=== PATIENT | male | born 1960 | race Caucasian/White ===

== ENCOUNTER → 2020-07-07 08:04 | Outpatient (CLI) | payer BC, MEDICARE, SELFPAY ==
[2020-07-07 12:12] LABS: Coronavirus 19 IgG Antibody Negative (Negative); Coronavirus 19 IgM Antibody Negative (Negative)
== END ==
PROVIDERS: Visit Provider Internal Medicine Gastroenterology
DX: Z01.818 Encounter for other preprocedural examination (principal); Z12.11 Encounter for screening for malignant neoplasm of colon
CPT/HCPCS: 36415; 86328

== ENCOUNTER 2020-07-08 11:06 | Day surgery (SDC) | payer BC, MEDICARE, SELFPAY ==
[2020-07-01 09:09] VITALS: BMI 25.8
[2020-07-08] VITALS (7 sets, daily range): BP systolic 96–155; BP diastolic 61–81; PULSE 57–74; RESP 18; TEMP 35.8–36.7; O2SAT 93–99
--- NOTE | 2020-07-08 12:41 | P.PN_ITS ---
[facility] Anesthesia Checklist - Patient Identification Patient Identification: Arm Band - Structural Data Admitted From: Home Planned Operative Procedure/s: colonoscopy Consent for Planned Operative Procedure(s) Verified: Yes Verified Documents: Surgical Consent, History and Physical - NPO Status Verified Time NPO: 00:00 - Additional verifications Anesthesia Reactions: No - Airway Assessment C-Spine Mobility Assessed: Yes (mp2) TMJ Mobility Assessed: Yes Dentition: Good Dentition - Neurological Assessment Level of Consciousness: Awake, Alert - Anesthesia Plan Anesthesia Risk discussed: Yes Anesthesia Plan: Verified ASA Class: II Anesthesia Type: MAC [facility] History I have reviewed the patient's past medical history: Yes Medical History: Reports:: Hiatal Hernia, Hyperlipidemia, Hypertension Denies:: Cancer, Diabetes Mellitus Type 1, Internal Pacemaker, MRSA, Seizures *Have you ever received a pneumonia vaccine?: No *Have you received a flu vaccine this season?: No Anesthesia experience/problems:: nac Laterality Cases: Right: Arthroscopy Shoulder Other Surgeries: Yes: Colonoscopy. No: Pacemaker Amputation: No Fractures: No - *Social History Last grade of school completed: High school graduate Smoking Status: Former smoker Alcohol Intake: never Substance Use Type: denies use *Occupational Status:: disabled *Travel in the last 8 weeks: None Family Hx:: No significant family history
--- NOTE | 2020-07-08 12:45 | P.PCN_ITS ---
[facility] Procedure Note Procedure Note:: Colonoscopy Procedure Report: Colonoscopy with cold snare polypectomy Endoscopist: Jayme Lawrence II, MD Referring physician: Martin Rendon MD Date of Procedure: July 08, 2020 Equipment: Olympus 180 variable stiffness pediatric colonoscope Sedation: MAC sedation Indication: Mr. Ham is a 60-year-old gentleman who is here for follow-up screening/surveillance colonoscopy. His last colonoscopy 9 or 10 years ago was normal. He reports no abdominal pain, weight loss, change in his bowel habits or rectal bleeding. He reports no family history of colon cancer. Procedure: Prior to the procedure, a history and physical exam was performed, and patient's medications and allergies were reviewed. The risks, benefits and alternatives of the sedation and procedure were discussed with the patient. All questions were answered and informed consent was obtained. The patient was brought to the procedure room. Patient identification and proposed procedure were verified by the physician and the nurse. The patient was placed in a left lateral decubitus position and the scope was passed under direct vision. Throughout the procedure, the patient's blood pressure, pulse, and oxygen saturations were monitored continuously. The colonoscopy was accomplished without difficulty. The patient tolerated the procedure well. Findings: On digital rectal examination there was normal rectal tone. There were no external hemorrhoids. Smooth, soft, mildly asymmetric without nodules. The colonoscope was introduced through the anal canal to the rectum and advanced to the cecum. The ileocecal valve and appendiceal orifice were identified. The scope was advanced a short distance into the ileum which appeared grossly normal. The scope was then withdrawn into the colon. The cecum was normal. There were 3 colon polyps (ascending x1 (10 mm), descending x1 (7 mm) and sigmoid x1 (5 mm)) which were all removed via cold snare polypectomy. There were scattered diverticuli throughout the colon but more predominantly in the descending and sigmoid colon (LEFT colon). The rectum itself was normal. Upon retroflexion within the rectum there were grade 1-2 internal hemorrhoids. The preparation was good throughout with [place] Preparation Score of 8 out of 9. The cecal time was 12 minutes. Impression: 1. Colonic polyps x3 2. Pandiverticulosis 3. Grade 1-2 internal hemorrhoids Plan: I will follow up the polyp pathology and recommend repeat colonoscopy again in 3-5 years based upon the polyp histology. I would encourage fiber supplementation on a long-term daily maintenance basis.
== END 2020-07-08 13:50 | disposition home or self-care (01) ==
LOC: OUTP 11:11
PROVIDERS: PCP Family Medicine; Visit Provider Internal Medicine Gastroenterology
PROC: 0DJD8ZZ Inspection of Lower Intestinal Tract, Via Natural or Artificial Opening Endoscopic (ICD-10-PCS; CPT 45378; principal; 2020-07-08 12:30)
DX: Z12.11 Encounter for screening for malignant neoplasm of colon (principal); K63.5 Polyp of colon; K57.30 Diverticulosis of large intestine without perforation or abscess without bleeding; K64.0 First degree hemorrhoids; I10 Essential (primary) hypertension; Z87.39 Personal history of other diseases of the musculoskeletal system and connective tissue; E78.5 Hyperlipidemia, unspecified
CPT/HCPCS: 45385

== ENCOUNTER → 2020-07-12 08:29 | Outpatient (CLI) | payer BC, MEDICARE, SELFPAY ==
[2020-07-12 09:02] LABS: Basophils % 0.5 % (0.1-2.0); Eosinophils # 0.2 K/mm3 (0.0-0.4); Eosinophils % 2.2 % (0.1-12.0); Hematocrit 45.7 % (42.0-52.0); Hemoglobin 15.5 g/dL (14.1-18.0); Lymphocytes # 2.3 K/mm3 (0.7-4.5); Lymphocytes % 33.6 % (10-50); Mean Corpuscular HGB Conc 33.9 g/dL (31.8-35.4); Mean Corpuscular Hemoglobin 31.7 pg (27.0-31.2); Mean Corpuscular Volume 93.4 fl (80-94); Mean Platelet Volume 8.5 fl (7.4-10.4); Monocytes # 0.4 K/mm3 (0.1-1.0); Monocytes % 5.5 % (1.7-9.3); Neutrophils % 58.2 % (37.0-80.0); Platelet Count 229 K/mm3 (142-424); Red Cell Distribution Width 13.3 % (11.5-17.5); White Blood Count 6.8 K/mm3 (4.8-10.8)
[2020-07-12 11:34] LABS: Anion Gap 12.4 mEq/L (5-15); Blood Urea Nitrogen 14 mg/dl (9-20); Calcium 9.7 mg/dl (8.4-10.2); Carbon Dioxide 27 mmol/L (22.0-30.0); Chloride 105 mmol/L (98-107); Estimated Glomerular Filt Rate 99 ml/min (>60); GFR (African American) 119 ML/MIN (>60); Glucose 97 mg/dl (74-100); Potassium 4.4 mmoL/L (3.5-5.1); Sodium 140 mmol/L (136-145)
[2020-07-12 13:02] LABS: Coronavirus 19 IgG Antibody Negative (Negative); Coronavirus 19 IgM Antibody Negative (Negative)
== END ==
PROVIDERS: Visit Provider Surgery
DX: Z01.818 Encounter for other preprocedural examination (principal); K40.20 Bilateral inguinal hernia, without obstruction or gangrene, not specified as recurrent
CPT/HCPCS: 36415; 80048; 85025; 86328

== ENCOUNTER 2020-07-13 07:59 | Day surgery (SDC) | payer BC, MEDICARE, SELFPAY ==
[2020-07-11 12:35] VITALS: BMI 25.8
[2020-07-13] VITALS (16 sets, daily range): BP systolic 118–163; BP diastolic 53–78; PULSE 56–101; RESP 14–26; TEMP 36.2–43; O2SAT 92–100
--- NOTE | 2020-07-13 08:37 | HMH.ANESCL ---
[facility] Anesthesia Checklist - Patient Identification Patient Identification: Arm Band, Verbal (Name & ) - Structural Data Admitted From: Home Planned Operative Procedure/s: ing. hernia Consent for Planned Operative Procedure(s) Verified: Yes Verified Documents: History and Physical - NPO Status Verified Time NPO: 00:00 - Chart Verification Results Verified: CBC, BMP - Additional verifications Patient : No Anesthesia Reactions: No Hx Blood Transfusions: No Blood Transfusion Reaction: No Cephalosporin Allergy: No Previous Colonoscopy: Yes - Cardiovascular Assessment Heart Sounds: S1 & S2 Pulse Strength: Baseline Pulse Rhythm: Regular Peripheral Edema: No - Airway Assessment C-Spine Mobility Assessed: Yes TMJ Mobility Assessed: Yes Dentition: Good Dentition - Neurological Assessment Level of Consciousness: Awake, Alert, Appropriate Hx Seizures: No Numbness or tingling in extremities: No - Anesthesia Plan Anesthesia Risk discussed: Yes Anesthesia Plan: Verified ASA Class: II Anesthesia Type: General [facility] History I have reviewed the patient's past medical history: Yes Medical History: Reports:: Hiatal Hernia, Hyperlipidemia, Hypertension Denies:: Cancer, Diabetes Mellitus Type 1, Diabetes Mellitus Type 2, Internal Pacemaker, MRSA, Seizures *Have you ever received a pneumonia vaccine?: Yes *Have you received a flu vaccine this season?: Yes Other Medical History: Denies: Blood Transfusion Reaction Anesthesia experience/problems:: none Laterality Cases: Right: Arthroscopy Shoulder Other Surgeries: Yes: Colonoscopy. No: Pacemaker Amputation: No Fractures: No - *Social History Last grade of school completed: High school graduate Smoking Status: Former smoker Alcohol Intake: never Substance Use Type: denies use *Occupational Status:: disabled *Travel in the last 8 weeks: None Family Hx:: No significant family history
--- NOTE | 2020-07-13 10:59 | HMH.OPNOTE ---
Date of procedure: 07/13/20 Pre-op Diagnosis:: Bilateral inguinal hernias Post-op Diagnosis:: Same Procedure performed:: Bilateral laparoscopic inguinal hernia repair (TEPP) with placement of Bard 3 DMax mesh bilaterally large sized Surgeon:: Angelo Moyer MD FUNDS DEVELOPMENT DIRECTOR:: Martin Cristina Anesthesia: GETObey Estimated blood loss (mL): 25 Clinical Note:: Patient is a very pleasant 60-year-old male referred by Dr. Rendon for left inguinal hernia. Patient states that he has had occasional bulge in the left groin area for about 1 year. However, it is become more severe and symptomatic with increasing size and increasing discomfort. He states that when he is lifting or coughing his symptoms are worse. He has not had any symptomatic issues on the right side. Of note, the patient is on Flomax. He has had some change in bowel habits with constipation. He underwent colonoscopy with Dr. Lawrence on July 08 and had a couple of polyps. Operative findings:: He had a moderately large direct and moderate indirect hernia on the left. There is a small to moderate indirect hernia on the right without any definite evidence of direct hernia on the right although the inguinal floor was rather attenuated and weakened. Operative note:: Patient was taken to the operating room. He was positioned in a supine position. General anesthesia was induced. Pool catheter was placed. Abdomen and perineal area were prepped and draped in the standard surgical fashion. Subumbilical skin incision was made. Dissection was carried down to the fascia which was rather deep. Anterior rectus fascia was incised to the left of the linea alba. Rectus muscles were retracted laterally. Preperitoneal space was entered. Dissecting balloon trocar was inserted and the preperitoneal space was dissected out. Dissecting balloon trocar was replaced with the structural balloon trocar. CO2 pneumo preperitoneum was achieved. A couple 5 mm trochars were inserted in the midline. Attention was first turned to dissection of the left side. There was immediately noted an obvious direct hernia defect. Amish's ligament was identified. Cord structures and iliac vessels and inferior epigastric vessels were identified. Dissection was carried out dissecting free the remainder of the contents from the direct hernia. Cord structures were dissected free from surrounding tissues. There was some herniated preperitoneal fat along the cord as an indirect hernia and there was a moderate size defect at the internal ring. Dissection was carried out laterally in the preperitoneal space for mesh placement. Next attention was turned to dissection on the right. A similar fashion Amish ligament was identified as were all previously noted landmarks. The cord structures were dissected free from surrounding tissues. There appeared to be some attenuation of the integrity of the floor of the inguinal canal but no definite defect noted. There was evidence of indirect hernia and there was a hernia sac which was dissected free from the proximal cord. Dissection was carried out laterally to allow for mesh placement. A large sized Bard 3D max mesh dedicated for the right side was inserted into the preperitoneal space. Is oriented intracorporeally to cover the iliopectineal orifice in its entirety. Next a large sized Bard 3D max mesh dedicated for the left side was inserted into the preperitoneal space. It was oriented intracorporeally to cover the iliopectineal orifice in its entirety. Repair appeared adequate bilaterally. There was good hemostasis. Trochars were then removed as CO2 pneumoperitoneum was evacuated. The posterior fascia at the umbilicus was opened to evacuate any intra-abdominal gas. Anterior fascia at the umbilical incision was closed with a couple of interrupted 0 Vicryl suture. Local anesthetic was infiltrated into all trocar sites as well as for bilateral inguinal nerve blocks. Skin incisions cl
--- NOTE | 2020-07-13 11:05 | P.PN_ITS ---
[facility] Anesthesia Record Part I Intake, IV Amount: 900 Estimated blood loss (mL): 5 Urine output (mL): 250 Blood Products used (#): none Blood Pressure: 129/62 SaO2: 93 Pulse Rate: 79 Respiratory Rate: 18 Temperature: 97.7 F Patient is:: Drowsy, Stable Stable to PACU at:: 11:03
--- NOTE | 2020-07-13 12:10 | HMH.ANESII ---
[facility] Anesthesia Record Part II Discharge Time: 11:33 Destination: Surgical Day Care (OP Surgery) PACU nurse assessment reviewed?: Yes Patient Condition:: Good Anesthesia Complications:: None Swallowing reflex intact?: Yes Cyanosis?: No Blood Pressure: 128/53 Pulse Rate: 75 Temperature: 97.2 F Mental Status: Alert & Oriented Pain level:: 3 Nausea and/or vomitting:: None Intake, IV Amount: 50
== END 2020-07-13 12:45 | disposition home or self-care (01) ==
LOC: OR 08:02
PROVIDERS: PCP Family Medicine; Visit Provider Surgery
PROC: (CPT 49650; principal; 2020-07-13 09:45)
DX: K40.20 Bilateral inguinal hernia, without obstruction or gangrene, not specified as recurrent (principal); I10 Essential (primary) hypertension; E78.5 Hyperlipidemia, unspecified; Z79.899 Other long term (current) drug therapy; Z87.39 Personal history of other diseases of the musculoskeletal system and connective tissue; Z87.891 Personal history of nicotine dependence
CPT/HCPCS: 49650; 96374; J2405; J2710

== ENCOUNTER 2020-07-13 20:07 | Emergency (ER) | payer BC, MEDICARE, SELFPAY ==
[2020-07-13 20:08] VITALS: BP 134/74; PULSE 81; RESP 16; TEMP 36.8; O2SAT 98; BMI 25.8
[2020-07-13 20:54] VITALS: BP 129/74; PULSE 81; RESP 16; TEMP 36.8; O2SAT 98
== END 2020-07-13 20:54 | disposition left against medical advice (07) ==
LOC: ER 20:18
PROVIDERS: Emergency Provider Emergency Medicine; PCP Family Medicine
DX: Z53.21 Procedure and treatment not carried out due to patient leaving prior to being seen by health care provider (principal)
CPT/HCPCS: 99211

== ENCOUNTER → 2022-09-11 18:35 | Outpatient (CLI) | payer MEDICARE, BC, SELFPAY ==
[2022-09-11 15:08] LABS: Basophils # 0.1 K/mm3 (0-0.2); Basophils % 0.8 % (0.1-2.0); Eosinophils # 0.1 K/mm3 (0.0-0.4); Eosinophils % 1.4 % (0.1-12.0); Hematocrit 46.1 % (42.0-52.0); Hemoglobin 15.2 g/dL (14.1-18.0); Lymphocytes # 1.9 K/mm3 (0.7-4.5); Lymphocytes % 22.3 % (10-50); Mean Corpuscular HGB Conc 32.9 g/dL (31.8-35.4); Mean Corpuscular Volume 94.4 fl (80-94); Mean Platelet Volume 9.7 fl (7.4-10.4); Monocytes # 0.4 K/mm3 (0.1-1.0); Monocytes % 4.4 % (1.7-9.3); Neutrophils # 6.2 K/mm3 (1.8-7.8); Neutrophils % 71.2 % (37.0-80.0); Platelet Count 252 K/mm3 (142-424); Red Blood Count 4.89 M/mm3 (4.60-6.20); Red Cell Distribution Width 13.3 % (11.5-17.5); White Blood Count 8.6 K/mm3 (4.8-10.8)
[2022-09-11 15:26] LABS: Alanine Aminotransferase 20 U/L (12-78); Albumin Level 4.5 g/dl (3.5-5.0); Albumin/Globulin Ratio 1.5 (1.1-1.8); Alkaline Phosphatase 105 U/L (38-126); Anion Gap 11.6 mEq/L (5-15); Aspartate Amino Transferase 26 U/L (17-59); Bilirubin,Total 0.5 mg/dl (0.2-1.3); Blood Urea Nitrogen 11 mg/dl (9-20); Calcium 9.3 mg/dl (8.4-10.2); Carbon Dioxide 26 mmol/L (22.0-30.0); Chloride 106 mmol/L (98-107); Chol/HDL Ratio 2.7 (1-3.5); Cholesterol 183 mg/dl (140-200); Estimated Glomerular Filt Rate 98 ml/min (>60); GFR (African American) 119 ML/MIN (>60); Glucose 96 mg/dl (74-100); HDL Cholesterol 68 mg/dl (40-60); Potassium 4.6 mmoL/L (3.5-5.1); Sodium 139 mmol/L (136-145); Total Protein,Serum 7.5 g/dl (6.3-8.2); Triglycerides 91 mg/dl (30-150); VLDL Cholesterol 18 mg/dL (0-40)
[2022-09-11 15:37] LABS: Direct LDL Cholesterol 83.41 mg/dL (100-129)
[2022-09-11 15:59] LABS: Prostate Specific Ag Screen 2.8 ng/ml (0.0-4.0); Thyroid Stimulating Hormone 1.07 uIU/mL (0.465-4.68)
[2022-09-18 06:05] LABS: Testosterone, Total, LC/MS 492 ng/dL (.)
== END ==
PROVIDERS: PCP Family Medicine; Visit Provider Family Medicine
DX: Z12.5 Encounter for screening for malignant neoplasm of prostate (principal); I10 Essential (primary) hypertension; E78.5 Hyperlipidemia, unspecified; M25.512 Pain in left shoulder
CPT/HCPCS: 80053; 80061; 84403; 84443; 85025; G0103

== ENCOUNTER → 2022-09-20 14:29 | Outpatient (CLI) | payer MEDICARE, BC, SELFPAY ==
--- NOTE | 2022-09-20 14:32 | CT_ITS ---
FINAL REPORT TECHNIQUE: Axial CT images of the chest were obtained without contrast. Low-dose protocol was utilized. This study was performed with techniques to keep radiation doses as low as reasonably achievable (ALARA). Individualized dose reduction techniques using automated exposure control or adjustment of mA and/or kV according to the patient's size were employed. CLINICAL HISTORY: lung cancer screening former smoker quit 1 year ago 1ppd x35 years when smoking COMPARISON: none FINDINGS: CT CHEST WITHOUT, LOW DOSE SCREENING CT Di Vol: 2.90 mGy DLP: 92.21 mGy*cm There is no axillary, mediastinal, or hilar adenopathy. The heart size is normal. There is no pleural or pericardial effusion. The lung windows show emphysema. There is mild scarring or atelectasis in the lung bases. No suspicious mass or nodule. Limited images of the upper abdomen remarkable. IMPRESSION: No suspicious mass or nodule. LR Category 1: 12 month follow-up low-dose chest CT is recommended. Reviewed, Interpreted and Dictated by Federico Lopez MD Transcribed by Sophia Izquierdo Authenticated and [facility]
== END ==
PROVIDERS: PCP Family Medicine; Visit Provider Family Medicine
DX: Z87.891 Personal history of nicotine dependence (principal); Z12.2 Encounter for screening for malignant neoplasm of respiratory organs
CPT/HCPCS: 71271

== ENCOUNTER → 2022-10-04 12:48 | Outpatient (CLI) | payer MEDICARE, BC, SELFPAY ==
--- NOTE | 2022-10-04 12:58 | XR_ITS ---
FINAL REPORT CLINICAL HISTORY: shoulder pain FINDINGS: Right shoulder Three views were obtained. There is no acute fracture or dislocation. There are mild hypertrophic changes of the AC joint. No soft tissue abnormality is identified. IMPRESSION: No acute process. Reviewed, Interpreted and Dictated by Rodriguez Goins MD Transcribed by Karina Reilly Authenticated and [facility]
== END ==
PROVIDERS: PCP Family Medicine; Visit Provider Orthopaedic Surgery
DX: M25.511 Pain in right shoulder (principal)
CPT/HCPCS: 73030

== ENCOUNTER → 2022-10-15 09:33 | Outpatient (CLI) | payer MEDICARE, BC, SELFPAY ==
--- NOTE | 2022-10-15 09:34 | MR_ITS ---
FINAL REPORT CLINICAL HISTORY: shoulder pain. NO INJURY OR TRAUMA. Weakness in arm. FINDINGS: Multiplanar MR imaging of the right shoulder was performed after the intra-articular injection of dilute gadolinium solution. There are postoperative changes from rotator cuff repair. There is a high-grade full-thickness tear of the distal supraspinatus tendon. There is a full-thickness tear of the superior distal subscapularis tendon. Contrast leakage is seen from the glenohumeral joint to the subacromial/subdeltoid bursa. There is mild AC joint arthrosis. There is abnormal contrast involving the posterior labrum consistent with a tear. The long head of the biceps tendon is not seen, question biceps tenotomy or biceps tenodesis. There is mild supraspinatus muscle atrophy and moderate subscapularis muscle atrophy. There is no evidence of fracture. No soft tissue mass or cyst is identified. IMPRESSION: High-grade full-thickness tear of the supraspinatus tendon with mild muscle atrophy. Full-thickness tear of the subscapularis tendon with moderate muscle atrophy. Posterior labral tear. Biceps tenotomy versus biceps tenodesis. Reviewed, Interpreted and Dictated by Angelo Spencer III, MD Transcribed by Karina Reilly Authenticated and . [facility]
--- NOTE | 2022-10-15 10:02 | IR_ITS ---
FINAL REPORT CLINICAL HISTORY: shouder pain...0.50 fluoro time FINDINGS: Arthrogram Right shoulder injection for MRI arthrogram HISTORY: Right shoulder pain. PROCEDURE: After informed consent was obtained, a time-out was performed. Utilizing local anesthesia and sterile technique, with direct fluoroscopic guidance, access to the joint was obtained . A small amount of contrast was injected to confirm needle tip location. Additional gadolinium contrast was injected. IMPRESSION: Status post injection for MRI arthrogram without immediate complication. Please see MRI report. FLUOROSCOPY TIME: 0.5 minutes Films reviewed , interpreted and dictated by Dr. Spencer Transcribed by Eric Perez PA-C. Reviewed, Interpreted and Dictated by Angelo Spencer III, MD Transcribed by POONAM Murrell Authenticated and . [facility]
== END ==
PROVIDERS: PCP Family Medicine; Visit Provider Orthopaedic Surgery
DX: M25.511 Pain in right shoulder (principal)
CPT/HCPCS: 20610; 23350; 73040; 73222

== ENCOUNTER → 2023-01-28 12:08 | Outpatient (CLI) | payer MEDICARE, BC, SELFPAY | PROVIDERS: PCP Nurse Practitioner; Visit Provider Nurse Practitioner | DX: J06.9 Acute upper respiratory infection, unspecified (principal); J40 Bronchitis, not specified as acute or chronic | CPT/HCPCS: 87635; C9803; U0003; U0005 ==

== ENCOUNTER → 2023-07-24 08:29 | Outpatient (CLI) | payer MEDICARE, BC, SELFPAY ==
[2023-07-24 19:35] LABS: Erythrocyte Sedimentation Rate 4 mm/hr (0-20)
[2023-07-24 19:37] LABS: Uric Acid 4.7 mg/dl (3.5-8.5)
[2023-07-26 12:28] LABS: RA Latex Turbid. <10.0 IU/mL (<14.0)
[2023-07-26 16:28] LABS: Antinuclear Antibodies, IFA Negative (.)
== END ==
PROVIDERS: PCP Family Medicine; Visit Provider Family Medicine
DX: M15.4 Erosive (osteo)arthritis (principal); M25.511 Pain in right shoulder
CPT/HCPCS: 84550; 85651; 86038; 86431

== ENCOUNTER → 2023-08-16 08:38 | Outpatient (CLI) | payer MEDICARE, BC, SELFPAY ==
[2023-08-16 17:55] LABS: Adenovirus,PCR Not Detected (NotDetected); Coronavirus 19, PCR Not Detected (NotDetected); Coronavirus 229E Not Detected (NotDetected); Coronavirus NL63 Not Detected (NotDetected); Coronavirus OC43 Not Detected (NotDetected); Coronovirus HKU1,PCR Not Detected (NotDetected); Human Metapneumovirus Not Detected (NotDetected); Influenza A, PCR Not Detected (NotDetected); Influenza AH1, 2009 Not Detected (NotDetected); Influenza AH1, PCR Not Detected (NotDetected); Influenza AH3,PCR Not Detected (NotDetected); Influenza B, PCR Not Detected (NotDetected); Parainfluenza 1, PCR Not Detected (NotDetected); Parainfluenza 2, PCR Not Detected (NotDetected); Parainfluenza 3, PCR Not Detected (NotDetected); Parainfluenza 4, PCR Not Detected (NotDetected); Respiratory Syncytial Virus Not Detected (NotDetected); Rhinovirus/Enterovirus Not Detected (NotDetected)
[2023-08-16 18:16] LABS: Basophils % 0.4 % (0.1-2.0); Eosinophils % 0.6 % (0.1-12.0); Hematocrit 44.4 % (42.0-52.0); Hemoglobin 14.7 g/dL (14.1-18.0); Lymphocytes % 14.5 % (10-50); Mean Corpuscular Volume 97.1 fl (80-94); Mean Platelet Volume 10.5 fl (7.4-10.4); Monocytes # 0.5 K/mm3 (0.1-1.0); Neutrophils # 5.3 K/mm3 (1.8-7.8); Neutrophils % 77.5 % (37.0-80.0); Platelet Count 156 K/mm3 (142-424); Red Blood Count 4.58 M/mm3 (4.60-6.20); Red Cell Distribution Width 13.8 % (11.5-17.5); White Blood Count 6.8 K/mm3 (4.8-10.8)
[2023-08-16 18:56] LABS: Alanine Aminotransferase 40 U/L (12-78); Albumin Level 3.8 g/dl (3.5-5.0); Albumin/Globulin Ratio 1.2 (1.1-1.8); Alkaline Phosphatase 117 U/L (38-126); Anion Gap 8.9 mEq/L (5-15); Aspartate Amino Transferase 49 U/L (17-59); Bilirubin,Total 0.7 mg/dl (0.2-1.3); Blood Urea Nitrogen 17 mg/dl (9-20); Calcium 8.6 mg/dl (8.4-10.2); Carbon Dioxide 23 mmol/L (22.0-30.0); Chloride 107 mmol/L (98-107); Estimated Glomerular Filt Rate 98 ml/min (>60); GFR (African American) 118 ML/MIN (>60); Globulin 3.1 g/dL (1.3-3.2); Glucose 112 mg/dl (74-100); Potassium 3.9 mmoL/L (3.5-5.1); Sodium 135 mmol/L (136-145); Total Protein,Serum 6.9 g/dl (6.3-8.2)
== END ==
LOC: LAB.DROPOF 08-17 08:39
PROVIDERS: PCP Family Medicine; Visit Provider Family Medicine
DX: Z53.21 Procedure and treatment not carried out due to patient leaving prior to being seen by health care provider; J06.9 Acute upper respiratory infection, unspecified; R50.9 Fever, unspecified; R53.83 Other fatigue; R09.81 Nasal congestion; R68.89 Other general symptoms and signs; R09.89 Other specified symptoms and signs involving the circulatory and respiratory systems
CPT/HCPCS: 80053; 85025; 87632; 87635

== ENCOUNTER 2024-01-14 15:15 | Emergency (ER) | payer MEDICARE, BC, SELFPAY ==
[2024-01-14 15:15] VITALS: BP 158/69; PULSE 77; RESP 20; TEMP 36.9; O2SAT 98; BMI 23.6
--- NOTE | 2024-01-14 15:19 | ED_ITS ---
<Statement entered by Magalie Callahan DO - 01/14/24 20:31> I was consulted by the ALECIA, and we discussed the complexity of the problems being addressed. I approved the treatment and management plan for this patient's care in the emergency department, thus performing a substantive portion of the medical decision making. Magalie Callahan DO Discharge Plan Disposition Patient Disposition: Home, Self-Care Condition: Good Prescriptions Prescriptions: No Action albuterol sulfate 90 mcg/actuation HFA aerosol inhaler 2 puff inhalation Q4-6H PRN (Reason: shortness of breath or wheezing) Qty: 8.5 0RF amlodipine-benazepril [Lotrel] 10-40 mg capsule 1 cap PO DAILY Qty: 90 3RF terbinafine HCl 250 mg tablet 250 mg PO QDAY 84 Days Qty: 84 0RF trazodone 150 mg tablet 150 mg PO HS PRN (Reason: insomnia) Qty: 90 3RF fluticasone propionate [Flonase Allergy Relief] 50 mcg/actuation spray,suspension 1 spray intranasal DAILY Qty: 16 2RF Rx Instructions: administer into each nostril levocetirizine [Xyzal] 5 mg tablet 5 mg PO DAILY Qty: 90 3RF Vraylar 1.5 mg capsule 1.5 mg PO DAILY Qty: 30 3RF ascorbic acid (vitamin C) 500 mg tablet 500 mg PO DAILY ergocalciferol (vitamin D2) [Drisdol] 1,250 mcg (50,000 unit) capsule 1,250 mcg PO WEEKLY Qty: 15 10RF meloxicam 15 mg tablet 15 mg PO DAILY Qty: 90 3RF tamsulosin 0.4 mg capsule See Rx Instructions .ROUTE .COMPLEX Qty: 90 3RF Dose Instruction: TAKE ONE (1) CAPSULE BY MOUTH ONCE DAILY Rx Instructions: TAKE ONE (1) CAPSULE BY MOUTH ONCE DAILY ropinirole 3 mg tablet 6 mg PO HS Qty: 180 3RF gabapentin 600 mg tablet 600 mg PO BID PRN (Reason: pain) Qty: 60 5RF Referrals Follow up/Referrals: Jonathan Hutchinson MD [Staff Physician] - See instructions Parker Rendon MD [Primary Care Provider] - See instructions Activity Restrictions/Add. Instructions Additional Instructions/Restrictions: Please follow-up with your PCP for ongoing evaluation for other causes. We have ruled out any serious or life-threatening causes but other potential causes can be ruled out as an outpatient. I have also referred you to cardiology for evaluation of low heart rate which also could be a potential cause of your confusion. Return to ER for any worsening signs or symptoms as needed. Clinical Impressions Clinical Impression: Bradycardia, Acute confusion, Hypoglycemia Instructions Patient Instructions: DI for Hypoglycemia, DI for Bradycardia Discharge ED Provider: Magalie Callahan General Adult HPI General Chief complaint: Weakness Stated complaint: sugar level 63 Time Seen by Provider: 01/14/24 15:17 History of Present Illness HPI narrative: Patient presents for evaluation of acute confusion and hypoglycemia. For the last week patient has had periods of confusion and irritability and he is aware of his confusion. It mainly consists of forgetting where he places things going to retrieve something and forgetting what he was going to retrieve on the way. Patient denies any loss of consciousness any trauma chest pain fever chills hemoptysis hematochezia melena nausea vomiting diarrhea. Patient does report that he has had frequent headaches over the last week. Patient's is a diabetic and she is checked his blood sugar periodically during these events and noted that he has had very low blood sugar and today it was in the 60s. They attempted to go to their PCP and they sent him to the emergency department for evaluation. Patient currently is awake alert and oriented with a Glascow coma score 15 with no headache and blood sugar on arrival was 93 on arrival here. Related Data Home Medications Medication Instructions Recorded Confirmed ascorbic acid (vitamin C) 500 mg 500 mg PO DAILY Supplement 06/09/20 01/10/24 tablet Previous Rx's Medication Instructions Recorded ergocalciferol (vitamin D2) 1,250 1,250 mcg PO WEEKLY #15 caps 11/07/20 mcg (50,000 unit) capsule (Drisdol) albuterol sulfate 90 mcg/actuation 2 puff inhalation Q4-6H PRN 01/28/23 aerosol inhaler shortness of breath or wheezing #8.5 grams tamsulosin 0.4 mg capsule See Rx Instructions .Route 04/26/23 .COMPLEX #90 caps ropinirole 3 mg tablet 6 mg (2 x 3 mg) PO HS #180 tabs 06/20/23 gabapentin 600 mg tablet 600 mg PO BID PRN pain #60 tabs 07/22/23 meloxicam 15 mg tablet 15 mg PO DAILY #90 tabs 07/24/23 amlodipine 10 mg-benazepril 40 mg 1 cap PO DAILY #90 caps 11/29/23 capsule (Lotrel) terbinafine HCl 250 mg tablet 250 mg PO QDAY 12 weeks #84 tabs 11/29/23 trazodone 150 mg tablet 150 mg PO HS PRN insomnia #90 tabs 11/29/23 cariprazine 1.5 mg capsule 1.5 mg PO DAILY #30 caps 01/10/24 (Vraylar) fluticasone propionate 50 1 spray intranasal DAILY #16 grams 01/10/24 mcg/actuation nasal spray,suspension (Flonase Allergy Relief) levocetirizine 5 mg tablet (Xyzal) 5 mg PO DAILY #90 tabs 01/10/24 Allergies Allergy/AdvReac Type Severity Reaction Status Date / Time No Known Allergies Allergy Verified 01/10/24 08:58 [facility] Disclaimer: The information contained in this section may have been updated after the patient was seen, as this information can be updated by other users. Medical History Shoulder pain Surgical History Status post arthroscopy of right shoulder Social History Smoking Status: Never smoker alcohol intake: never substance use type: denies use current occupational status: disabled Travel in the last 8 weeks: None housing: house caffeine: Yes ROS Obtained: Yes Systems reviewed as appropriate & no additional complaints except as documented Physical Exam General General appearance: alert and in no apparent distress Head Head exam: atraumatic and normal inspection Eye Eye exam: Present normal appearance, PERRL and EOMI; Absent nystagmus ENT ENT exam: Present normal exam, normal oropharynx, mucous membranes moist and TM's normal bilaterally Neck Neck exam: Present normal inspection and full ROM; Absent tenderness, meningismus or lymphadenopathy Chest Chest inspection: Present normal inspection and symmetric chest wall rise Respiratory Respiratory exam: Present normal lung sounds bilaterally; Absent respiratory distress Cardiovascular Cardiovascular exam: Present normal rhythm (Slow rate), bradycardia and normal heart sounds Abdominal Exam Abdominal exam: Present soft and normal bowel sounds; Absent tenderness, guarding, rebound or rigidity Extremities Exam Extremities exam: Present normal inspection and full ROM Back Exam Back exam: Present normal inspection and full ROM; Absent tenderness, CVA tenderness (R) or CVA tenderness (L) Neurological Exam Neurological exam: Present alert and oriented X3 Psychiatric Psychiatric exam: Present normal affect and normal mood Skin Skin exam: Present warm, dry and normal color Medical Decision Making Medical Records Medical records reviewed: Yes I reviewed the patient's medical records. Afshin Inquiry Pt receiving controlled substance: No Vital Signs: 01/14/24 15:15 01/14/24 15:30 01/14/24 16:02 Temperature 98.5 F Temperature Source Oral Pulse Rate 62 55 L Pulse Rate [Left Radial] 77 Respiratory Rate 20 Blood Pressure 157/81 H 120/48 L Blood Pressure [Right Arm] 158/69 H Blood Pressure Mean [Right Arm] 98 02 Sat by Pulse Oximetry 98 98 96 Oxygen Delivery Method 01/14/24 17:38 Temperature 98.5 F Temperature Source Oral Pulse Rate 50 L Pulse Rate [Left Radial] Respiratory Rate 18 Blood Pressure 156/76 H Blood Pressure [Right Arm] Blood Pressure Mean [Right Arm] 02 Sat by Pulse Oximetry Oxygen Delivery Method Room Air Lab Data Lab results reviewed: Yes I reviewed the patient's lab results. Lab Results 01/14/24 15:32: VBG pH 7.36, VBG pCO2 44.9, VBG pO2 44.7 H, VBG HCO3 24.6, VBG Total CO2 25.9, VBG O2 Saturation 79.6 H, VBG Base Excess -0.9, VBG Lactic Acid 1.0 01/14/24 15:51: WBC 7.6, RBC 3.93 L, Hgb 12.5 L, Hct 38.0 L, MCV 96.7 H, MCH 31.9 H, MCHC 33.0, RDW 13.6, Plt Count 242, MPV 8.2, Neut % (Auto) 61.6, Lymph % (Auto) 28.8, [place] % (Auto) 4.0, Eos % (Auto) 4.8, Baso % (Auto) 0.8, Neut # (Auto) 4.7, Lymph # (Auto) 2.2, [place] # (Auto) 0.3, Eos # (Auto) 0.4, Baso # (Auto) 0.1, PT 10.4, INR 0.96, Sodium 140, Potassium 4.3, Chloride 105, Carbon Dioxide 28, Anion Gap 11.3, BUN 14, Creatinine 0.80, Estimated GFR 98, Est GFR ( Amer) 118, Glucose 84, Hemoglobin A1c 5.4, Calcium 9.5, Magnesium 2.0, Total Bilirubin 0.2, AST 27, ALT 21, Alkaline Phosphatase 71, Troponin I < 0.01, Total Protein 7.0, Albumin 4.0, Globulin 3.0, Albumin/Globulin Ratio 1.3, TSH 1.20 01/14/24 16:30: Urine Color Yellow, Urine Appearance Clear, Urine pH 6.0, Ur Specific Red [place] 1.020, Urine Protein Negative, Urine Glucose (UA) Negative, Urine Ketones Negative, Urine Blood Negative, Urine Nitrate Negative, Urine Bilirubin Negative, Urine Urobilinogen 0.2, Ur Leukocyte Esterase Negative, Urine RBC None, Urine WBC None, Ur Squamous Epith Cells Occasional, Urine Bacteria Trace 01/14/24 15:51 01/14/24 15:51 Orders (Tests/Meds): ED MEDICATIONS Discontinued Medications Generic Name Dose Route Start Last Admin Trade Name Freq PRN Reason Stop Dose Admin Iopamidol 100 ml 01/14/24 16:39 01/14/24 16:40 Iopamidol-370 (76%);100ml Bottle IV 01/14/24 16:40 100 ml ONCE ONE Administration Sodium Chloride 10 ml 01/14/24 16:39 01/14/24 16:40 Sodium Chloride 0.9% 10ml Syr (Rad Only) IV 01/14/24 16:40 10 ml ONCE ONE Administration Sodium Chloride 50 ml 01/14/24 16:39 01/14/24 16:39 0.9 % Sodium Chloride 50 Ml Vial IV 01/14/24 16:40 50 ml ONCE ONE Administration ORDERS Category Date Time Status CT angio head Stat Cat Scan 01/14/24 15:[address] angio neck Stat Cat Scan 01/14/24 15:[address] head/brain wo con Stat Cat Scan 01/14/24 15:30 Completed CBC w/Auto Diff [Complete Blood Count Auto Diff] Stat Lab 01/14/24 15:51 Completed CMP [Comprehensive Metabolic Panel] Stat Lab 01/14/24 15:51 Completed Hemoglobin A1C Stat Lab 01/14/24 15:51 Completed INR [Prothrombin Time INR] Stat Lab 01/14/24 15:51 Completed Magnesium Stat Lab 01/14/24 15:51 Completed TSH [Thyroid Stimulating Hormone] Stat Lab 01/14/24 15:51 Completed Trop I [Troponin I] Stat Lab 01/14/24 15:51 Completed UA [Urinalysis and Microscopic] Stat Lab 01/14/24 16:30 Completed VBG [Venous Blood Gas] Stat RT 01/14/24 15:32 Completed Medical Decision Narrative: In summary patient is a 63-year-old male who presents to the emergency department for evaluation of acute confusion and hypoglycemia. Patient is hemodynamically stable upon arrival, afebrile. Physical exam is currently unremarkable and nonfocal including a Irving Coma Score 15 no current headache no meningeal mass no abdominal pain on palpation no flank pain.. Differential diagnosis includes stroke versus space-occupying lesion versus idiopathic hypoglycemia as patient is on no oral diabetic agents and does not carry a history of diabetes versus renal failure versus infection etc. Initial workup will be conducted with hematologic labs CT scan of the head and neck urinalysis. Initial interventions includ continuous pulse oximetry and continuous cardiac monitoring. Initial workup reviewed by me shows that his hematologic labs are nonactionable including normal white count negative troponin and my informal interpretation of his CT scan shows no acute stroke or mass with radiologist read pending. Upon repeat evaluation patient has had no return of his symptoms in the ER. Given this appropriate for discharge with close follow-up with his PCP for further investigation and also given there may be a cardiovascular cause such as hypoperfusion due to bradycardia will refer to cardiology for review and recommendations. Patient advised to continue to keep a check on his blood sugar. Critical Care Critical Care Time Critical Care Time: No
[2024-01-14 15:30] VITALS: BP 157/81; PULSE 62; O2SAT 98
--- NOTE | 2024-01-14 15:30 | CT_ITS ---
PROCEDURE INFORMATION: Exam: CTA Head With Contrast, Arteriography Exam date and time: 01/14/2024 4:31 PM Age: 63 years old Clinical indication: Other: Acute confusion TECHNIQUE: Imaging protocol: Computed tomographic angiography of the head with contrast. Exam focused on the arteries. 3D rendering (Not supervised by radiologist): MIP and/or 3D reconstructed images were created by the technologist. Radiation optimization: All CT scans at this facility use at least one of these dose optimization techniques: automated exposure control; mA and/or kV adjustment per patient size (includes targeted exams where dose is matched to clinical indication); or iterative reconstruction. Contrast material: ISOVUE 370; Contrast volume: 100 ml; Contrast route: INTRAVENOUS (IV); COMPARISON: CT HEAD/BRAIN WO CON 01/14/2024 4:28 PM FINDINGS: ANTERIOR CIRCULATION: Right internal carotid artery: Minimal calcification involving the right carotid siphon without significant stenosis. Right middle cerebral artery: No occlusion or significant stenosis. No aneurysm. Right anterior cerebral artery: Hypoplastic right A1 segment. Left internal carotid artery: Intracranial segment is patent with no significant stenosis. No aneurysm. Left middle cerebral artery: No occlusion or significant stenosis. No aneurysm. Left anterior cerebral artery: No occlusion or significant stenosis. No aneurysm. POSTERIOR CIRCULATION: Right vertebral artery: Right vertebral artery is dominant. 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 Basilar artery: No occlusion or significant stenosis. No aneurysm. Right posterior cerebral artery: No occlusion or significant stenosis. No aneurysm. Left posterior cerebral artery: No occlusion or significant stenosis. No aneurysm. IMPRESSION: No hemodynamically significant stenosis or large vessel occlusion.
--- NOTE | 2024-01-14 15:30 | CT_ITS ---
PROCEDURE INFORMATION: Exam: CTA Neck With Contrast Exam date and time: 01/14/2024 4:31 PM Age: 63 years old Clinical indication: Other: Acute confusion TECHNIQUE: Imaging protocol: Computed tomographic angiography of the neck with contrast. Exam focused on the cervical segments of the vasculature. 3D rendering (Not supervised by radiologist): MIP and/or 3D reconstructed images were created by the technologist. Radiation optimization: All CT scans at this facility use at least one of these dose optimization techniques: automated exposure control; mA and/or kV adjustment per patient size (includes targeted exams where dose is matched to clinical indication); or iterative reconstruction. Contrast material: ISOVUE 370; Contrast volume: 100 ml; Contrast route: INTRAVENOUS (IV); COMPARISON: CT ANGIO HEAD 01/14/2024 4:31 PM FINDINGS: Limitations: Patient motion. Limited by artifact arising from metallic dental hardware/dental amalgam. Right common carotid artery: No stenosis. No dissection or occlusion. Right internal carotid artery: No stenosis of the extracranial segment. No dissection or occlusion. Right external carotid artery: No occlusion or stenosis of the origin. Left common carotid artery: Atheromatous plaquing involving the left common carotid artery without hemodynamically significant stenosis. Left internal carotid artery: Calcification of the proximal left ICA without hemodynamically significant stenosis. Left external carotid artery: No occlusion or stenosis of the origin. Right vertebral artery: Right vertebral artery is dominant. Left vertebral artery: Left vertebral artery is diminutive. Aorta: Aortic calcification. Soft tissues: Normal. No significant soft tissue swelling. Bones/joints: There are degenerative changes involving the spine. Lungs: Pulmonary emphysema. IMPRESSION: No hemodynamically significant stenosis. REFERENCES: NASCET CRITERIA. The degree of stenosis in the cervical segment of the internal carotid artery is based on NASCET criteria. Normal is no stenosis. Mild is less than 50% stenosis. Moderate is 50-69% stenosis. Severe is 70% to 99% stenosis. Total occlusion is no detectable patent lumen.
--- NOTE | 2024-01-14 15:30 | CT_ITS ---
PROCEDURE INFORMATION: Exam: CT Head Without Contrast Exam date and time: 01/14/2024 4:28 PM Age: 63 years old Clinical indication: Other: Acute confusion TECHNIQUE: Imaging protocol: Computed tomography of the head without contrast. Radiation optimization: All CT scans at this facility use at least one of these dose optimization techniques: automated exposure control; mA and/or kV adjustment per patient size (includes targeted exams where dose is matched to clinical indication); or iterative reconstruction. COMPARISON: No relevant prior studies available. FINDINGS: Brain: No acute intracranial hemorrhage, midline shift or intracranial mass effect. No cerebral edema. Cerebral ventricles: No hydrocephalus. Paranasal sinuses: Visualized sinuses are unremarkable. No fluid levels. Mastoid air cells: Visualized mastoid air cells are well aerated. Bones: Unremarkable. No acute fracture. Soft tissues: Unremarkable. IMPRESSION: No acute intracranial abnormality.
--- NOTE | 2024-01-14 15:52 | PC.NURSE ---
Respiratory notified of VBG order and blood being sent to lab at this moment
[2024-01-14 15:59] LABS: Basophils # 0.1 K/mm3 (0-0.2); Basophils % 0.8 % (0.1-2.0); Eosinophils # 0.4 K/mm3 (0.0-0.4); Eosinophils % 4.8 % (0.1-12.0); Hemoglobin 12.5 g/dL (14.1-18.0); Lymphocytes # 2.2 K/mm3 (0.7-4.5); Lymphocytes % 28.8 % (10-50); Mean Corpuscular Hemoglobin 31.9 pg (27.0-31.2); Mean Corpuscular Volume 96.7 fl (80-94); Mean Platelet Volume 8.2 fl (7.4-10.4); Monocytes # 0.3 K/mm3 (0.1-1.0); Neutrophils # 4.7 K/mm3 (1.8-7.8); Neutrophils % 61.6 % (37.0-80.0); Platelet Count 242 K/mm3 (142-424); Red Blood Count 3.93 M/mm3 (4.60-6.20); Red Cell Distribution Width 13.6 % (11.5-17.5); White Blood Count 7.6 K/mm3 (4.8-10.8)
[2024-01-14 16:01] LABS: VBG Base Excess -0.9 mmol/L (-2.4-2.3); VBG HCO3 24.6 mmol/L (23-30); VBG Oxygen Saturation 79.6 % (50-70); VBG PCO2 44.9 mmol/L (35-51); VBG PH 7.36 mmol/L (7.31-7.41); VBG PO2 44.7 mmol/L (28-40); VBG Total CO2 25.9 mmol/L (23-27)
[2024-01-14 16:02] VITALS: BP 120/48; PULSE 55; O2SAT 96
--- NOTE | 2024-01-14 16:03 | ECG_ITS ---
APPROVED REPORT Exam: Resting ECG HR:57 bpm ECG Measurements Heart Rate 57 AXES QRSd 91 QRS 28 QT 418 T 18 QTc 412 Conclusion Sinus bradycardia with sinus arrhythmia and PACs. No acute ST changes concerning for ischemia. Electronically signed by : MARIANGEL DILL, 01/14/2024 22:43:31
[2024-01-14 16:11] LABS: Alanine Aminotransferase 21 U/L (12-78); Albumin/Globulin Ratio 1.3 (1.1-1.8); Alkaline Phosphatase 71 U/L (38-126); Anion Gap 11.3 mEq/L (5-15); Aspartate Amino Transferase 27 U/L (17-59); Bilirubin,Total 0.2 mg/dl (0.2-1.3); Blood Urea Nitrogen 14 mg/dl (9-20); Calcium 9.5 mg/dl (8.4-10.2); Carbon Dioxide 28 mmol/L (22.0-30.0); Chloride 105 mmol/L (98-107); Estimated Glomerular Filt Rate 98 ml/min (>60); GFR (African American) 118 ML/MIN (>60); Glucose 84 mg/dl (74-100); INR 0.96 (0.9-1.1); Potassium 4.3 mmoL/L (3.5-5.1); Prothrombin Time 10.4 seconds (10.1-12.5); Sodium 140 mmol/L (136-145)
[2024-01-14 16:23] LABS: Troponin I < 0.01 ng/ml (0.00-0.034)
[2024-01-14 16:36] LABS: Microscopic, Urine URINE MICROSCOPIC (MICROSCOPIC)
[2024-01-14 16:37] LABS: Appearance,Urine CLEAR (Clear); Bilirubin,Urine Negative (Negative); Blood, Urine Negative (Negative); Color,Urine YELLOW (Yellow); Glucose,Urine (UA) Negative (Negative); Ketones,Urine Negative (Negative); Leukocyte Esterase,Urine Negative (Negative); Nitrate,Urine Negative (Negative); Protein,Urine Negative (Negative); Urobilinogen,Urine 0.2 EU/dl (0.2)
[2024-01-14] MEDS: 0.9 % SODIUM CHLORIDE 50 ML VIAL IV (16:39)
[2024-01-14] MEDS: IOPAMIDOL-370 (76%);100ML BOTTLE 100 ML IV (16:40)
[2024-01-14] MEDS: SODIUM CHLORIDE 0.9% 10ML SYR (RAD ONLY) 10 ML IV (16:40)
[2024-01-14 16:55] LABS: Hemoglobin A1C 5.4 % (4.0-6.0)
[2024-01-14 16:59] LABS: Bacteria,Urine Trace /lpf; Squamous Epithelial Cell,Urine Occasional #/hpf (0-5)
[2024-01-14 17:38] VITALS: BP 156/76; PULSE 50; RESP 18; TEMP 36.9; O2SAT 98
== END 2024-01-14 17:40 | disposition home or self-care (01) ==
PROVIDERS: Physician Assistant; Emergency Provider Emergency Medicine; PCP Family Medicine
DX: R00.1 Bradycardia, unspecified (principal); R41.0 Disorientation, unspecified; E16.2 Hypoglycemia, unspecified
CPT/HCPCS: 70450; 70496; 70498; 80053; 81001; 82803; 83036; 83735; 84443; 84484; 85025; 85610; 93005; 99285; Q9967

== ENCOUNTER 2024-01-16 09:48 | Outpatient (CLI) | payer MEDICARE, BC, SELFPAY ==
[2024-01-16 18:59] LABS: Thyroid Stimulating Hormone 1.36 uIU/mL (0.465-4.68)
[2024-01-19 13:09] LABS: C-Peptide 3.2 ng/mL (1.1-4.4)
== END 2024-01-16 23:59 | disposition home or self-care (01) ==
LOC: LAB.DROPOF 01-17 09:49
PROVIDERS: PCP Family Medicine; Visit Provider Family Medicine
DX: R41.0 Disorientation, unspecified (principal); B34.9 Viral infection, unspecified; E07.9 Disorder of thyroid, unspecified; E16.2 Hypoglycemia, unspecified
CPT/HCPCS: 84443; 84681

== ENCOUNTER 2024-05-04 11:58 | Outpatient (CLI) | payer MEDICARE, BC, SELFPAY ==
[2024-05-04 19:52] LABS: Basophils # 0.1 K/mm3 (0-0.2); Basophils % 0.6 % (0.1-2.0); Eosinophils # 0.2 K/mm3 (0.0-0.4); Eosinophils % 2.1 % (0.1-12.0); Hematocrit 41.9 % (42.0-52.0); Hemoglobin 13.4 g/dL (14.1-18.0); Lymphocytes # 2.1 K/mm3 (0.7-4.5); Lymphocytes % 23.2 % (10-50); Mean Corpuscular HGB Conc 31.9 g/dL (31.8-35.4); Mean Corpuscular Hemoglobin 32.1 pg (27.0-31.2); Mean Corpuscular Volume 100.5 fl (80-94); Mean Platelet Volume 10.3 fl (7.4-10.4); Monocytes # 0.5 K/mm3 (0.1-1.0); Monocytes % 5.8 % (1.7-9.3); Neutrophils # 6.1 K/mm3 (1.8-7.8); Neutrophils % 68.3 % (37.0-80.0); Platelet Count 230 K/mm3 (142-424); Red Blood Count 4.17 M/mm3 (4.60-6.20); Red Cell Distribution Width 13.7 % (11.5-17.5); White Blood Count 8.9 K/mm3 (4.8-10.8)
[2024-05-04 20:31] LABS: Alanine Aminotransferase 20 U/L (12-78); Albumin Level 3.8 g/dl (3.5-5.0); Albumin/Globulin Ratio 1.3 (1.1-1.8); Alkaline Phosphatase 76 U/L (38-126); Anion Gap 7.2 mEq/L (5-15); Aspartate Amino Transferase 27 U/L (17-59); Bilirubin,Total 0.3 mg/dl (0.2-1.3); Blood Urea Nitrogen 15 mg/dl (9-20); Carbon Dioxide 26 mmol/L (22.0-30.0); Chloride 108 mmol/L (98-107); Estimated Glomerular Filt Rate 97 ml/min (>60); GFR (African American) 118 ML/MIN (>60); Glucose 81 mg/dl (74-100); Potassium 4.2 mmoL/L (3.5-5.1); Sodium 137 mmol/L (136-145); Total Protein,Serum 6.8 g/dl (6.3-8.2); Uric Acid 5.4 mg/dl (3.5-8.5)
== END 2024-05-04 23:59 | disposition home or self-care (01) ==
LOC: LAB.DROPOF 05-05 11:58
PROVIDERS: PCP Nurse Practitioner; Visit Provider Nurse Practitioner
DX: M79.641 Pain in right hand (principal)
CPT/HCPCS: 80053; 84550; 85025

== ENCOUNTER 2024-10-01 07:33 | Outpatient (CLI) | payer MEDICARE, BC, SELFPAY ==
--- NOTE | 2024-10-01 07:34 | CT_ITS ---
FINAL REPORT TECHNIQUE: The patient was injected with IV contrast. Axial images were obtained of the chest by computed tomography. Precontrast images were also obtained. This study was performed with techniques to keep radiation doses as low as reasonably achievable (ALARA). Individualized dose reduction techniques using automated exposure control or adjustment of mA and/or kV according to the patient's size were employed. CLINICAL HISTORY: cough, left lung wheezes, tobacco abuse COMPARISON: CT low-dose 09/20/2022 FINDINGS: CT OF THE CHEST WITH AND WITHOUT CONTRAST: The mediastinal vasculature is adequately opacified. There is no axillary adenopathy. There is no mediastinal or hilar adenopathy. Heart size is normal. There is no pericardial or pleural effusion identified. There is no suspicious pulmonary nodule or infiltrate identified. Limited images of the upper abdomen are unremarkable. IMPRESSION: No acute process. Reviewed, Interpreted and Dictated by Rodriguez Goins MD Transcribed by Sophia Izquierdo Authenticated and [facility]
[2024-10-01 07:54] LABS: Blood Urea Nitrogen 12 mg/dl (9-20); Estimated Glomerular Filt Rate 97 ml/min (>60); GFR (African American) 118 ML/MIN (>60)
[2024-10-01] MEDS: SODIUM CHLORIDE 0.9% 10ML SYR (RAD ONLY) 10 ML IV (08:17)
[2024-10-01] MEDS: IOPAMIDOL-370 (76%);100ML BOTTLE 75 ML IV (08:17)
== END 2024-10-01 23:59 | disposition home or self-care (01) ==
LOC: RAD 07:34
PROVIDERS: PCP Nurse Practitioner; Visit Provider Nurse Practitioner
DX: R06.2 Wheezing (principal); R05.9 Cough, unspecified
CPT/HCPCS: 36415; 71270; 82565; 84520; Q9967

== ENCOUNTER 2024-10-27 09:04 | Outpatient (CLI) | payer MEDICARE, BC, SELFPAY ==
[2024-10-27 09:51] LABS: Basophils # 0.1 K/mm3 (0-0.2); Basophils % 0.6 % (0.1-2.0); Eosinophils # 0.1 K/mm3 (0.0-0.4); Eosinophils % 1.5 % (0.1-12.0); Hematocrit 43.9 % (42.0-52.0); Hemoglobin 14.6 g/dL (14.1-18.0); Lymphocytes # 2.6 K/mm3 (0.7-4.5); Lymphocytes % 28.4 % (10-50); Mean Corpuscular HGB Conc 33.3 g/dL (31.8-35.4); Mean Corpuscular Hemoglobin 31.3 pg (27.0-31.2); Mean Corpuscular Volume 94.2 fl (80-94); Mean Platelet Volume 11.3 fl (7.4-10.4); Monocytes # 0.6 K/mm3 (0.1-1.0); Monocytes % 6.4 % (1.7-9.3); Neutrophils # 5.7 K/mm3 (1.8-7.8); Platelet Count 237 K/mm3 (142-424); Red Blood Count 4.66 M/mm3 (4.60-6.20); Red Cell Distribution Width 12.7 % (11.5-17.5); White Blood Count 9.2 K/mm3 (4.8-10.8)
[2024-10-27 10:10] LABS: Albumin Level 4.6 g/dl (3.5-5.0)
[2024-10-27 10:11] LABS: Chloride 103 mmol/L (98-107); Potassium 4.9 mmoL/L (3.5-5.1); Sodium 136 mmol/L (136-145)
[2024-10-27 10:13] LABS: Alanine Aminotransferase 30 U/L (12-78); Anion Gap 8.9 mEq/L (5-15); Aspartate Amino Transferase 25 U/L (17-59); Blood Urea Nitrogen 12 mg/dl (9-20); Carbon Dioxide 29 mmol/L (22.0-30.0); Estimated Glomerular Filt Rate 97 ml/min (>60); GFR (African American) 118 ML/MIN (>60)
[2024-10-27 10:14] LABS: Alkaline Phosphatase 85 U/L (38-126); Bilirubin,Direct 0.2 mg/dl (0.0-0.4); Bilirubin,Total 0.2 mg/dl (0.2-1.3); Calcium 10.1 mg/dl (8.4-10.2); Cholesterol 203 mg/dl (140-200); Glucose 64 mg/dl (74-100); Triglycerides 169 mg/dl (30-150); VLDL Cholesterol 34 mg/dL (0-40)
[2024-10-27 10:25] LABS: Direct LDL Cholesterol 61.22 mg/dL (100-129)
[2024-10-27 10:31] LABS: Free T4 (Free Thyroxine) 1.28 ng/dl (0.78-2.19)
[2024-10-27 10:40] LABS: HDL Cholesterol 104 mg/dl (40-60)
[2024-10-27 10:45] LABS: Thyroid Stimulating Hormone 1.41 uIU/mL (0.465-4.68)
== END 2024-10-27 23:59 | disposition home or self-care (01) ==
LOC: LAB 09:06
PROVIDERS: PCP Family Medicine; Visit Provider Physician Assistant
DX: I10 Essential (primary) hypertension (principal); R53.83 Other fatigue; I25.10 Atherosclerotic heart disease of native coronary artery without angina pectoris; R53.1 Weakness
CPT/HCPCS: 36415; 80048; 80061; 80076; 84439; 84443; 85025

== ENCOUNTER 2024-11-05 07:28 | Outpatient (CLI) | payer MEDICARE, BC, SELFPAY ==
--- NOTE | 2024-11-05 08:10 | CT_ITS ---
APPROVED REPORT Internal Grinder Set Up Operator: CLINICAL INDICATION Chest Pain TECHNIQUE Image Acquisition: A 128 slice MDCT scanner ([employer]ova[employer] Medical[employer] View) was used for data acquisition. A noncontrast coronary calcium scan was performed. A CT attenuation threshold of 130 Hounsfield units (HU) was used for the detection of calcium in contiguous voxels of 1 sq mm in area to be counted as individual lesions. Bolus tracking in the ascending aorta with a threshold of 180 HU was performed. Immediately afterwards, ECG synchronized cardiac CT was then performed from the cardiac base to apex using retrospective gating with ECG tube current modulation. A total of 85 mL of Isovue 370 mg/mL contrast medium was administered at 5 mL/sec followed by a saline flush using a biphasic injection protocol. A tube voltage of 120 KVp was used. The patient received the following medications prior to the cardiac CT. 25 mg of oral metoprolol 15 mg of oral ivabradine 0.8 mg of sublingual nitroglycerin The average heart rate at the time of acquisition was 59 bpm and regular. Image Reconstruction Transaxial images were reconstructed at 0.67 mm slide thickness. Data was reviewed interactively on an advanced workstation capable of 2 and 3-dimensional displays in all conventional reconstruction formats, including multiplanar reformations, maximum intensity projections, curved multiplanar reformations, and volume rendered reconstructions. When applicable, selected routine images describing the relevant coronary anatomy and pathology were saved and sent to PACS. Complications None Technical Quality Overall image quality was good. Coronary artery opacification was adequate. Total DLP (Dose-Length Product) is 1839.7 mGy-cm. The reported value represents the total of one or more individual components during the CT acquisition of this date and at this time, and as such, the same value may appear in more than one CT report depending on the interpreting/reporting physicians. COMPARISON None FINDINGS CT Coronary Calcium Scoring LMA (Left Main Artery) = 26 LAD (Left Anterior Descending) = 71 LCX (Left Coronary Circumflex) = 0 RCA (Right Coronary Artery) = 81 Total Calcium Score = 178 using the AJ-130 method. The observed calcium score of 178 is at 67th percentile for subjects of the same age, sex, and race/ethnicity. The interpretation of the calcium heart score is based on the following continuum*: 0 = no calcified plaque detected (risk of coronary artery disease is very low ??? less than 5%) 1-10 = calcium detected in extremely minimal levels (risk of coronary diseases is still low ??? less than 10%) 11-100 = mild levels of plaque detected with certainty (mild or minimal narrowing of heart arteries is likely) 101-400 = definite,at least moderate levels of plaque detected (relatively high risk of a heart attack within 3-5 years) >401-999 = extensive levels of plaque detected (high risk of heart attack, high levels of vascular disease are present, high likelihood of at least one significant coronary narrowing) *The calcium heart score quantifies the burden of coronary calcification/plaque in the coronary arteries. The calcium heart score is not able to evaluate the presence or burden of non-calcified (i.e. soft) plaque. There is no identifiable calcification in the aortic valve, mitral annulus or mitral valve, pericardium, or myocardium. Coronary CT Angiography The coronary arterial system is right dominant. Quantitative Stenosis Grading: Left Main (LM): The left main originates normally from the left sinus of Valsalva. The LM bifurcates into the left anterior descending artery and left circumflex artery. There is mixed calcified/noncalcified plaque in the mid LM segment, with no evidence of luminal stenosis. Left Anterior Descending (LAD) and Diagonal Branches: The LAD gives off 2 diagonal branch(es). There is mixed calcified/noncalcified plaque in the proximal LAD with up to 25-49% luminal stenosis. There is no evidence of LAD-myocardial bridge. Left Circumflex (LCX) and Obtuse Marginals (OM): The LCX gives off 1 Obtuse Marginal (OM) branch(es). The LCX and its branches are patent with no evidence of atherosclerosis. Right Coronary Artery (RCA): The RCA originates normally from the right sinus of Valsalva. The RCA gives off a posterior descending artery (PDA) and posterolateral (PL) branches. There is mixed calcified/noncalcified plaque along the RCA with up to 25-49% luminal stenosis. Non-Coronary Cardiac Findings: Analysis of the left ventricular (LV) structure and function was performed after 3-D reconstruction of the LV from axial images, with user-corrected automatic contouring for assessment of LV volumes and user-defined reconstruction from oblique planes for measurement of 3-D cardiac structure and function. -The left ventricle systolic function is normal. -There is no left atrial appendage filling defect. Two right pulmonary veins and two left pulmonary veins drain normally into the left atrium. -No pericardial thickening or calcification. -Central and branch pulmonary arteries in the [id number]-dc-trhr are unremarkable. -Thoracic aorta within the visualized thoracic aortic-branches in the [id number]-ya-[id number] is unremarkable. Extracardiac Structures No significant extra-cardiac findings. Note, however, that this study is focused on the cardiac findings. IMPRESSION -Presence of coronary calcification with an Agatston score = 178 using the AJ-130 method. -The observed calcium score of 178 is at 67th percentile for subjects of the same age, sex, and race/ethnicity. -Mild, nonobstructive atherosclerotic coronary disease is present, with no evidence of significant flow-limiting atherosclerosis of the coronary arteries. -CAD-RADS 2. Management recommendations per ACC/AHA guidelines*, as clinically appropriate. *Recommendations: CAD RADS 0: Reassurance. Consider non-atherosclerotic causes of chest pain. CAD RADS 1: Consider non-atherosclerotic causes of chest pain. Consider preventive therapy and risk factor modification. CAD RADS 2: Consider non-atherosclerotic causes of chest pain. Consider preventive therapy and risk factor modification, particularly for patients with nonobstructive plaque in multiple segments. CAD RADS 3: Consider further functional testing. Consider symptom-guided anti-ischemic and preventive pharmacotherapy as well as risk factor modification per published guideline statements. CAD RADS 4A: Consider further functional testing or invasive coronary angiography with revascularization per published guideline statements. Consider symptom-guided anti-ischemic and preventive pharmacotherapy as well as risk factor modification per published guideline statements. CAD RADS 4B: Invasive coronary angiography recommended with revascularization per published guideline statements. Consider symptom-guided anti-ischemic and preventive pharmacotherapy as well as risk factor modification per published guideline statements. CAD RADS 5: Consider invasive angiography and/or viability assessment with revascularization per published guideline statements. Consider symptom-guided anti-ischemic and preventive pharmacotherapy as well as risk factor modification per published guideline statements. CRITICAL RESULT None COMMUNICATION Per this written report The coronary and cardiac findings of this CCTA were reviewed, reported, and signed by Mayo Montano MD (Zinc Plate Cutter) Conclusion Electronically signed by : Madhavi Montano MD 11/09/2024 14:13:13
[2024-11-05 08:17] VITALS: BP 138/68; PULSE 55; RESP 16; O2SAT 96
[2024-11-05 08:30] VITALS: BP 119/68; PULSE 54; RESP 16; O2SAT 98
[2024-11-05] MEDS: IVABRADINE HCL 7.5MG TABLET 15 MG PO (08:44)
[2024-11-05] MEDS: METOPROLOL TARTRATE 25MG TABLET *IVABRADINE+METOPROLOL REGIMINE 25 MG PO (08:44)
[2024-11-05] MEDS: NITROGLYCERIN 0.4MG SL TABLET 0.8 MG SL (09:17)
[2024-11-05 09:20] VITALS: BP 101/56; PULSE 55; RESP 16; O2SAT 98
[2024-11-05 09:23] VITALS: BP 108/60; PULSE 54; RESP 16; O2SAT 98
[2024-11-05] MEDS: IOPAMIDOL-370 (76%);100ML BOTTLE 85 ML IV (09:24)
[2024-11-05] MEDS: 0.9 % SODIUM CHLORIDE 50 ML VIAL IV (09:24)
[2024-11-05] MEDS: SODIUM CHLORIDE 0.9% 10ML SYR (RAD ONLY) 10 ML IV (09:24)
== END 2024-11-05 08:37 | disposition home or self-care (01) ==
LOC: RT 07:29 → RAD 08:36
PROVIDERS: PCP Family Medicine; Visit Provider Physician Assistant
DX: I25.10 Atherosclerotic heart disease of native coronary artery without angina pectoris (principal); R53.83 Other fatigue; R06.02 Shortness of breath
CPT/HCPCS: 75574; 93306; Q9967

== ENCOUNTER 2024-11-11 09:05 | Outpatient (CLI) | payer MEDICARE, BC, SELFPAY ==
[2024-11-11 19:20] LABS: Creatinine,Urine Random 43 mg/dL (Not Estab.)
[2024-11-11 19:37] LABS: Microalbumin < 6.000 mg/L (0-16.7)
== END 2024-11-11 23:59 | disposition home or self-care (01) ==
LOC: LAB.DROPOF 11-12 10:14
PROVIDERS: PCP Nurse Practitioner; Visit Provider Nurse Practitioner
DX: I10 Essential (primary) hypertension (principal); Z12.5 Encounter for screening for malignant neoplasm of prostate
CPT/HCPCS: 82043; 82570; G0103

== ENCOUNTER 2025-01-22 07:53 | Outpatient (CLI) | payer MEDICARE, BC, SELFPAY ==
--- OUTSIDE RECORDS SUMMARY | 2024-04-16 13:14 | XMS_ITS | Continuity of Care Document ---
Author Name [facility] Organization [facility] Care Team Providers Care Product Craftsman Name Role Phone [facility] Unavailable Unavailable Problems Combined list of problems from Department of Defense and Veterans Affairs facilities. It does not include entries that were removed or entered in error. Problem Status Onset Date Problem Type Date of Resolution Comments Source Benign essential hypertension Active Condition [facility] CAD - Coronary Artery Disease (SCT [id number]) Active Condition [place] Restless legs Active Condition [place] Immunizations Combined list of available immunizations from the Department of Defense and Veterans Affairs facilities. Immunization Series Date Given Administered By Site Reaction Lot Number CVX Code Drug Library Serials Assistant Status Comments Source INFLUENZA, UNSPECIFIED FORMULATION 2021 88 complet ed [facility] L INFORMATI ON - FROM PATIENT'S RECALL, [place] [facility] INFLUENZA, INJECTABLE, QUADRIVALENT, PRESERVATIVE FREE 2020 150 complet ed [place] COVID-19 (PFIZER), MRNA, LNP-S, PF, 30 MCG/0.3 ML DOSE 3 2020 208 complet ed [place] COVID-19 (PFIZER), MRNA, LNP-S, PF, 30 MCG/0.3 ML DOSE 2 2020 208 complet ed [place] COVID-19 (PFIZER), MRNA, LNP-S, PF, 30 MCG/0.3 ML DOSE 1 2020 208 complet ed PFR; [id number]; 1 [place] [facility] INFLUENZA, INJECTABLE, QUADRIVALENT, PRESERVATIVE FREE 1 2016 150 complet ed [facility] INFORMATI ON - [facility] PNEUMOCOCCAL POLYSACCHARID E PPV23 1 2013 33 complet ed [facility] INFORMATI ON - FROM OTHER REGISTRY, [place] [facility] Encounters Combined list of: 1) Encounters from Department of Veterans Affairs facilities going backup to the last 18 months, not all VA inpatient encounters are included; 2) Encounters from the Department of Defense facilities going backup to 280 months. Location Location Details Encounter Type Encounter Number Reason For Visit Attending Provider ADM Date DC Date Status Disposition Source [facility] Outpatient Encounter [id number] 01/21 [facility] Outpatient Encounter [id number] 02/23 [facility] Clarence CASIMIRO Franco Outpatient Encounter [id number] 04/16 [facility] Social History Combined list of available smoking, tobacco, and other social history from Department of Defense and Veterans Affairs facilities. Social History Type Response Date Comment Sourc e Tobacco smoking status NHIS VA-TOBACCO USER EVERY DAY 03/26 [facility] History of tobacco use VA-TOBACCO USE WI 30 MIN OF WAKEUP 04/08/2023 [facility] History of tobacco use VA-TOBACCO FORMER USER 08/11/2021 [facility]
[2025-01-22 18:46] LABS: Erythrocyte Sedimentation Rate 1 mm/hr (0-20)
[2025-01-22 19:52] LABS: Uric Acid 4.2 mg/dl (3.5-8.5)
[2025-01-24 09:38] LABS: RA Latex Turbid. <10.0 IU/mL (<14.0)
--- OUTSIDE RECORDS SUMMARY | 2025-01-25 07:55 | XMS_ITS | Data Portability ---
Author Organization [facility] [place] Address [address] [place] [address] Assessment No assessment recorded. Plan of Treatment Reminders Order Date Submit Date Provider Last Modified By Organization Details Last Modified Time Details Appointments None recorded. Lab None recorded. Referral physical therapy shoulder referral 2017 018 [email or web address] Not available 8 11:06:14 physical therapy shoulder referral 2017 018 [email or web address] Not available 8 10:22:30 physical therapy shoulder referral 2017 018 [email or web address] Not available 8 10:40:06 Procedures None recorded. Surgeries None recorded. Imaging XR, cervical spine, 4 or 5 view 2017 018 [id number] Not available 2 03:33:20 Medication Orders None recorded. Patient TargetsNo targets recorded. Patient InstructionsNo instructions recorded. Reason for Referral Referring Physician: Toño Taylor, Orthopedic Surgery, Encounter Date: 09/11/2017 Referring Physician: Toño Taylor Orthopedic Surgery, Encounter Date: 11/20/2017 Referring Physician: Toño Taylor Orthopedic Surgery, Encounter Date: 12/19/2017 Results Created Date Observation Date Name Description Value Unit Range Abnormal Flag Note LastModifiedBy Organization Detail LastModifiedTime 10/15/19 18 10/15/2017 XR, cervi yusra spine , 4 or 5 view [place] [employer] [place] [address] [place] [address] Patien t Name: DENNISE adam : 960 Kristan adam 06 Orderi ng Provid er: KEN COTTO EXAM DATE: 2017 EXAM: XR CERVIC AL COMPLE TE CLINIC AL INFORM ATION: Neck pain IMAGES PROVID ED: Comple te radiog raphic series of the cervic al spine. COMPAR THERESA: None. FINDIN GS: Curvat ure, alignm ent, verteb ral body height s are normal . Multil evel disc space reduct ion is seen with anteri or and latera l osteop hytes. Forami na are well mainta ined and are normal . Facet joints are normal . No radiog raphic eviden ce of injury is noted. IMPRES CYNTHIA: Degene rative change s of the cervic al spine. Interp reted By: Caryn Stanford MD Electr onical ly Signed By: Caryn Stanford MD on 018 4:33 PM [id number] [facility] [place] [address], [place], [address], 03/01/2022 03:33:20 Result Notes None recorded. Problems No Known Problems Procedures Surgical History Date Name Laterality Status Provider Name and Address Organization Details Recorded Time 07/29/2017 Op Note completed TOÑO TAYLOR MD [address] [place], [address], [facility] 07/29/2017 14:59:08 Imaging Results None recorded. Procedure Notes None recorded. Medical Equipment None Reported. Allergies No known drug allergies Medications Name Sig Start Date Stop Date Status Note LastModified by Organization Details LastModified Time Percocet 7.5 mg-325 mg tablet 1-2 po q 4-6 hours prn surgical pain 10/15 completed Not Available Not Available Not Available Percocet 5 mg-325 mg tablet 1 PO q 8 hours prn surgical pain 2017 active Not Available Not Available Not Avai lable Alexis 5 mg-325 mg tablet Take 1 tablet every 6 hours by oral route as needed. 2017 active Not Available Not Available Not Avai lable Vitamin C active Not Available Not Emilia ilable Not Available losartan active Not Available Not Avai lable Not Available Percocet 10/15 completed Not Available Not Available Not Available timolol active Not Available Not Avail able Not Available Baby Aspirin active Not Available Not Available Not Available Multi Vitamin active Not Available Not Available Not Available Vitals Date Recorded Body height Body mass index (BMI) Body weight Systolic blood pressure Diastolic blood pressure Provider Name and Address Organization Details Last Updated DateTime 09/11/2017 172.72 cm 22.8 kg/m2 17951.86 g 146 mm[Hg] 78 mm[Hg] [facility] 8 10:43:31 Date Recorded Body height Body mass index (BMI) Body weight Systolic blood pressure Diastolic blood pressure Provider Name and Address Organization Details Last Updated DateTime 10/15/2017 172.72 cm 22.8 kg/m2 55516.86 g 138 mm[Hg] 80 mm[Hg] Elizabeth Timothy [facility] 8 14:12:48 Date Recorded Body height Body mass index (BMI) Body weight Systolic blood pressure Diastolic blood pressure Provider Name and Address Organization Details Last Updated DateTime 11/20/2017 172.72 cm 22.8 kg/m2 55885.86 g 142 mm[Hg] 80 mm[Hg] [facility] 8 12:06:19 Date Recorded Body height Body mass index (BMI) Body weight Systolic blood pressure Diastolic blood pressure Provider Name and Address Organization Details Last Updated DateTime 12/19/2017 172.72 cm 22.8 kg/m2 51765.86 g 168 mm[Hg] 93 mm[Hg] [facility] 8 09:56:53 Date Recorded Body height Body mass index (BMI) Body weight Systolic blood pressure Diastolic blood pressure Provider Name and Address Organization Details Last Updated DateTime 2018 172.72 cm 22.8 kg/m2 22723.86 g 160 mm[Hg] 82 mm[Hg] [facility] 8 10:27:47 Social History Question Answer Notes LastModified by Organizat ion Details LastModified Time Tobacco Smoking Status [facility] 13:24:22 What Was The Date Of Your Most Recent Tobacco Screening? 2018 Information n ot available 10/13/2019 Sex: Unknown Functional Status None recorded. Mental Status None recorded. Family History Nothing Reported. Medical History No medical history recorded. Past Encounters Encounter ID Performer Location Encounter Start Date Encounter Closed Date Diagnosis/Indication Diagnosis SNOMED-CT Code Diagnosis ICD10 Code Diagnosis Note [id number] TOÑO TAYLOR MD [facility] [address] [place] [address] 07/09/2017 13:11:23 07/09/2017 14:51:08 Full thickness rotator cuff tear 666439068 M75.121 traumatic large anterior superior rotator cuff tear With his age, activity level and significan t weakness I have recommende d arthroscop ic and possible open repair. Risks, benefits and alternativ es discussed. Informed consent was discussed with the patient. This included the risks of anesthesia , bleeding, nerve damage, infection, the need for further surgeries, disability and . Failure of the procedure and the need for appropriat e rehabilita tion were noted. Consent was confirmed. [id number] TOÑO TAYLOR MD SURGERY SCHEDULE [address] [place] [address] 07/29/2017 11:24:33 07/29/2017 11:26:21 [id number] JUANA COTTO PA-C [facility] [address] [place] [address] 08/02/2017 13:12:55 08/07/2017 16:11:54 Postoperative care [id number] Z48.89 Doing well 1 wk s/p RCRWill hold on PT at this timeRTO as scheduled or PRN [id number] TOÑO TAYLOR MD [facility] [address] [place] [address] 08/14/2017 15:42:56 08/15/2017 10:12:34 Postoperative care [id number] Z48.89 delayed rehab with massive etar [id number] TOÑO TAYLOR MD [facility] [address] [place] [address] 09/11/2017 10:23:50 09/11/2017 11:16:46 Postoperative care 173750401 Z48.89 delayed rehab with massive tearwean from slingbegin 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 ; 80# overhead [id number] JUANA COTTO PA-C [facility] [place] [address] [place] [address] 10/15/2017 13:38:03 10/16/2017 07:30:00 Postoperative care [id number] Z48.89 11 wks s/p massive traumatic cuff w/ delayed rehab initiation continues to have pain in shoulder and neck cervical XRs today show mild diffuse degenerati ve changes reports compliance with HEP, does have difficulty attending formal PT visits discussed various treatment options at length at this point I believe his pain may be attributed to stiffness continue PT & HEP, progressin g as tolerated counselled at length on precaution s & that massive cuff tears take longer to rehab patient will continue PT/OT, return to office in 6 wks for recheck, if no improvemen t at that time may need to order follow up imaging of shoulder to assess integrity of cuff repair RTO as scheduled or PRN [id number] TOÑO TAYLOR MD [facility] [address] [place] [address] 11/20/2017 11:28:20 11/20/2017 12:41:15 Postoperative care [id number] Z48.Faith Has been in delayed rehab with massive tear Unable to Work for foreseeabl e future 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 PT recommende d for function 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 ; 80# overhead [id number] TOÑO TAYLOR MD [facility] [address] [place] [address] 12/19/2017 09:51:22 12/19/2017 11:06:14 Postoperative care 432814560 Z48.89 Has been in delayed rehab with massive tear Unable to Work for foreseeabl e future 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 for 12 month post op PT recommende d for function 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 ; 80# overhead [id number] TOÑO TAYLOR MD [facility] [address] [place] [address] 2018 10:18:28 2018 11:38:57 Postoperative care 589147658 Z48.Faith Has been in delayed rehab with massive tear Unable to Work for foreseeabl e future 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 for 12 month post op PT recommende d for function 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 ; 80# overhead Health Concerns Section Related Observation LastModified by Organization Detai ls LastModified Time None Recorded Concern Status LastModified by Organization Details LastModified Time None Recorded Advance Directives Directive None Recorded Payers Insurance Date Sequence Insurance Name Policy Number Policy Freeman Covered Member ID Freeman Member ID Guarantor Name 07/20/2020 1 [place] DEANA OL[place] - [employer] EM[employer]EE [employer]GRAM 105 Karina Ham [id number] Dennise Ham Notes Date Note Type Note Provider Name and Address Organization Details Recorded Time 09/11/2017 text/html 6 weeks post massive RCRstruggling with cont pain- jm neck, upper trap TOÑO TAYLOR MD [address] [place], [address], [facility] 09/11/2017 11:05:42 10/15/2017 text/html 57 yo M presents today for 11 wk recheck s/p massive traumatic rotator cuff tear c/o continued pain in shoulder & new onset neck pain occasional numbness/tingling reports compliance with HEP, does have difficulty attending formal PT visits JUANA COTTO PA-C [address] [place], [address], 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 11/20/2017 12:30:22 12/19/2017 text/html he reports feeli ng OK, pain mild, in PTMark worked in [employer] moving [employer] for [employer] SURGERY DATE: July 29, 2017 PREOPERATIVE DIAGNOSIS: Right shoulder massive traumatic retracted tear of the subscapularis and supraspinatus POSTOPERATIVE DIAGNOSIS: The same with disruption of the long head biceps mirna PROCEDURE: Right shoulder arthroscopic and open repair of the supraspinatus and subscapularis with biceps tenodesis and limited debridement and subacromial decompression TOÑO TAYLOR MD [address] [place], [address], [facility] 12/19/2017 10:21:41 2018 text/html Dennise feels that he is not getting improvement , still sore daily, function limitedURGERY DATE: July 29, 2017 PREOPERATIVE DIAGNOSIS: Right shoulder massive traumatic retracted tear of the subscapularis and supraspinatus POSTOPERATIVE DIAGNOSIS: The same with disruption of the long head biceps mirna PROCEDURE: Right shoulder arthroscopic and open repair of the supraspinatus and subscapularis with biceps tenodesis and limited debridement and subacromial decompression TOÑO TAYLOR MD [address] [place], [address], [facility] 2018 10:56:54
[2025-01-26 11:12] LABS: Antinuclear Antibodies, IFA Negative (.)
== END 2025-01-22 23:59 | disposition home or self-care (01) ==
LOC: LAB.DROPOF 01-25 07:53
PROVIDERS: PCP Family Medicine; Visit Provider Family Medicine
DX: E78.49 Other hyperlipidemia (principal); I10 Essential (primary) hypertension; M79.89 Other specified soft tissue disorders
CPT/HCPCS: 84550; 85651; 86038; 86140; 86431

== ENCOUNTER 2025-02-10 08:57 | Outpatient (CLI) | payer MEDICARE, BC, SELFPAY ==
--- OUTSIDE RECORDS SUMMARY | 2025-02-10 03:06 | XMS_ITS | Continuity of Care Document ---
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 It does not include entries that were removed or entered in error. Problem Status Onset Date Problem Type Date of Resolution Comments Source Benign essential hypertension Active Condition [facility] CAD - Coronary Artery Disease (SCT 57737570) Active Condition [place] Restless legs Active Condition [place] Immunizations Combined list of available immunizations from the Department of Defense and Veterans Affairs facilities. Immunization Series Date Given Administered By Site Reaction Lot Number CVX Code Drug Application Designer Status Comments Source INFLUENZA, UNSPECIFIED FORMULATION 2021 [...] DOSE 1 2020 208 complet ed PFR; [id number]; 1 [place] [facility] INFLUENZA, INJECTABLE, QUADRIVALENT, PRESERVATIVE FREE 1 2016 150 complet ed HISTORICA L INFORMATI ON - FROM OTHER REGISTRY, [facility] PNEUMOCOCCAL POLYSACCHARID E [id number] 1 2013 [...] Date Status Disposition Source E[facility] Outpatient Encounter [id number] 01/21 [facility]FFER Outpatient Encounter [id number] 02/23 [facility] KIRKPATRICK I Outpatient Encounter [id number] 04/16 CAR AT Social History Combined list of available smoking, tobacco, and other social history from Department of Defense and Veterans Affairs facilities. Social History Type Response Date Comment Sourc e Tobacco smoking status NHIS VA-TOBACCO USER EVERY DAY 03/26 EH History of tobacco use VA-TOBACCO USE WI 30 MIN OF WAKEUP 04/08/2023 ISABELA History of tobacco use VA-TOBACCO FORMER USER 08/11/2021 E[facility] Plan of Care List of future care activities from Department of Veterans Affairs facilities. Additional future care activities may be listed in the Assessment and Plan section. Date/Time Care Activity Care Activity Detail Facili ty 02/22/2025 Laboratory - Chemistry Order OCC ULT BLOOD FIT X1 SCREEN([facility] ONLY) STOOL (CHEM/HEM) FECES SP ~VISN Mailed FIT Program Order, Kits will be mailed to [place]. [facility]
[2025-02-10 19:02] LABS: Alanine Aminotransferase 18 U/L (12-78); Albumin Level 3.7 g/dl (3.5-5.0); Alkaline Phosphatase 94 U/L (38-126); Aspartate Amino Transferase 18 U/L (17-59); Bilirubin,Direct 0.2 mg/dl (0.0-0.4); Bilirubin,Indirect 0.1 mg/dL (0.0-0.9); Bilirubin,Total 0.3 mg/dl (0.2-1.3); Bilirubin,Unconjugated 0.2 mg/dL (0.0-1.1); Chol/HDL Ratio 2.4 (1-3.5); Cholesterol 171 mg/dl (140-200); HDL Cholesterol 71 mg/dl (40-60); Total Protein,Serum 6.4 g/dl (6.3-8.2); Triglycerides 144 mg/dl (30-150); VLDL Cholesterol 29 mg/dL (0-40)
[2025-02-10 19:13] LABS: Direct LDL Cholesterol 70.48 mg/dL (100-129)
--- OUTSIDE RECORDS SUMMARY | 2025-02-11 08:20 | XMS_ITS | Data Portability ---
Author Organization [facility] Address [address] [place] [address] Assessment Encounter Date Assessment Date Assessment LastModified by Organization Details LastModified Time 12/28/2016 12/28/2016 COPD Depression Reviewed hospital notes Has cut back on smoking only has one occasionally Family history of heart disease [email or web address] Not available 12/28/2016 15:53:50 04/24/2017 04/24/2017 Patient states he has had pain in left shoulder off and on for several years Arthritis noted on joint line on xray today.Depo Medrol 120 mg IM Anisocoria Restless leg syndrome Rx Requip 1 mg po hs [email or web address] Not available 04/24/2017 14:45:22 05/07/2017 05/07/2017 Fell out of barn at hurt right shoulder. Reviewed Shoulder xray Rx Dixon 7.5 mg -325 mg 1 po 6-8 hours prn Toradol 60 mg [email or web address] Not available 05/07/2017 13:52:11 06/11/2017 06/11/2017 Right shoulder pain Scheduling MRI Referral to orthopedics Dr.Josh Hansen Refill Dixon 7.5 mg -325 mg 1 po BID-TID prn #15 Prostatitis [email or web address] Not available 06/11/2017 14:03:21 02/18/2018 02/18/2018 Surgery course reviewed MRI changes extensive Residual weakness ltd ROM terminated from job after injury CDL may be compromised (R) shoulder significant atrophy deltoid Bicep Skin polyp (R) buttocks will schedule excision Decreased acuity (L) [employer] exposure [employer] [place] [employer] 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 Lab hepatit is C Ab, signal- to-cuto ff, serum or plasma 2017 018 MINGO [facility], [address], Daniel F, [place], [address], 8 09:38:42 CBC w/ auto diff 2017 018 MINGO [facility], [address], [place] [address], [place], [address], 8 09:38:40 testost erone, total, serum 2017 018 MINGO [facility], [address], [address], [place], [address], 8 09:38:41 urinaly sis, dipstic k 2016 017 Replaced by [facility], [address] [place], [address], 7 13:43:18 PSA, serum or plasma 2016 017 sneus [facility], [address], [place] [address], [place], [address], 7 14:11:32 testost erone, total, serum 2016 017 sneus [facility], [address], [place] [address], [place], [address], 7 14:11:32 CMP, serum or plasma 2016 017 MINGO [facility], [address], [place] [address], [place], [address], 7 18:35:35 lipid panel, serum 2016 017 MINOG [facility], [address], [place] [address], [place], [address], 7 18:35:36 TSH, ultra-s ensitiv e, serum 2016 017 MINGO [facility], [address], Daniel [address], [place], [address], 7 18:35:37 testost erone, free + total, serum 2016 017 MINGO [facility], [address], Daniel [address], [place], [address], 7 18:35:37 Referral orthope dic referra l 2016 017 [email or web address] Juventino Hansen MD, [address] [place] [address] [place], [address], 7 08:40:48 Procedures None recorde d. Surgeries None recorde d. Imaging XR, shoulde r 2016 017 [email or web address] Not available 7 10:05:11 XR, shoulde r 2016 017 sneus Not available 7 13:39:31 Medication Orders Flomax 0.4 mg capsule 2016 017 on license of [id number], [address] [place], [address], 7 13:56:06 Dixon 7.5 mg-325 mg tablet 2016 017 [id number], [address] [place], [address], 7 11:21:05 Dixon 7.5 mg-325 mg tablet 2016 017 [id number], [address] [place], [address], 7 11:21:05 ketorol ac 60 mg/2 mL intramu scular solutio n 2016 017 [email or web address] Not available 7 20:31:47 Requip 1 mg tablet 2016 017 [facility]us [facility], [address] [place] [address], [address], 8 13:02:28 Depo-Me drol 40 mg/mL suspens ion for injecti on 2016 017 [email or web address] Not available 7 20:31:43 Depo-Me drol 80 mg/mL suspens ion for injecti on 2016 017 [email or web address] Not available 7 09:42:22 testost erone cypiona te 200 mg/mL intramu scular oil 2016 017 [email or web address] Not available 7 13:54:49 Patient TargetsNo targets recorded. Patient Instructions Encounter Date Encounter Id Patient Instructions Last Modified By Organization Details Last Modified Time 12/28/2016 [id number] chronic obstructive pulmonary disease (COPD): care instructions [email or web address] Not available 02/05/2017 13:03:08 learning about copd and how to prevent lung infections Not available 02/05/2017 13:03:09 04/24/2017 [id number] restless legs syndrome: care instructions [email or web address] Not available 04/24/2017 15:02:18 06/11/2017 [id number] shoulder pain: care instructions [email or web address] Not available 06/18/2017 16:02:32 02/18/2018 [id number] chronic obstructive pulmonary disease (COPD): care instructions [email or web address] Not available 02/18/2018 16:27:01 learning about copd and how to prevent lung infections sneus Not available 02/18/2018 16:27:01 Reason for Referral Orthopedic Referral for Pain of shoulder region Referring Physician: Parker Rendon, Family Medicine, Encounter Date: 06/11/2017 Results Created Date Observation Date Name Description Value Unit Range Abnormal Flag Note LastModifiedBy Organization Detail LastModifiedTime 06/11/2006/11/2017 urina lysis , dipst ick Leukocytes Negati ve Not Available [address] [place], [address], 06/11/2017 13:36:26 06/11/2006/11/2017 urina lysis , dipst ick Nitrite negati ve Not Available [address] [place], [address], 06/11/2017 13:36:26 06/11/2006/11/2017 urina lysis , dipst ick Urobilinogen .2 Not Available [address] [place], [address], 06/11/2017 13:36:26 06/11/2006/11/2017 urina lysis , dipst ick Protein Negati ve Not Available [address] [place], [address], 06/11/2017 13:36:26 06/11/2006/11/2017 urina lysis , dipst ick pH 6.5 Not Available [address] [place], [address], 06/11/2017 13:36:26 06/11/2006/11/2017 urina lysis , dipst ick Blood Negati ve Not Available [address] [place], [address], 06/11/2017 13:36:26 06/11/2006/11/2017 urina lysis , dipst ick Specific Jasper 1.020 Not Available [address] [place], [address], 06/11/2017 13:36:26 06/11/20 17 06/11/2017 urina lysis , dipst ick Ketone Negati ve Not Available [facility] [address] [place], [place] [address] [place], [address], 06/11/2017 13:36:26 06/11/20 17 06/11/2017 urina lysis , dipst ick Bilirubin Negati ve Not Available [address] [place], [address], 06/11/2017 13:36:26 06/11/2006/11/2017 urina lysis , dipst ick Glucose Negati ve Not Available [address] [place], [address], 06/11/2017 13:36:26 06/11/20 17 06/11/2017 urina lysis , dipst ick Appearance Clear Not Available [address] [place], [address], 06/11/2017 13:36:26 06/11/2006/11/2017 urina lysis , dipst ick Color Yellow Not Available [address] [place], [address], 06/11/2017 13:36:26 01/01/20 17 01/01/2017 CMP, serum or plasm a glucose, serum 96 mg/dL 65-99 Not Available [facility]) [address] [facility], [place], [address], 01/01/2017 18:35:35 01/01/20 17 01/01/2017 CMP, serum or plasm a BUN 15 mg/dL 6-24 Not Available [facility] ([facility]) [address] [facility], [place], [address], 01/01/2017 18:35:35 01/01/20 17 01/01/2017 CMP, serum or plasm a creatinine, serum 0.97 mg/dL 0.76-1 .27 Not Available [facility] ([facility]) [address] [facility] [place], [address], 01/01/2017 18:35:35 01/01/20 17 01/01/2017 CMP, serum or plasm a eGFR if nonafricn AM 87 mL/mi n/1.7 3 >59 Not Available [facility] ([facility]) [address] [facility] [place], [address], 01/01/2017 18:35:35 01/01/20 17 01/01/2017 CMP, serum or plasm a eGFR if africn AM 100 mL/mi n/1.7 3 >59 Not Available [facility] ([facility]) [address] [facility] [place], [address], 01/01/2017 18:35:35 01/01/20 17 01/01/2017 CMP, serum or plasm a BUN/creatini ne ratio 15 9-20 Not Available [facility] ([facility]) [address] [facility] [place], [address], 01/01/2017 18:35:35 01/01/20 17 01/01/2017 CMP, serum or plasm a sodium, serum 145 mmol/ L 134-14 4 above high normal Not Available [facility] ([facility]) [address] [facility] [place], [address], 01/01/2017 18:35:35 01/01/20 17 01/01/2017 CMP, serum or plasm a potassium, serum 5.1 mmol/ L 3.5-5. 2 Not Available [facility] ([facility]) [address] [facility] [place], [address], 01/01/2017 18:35:35 01/01/20 17 01/01/2017 CMP, serum or plasm a chloride, serum 103 mmol/ L 96-106 Not Available [facility] ([facility]) [address] [facility] [place], [address], 01/01/2017 18:35:35 01/01/2001/01/2017 CMP, serum or plasm a carbon dioxide, total 24 mmol/ L 18 Not Available [facility] ([facility]) [address] [facility] [place], [address], 01/01/2017 18:35:35 01/01/2001/01/2017 CMP, serum or plasm a calcium, serum 10.0 mg/dL 8.7-10 .2 Not Available [facility] ([facility] [address] [facility] [place], [address], 01/01/2017 18:35:35 01/01/2001/01/2017 CMP, serum or plasm a protein, total, serum 7.2 g/dL 6.0-8. 5 Not Available [facility] ([facility]) [address] [facility] [place], [address], 01/01/2017 18:35:35 01/01/20 17 01/01/2017 CMP, serum or plasm a albumin, serum 4.4 g/dL 3.5-5. 5 Not Available [facility] ([facility]) [address] [facility] [place], [address], 01/01/2017 18:35:35 01/01/20 17 01/01/2017 CMP, serum or plasm a globulin, total 2.8 g/dL 1.5-4. 5 Not Available [facility] ([facility]) [address] [facility] [place], [address], 01/01/2017 18:35:35 01/01/20 17 01/01/2017 CMP, serum or plasm a A/G ratio 1.6 1.2-2. 2 Not Available [facility] ([facility]) [address] [facility] [place], [address], 01/01/2017 18:35:35 01/01/20 17 01/01/2017 CMP, serum or plasm a bilirubin, total 0.3 mg/dL 0.0-1. 2 Not Available [facility] ([facility]) [address] [facility] [place], [address], 01/01/2017 18:35:35 01/01/20 17 01/01/2017 CMP, serum or plasm a alkaline phosphatase, S 89 IU/L 39-117 Not Available [facility] ([facility]) [address] [facility], [place], [address], 01/01/2017 18:35:35 01/01/20 17 01/01/2017 CMP, serum or plasm a AST (SGOT) 10 IU/L 0-40 Not Available [facility] ([facility]) [address] [facility], [place], [address], 01/01/2017 18:35:35 01/01/20 17 01/01/2017 CMP, serum or plasm a ALT (SGPT) 20 IU/L 0-44 Not Available [facility] ([place] [facility]) [address] [facility] [place], [address], 01/01/2017 18:35:35 01/01/20 17 01/01/2017 lipid panel , serum cholesterol, total 166 mg/dL 100-19 9 Not Available [facility] ([facility]) [address] [facility] [place], [address], 01/01/2017 18:35:36 01/01/2001/01/2017 lipid panel , serum triglyceride s 228 mg/dL 0-149 above high normal Not Available [facility] ([facility]) [address] [facility] [place], [address], 01/01/2017 18:35:36 01/01/20 17 01/01/2017 lipid panel , serum HDL cholesterol 72 mg/dL >39 Not Available [facility] [address] [facility] [place], [address], 01/01/2017 18:35:36 01/01/20 17 01/01/2017 lipid panel , serum VLDL cholesterol yusra 46 mg/dL 5-40 above high normal Not Available [facility] ([facility]) [address] [place], [address], 01/01/2017 18:35:36 01/01/20 17 01/01/2017 lipid panel , serum LDL cholesterol calc 48 mg/dL 0-99 Not Available [facility] ([facility]) [address] [place], [address], 01/01/2017 18:35:36 01/01/20 17 01/01/2017 lipid panel , serum comment: CLINICAL REVIEWER Not Available [facility] ([facility]) [address] [place], [address], 01/01/2017 18:35:36 01/01/20 17 01/01/2017 testo stero ne, free + total , serum testosterone , serum 335 NG/dL 348-11 97 below low normal Not Available [facility] ([facility]) [address] [place], [address], 01/01/2017 18:35:37 01/01/20 17 01/01/2017 testo stero ne, free + total , serum comment: COMMEN T ADULT MALE REFER ENCE INTER NEHEMIAH IS BASED ON A POPUL ATION OF LEAN MALES UP TO 40 YEARS OLD. Not Available [facility] ([facility]) [address] [place], [address], 01/01/2017 18:35:37 01/01/20 17 01/01/2017 testo stero ne, free + total , serum free testosterone (direct) 9.0 pg/mL 7.2-24 .0 Not Available [facility] ([facility]) [address] [place], [address], 01/01/2017 18:35:37 01/01/20 17 01/01/2017 TSH, ultra -sens itive , serum TSH 3.200 uIU/m L 0.450- 4.500 Not Available [facility] ([facility]) [address] [facility], [place], [address], 01/01/2017 18:35:37 06/11/2006/12/2017 testo stero ne, total , serum testosterone , serum 309 NG/dL 264-91 6 Adult male refer ence inter nehemiah is based on a popul ation of healt hy nonob sami males (BMI <30) betwe en 19 and 39 years old. Fred rome, et.al . JCEM 2017, 102;1 161-1 173. PMID: 38206 103. Not Available [facility] ([facility]) [address] [facility], [place], [address], 06/12/2017 06:37:13 06/11/20 17 06/12/2017 PSA, serum or plasm a prostate specific Ag, serum 3.2 NG/mL 0.0-4. 0 Eleonora ECLIA metho dolog y. Accor ding to the Ameri can Urolo gical Assoc iatio n, Serum PSA shoul d decre ase and remai n at undet ectab le level s after radic al prost atect romain. The AUA defin es bioch emica l recur rence as an initi al PSA value 0.2 ng/mL or great er follo wed by a subse quent confi rmato ry PSA value 0.2 ng/mL or great er. Value s obtai elodia with diffe rent assay metho ds or kits canno t be used inter kline eably . Resul ts canno t be inter prete d as absol yesenia evide nce of the prese nce or absen ce of [place] se. Not Available [facility] ([facility]) [address] [facility], [place], [address], 06/12/2017 06:37:13 02/20/20 18 2018 CBC w/ auto diff WBC 8.6 x10e3 /uL 3.4-10 .8 Not Available [facility] ([facility]) [address] [facility], [place], [address], 2018 09:38:40 02/20/20 18 2018 CBC w/ auto diff RBC 4.55 x10e6 /uL 4.14-5 .80 Not Available [facility] ([facility]) [address] [facility], [place], [address], 2018 09:38:40 02/20/20 18 2018 CBC w/ auto diff hemoglobin 14.5 g/dL 13.0-1 7.7 Not Available [facility] ([facility]) [address] [place], [address], 2018 09:38:40 02/20/20 18 2018 CBC w/ auto diff hematocrit 43.3 % 37.5-5 1.0 Not Available [facility] ([facility]) [address] [place], [address], 2018 09:38:40 02/20/20 18 2018 CBC w/ auto diff MCV 95 fL 79-97 Not Available [facility] ([facility]) [address] [place], [address], 2018 09:38:40 02/20/20 18 2018 CBC w/ auto diff MCH 31.9 pg 26.6-3 3.0 Not Available [facility] ([facility]) [address] [place], [address], 2018 09:38:40 02/20/20 18 2018 CBC w/ auto diff MCHC 33.5 g/dL 31.5-3 5.7 Not Available [facility] ([facility]) [address] [place] [address], [address], 2018 09:38:40 02/20/20 18 2018 CBC w/ auto diff RDW 13.4 % 12.3-1 5.4 Not Available [facility] ([facility]) [address] [place], [address], 2018 09:38:40 02/20/20 18 2018 CBC w/ auto diff platelets 227 x10e3 /uL 150-37 9 Not Available [facility] ([facility]) [address] [place], [address], 2018 09:38:40 02/20/20 18 2018 CBC w/ auto diff neutrophils 59 % not estab. Not Available [facility] ([facility]) [address] [place], [address], 2018 09:38:40 02/20/20 18 2018 CBC w/ auto diff lymphs 31 % not estab. Not Available [facility] ([facility]) [address] [place], [address], 2018 09:38:40 02/20/20 18 2018 CBC w/ auto diff monocytes 7 % not estab. Not Available [facility] ([facility]) [address] [place], [address], 2018 09:38:40 02/20/20 18 2018 CBC w/ auto diff eos 2 % not estab. Not Available [facility] ([facility]) [address] [place], [address], 2018 09:38:40 02/20/20 18 2018 CBC w/ auto diff basos 1 % not estab. Not Available [facility] ([facility]) [address] [place], [address], 2018 09:38:40 02/20/20 18 2018 CBC w/ auto diff immature cells CLINICAL REVIEWER Not Available [facility] [address] [place], [address], 2018 09:38:40 02/20/20 18 2018 CBC w/ auto diff neutrophils (absolute) 5.1 x10e3 /uL 1.4-7. 0 Not Available [facility] ([facility]) [address] [facility], [place], [address], 2018 09:38:40 02/20/20 18 2018 CBC w/ auto diff lymphs (absolute) 2.7 x10e3 /uL 0.7-3. 1 Not Available [facility] ([facility]) [address] [facility], [place], [address], 2018 09:38:40 02/20/20 18 2018 CBC w/ auto diff monocytes(ab solute) 0.6 x10e3 /uL 0.1-0. 9 Not Available [facility] ([facility]) [address] [facility], [place], [address], 2018 09:38:40 02/20/20 18 2018 CBC w/ auto diff eos (absolute) 0.2 x10e3 /uL 0.0-0. 4 Not Available [facility] ([facility]) [address] [facility], [place], [address], 2018 09:38:40 02/20/20 18 2018 CBC w/ auto diff baso (absolute) 0.0 x10e3 /uL 0.0-0. 2 Not Available [facility] ([facility]) [address] [facility], [place], [address], 2018 09:38:40 02/20/20 18 2018 CBC w/ auto diff immature granulocytes 0 % not estab. Not Available [facility] ([facility]) [address] [facility], [place], [address], 2018 09:38:40 02/20/20 18 2018 CBC w/ auto diff immature grans (abs) 0.0 x10e3 /uL 0.0-0. 1 Not Available [facility] ([facility]) [address] [place], [address], 2018 09:38:40 02/20/20 18 2018 CBC w/ auto diff NRBC CLINICAL REVIEWER Not Available [facility] ([facility]) [address] [place], [address], 2018 09:38:40 02/20/20 18 2018 CBC w/ auto diff hematology comments: CLINICAL REVIEWER Not Available [facility] ([facility]) [address] [place], [address], 2018 09:38:40 02/20/20 18 2018 testo stero ne, total , serum testosterone , serum 295 NG/dL 264-91 6 Adult male refer ence inter nehemiah is based on a popul ation of healt hy nonob sami males (BMI <30) betwe en 19 and 39 years old. Fred rome, et.al . JCEM 2017, 102;1 161-1 173. PMID: 90424 103. Not Available [facility] ([facility]) [address] [place], [address], 2018 09:38:41 02/20/20 18 2018 hepat itis C Ab, signa l-to- cutof f, serum or plasm a hep C virus Ab <0.1 s/co_ ratio 0.0-0. 9 Negat alysha: < 0.8 Indet ermin ate: 0.8 - 0.9 Posit alysha: > 0.9 The CDC recom mends that a posit alysha HCV antib prudence resul t be follo wed up with a HCV Nucle ic Acid Ampli ficat ion test (5507 13). Not Available [facility] ([facility]) [address] [place], [address], 2018 09:38:42 02/20/20 18 2018 bret rosas note please note Commen t The date and/o r time of colle ction was not indic ated on the requi sitio n as requi red by state and [place] law. The date of recei pt of the speci men was used as the colle ction date if not suppl ied. Not Available [facility] ([facility]) [address], [place], [address], 2018 09:38:43 12/26/19 17 XR, chest No observ ation record ed. [facility] , [place], [address], 01/11/2017 14:53:13 04/24/20 17 04/24/2017 XR, shoul sharon No observ ation record ed. [email or web address] Not Available 14:43:25 04/24/20 17 04/24/2017 XR, shoul sharon No observ ation record ed. [email or web address] Not Available 14:43:25 05/07/20 17 05/07/2017 XR, shoul sharon No observ ation record ed. [email or web address] Not Available 07/2017 13:35:06 06/24/20 17 06/24/2017 MRI, shoul sharon, w/o contr ast No observ ation record ed. [facility] , [place], [address], 02/18/2018 14:14:07 Result Notes None recorded. Problems Name Problem SNOMED Code Status Onset Date Resolution Date Notes Provider Name and Address Organization Details Recorded Time Primary erectile dysfunction 841179903 Active 2016 Karina Bobby [place], [place] - [facility] 7 11:17:26 Anisocoria 75547859 Active 2016 Nicole Gallenste in [place], [place] - [facility] 7 11:46:33 Restless legs 52252030 Active 2016 Nicole Gallenste in [place] brandt 7 11:47:46 Testosteron e level below reference range 714644422 Active 2016 [facility] Cr 7 12:48:21 Renewal of prescriptio n Completed 201602/18/2018 [facility] Cr 8 12:28:41 Delay when starting to pass urine 9847337 Active 2016 [facility] Cr 7 13:31:13 Chronic obstructive pulmonary disease 68982292 Active 2015 MARILYN Rodriguez 6 11:00:30 Cigarette smoker 13478584 Completed 201612/28/2016 MARILYN Cr 7 15:23:09 Problem Notes None recorded. Procedures Surgical History Date Name Laterality Status Provider Name and Address Organization Details Recorded Time Eye Surgery completed Nupur [facility] 08/15/2016 11:04:24 Imaging Results None recorded. Procedure Notes None recorded. Medical Equipment None Reported. Allergies No known drug allergies Medications Name Sig Start Date Stop Date Status Note LastModified by Organization Details LastModified Time Prescript ion - Renewal 10/07 completed RX Not Available Not Available Not Available bupropion HCl SR 150 mg tablet,12 hr sustained -release TAKE 1 TABLET BY MOUTH DAILY FOR 3 DAYS, THEN 1 TABLET 2 TIMES DAILY FOR SMOKING CESSATIO N. 02/18 completed Not Available Not Available Not Available ropinirol e 1 mg tablet TAKE 1 TABLET BY MOUTH AT BEDTIME active Not Available Not Available No t Available Depo-Medr ol 40 mg/mL suspensio n for injection one time only 06/26 completed Not Available Not Available Not Available azithromy deepali 250 mg tablet take 2 tablets (500 mg) by oral route once daily for 1 day then 1 tablet (250 mg) by oral route once daily for 4 days 10/26 completed Not Available Not Available Not Available hydrocodo ne 5 mg-acetam inophen 325 mg tablet 02/18 completed Not Available Not Available Not Available Celestone Soluspan 6 mg/mL suspensio n for injection Take 1 mL by injectio n route. 10/26 completed Not Available Not Available Not Available lisinopri l 20 mg tablet take 1 tablet (20 mg) by oral route once daily for 30 days 03/17 completed lisinopr il 20 mg oral tablet;R ecorded Status: Recorded on: 03/03/20 12 5:57PM;D iscontin ued Status: Disconti nued on: 03/17/20 12 3:43PM;U ser: neuss;Es t. Completi on: 08/30/19 13;Indic ation: Hyperten odalys - (07.4019 00) Not Available Not Available Not Available ondansetr on HCl 4 mg tablet 02/18 completed Not Available Not Available Not Available Medrol (Manjit) 4 mg tablets in a dose pack take as directed for 6 days 03/07 completed Medrol (Manjit) 4 mg oral tablets, dose pack;Pre scribe Status: Prescrib ed on: 09/15/19 16 2:13PM;D iscontin ued Status: Disconti nued on: 03/07/20 16 10:03AM; User: [email or web address];Cathy t. Completi on: 09/21/19 16;Pharm acyVrajesh ied: 09/15/19 16 2:13PM Not Available Not Available Not Available promethaz ine 6.25 mg-codein e 10 mg/5 mL syrup take 5 millilit ers by oral route every 6 hours as needed, not to exceed 30 mL in 24 hours for 7 days 03/07 completed prometha zine-cod eine 6.25-10 mg/5 mL oral syrup;Re corded Status: Recorded on: 09/15/19 16 2:12PM;D iscontin ued Status: Disconti nued on: 03/07/20 16 10:03AM; User: [email or web address];Es t. Completi on: 09/22/19 16 Not Available Not Available Not Available sulfameth oxazole 800 mg-trimet hoprim 160 mg tablet take 1 tablet by oral route 2 times per day for 10 02/18 completed Not Available Not Available Not Available Depo-Medr ol 80 mg/mL suspensio n for injection one time only 06/28 completed Not Available Not Available Not Available oxycodone -acetamin ophen 5 mg-325 mg tablet Take 1 tablet every 8 hours by oral route as needed. 02/18 completed Not Available Not Available Not Available Lamisil 250 mg tablet take 1 tablet (250 mg) by oral route once daily for 30 days 03/07 completed Lamisil 250 mg oral tablet;R ecorded Status: Recorded on: 08/08/20 15 9:41AM;D iscontin ued Status: Disconti nued on: 03/07/20 16 10:03AM; User: estee; EstCailin Trevino on: 10/07/19 16 Not Available Not Available Not Available tamsulosi n 0.4 mg capsule TAKE ONE CAPSULE BY MOUTH DAILY FOR URINE FLOW active Not Available Not Available No t Available benzonata te 100 mg capsule Take 1 capsule 3 times a day by oral route as needed for 10 days. 10/26 completed Not Available Not Available Not Available cephalexi n 500 mg capsule 08/15 completed Not Available Not Available Not Available Lincocin 300 mg/mL injection solution Take 1 mL by injectio n route. 10/26 completed Not Available Not Available Not Available nicotine 21 mg/24 hr daily transderm al patch Apply 1 patch every day by transder mal route. 02/18 completed Not Available Not Available Not Available Baby Aspirin 81 mg chewable tablet chew 1 tablet by oral route QD for 100 days do not take if you are allergic to aspirin or its componen ts, or have question s of gastroin testinal intolera nce 09/13 completed Baby Aspirin 81 mg oral tablet,victor hugo ramirez; Recorded Status: Recorded on: 09/09/19 12 2:30PM;U ser: neuss;Es t. Completi on: 09/13/19 15 Not Available Not Available Not Available Levaquin 500 mg tablet take 1 tablet (500 mg) by oral route once daily for 7 days 03/07 completed Levaquin 500 mg oral tablet;P rescribe Status: Prescrib ed on: 09/15/19 16 2:13PM;D iscontin ued Status: Disconti nued on: 03/07/20 16 10:03AM; User: Eulalia t. Completi on: 09/22/19 16;Pharm acyVerif ied: 09/15/19 16 2:13PM Not Available Not Available Not Available testoster one cypionate 200 mg/mL intramusc ular oil Inject 1 mL every 2 weeks by intramus cular route. 2017 active Not Available Not Available Not Avai lable oxycodone -acetamin ophen 7.5 mg-325 mg tablet 02/18 completed Not Available Not Available Not Available Dixon 7.5 mg-325 mg tablet 1 po bid to tid prn shoulder pain 06/28 completed Not Available Not Available Not Available ketorolac 60 mg/2 mL intramusc ular solution one time only 06/26 completed Not Available Not Available Not Available losartan 100 mg tablet TAKE 1 TABLET BY MOUTH EVERY DAY active Not Available Not Available No t Available BD Luer-Julio C Syringe 3 mL 21 gauge x 1 USE TO INJECT TESTOSTE SHERYL ONCE EVERY TWO (2) WEEKS active Not Available Not Available No t Available Lexapro 10 mg tablet TAKE 1 TABLET BY MOUTH EVERY DAY 04/21 completed Lexapro 10 mg oral tablet;P rescribe Status: Prescrib ed on: 08/23/20 14 10:27AM; Disconti nued Status: Disconti nued on: 04/21/20 15 11:40AM; User: latrell Not Available Not Available Not Available Voltaren one bid 04/21 completed voltaren 75 mg.;Onur rded Status: Recorded on: 11/15/19 15 10:00AM; Disconti nued Status: Disconti nued on: 04/21/20 15 11:40AM; User: estee; Est. Completi on: 01/14/20 15;Indic ation: shoulder - (-5) Not Available Not Available Not Available aspirin 81mg po qd active Not Available Not Available No t Available guaifenes in one tid 06/04 completed guifenes in 400 mg.;Onur rded Status: Recorded on: 12/23/19 14 3:59PM;D iscontin ued Status: Disconti nued on: 06/04/20 14 4:23PM;U ser: estee; Est. Completi on: 12/29/19 14;Indic ation: cough - (-5) Not Available Not Available Not Available prednison e as directed 04/21 completed predison e 5 mg.;Onur rded Status: Recorded on: 11/15/19 15 10:00AM; Disconti nued Status: Disconti nued on: 04/21/20 15 11:40AM; User: celestina Est. Completi on: 11/21/19 15;Indic ation: pain - (-5) Not Available Not Available Not Available Phenergan W/Codeine one tsp qid prn 06/04 completed phenerga n with codiene standard ;Recorde d Status: Recorded on: 12/23/19 14 3:59PM;D iscontin ued Status: Disconti nued on: 06/04/20 14 4:23PM;U ser: celestina Est. Completi on: 12/30/19 14;Indic ation: cough - (-5) Not Available Not Available Not Available Doxycycli ne one bid 06/04 completed doxycycl ine 100 mg.;Onur rded Status: Recorded on: 12/23/19 14 3:59PM;D iscontin ued Status: Disconti nued on: 06/04/20 14 4:23PM;U ser: celestina Est. Completi on: 01/02/20 14;Indic ation: pneumoni a - (-5) Not Available Not Available Not Available Lexapro one daily 04/21 completed lexapro 10 mg.;Onur rded Status: Recorded on: 06/06/20 14 1:57PM;D iscontin ued Status: Disconti nued on: 04/21/20 15 11:40AM; User: celestina Est. Completi on: 08/05/20 14;Indic ation: depress - (-5) Not Available Not Available Not Available Xyzal 5 mg tablet one daily 03/07 completed Xyzal 5 mg oral tablet;R ecorded Status: Recorded on: 04/20/20 15 1:51PM;D iscontin ued Status: Disconti nued on: 03/07/20 16 10:03AM; User: latrellJigna st. Trevino on: 05/04/20 15;Print ed: 04/20/20 15 Not Available Not Available Not Available Chantix Starting Month Box one daily 02/18 completed Not Available Not Available Not Available Fluarix Quad [id number] (PF) 60 mcg (15 mcg x 4)/0.5 mL IM syringe 02/18 completed Not Available Not Available Not Available Vitals Date Recorded Body height Body temperature Oxygen saturation Oxygen saturation in Arterial blood by Pulse oximetry Respiratory rate Heart rate Provider Name and Address Organization Details Last Updated DateTime 7 172.72 cm 98.6 [degF] 97 % 97 % 18 /min 84 /min Nicole Keene in [facility] 7 15:35:11 Date Recorded Body height Body mass index (BMI) Body weight Heart rate Respiratory rate Systolic blood pressure Diastolic blood pressure Provider Name and Address Organization Details Last Updated DateTime 8 172.72 cm 24.3 kg/m2 93574.7 8 g 76 /min 18 /min 120 mm[Hg] 82 mm[Hg] [facility] 8 12:29:24 Date Recorded Body height Body mass index (BMI) Body weight Heart rate Respiratory rate Systolic blood pressure Diastolic blood pressure Provider Name and Address Organization Details Last Updated DateTime 7 172.72 cm 24.8 kg/m2 16194.5 6 g 92 /min 18 /min 120 mm[Hg] 74 mm[Hg] [facility] 7 11:19:38 Date Recorded Body height Body mass index (BMI) Body weight Heart rate Respiratory rate Systolic blood pressure Diastolic blood pressure Provider Name and Address Organization Details Last Updated DateTime 7 172.72 cm 24.5 kg/m2 50336.3 7 g 96 /min 18 /min 124 mm[Hg] 78 mm[Hg] [facility] 7 12:47:24 Date Recorded Body height Body mass index (BMI) Body weight Heart rate Respiratory rate Systolic blood pressure Diastolic blood pressure Provider Name and Address Organization Details Last Updated DateTime 7 172.72 cm 23.9 kg/m2 63663 g 76 /min 18 /min 128 mm[Hg] 80 mm[Hg] Karina Bobby [place] - [facility] 7 13:33:33 Social History Question Answer Notes LastModified by Organizat ion Details LastModified Time Tobacco Smoking Status Current Some Day Smoker Karina brand[place], [place] - [facility] 12/28/2016 15:28:59 Able To Swim? Yes Information not available 08/15/2016 Do You Wear A Helmet When Biking? No Information not available 08/15/2016 Are You Blind Or Do You Have Difficulty Seeing? Yes Information not available 08/15/2016 What Is Your Level Of Caffeine Consumption? Moderate Information not available 08/15/2016 Are You Deaf Or Do You Have Serious Difficulty Hearing? No Information not available 08/15/2016 Which Illicit Or Recreational Drugs Have You Used? No Information not available 08/15/2016 Swimming/diving No Informati on not available 08/15/2016 Hard Of Hearing Or Deaf In One Or Both Ears? No Information not available 08/15/2016 Legally Blind In One Or Both Eyes? No Information no t available 08/15/2016 Live Alone Or With Others? With Others Information not available 08/15/2016 What Was The Date Of Your Most Recent Tobacco Screening? 02/18/2018 Information not available 03/18/2019 What Is Your Relationship Status? Information not available 08/15/2016 Seat Belts Used Routinely Yes Information not available 08/15/2016 Are You Sexually Active? Yes Information not available 08/15/2016 How Much Tobacco Do You Smoke? 1 PPW [email or web address] Information not available 12/28/2016 Do You Use Sunscreen Routinely? No Information not available 08/15/2016 Do You Have Difficulty Walking Or Climbing Stairs? No Information not available 08/15/2016 Sex: Unknown Functional Status Question Answer Note LastModified by Organizat ion Details LastModified Time What is your level of alcohol consumption? Occasional Information not available 08/15/2016 Are you currently employed? No Information not available 08/15/2016 Do you have difficulty doing errands alone? No Information not available 08/15/2016 Are you able to care for yourself? Yes Information not available 08/15/2016 Do you have difficulty dressing or bathing? No Information not available 08/15/2016 What is your exercise level? None Information not available 08/15/2016 Mental Status Question Answer Note LastModified by Organization D etails LastModified Time Do you have difficulty concentrating, remembering or making decisions? No Information no t available 08/15/2016 Family History Relationship Description Onset Age of this Age Resolved Age Notes LastModified by Organization Details LastModified Time Paternal Grandmother Alzheimer's disease Not available 2015 11:01:24 Paternal Grandmother Arthritis Not available 11:01:43 Paternal Grandfather Arthritis Not available 11:01:43 Paternal Grandfather Chronic obstructive pulmonary disease Not available 2015 11:02:41 Brother Kidney stone Not avai lable 08/15/2016 11:02:01 Unspecified Relation Disorder of cardiovascul ar system moms side Not available 08/15/2016 11:02:31 Unspecified Relation Myocardial infarction moms side Not available 08/15/2016 11:02:52 Mother Suicide Not available 08/15/2016 11:03:00 Medical History Condition Response COPD Y Vision or Eye Problems Y Immunizations Vaccine Type Date Status Note Provider Nam e and Address Organization Details Recorded Time Influenza, split virus, quadrivalent, preservative 7 completed MARILYN Rodriguez - [facility] 07/01/2017 09:24:28 Past Encounters Encounter ID Performer Location Encounter Start Date Encounter Closed Date Diagnosis/Indication Diagnosis SNOMED-CT Code Diagnosis ICD10 Code Diagnosis Note [id number] Zamzam Abarms APRN [facility] [address] [place] [address] 08/15/2016 10:47:56 08/15/2016 11:24:52 Upper respiratory infection 07694992 J06.9 [id number] Naresh Mims MD [address] [place] [address] 10/26/2016 10:18:48 10/26/2016 11:42:01 Chronic obstructive pulmonary disease 54074800 J44.9 Cigarette smoker 2825992 7 F17.083 [id number] Parker Rendon MD [address] [place] [address] 12/28/2016 14:48:02 12/31/2016 07:46:37 Chronic obstructive pulmonary disease 56565773 J44.9 Anxiety 75870723 F41.9 [id number] Parker Rendon MD [address] [place] [address] 04/24/2017 10:28:09 04/24/2017 12:20:56 Shoulder joint pain 092380519 M25.512 Testostero ne level below reference range 451544303 R79.89 Restless legs 78506381 G 25.81 [id number] Parker Rendon MD [address] [place] [address] 05/07/2017 12:17:01 05/07/2017 14:08:00 Shoulder joint pain 856130985 M25.512 M25.161 [id number] Parker Rendon MD [address] [place] [address] 06/11/2017 12:51:39 06/11/2017 14:06:35 Delay when starting to pass urine 3872513 R39.11 Pain of sh oulder region 30717928 M25.511 Testostero ne level below reference range 332589302 R79.89 Shoulder joint pain 2679 06256 M25.512 M25.824 [id number] Parker Rendon MD [address] [place] [address] 02/18/2018 11:06:49 02/18/2018 13:29:37 Arthritis 4917119 M19.90 Pain of joint 84850516 M 25.50 Testostero ne level below reference range 316022960 R79.89 Medication monitoring 39 3335673 Z51.81 Viral screening 93645550 4 Z11.59 Chronic ob structive pulmonary disease 72908401 J44.9 Health Concerns Section Related Observation LastModified by Organization Detai ls LastModified Time None Recorded Concern Status LastModified by Organization Details LastModified Time None Recorded Advance Directives Directive None Recorded Payers Insurance Date Sequence Insurance Name Policy Number Policy Freeman Covered Member ID Freeman Member ID Guarantor Name 08/30/2018 1 [place] [employer] [id number] [place] [id number] Luis Ham Notes Date Note Type Note Provider Name and Address Organization Details Recorded Time 12/29/19 17 text/htm l Anxiety/DepressionReported bypatient.Quality:symptoms worse in the evening Severity:denies suicidal ideations; able to maintain relationships;interference with sleep;interference with work Duration:frequent Onset/Timing:gradual; family history Context:company he works with [employer] but does have another job and 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 Associated Symptoms:denies homicidal ideations; no significant weight gain; no significant weight loss; no visual/auditory hallucinations; no delusions; no shortness of breath;depression;insomnia;so cial withdrawalCoronary Artery Disease F/UReported bypatient.Severity:no chest discomfort with daily activities; has not needed to use Nitroglycerin Context:non-smoker; quit 2 months ago MARILYN Zambrano - [facility] 02/05/2017 12:42:35 04/24/20 17 text/htm l Musculoskeletal PainReported bypatient.Location:left shoulder Quality:sharp Severity:worsening Duration:present for 1-6 months Timing:chronic with intermittent worsening Alleviating factors:rest Aggravating factors:movement/positioningS kin LesionReported bypatient.Location:buttocks Quality:painful; catches on clothing Severity:moderate Onset/Timing:gradual Context:irritation form clothing Associated Symptoms:no fever erectile dysfunction, requesting viagra also was to do labs for testosterone but ran out and didn't call with update MARILYN Hagan - [facility] 04/24/2017 14:45:58 05/07/20 17 text/htm l Musculoskeletal PainReported bypatient.Location:bilateral shoulder; severe right since fall Quality:sharp Severity:L shoilder the same--R shoulder severe since fall Duration:fell 05/04/17 at home/barn Timing:constant Context:trauma Alleviating factors:rest Aggravating factors:movement/positioning Associated Symptoms:weak limbs MARILYN Hagan - [facility] 05/07/2017 13:54:14 06/11/20 17 text/htm l Lower Urinary Tract Symptoms (LUTS)Reported bypatient.Location:prostate; bilateral Quality:hesitancy Severity:trouble initiating stream Onset/Timing:< 1 week Duration:constant Context:denies excessive fluid intake; denies excessive caffeine intake; recently on testosterone injections Associated Symptoms:no abdominal pain; no groin pain; no flank pain; no low back pain; no chills; no fever; no constipation;straining;hesita ncy;urgency mri pending on shoulder, to be done soon MARILYN Zambrano [facility] 06/18/2017 14:01:51 02/19/20 18 text/htm l COPDReported bypatient.Onset/Timing:chroni c: has not changed Duration:has noted for years Severity:mild Quality:symptoms do not vary with time of day Context:cigarette smoking Alleviating factors:relieved with bronchodilator Associated Symptoms:no snoring; no arousals from sleep; no decrease in exercise capacity; no fatigue; not coughing up sputum; no cough; no fever; no wheezing; no weight loss; no depressionMusculoskeletal PainReported bypatient.Location:chronic joint pain and intermittent back pain Quality:varies Severity:same Duration:present for >12 months; shoulder pain since surgery and stiffness with not much hope given for improvement Timing:chronic with intermittent worsening Context:medication prn Alleviating factors:rest; relieved by changing position Aggravating factors:movement/positioning; twisting Associated Symptoms:no fever;weak limbs; R arm has stiffness and weakness ADL (Activities of Daily Living)improve with medication f/u on testosterone level--has been off shot x 2 1/2 months MARILYN Hagan [facility] 02/18/2018 14:53:25
--- OUTSIDE RECORDS SUMMARY | 2025-02-11 08:20 | XMS_ITS | Clinical Summary ---
Author Organization [facility] Address [address] [place] [address] Phone Care Team Providers Care Assistant Buyer Name Role Phone Parker Rendon MD Primary Care Provider Allergies No known active allergies Medications ibuprofen (ADVIL;MOTRIN) 200 mg tablet Take by mouth every 8 hours as needed for Pain. Active [place]-3 Fatty Acids-Vitamin E (FISH OIL) 1,000 mg Cap Take 1,000 mg by mouth daily. Active MULTIVITAMIN W-MINERALS/LUTEI N (MULTI-ROWAN 50 & OVER ORAL) Take by mouth. Active Saw [place] 160 mg capsule Take 160 mg by mouth daily. Active losartan (COZAAR) 100 mg Oral Tablet Take 1 Tab by mouth daily. 30 Tab 3 12/26/2016 Active aspirin (ASPIRIN) 81 mg Oral Tablet, Chewable Take 1 Tab by mouth daily. 12/26/2016 Active metoprolol succinate (TOPROL-XL) 25 mg Oral Tablet Sustained Release 24 hrIndications:En counter to establish care,Abnormal stress test Take 1 Tablet by mouth daily. 30 Tablet 11 10/20/2024 Active Active Problems Problem Noted Date Diagnosed Date Coronary artery disease of n ative artery of [place] heart with stable angina pectoris 10/20/2024 Overview (10/20/2024): 50% LAD on cath in 2017 Former smoker 10/20/2024 Tachycardia 12/14/2013 Pneumonia 12/14/2013 Leukocytosis 12/14/2013 Hematuria 12/14/2013 CAMPA (dyspnea on exertion) 12/14/2013 Dehydration 12/14/2013 Acute renal failure 12/14/2013 Precordial pain FH: CAD (coronary artery disease) Abnormal stress test Immunizations Immunization Administration Dates Next Due Pneumococcal Polysaccharide 23 Valent 12/14/2013 Medical History Medical History Date Comments Hypertension Acute renal failure 12/14/2013 Social History Tobacco Use Types Packs/Day Years Used Date Smoking Tobacco: Former Cigarettes 1.5 40 0 11/02/1976 - 11/02/2016 Tobacco Cessation:Counseling Given: Not Answered Alcohol Use Standard Drinks/Week Comments No 0 (1 standard drink = 0.6 oz pur e alcohol) Sex and Gender Information Value Date Recorded Sex Assigned at Not on file Legal Sex Male 5:12 PM EDT Gender Identity Not on file Sexual Orientation Not on file Obstetrics History Last Filed Vital Signs Vital Sign Reading Time Taken Comments Blood Pressure 128/64 10/20/2024 1:06 PM EST Pulse 94 10/20/2024 1:06 PM EST Temperature 36.7 C (98.1 F) 11/12/2023 5:54 PM EDT Respiratory Rate 16 11/12/2023 5:54 PM EDT Oxygen Saturation 98% 10/20/2024 1:06 PM EST Inhaled Oxygen Concentration - - Weight 74.6 kg (164 lb 6.4 oz) 10/20/2024 1:06 P M EST Height 172.7 cm (5' 8 ) 10/20/2024 1:06 PM EST Body Mass Index 25 10/20/2024 1:06 PM EST Plan of Treatment Upcoming Encounters Date Type Department Care Team (Late st Contact Info) Description 04/29/2025 10:30 AM EDT Office Visit SEP H&V NPTFTT [address] [place] [address] Ford Gaitan MD [address] [place] [address] Health Maintenance Due Date Last Done Comments Wellness Exam Medicare 02/18/1963 Hepatitis C Screening 02/18/1978 DTaP/TDaP/Td (1 - Tdap) 02/18/1979 Cologuard 02/18/2005 FIT 02/18/2005 Sigmoidoscopy 02/18/2005 Virtual Colonography 02/18/2005 Zoster (1 of 2) 02/18/2010 Low Dose Lung Cancer Screening 12/12/2014 12/12/2013 Pneumococcal Vaccine 50+ (2 of 2 - PCV) 12/14/2014 12/14/2013 Colon Cancer Screening 04/10/2020 Colonoscopy 04/10/2020 04/10/2010 COVID-19 Vaccine ( season) 2024 07/05/2021, 10/03/2020, 09/12/2020 Influenza Vaccine Completed 06/12/2024, , 08/11/2021, Additional history exists Hepatitis B Vaccine Aged Out No longe r eligible based on patient's age to complete this topic Meningococcal B Vaccine Aged Out No l onger eligible based on patient's age to complete this topic Procedures Procedure Name Priority Date/Time Associated Diagnosis Comments CT ANGIOGRAM CHEST W CONTRAST STAT 12/12/2013 5:43 AM EDT GMED COLONOSCOPY Routine 04/10/2010 12:0 0 AM EDT from Last 3 Months or Most Recently Relevant to Health Maintenance Results * CT ANGIOGRAM CHEST W CONTRAST (12/12/2013 5:43 AM EDT) Anatomical Region Laterality Modality Chest Computed Tomogra phy Impressions 12/12/2013 5:50 AM EDT IMPRESSION: 1. The pulmonary arteries contain no filling defects to indicate an acute or chronic pulmonary embolism. 2. Extensive consolidation throughout the right upper lobe, and to a lesser extent the right middle lobe, most likely represents pneumonia. Radiographic followup to resolution is recommended. 3. Small right pleural effusion. Narrative 12/12/2013 5:50 AM EDT CLINICAL HISTORY: Shortness of breath and fever COMPARISON: Chest x-ray from today. TECHNIQUE: CT ANGIOGRAM CHEST W WO CONTRAST on Dec 12, 2013 05:44:24 AM. 75 mL of intravenous Isovue-370 was administered. For optimization of anatomic evaluation, advanced 3D off-line post-processing was performed at an independent workstation by the physician. This included multi-planar reconstruction and maximum intensity projections FINDINGS: The pulmonary arteries contain no filling defects to indicate an acute or chronic pulmonary embolism. There is extensive and dense consolidation throughout the right upper lobe. Consolidation is also noted within the medial segment of the right middle lobe. The left lung is clear. There is a small right pleural effusion. The tracheobronchial tree is patent. There is no pneumothorax. The heart size is normal and there is no pericardial effusion. The aorta and pulmonary arteries are normal. Enlarged mediastinal and hilar lymph nodes are likely reactive. The included thyroid gland and esophagus are normal and there is no hiatal hernia. The upper abdomen is unremarkable. The osseous structures are normal. Procedure Note Rashaun Erickson MD - 12/12/2013 CLINICAL HISTORY: Shortness of breath and fever COMPARISON: Chest x-ray from today. TECHNIQUE: CT ANGIOGRAM CHEST W WO CONTRAST on Dec 12, 2013 05:44:24 AM.75 mL of intravenous Isovue-370 was administered. For optimization of anatomic evaluation,advanced 3D off-line post-processing was performed at an independent workstation by thephysician. This included multi-planar reconstruction and maximum intensity projections FINDINGS: The pulmonary arteries contain no filling defects to indicate anacute or chronic pulmonary embolism. There is extensive and dense consolidation throughout the right upperlobe. Consolidation is also noted within the medial segment of the right middle lobe. The leftlung is clear. There is a small right pleural effusion. The tracheobronchial tree is patent.There is no pneumothorax. The heart size is normal and there is no pericardial effusion. The aortaand pulmonary arteries are normal. Enlarged mediastinal and hilar lymph nodes are likelyreactive. The included thyroid gland and esophagus are normal and there is no hiatalhernia. The upper abdomen is unremarkable. The osseous structures are normal. IMPRESSION: 1. The pulmonary arteries contain no filling defects to indicate an acuteor chronic pulmonary embolism. 2. Extensive consolidation throughout the right upper lobe, and to alesser extent the right middle lobe, most likely represents pneumonia. Radiographic followup toresolution is recommended. 3. Small right pleural effusion. us Tacho Mojica MD IM CT ORDERABLES Final Resul t * GMED COLONOSCOPY (04/10/2010 12:00 AM EDT) 04/10/2010 Impressions [facility]ULK[facility]IR[facility] - 08/28/2012 1:32 PM EST Diverticulosis of the whole colon Otherwise normal colonoscopy to cecum Narrative [facility]IR[facility] - 08/28/2012 1:32 PM EST Performing Provider: Jason Candelario M.D. Referring Provider: Mulugeta Phelps M.D. Jason Candelario MD GI PROCEDURE ORDERABLES Fin al Result [facility] [address] [address] from Last 3 Months or Most Recently Relevant to Health Maintenance Insurance MEDICARE [place] PART A [place] B [place] [address] Advance Directives For more information, please contact: [phone] * Full Code (Latest Code Status on File) Date Activated Date Inactivated Comments 12/26/2016 2:03 PM 12/26/2016 7:06 PM * Full Code Date Activated Date Inactivated Comments 12/13/2013 12:41 AM 12/17/2013 4:47 PM Care Teams Assistant Buyer Relationship Specialty Start Date End Date Parker Rendon MD PCP - General Family Medicine 12/12/13
--- OUTSIDE RECORDS SUMMARY | 2025-02-11 08:20 | XMS_ITS | Data Portability ---
Author Organization [facility] Address [address] [place] [address] Assessment No assessment recorded. Plan of Treatment [...] , 4 or 5 view [place] [facility] [address] [place] [address] Patien t Name: DENNISE adam : [phone] [...] Stanford MD on 018 4:33 PM [id number] [facility] [place] [address] , [place], [address], 03/01/2022 03:33:20 Result Notes Documentation Provider Name and Address Organization Details Recorded Time Xr, Cervical Spine, 4 Or 5 View : [facility] [address] [place] [address] Patient Name: DENNISE HAM Patient : 1960 Patient Ordering Provider: JUANA COTTO EXAM DATE: 10/15/2017 EXAM: XR CERVICAL COMPLETE CLINICAL INFORMATION: Neck pain IMAGES PROVIDED: Complete radiographic series of the cervical spine. COMPARISON: None. FINDINGS: Curvature, alignment, vertebral body heights are normal. Multilevel disc space reduction is seen with anterior and lateral osteophytes. Foramina are well maintained and are normal. Facet joints are normal. No radiographic evidence of injury is noted. IMPRESSION: Degenerative changes of the cervical spine. Interpreted By: Rome Stanford MD A COTTO PA-C [facility] [place], [address], [facility] 10/16/2017 08:46:06 Problems No Known Problems Procedures Surgical History Date Name Laterality Status Provider Name and Address Organization Details Recorded Time 07/29/2017 Op Note completed TOÑO TAYLOR MD [address] [place] [address], [phone], [facility] 07/29/2017 14:59:08 Imaging Results None recorded. [...] Not Available Not Available Not Avai lable Philip 5 mg-325 mg tablet Take 1 tablet [...] Updated DateTime 09/11/2017 172.72 cm 22.8 kg/m2 06372.86 g 146 mm[Hg] 78 mm[Hg] Danitza Prashant [facility] 8 10:43:31 Date Recorded Body height Body mass index (BMI) Body weight Systolic blood pressure Diastolic blood pressure Provider Name and Address Organization Details Last Updated DateTime 10/15/2017 172.72 cm 22.8 kg/m2 10545.86 g 138 mm[Hg] 80 mm[Hg] Elizabeth Aguirre [facility] 8 14:12:48 Date Recorded Body height Body mass index (BMI) Body weight Systolic blood pressure Diastolic blood pressure Provider Name and Address Organization Details Last Updated DateTime 11/20/2017 172.72 cm 22.8 kg/m2 48924.86 g 142 mm[Hg] 80 mm[Hg] [facility] 8 12:06:19 Date Recorded Body height Body mass index (BMI) Body weight Systolic blood pressure Diastolic blood pressure Provider Name and Address Organization Details Last Updated DateTime 12/19/2017 172.72 cm 22.8 kg/m2 04426.86 g 168 mm[Hg] 93 mm[Hg] [facility] 8 09:56:53 Date Recorded Body height Body mass index (BMI) Body weight Systolic blood pressure Diastolic blood pressure Provider Name and Address Organization Details Last Updated DateTime 2018 172.72 cm 22.8 kg/m2 93970.86 g 160 mm[Hg] 82 mm[Hg] [facility] 8 10:27:47 Social History Question Answer Notes LastModified by Organizat ion Details LastModified Time Tobacco Smoking Status Current [facility] 13:24:22 What Was The Date Of Your Most Recent Tobacco Screening? 2018 Information n ot available 10/13/2019 Sex: Unknown Functional Status None recorded. Mental Status None recorded. Family History Nothing Reported. Medical History No medical history recorded. Past Encounters Encounter ID Performer Location Encounter Start Date Encounter Closed Date Diagnosis/Indication Diagnosis SNOMED-CT Code Diagnosis ICD10 Code Diagnosis Note [id number] TOÑO TAYLOR MD [facility] [address] [place] [address] 07/09/2017 13:11:23 07/09/2017 14:51:08 Full thickness rotator cuff tear 324871417 M75.121 traumatic large anterior superior rotator cuff [...] rehabilita tion were noted. Consent was confirmed. [id number] TOÑO TAYLOR MD SURGERY SCHEDULE [address] [place] [address] 07/29/2017 11:24:33 07/29/2017 11:26:21 [id number] JUANA COTTO PA-C [facility] [address] [address] 08/02/2017 13:12:55 08/07/2017 16:11:54 Postoperative care 373051556 Z48.89 Doing well 1 wk s/p RCRWill hold on PT at this timeRTO as scheduled or PRN [id number] TOÑO TAYLOR MD [facility] [address] [place] [address] 08/14/2017 15:42:56 08/15/2017 10:12:34 Postoperative care 714026695 Z48.89 delayed rehab with massive etar [id number] TOÑO TAYLOR MD [facility] [address] [place] [address] 09/11/2017 10:23:50 09/11/2017 11:16:46 Postoperative care 797747709 Z48.89 delayed rehab with massive tearwean from slingbegin 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 ; 80# overhead [id number] JUANA COTTO PA-C [facility] [address] [address] 10/15/2017 13:38:03 10/16/2017 07:30:00 Postoperative care 640172115 Z48.89 11 wks s/p massive traumatic cuff [...] cuff repair RTO as scheduled or PRN [id number] TOÑO TAYLOR MD [facility] [address] [place] [address] 11/20/2017 11:28:20 11/20/2017 12:41:15 Postoperative care 111238437 Z48.89 Has been in delayed rehab with massive tear Unable to Work for foreseeabl e future 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 function concern for longterm work performanc e ; 80# overhead [id number] TOÑO TAYLOR MD [facility] [address] [place] [address] 12/19/2017 09:51:22 12/19/2017 11:06:14 Postoperative care [id number] Z48.89 Has been in delayed rehab with massive tear Unable to Work for foreseeabl e future Rec longterm disability for 12 month post op PT recommende d for function 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 ; 80# overhead [id number] TOÑO TAYLOR MD [facility] [address] [place] [address] 2018 10:18:28 2018 11:38:57 Postoperative care [id number] Z48.89 Has been in delayed rehab with massive tear Unable to Work for foreseeabl e future 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 PT recommende d for function 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 ; 80# overhead Health Concerns Section Related Observation LastModified by Organization Detai ls LastModified Time None Recorded Concern Status LastModified by Organization Details LastModified Time None Recorded Advance Directives Directive None Recorded Payers Insurance Date Sequence Insurance Name Policy Number Policy Freeman Covered Member ID Freeman Member ID Guarantor Name 07/20/2020 1 [employer]-[place]: DEANA OLVERA OF [place] - [employer] [address] Kar[address] Stern Ham [id number] Dennise Ham Notes Date Note Type Note Provider Name and Address Organization Details Recorded Time 09/11/2017 text/html 6 weeks post massive RCRstruggling with cont pain- jm neck, upper trap TOÑO TAYLOR MD [address], [place], [address], [facility] 09/11/2017 11:05:42 10/15/2017 text/html 57 yo M presents today for 11 wk recheck s/p massive traumatic rotator cuff tear c/o continued pain in shoulder & new onset neck pain occasional numbness/tingling reports compliance with HEP, does have difficulty attending formal PT visits JUANA COTTO PA-C [address] [place], [address], [facility] 10/15/2017 16:43:09 11/20/2017 text/html today he reports sig pain overall trend is better than before 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 4 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 from [employer] RCRPROCEDURE: Right shoulder arthroscopic and open repair of the supraspinatus and subscapularis with biceps tenodesis and limited debridement and subacromial decompression TOÑO TAYLOR MD [address] [place], [address], [facility] 11/20/2017 12:30:22 12/19/2017 text/html he reports feeli ng OK, pain mild, in PTMark worked in [employer] for [employer] SURGERY DATE: July 29, 2017 PREOPERATIVE DIAGNOSIS: Right shoulder massive traumatic retracted tear of the subscapularis and supraspinatus POSTOPERATIVE DIAGNOSIS: The same with disruption of the long head biceps mirna PROCEDURE: Right shoulder arthroscopic and open repair of the supraspinatus and subscapularis with biceps tenodesis and limited debridement and subacromial decompression TOÑO TAYLOR MD [address] [place], [address], [facility] 12/19/2017 10:21:41 2018 text/html Dennise feels [...] subacromial decompression TOÑO TAYLOR MD [address] [place], [address], [facility] 2018 10:56:54
== END 2025-02-10 23:59 | disposition home or self-care (01) ==
LOC: LAB.DROPOF 02-11 08:16
PROVIDERS: PCP Nurse Practitioner; Visit Provider Nurse Practitioner
DX: I10 Essential (primary) hypertension (principal); R53.83 Other fatigue; R06.09 Other forms of dyspnea; I25.118 Atherosclerotic heart disease of native coronary artery with other forms of angina pectoris; E78.5 Hyperlipidemia, unspecified
CPT/HCPCS: 80061; 80076

== ENCOUNTER 2025-03-11 14:40 | Outpatient (CLI) | payer MEDICARE, BC, SELFPAY ==
--- OUTSIDE RECORDS SUMMARY | 2025-03-11 04:49 | XMS_ITS | Continuity of Care Document ---
Author Name [facility] Organization [facility] Care Team Providers Care Ad Trafficker Name Role Phone [facility] Unavailable Unavailable Problems Combined list of problems from Department of Defense and Veterans Affairs facilities. It does not include entries that were removed or entered in error. Problem Status Onset Date Problem Type Date of Resolution Comments Source Benign essential hypertension Active Condition EH CAD - Coronary Artery Disease (SCT 62865650) Active Condition [place] Restless legs Active Condition [place] Immunizations Combined list of available immunizations from the Department of Defense and Veterans Affairs facilities. 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 Source INFLUENZA, UNSPECIFIED FORMULATION 2021 [...] DOSE 1 2020 208 complet ed PFR; [id number]; 1 [place]-CDD [facility] INFLUENZA, INJECTABLE, QUADRIVALENT, PRESERVATIVE FREE 1 2016 150 complet ed HISTORICA L INFORMATI ON - FROM OTHER REGISTRY, [facility], [facility] ATI PNEUMOCOCCAL POLYSACCHARID E [id number] 1 2013 [...] Date Status Disposition Source E[facility] Outpatient Encounter [id number] 01/21 STEF[facility]U E [facility] Outpatient Encounter [id number] 02/23 [facility]AY[facility]U E [facility] Outpatient Encounter [id number] 04/16 CAR ATI [facility] Outpatient Encounter [id number] 02/25 [facility] ATI [facility] Outpatient Encounter [id number] 03[facility]02 [facility] Social History Combined list of available smoking, [...] Care Activity Care Activity Detail Facili ty 04/06/2025 AMBULATORY - NONE AMBULATORY - NONE [facility]
--- OUTSIDE RECORDS SUMMARY | 2025-03-11 15:05 | XMS_ITS | Clinical Summary ---
Author Organization [facility] Address [address] [place] [address] Phone Care Team Providers Care Bale Opener Name Role Phone Parker Rendon MD Primary Care Provider Allergies No known active allergies Medications ibuprofen (ADVIL;MOTRIN) 200 mg tablet Take by mouth every 8 hours as needed for Pain. Active [place]-3 Fatty Acids-Vitamin E (FISH OIL) 1,000 mg Cap Take 1,000 mg by mouth daily. Active MULTIVITAMIN W-MINERALS/LUTEI N (MULTI-ROWAN 50 & OVER ORAL) Take by mouth. Active Saw [place] 160 mg capsule Take 160 mg by [...] artery disease of n ative artery of [place] heart with stable angina pectoris 10/20/2024 Overview [...] AM EDT Office Visit SEP H&V NPTFTT [address] [place] [address] Ford Gaitan MD [address] [place] [address] Health Maintenance Due Date Last Done Comments Wellness Exam Medicare 02/18/1963 Hepatitis C Screening 02/18/1978 DTaP/TDaP/Td (1 - Tdap) 02/18/1979 Cologuard 02/18/2005 FIT 02/18/2005 Sigmoidoscopy 02/18/2005 Virtual Colonography 02/18/2005 Zoster (1 of 2) 02/18/2010 Low Dose Lung Cancer Screening 12/12/2014 12/12/2013 Pneumococcal Vaccine 50+ (2 of 2 - PCV) 12/14/2014 12/14/2013 RSV or 60+ (1 - Risk 60-74 years 1-dose series) 2020 Colon Cancer Screening 04/10/2020 Colonoscopy 04/10/2020 04/10/2010 COVID-19 Vaccine ( season) 2024 07/05/2021, 10/03/2020, 09/12/2020 AAA Screening 02/18/2025 Influenza Vaccine (#1) 2025 , 07/24/2023, 08/11/2021, Additional history exists Hepatitis B Vaccine Aged Out No longe r eligible based on patient's age to complete this topic Meningococcal B Vaccine Aged Out No l onger eligible based on patient's age to complete this topic Procedures Procedure Name Priority Date/Time Associated Diagnosis Comments CT ANGIOGRAM CHEST W CONTRAST STAT 12/12/2013 5:43 AM EDT ED COLONOSCOPY Routine 04/10/2010 12:0 0 AM EDT [...] is recommended. 3. Small right pleural effusion. Tacho Mojica MD IMG CT ORDERABLES Final Resul t * GMED COLONOSCOPY (04/10/2010 12:00 AM EDT) 04/10/2010 Impressions SEPABDULKADIRSTR[facility] - 08/28/2012 1:32 PM EST Diverticulosis of the whole colon Otherwise normal colonoscopy to cecum Narrative [facility] - 08/28/2012 1:32 PM EST Performing Provider: Jason Candelario M.D. Referring Provider: Mulugeta Phelps M.D. Jason Candelario MD GI PROCEDURE ORDERABLES Fin al Result [facility] [address] [facility] [address] [address] from Last 3 Months or Most Recently Relevant to Health Maintenance Insurance MEDICARE [place] PART A AND B MEDICARE [place] PART A AND B Advance Directives For more information, please contact: [phone] * Full Code (Latest Code Status on File) Date Activated Date Inactivated Comments 12/26/2016 2:03 PM 12/26/2016 7:06 PM * Full Code Date Activated Date Inactivated Comments 12/13/2013 12:41 AM 12/17/2013 4:47 PM Care Teams Bale Opener Relationship Specialty Start Date End Date Parker Rendon MD PCP - General Family Medicine 12/12/13
--- OUTSIDE RECORDS SUMMARY | 2025-03-11 15:05 | XMS_ITS | Data Portability ---
Author Organization Formerly [facility] Address [address] [place] [address] Assessment Encounter Date Assessment Date Assessment LastModified [...] hurt right shoulder. Reviewed Shoulder xray Rx Clark 7.5 mg -325 mg 1 po 6-8 hours prn Toradol 60 mg [email or web address] Not available 05/07/2017 13:52:11 06/11/2017 06/11/2017 Right shoulder pain Scheduling MRI Referral to orthopedics Dr.Josh Hansen Refill Clark 7.5 mg -325 mg 1 po BID-TID [...] [address], Daniel F, [place], [address], 8 09:38:42 CBC w/ auto diff 2017 018 [facility], [address], [place] [address], [place], [address], 8 09:38:40 testost erone, total, serum 2017 018 [facility], [address], [address], [place], [address], 8 09:38:41 urinaly sis, dipstic k 2016 017 [facility], [address] [place], [address], 7 13:43:18 PSA, serum or plasma 2016 017 sns [facility], [address], [address], [place], [address], 7 14:11:32 testost erone, total, serum 2016 017 sns [facility], [address], [place] [address], [place], [address], 7 14:11:32 CMP, serum or plasma 2016 017 [facility], [address], [address], [place], [address], 7 18:35:35 lipid panel, serum 2016 017 [facility], [address], [place] [address], [place], [address], 7 18:35:36 TSH, ultra-s ensitiv e, serum 2016 017 [facility], [address], Daniel F, [place], [address], 7 18:35:37 testost erone, free + total, serum 2016 017 [facility], [address], [place] [address], [place], [address], 7 18:35:37 Referral orthope dic referra l 2016 017 [email or web address] Juventino Hansen MD, [address] [facility] [place], [address], 7 08:40:48 Procedures None recorde d. Surgeries None recorde d. Imaging XR, shoulde r 2016 017 [email or web address] Not available 7 10:05:11 XR, shoulde r 2016 017 sneus Not available 7 13:39:31 Medication Orders Flomax 0.4 mg capsule 2016 017 [id number], [address] [place], [address], 7 13:56:06 Clark 7.5 mg-325 mg tablet 2016 017 [email or web address] [id number], [address] [place], [address], 7 11:21:05 Clark 7.5 mg-325 mg tablet 2016 017 [id number], [address] [place], [address], 7 11:21:05 ketorol ac 60 mg/2 mL intramu scular solutio n 2016 017 Not available 7 20:31:47 Requip 1 mg tablet 2016 017 [facility], [address] [place] [address], [place], [address], 8 13:02:28 Depo-Me drol 40 mg/mL suspens ion for injecti on 2016 017 [email or web address] Not available 7 20:31:43 Depo-Me drol 80 mg/mL suspens ion for injecti on 2016 017 Not available 7 09:42:22 testost erone cypiona te 200 mg/mL intramu scular oil 2016 017 [email or web address] Not available 7 13:54:49 Patient TargetsNo targets recorded. Patient Instructions Encounter Date Encounter Id Patient Instructions Last Modified By Organization Details Last Modified Time 12/28/2016 [id number] chronic obstructive pulmonary disease (COPD): care instructions [email or web address] Not available 02/05/2017 13:03:08 learning about copd and how to prevent lung infections [email or web address] Not available 02/05/2017 13:03:09 04/24/2017 [id number] restless legs syndrome: care instructions Not available 04/24/2017 15:02:18 06/11/2017 [id number] shoulder pain: care instructions [email or web address] Not available 06/18/2017 16:02:32 02/18/2018 [id number] chronic obstructive pulmonary disease (COPD): care instructions [...] dipst ick Leukocytes Negati ve Not Available [place] [address] [place], [address], 06/11/2017 13:36:26 06/11/2006/11/2017 urina lysis , dipst ick Nitrite negati ve Not Available [address] [place], [address], 06/11/2017 13:36:26 06/11/2006/11/2017 urina lysis , dipst ick Urobilinogen .2 Not Available [address] [place], [address], 06/11/2017 13:36:26 06/11/2006/11/2017 urina lysis , dipst ick Protein Negati ve Not Available [address] [place], [address], 06/11/2017 13:36:26 06/11/2006/11/2017 urina lysis , dipst ick pH 6.5 Not Available [address] [place], [address], 06/11/2017 13:36:26 06/11/2006/11/2017 urina lysis , dipst ick Blood Negati ve Not Available [facility] [address] [place], [place] [address] [place], [address], 06/11/2017 13:36:26 06/11/2006/11/2017 urina lysis , dipst ick Specific Langtry 1.020 Not Available [facility] [address] [place], [address], 06/11/2017 13:36:26 06/11/20 17 06/11/2017 urina lysis , dipst ick Ketone Negati ve Not Available [facility] [address] [place], [address], 06/11/2017 13:36:26 06/11/20 17 06/11/2017 urina lysis , dipst ick Bilirubin Negati ve Not Available [address] [place], [address], 06/11/2017 13:36:26 06/11/2006/11/2017 urina lysis , dipst ick Glucose Negati ve Not Available [address] [place], [address], 06/11/2017 13:36:26 06/11/2006/11/2017 urina lysis , dipst ick Appearance Clear Not Available [address] [place], [address], 06/11/2017 13:36:26 06/11/2006/11/2017 urina lysis , dipst ick Color Yellow Not Available [address] [place], [address], 06/11/2017 13:36:26 01/01/20 17 01/01/2017 CMP, serum or plasm a glucose, serum 96 mg/dL 65-99 Not Available [facility]) [address] [facility], [place], [address], 01/01/2017 18:35:35 01/01/20 17 01/01/2017 CMP, serum or plasm a BUN 15 mg/dL 6-24 Not Available [facility] ([facility]) [address] [facility], [place], [address], 01/01/2017 18:35:35 01/01/20 17 01/01/2017 CMP, serum or plasm a creatinine, serum 0.97 mg/dL 0.76-1 .27 Not Available [facility] ([facility]) [address] [place], [address], 01/01/2017 18:35:35 01/01/20 17 01/01/2017 CMP, serum or plasm a eGFR if nonafricn AM 87 mL/mi n/1.7 3 >59 Not Available [facility] ([facility]) [address] [place], [address], 01/01/2017 18:35:35 01/01/20 17 01/01/2017 CMP, serum or plasm a eGFR if africn AM 100 mL/mi n/1.7 3 >59 Not Available [facility] ([facility]) [address] [place], [address], 01/01/2017 18:35:35 01/01/20 17 01/01/2017 CMP, serum or plasm a BUN/creatini ne ratio 15 9-20 Not Available [facility] ([facility]) [address] [place], [address], 01/01/2017 18:35:35 01/01/20 17 01/01/2017 CMP, serum or plasm a sodium, serum 145 mmol/ L 134-14 4 above high normal Not Available [facility] ([facility]) [address] [place], [address], 01/01/2017 18:35:35 01/01/20 17 01/01/2017 CMP, serum or plasm a potassium, serum 5.1 mmol/ L 3.5-5. 2 Not Available [facility] ([facility]) [address] [place], [address], 01/01/2017 18:35:35 01/01/20 17 01/01/2017 CMP, serum or plasm a chloride, serum 103 mmol/ L 96-106 Not Available [facility] ([facility] [address] [facility] [place], [address], 01/01/2017 18:35:35 01/01/20 17 01/01/2017 CMP, serum or plasm a carbon dioxide, total 24 mmol/ L 18-29 Not Available [facility] ([facility]) [address] [facility] [place], [address], 01/01/2017 18:35:35 01/01/2001/01/2017 CMP, serum or plasm a calcium, serum 10.0 mg/dL 8.7-10 .2 Not Available [facility] ([facility]) [address] [facility] [place], [address], 01/01/2017 18:35:35 01/01/20 17 01/01/2017 CMP, serum or plasm a protein, total, serum 7.2 g/dL 6.0-8. 5 Not Available [facility] ([facility]) [address] [facility] [place], [address], 01/01/2017 18:35:35 01/01/20 17 01/01/2017 CMP, serum or plasm a albumin, serum 4.4 g/dL 3.5-5. 5 Not Available [facility] ([facility]) [address] [facility] [place], [address], 01/01/2017 18:35:35 01/01/2001/01/2017 CMP, serum or plasm a globulin, total 2.8 g/dL 1.5-4. 5 Not Available [facility] ([facility]) [address] [facility] [place], [address], 01/01/2017 18:35:35 01/01/2001/01/2017 CMP, serum or plasm a A/G ratio 1.6 1.2-2. 2 Not Available [facility] ([facility]) [address] [facility] [place], [address], 01/01/2017 18:35:35 01/01/20 17 01/01/2017 CMP, serum or plasm a bilirubin, total 0.3 mg/dL 0.0-1. 2 Not Available [facility] ([facility]) [address] [facility] [place], [address], 01/01/2017 18:35:35 01/01/20 17 01/01/2017 CMP, serum or plasm a alkaline phosphatase, S 89 IU/L 39-117 Not Available [facility] ([facility]) [address] [facility] [place], [address], 01/01/2017 18:35:35 01/01/20 17 01/01/2017 CMP, serum or plasm a AST (SGOT) 10 IU/L 0-40 Not Available [facility] ([facility]) [address] [place], [address], 01/01/2017 18:35:35 01/01/20 17 01/01/2017 CMP, serum or plasm a ALT (SGPT) 20 IU/L 0-44 Not Available [facility] ([facility]) [address] [place], [address], 01/01/2017 18:35:35 01/01/20 17 01/01/2017 lipid panel , serum cholesterol, total 166 mg/dL 100-19 9 Not Available [facility] ([facility]) [address] [place], [address], 01/01/2017 18:35:36 01/01/20 17 01/01/2017 lipid panel , serum triglyceride s 228 mg/dL 0-149 above high normal Not Available [facility] ([facility]) [address] [place], [address], 01/01/2017 18:35:36 01/01/20 17 01/01/2017 lipid panel , serum HDL cholesterol 72 mg/dL >39 Not Available [facility]) [address] [place], [address], 01/01/2017 18:35:36 01/01/20 17 01/01/2017 lipid panel , serum VLDL cholesterol yusra 46 mg/dL 5-40 above high normal Not Available [facility] ([facility]) [address] [place], [address], 01/01/2017 18:35:36 01/01/20 17 01/01/2017 lipid panel , serum LDL cholesterol calc 48 mg/dL 0-99 Not Available [facility] ([facility]) [address] [place], [address], 01/01/2017 18:35:36 01/01/20 17 01/01/2017 lipid panel , serum comment: METROPOLITAN EDITOR Not Available [facility] ([facility]) [address] [place], [address], 01/01/2017 18:35:36 01/01/20 17 01/01/2017 testo stero ne, free + total , serum testosterone , serum 335 NG/dL 348-11 97 below low normal Not Available [facility] ([facility]) [address] [place], [address], 01/01/2017 18:35:37 01/01/20 17 01/01/2017 testo stero ne, free + total , serum comment: COMMEN T ADULT MALE REFER ENCE INTER NEHEMIAH IS BASED ON A POPUL ATION OF LEAN MALES UP TO 40 YEARS OLD. Not Available [facility] ([facility]) [address] [place], [address], 01/01/2017 18:35:37 01/01/20 17 01/01/2017 testo stero ne, free + total , serum free testosterone (direct) 9.0 pg/mL 7.2-24 .0 Not Available [facility] ([facility]) [address] [place], [address], 01/01/2017 18:35:37 01/01/20 17 01/01/2017 TSH, ultra -sens itive , serum TSH 3.200 uIU/m L 0.450- 4.500 Not Available [facility] ([facility]) [address] [facility], [place], [address], 01/01/2017 18:35:37 06/11/2006/12/2017 testo stero ne, total , serum testosterone , serum 309 NG/dL 264-91 6 Adult male refer ence inter nehemiah is based on a popul ation of healt hy nonob sami males (BMI <30) betwe en 19 and 39 years old. Fred rome, et.al . JCEM 2017, 102;1 161-1 173. PMID: 33131 103. Not Available [facility] ([facility]) [address] [facility], [place], [address], 06/12/2017 06:37:13 06/11/20 17 06/12/2017 PSA, serum [...] of spring [place]man se. Not Available [facility] ([facility]) [address] [facility], [place], [address], 06/12/2017 06:37:13 02/20/20 18 2018 CBC w/ auto diff WBC 8.6 x10e3 /uL 3.4-10 .8 Not Available [facility] ([facility]) [address] [facility], [place], [address], 2018 09:38:40 02/20/20 18 2018 CBC w/ auto diff RBC 4.55 x10e6 /uL 4.14-5 .80 Not Available [facility] ([facility]) [address] [place], [address], 2018 09:38:40 02/20/20 18 2018 CBC w/ auto diff hemoglobin 14.5 g/dL 13.0-1 7.7 Not Available [facility] ([facility]) [address] [place], [address], 2018 09:38:40 02/20/20 18 2018 CBC w/ auto diff hematocrit 43.3 % 37.5-5 1.0 Not Available [facility] ([facility]) [address] [place], [address], 2018 09:38:40 02/20/20 18 2018 CBC w/ auto diff MCV 95 fL 79-97 Not Available [facility] ([facility]) [address] [place], [address], 2018 09:38:40 02/20/20 18 2018 CBC w/ auto diff MCH 31.9 pg 26.6-3 3.0 Not Available [facility] ([facility]) [address] [place], [address], 2018 09:38:40 02/20/20 18 2018 CBC w/ auto diff MCHC 33.5 g/dL 31.5-3 5.7 Not Available [facility] ([facility]) [address] [place], [address], 2018 09:38:40 02/20/20 18 2018 CBC w/ auto diff RDW 13.4 % 12.3-1 5.4 Not Available [facility] ([facility]) [address] [facility], [place], [address], 2018 09:38:40 02/20/20 18 2018 CBC w/ auto diff platelets 227 x10e3 /uL 150-37 9 Not Available [facility] ([facility]) [address] [facility], [place], [address], 2018 09:38:40 02/20/20 18 2018 CBC w/ auto diff neutrophils 59 % not estab. Not Available [facility] ([facility]) [address] [place], [address], 2018 09:38:40 02/20/20 18 2018 CBC w/ auto diff lymphs 31 % not estab. Not Available [facility] ([facility]) [address] [facility], [place], [address], 2018 09:38:40 02/20/20 18 2018 CBC w/ auto diff monocytes 7 % not estab. Not Available [facility] ([facility]) [address] [facility], [place], [address], 2018 09:38:40 02/20/20 18 2018 CBC w/ auto diff eos 2 % not estab. Not Available [facility] ([facility]) [address] [facility], [place], [address], 2018 09:38:40 02/20/20 18 2018 CBC w/ auto diff basos 1 % not estab. Not Available [facility] ([facility]) [address] [facility], [place], [address], 2018 09:38:40 02/20/20 18 2018 CBC w/ auto diff immature cells METROPOLITAN EDITOR Not Available [facility] ([facility]) [address] [facility], [place], [address], 2018 09:38:40 02/20/20 18 2018 CBC w/ auto diff neutrophils (absolute) 5.1 x10e3 /uL 1.4-7. 0 Not Available [facility] ([facility]) [address] [facility], [place], [address], 2018 09:38:40 02/20/20 18 2018 CBC w/ auto diff lymphs (absolute) 2.7 x10e3 /uL 0.7-3. 1 Not Available [facility] ([facility]) [address] [facility], [place], [address], 2018 09:38:40 02/20/20 18 2018 CBC w/ auto diff monocytes(ab solute) 0.6 x10e3 /uL 0.1-0. 9 Not Available [facility] ([facility]) [address] [facility], [place], [address], 2018 09:38:40 02/20/20 18 2018 CBC w/ auto diff eos (absolute) 0.2 x10e3 /uL 0.0-0. 4 Not Available [facility] ([facility]) [address] [facility], [place], [address], 2018 09:38:40 02/20/20 18 2018 CBC w/ auto diff baso (absolute) 0.0 x10e3 /uL 0.0-0. 2 Not Available [facility] ([facility]) [address] [facility], [place], [address], 2018 09:38:40 02/20/20 18 2018 CBC w/ auto diff immature granulocytes 0 % not estab. Not Available [facility] ([facility]) [address] [facility], [place], [address], 2018 09:38:40 02/20/20 18 2018 CBC w/ auto diff immature grans (abs) 0.0 x10e3 /uL 0.0-0. 1 Not Available [facility] ([facility]) [address] [place], [address], 2018 09:38:40 02/20/20 18 2018 CBC w/ auto diff NRBC METROPOLITAN EDITOR Not Available [facility] ([facility]) [address] [facility], [place], [address], 2018 09:38:40 02/20/20 18 2018 CBC w/ auto diff hematology comments: METROPOLITAN EDITOR Not Available [facility] ([facility]) [address] [place], [address], 2018 09:38:40 02/20/20 18 2018 testo stero ne, total , serum testosterone , serum 295 NG/dL 264-91 6 Adult male refer ence inter nehemiah is based on a popul ation of healt hy nonob sami males (BMI <30) betwe en 19 and 39 years old. Fred rmoe, et.al . JCEM 2017, 102;1 161-1 173. PMID: 57576 103. Not Available [facility] ([facility]) [address] [place], [address], 2018 09:38:41 02/20/20 18 2018 hepat itis [...] ion test (5507 13). Not Available [facility] ([facility]) [address] [facility], [place], [address], 2018 09:38:42 02/20/20 18 2018 bret rosas note please note Commen t The date and/o r time of colle ction was not indic ated on the requi sitio n as requi red by state and zaria al law. The date of recei pt of the speci men was used as the colle ction date if not suppl ied. Not Available [facility] ([facility]) [address] [facility], [place], [address], 2018 09:38:43 12/26/19 17 XR, chest No observ ation record ed. benny [address] , [place], [address], 01/11/2017 14:53:13 04/24/20 17 04/24/2017 XR, shoul sharon No observ ation record ed. [email or web address] Not Available 14:43:25 04/24/20 17 04/24/2017 XR, shoul sharon No observ ation record ed. [email or web address] Not Available 14:43:25 05/07/20 17 05/07/2017 XR, shoul sharon No observ ation record ed. [email or web address] Not Available 07/2017 13:35:06 06/24/20 17 06/24/2017 MRI, shoul sharon, w/o contr ast No observ ation record ed. jeannie [address] , [place], [address], 02/18/2018 14:14:07 Result Notes None recorded. Problems Name Problem SNOMED Code Status Onset Date Resolution Date Notes Provider Name and Address Organization Details Recorded Time Chronic obstructive pulmonary disease 06221166 Active 2015 Crystal Mark MARILYN brandt - [facility] 6 11:00:30 Cigarette smoker 88819025 Completed 201612/28/2016 MARILYN Cr - [facility] 7 15:23:09 Primary erectile dysfunction 634733825 Active 2016 MARILYN Cr 7 11:17:26 Anisocoria 78882282 Active 2016 Nicole Keene in MARILYN brandt [facility] 7 11:46:33 Restless legs 93334763 Active 2016 Nicole Keene in MARILYN brandt [facility] 7 11:47:46 Testosteron e level below reference range 583679641 Active 2016 MARILYN Cr [facility] 7 12:48:21 Renewal of prescriptio n Completed 201602/18/2018 MARILYN Cr 8 12:28:41 Delay when starting to pass urine 3564677 Active 2016 MARILYN Cr [facility] 7 13:31:13 Problem Notes None recorded. Procedures Surgical History Date Name Laterality Status Provider Name and Address Organization Details Recorded Time Eye Surgery completed Crystal Mark MARILYN Alfaro [facility] 08/15/2016 11:04:24 Imaging Results None recorded. [...] nued on: 03/07/20 16 10:03AM; User: [email or web address];Cathy villa Completi on: 09/21/19 16;Pharm [email or web address] ied: 09/15/19 16 2:13PM Not [...] nued on: 03/07/20 16 10:03AM; User: Eulalia adam. Completi on: 09/22/19 16 Not Available Not [...] nued on: 03/07/20 16 10:03AM; User: estee; Est. Trevino on: 10/07/19 Not Available Not Available Not Available [email or web address] [...] User: Eulalia t. Completi on: 09/22/19 16;Pharm [email or web address] ied: 09/15/19 16 2:13PM Not Available Not Available Not Available testoster one cypionate 200 mg/mL intramusc ular oil Inject 1 mL every 2 weeks by intramus cular route. 2017 active Not Available Not Available Not Avai lable oxycodone -acetamin ophen 7.5 mg-325 mg tablet 02/18 completed Not Available Not Available Not Available Clark 7.5 mg-325 mg tablet 1 po bid [...] 14 4:23PM;U ser: estee; Est. Completi on: 12/30/19 14;Indic ation: cough [...] on: 03/07/20 16 10:03AM; User: [email or web address] st. Tracyi on: 05/04/20 15;Print ed: 04/20/20 15 Not Available Not Available Not Available Chantix Starting Month Box one daily 02/18 completed Not Available Not Available Not Available Fluarix Quad 2413-6029 (PF) 60 mcg (15 mcg x 4)/0.5 [...] 18 /min 84 /min Nicole Keene in [facility] 7 15:35:11 Date Recorded Body height Body mass index (BMI) Body weight Heart rate Respiratory rate Systolic And Diastolic Provider Name and Address Organization Details Last Updated DateTime 8 172.72 cm 24.3 kg/m2 25292.7 8 g 76 /min 18 /min 120/82 mm[Hg] [facility] 8 12:29:24 Date Recorded Body height Body mass index (BMI) Body weight Heart rate Respiratory rate Systolic And Diastolic Provider Name and Address Organization Details Last Updated DateTime 7 172.72 cm 24.8 kg/m2 42018.5 6 g 92 /min 18 /min 120/74 mm[Hg] [facility] 7 11:19:38 Date Recorded Body height Body mass index (BMI) Body weight Heart rate Respiratory rate Systolic And Diastolic Provider Name and Address Organization Details Last Updated DateTime 7 172.72 cm 24.5 kg/m2 23759.3 7 g 96 /min 18 /min 124/78 mm[Hg] [facility] 7 12:47:24 Date Recorded Body height Body mass index (BMI) Body weight Heart rate Respiratory rate Systolic And Diastolic Provider Name and Address Organization Details Last Updated DateTime 7 172.72 cm 23.9 kg/m2 21191 g 76 /min 18 /min 128/80 mm[Hg] Karina Bobby [place] - [facility] 7 13:33:33 Social History Question Answer Notes LastModified by Organizat ion Details LastModified Time Tobacco Smoking Status Current Some Day Smoker Karina Bobby null, [place] - [facility] 12/28/2016 15:28:59 Able To [...] Much Tobacco Do You Smoke? 1 PPW [email or web address] Information not available 12/28/2016 Do You Use [...] available 08/15/2016 11:03:00 Medical History Condition Response Vision or Eye Problems Y COPD Y Immunizations Vaccine Type Date Status Note Provider Nam e and Address Organization Details Recorded Time Influenza, split virus, quadrivalent, preservative 7 completed MARILYN Rodriguez - [facility] 07/01/2017 09:24:28 Past Encounters Encounter ID Performer Location Encounter Start Date Encounter Closed Date Diagnosis/Indication Diagnosis SNOMED-CT Code Diagnosis ICD10 Code Diagnosis Note [id number] Zamzam Abrams APRN [facility] [address] [place] [address] 08/15/2016 10:47:56 08/15/2016 11:24:52 Upper respiratory infection 57836626 J06.9 [id number] Naresh Mims MD [address] [place] [address] 10/26/2016 10:18:48 10/26/2016 11:42:01 Chronic obstructive pulmonary disease 44898722 J44.9 Cigarette smoker 9425166 7 F17.989 [id number] Parker Rendon MD [address] [place] [address] 12/28/2016 14:48:02 12/31/2016 07:46:37 Chronic obstructive pulmonary disease 63122677 J44.9 Anxiety 07948873 F41.9 [id number] Parker Rendon MD [address] [place] [address] 04/24/2017 10:28:09 04/24/2017 12:20:56 Shoulder joint pain 875291010 M25.512 Testostero ne level below reference range 459092394 R79.89 Restless legs 87172248 G 25.81 [id number] Parker Rendon MD [address] [place] [address] 05/07/2017 12:17:01 05/07/2017 14:08:00 Shoulder joint pain 712318877 M25.512 M25.119 [id number] Parker Rendon MD [address] [place] [address] 06/11/2017 12:51:39 06/11/2017 14:06:35 Delay when starting to pass urine 4524660 R39.11 Pain of sh oulder region 75816572 M25.511 Testostero ne level below reference range 610734168 R79.89 Shoulder joint pain 2679 [address]26 M25.512 M25.048 [id number] Parker Rendon MD [address] [place] [address] 02/18/2018 11:06:49 02/18/2018 13:29:37 Arthritis 8343921 M19.90 Pain of joint 94627119 M 25.50 Testostero ne level below reference range 417521926 R79.89 Medication monitoring 39 2128681 Z51.81 Viral screening 20292626 4 Z11.59 Chronic ob structive pulmonary disease 68275748 J44.9 Health Concerns Section Related Observation LastModified by Organization Detai ls LastModified Time None Recorded Concern Status LastModified by Organization Details LastModified Time None Recorded Advance Directives Directive None Recorded Payers Insurance Date Sequence Insurance Name Policy Number Policy Freeman Covered Member ID Freeman Member ID Guarantor Name 08/30/2018 1 [place] DEANA OLVERA OF [facility] [employer] [id number] [place] [id number] Luis Ham Notes Date Note Type Note Provider Name and Address Organization Details Recorded Time 12/29/19 17 text/htm l Anxiety/DepressionReported bypatient.Quality:symptoms worse in the evening Severity:denies suicidal ideations; able to maintain relationships;interference with sleep;interference with work Duration:frequent Onset/Timing:gradual; family history Context:company he works with [employer] but does have another job and 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 Associated Symptoms:denies homicidal ideations; no significant weight gain; no significant weight loss; no visual/auditory hallucinations; no delusions; no shortness of breath;depression;insomnia;so cial withdrawalCoronary Artery Disease F/UReported bypatient.Severity:no chest discomfort with daily activities; has not needed to use Nitroglycerin Context:non-smoker; quit 2 months ago MARILYN Zambrano [facility] 02/05/2017 12:42:35 04/24/20 17 text/htm l Musculoskeletal PainReported bypatient.Location:left shoulder Quality:sharp Severity:worsening Duration:present for 1-6 months Timing:chronic with intermittent worsening Alleviating factors:rest Aggravating factors:movement/positioningS kin LesionReported bypatient.Location:buttocks Quality:painful; catches on clothing Severity:moderate Onset/Timing:gradual Context:irritation form clothing Associated Symptoms:no fever erectile dysfunction, requesting viagra also was to do labs for testosterone but ran out and didn't call with update MARILYN Hagan [facility] 04/24/2017 14:45:58 05/07/20 17 text/htm l Musculoskeletal PainReported bypatient.Location:bilateral shoulder; severe right since fall Quality:sharp Severity:L shoilder the same--R shoulder severe since fall Duration:fell 05/04/17 at home/barn Timing:constant Context:trauma Alleviating factors:rest Aggravating factors:movement/positioning Associated Symptoms:weak limbs Nicole brandt [place] [facility] 05/07/2017 13:54:14 06/11/20 17 text/htm l Lower Urinary Tract Symptoms (LUTS)Reported bypatient.Location:prostate; bilateral Quality:hesitancy Severity:trouble initiating stream Onset/Timing:< 1 week Duration:constant Context:denies excessive fluid intake; denies excessive caffeine intake; recently on testosterone injections Associated Symptoms:no abdominal pain; no groin pain; no flank pain; no low back pain; no chills; no fever; no constipation;straining;hesita ncy;urgency mri pending on shoulder, to be done soon Parker brandt [facility] 06/18/2017 14:01:51 02/19/20 18 text/htm l COPDReported [...] shot x 2 1/2 months MARILYN Hagan [facility] 02/18/2018 14:53:25
[2025-03-11 15:33] LABS: Uric Acid 4.5 mg/dl (3.5-8.5)
[2025-03-11 15:39] LABS: C-Reactive Protein 5.1 mg/L (0-4)
[2025-03-11 16:20] LABS: Hepatitis C Ab Qual. W/ RFX NEGATIVE (Negative)
[2025-03-12 12:21] LABS: RA Latex Turbid. <10.0 IU/mL (<14.0)
[2025-03-16 09:13] LABS: Antinuclear Antibodies, IFA Negative (.)
== END 2025-03-11 23:59 | disposition home or self-care (01) ==
LOC: LAB.DROPOF 14:40
PROVIDERS: PCP Family Medicine; Visit Provider Family Medicine
DX: M79.89 Other specified soft tissue disorders (principal); Z11.59 Encounter for screening for other viral diseases; M79.641 Pain in right hand; M79.642 Pain in left hand
CPT/HCPCS: 80074; 84550; 85651; 86038; 86140; 86431; 87389

== ENCOUNTER 2025-03-15 10:48 | Outpatient (CLI) | payer MEDICARE, BC, SELFPAY ==
--- OUTSIDE RECORDS SUMMARY | 2025-03-15 04:55 | XMS_ITS | Continuity of Care Document ---
Author Name [facility] Organization [facility] Care Team Providers Care Health Clinician Name Role Phone [facility] Unavailable Unavailable Problems Combined list of problems from Department of Defense and Veterans Affairs facilities. It does not include entries that were removed or entered in error. Problem Status Onset Date Problem Type Date of Resolution Comments Source Benign essential hypertension Active Condition [facility] CAD - Coronary Artery Disease (SCT 93362432) Active Condition [place] Restless legs Active Condition [place] TI Immunizations Combined list of available immunizations from the Department of Defense and Veterans Affairs facilities. Immunization Series Date Given Administered By Site Reaction Lot Number CVX Code Drug Logistics System Engineer Status Comments Source INFLUENZA, UNSPECIFIED FORMULATION 2021 [...] DOSE 1 2020 208 complet ed PFR; [id number]; 1 [place] INFLUENZA, INJECTABLE, QUADRIVALENT, PRESERVATIVE FREE 1 2016 150 complet ed HISTORICA L INFORMATI ON - FROM OTHER REGISTRY, [facility] PNEUMOCOCCAL POLYSACCHARID E PPV23 1 2013 [...] Date Status Disposition Source [facility] Outpatient Encounter [id number] 01/21 ST[facility] E [facility] Outpatient Encounter [id number] 02/23 [facility] En[facility] [id number] 04/16 [facility] En[facility] [id number] 02/25 [facility] En[facility] [id number] 03[facility]02 [facility] Social History Combined list of available smoking, [...]
--- NOTE | 2025-03-15 10:51 | XR_ITS ---
FINAL REPORT CLINICAL HISTORY: Rheumatoid Arthritis swelling, pain radiates to wrist COMPARISON: None FINDINGS: Two views of the right hand were obtained. There is no acute fracture or dislocation. There is nonspecific joint space narrowing, greatest in the MCP joints involving the 2nd and 3rd digits. No associated erosions are noted. There is mild osteoarthritic change in the 3rd PIP joint which may be posttraumatic. There is no acute soft tissue abnormality. IMPRESSION: Arthritic changes without specific features of rheumatoid arthritis. Reviewed, Interpreted and Dictated by Federico Lopez MD Transcribed by Sophia Izquierdo Authenticated and [facility]
--- OUTSIDE RECORDS SUMMARY | 2025-03-15 11:03 | XMS_ITS | Clinical Summary ---
Author Organization [facility] Address [address] [place] [address] Phone Care Team Providers Care Human Geography Faculty Member Name Role Phone Parker Rendon MD Primary Care Provider [phone] Allergies No known active allergies Medications ibuprofen (ADVIL;MOTRIN) 200 mg tablet Take by mouth every 8 hours as needed for Pain. Active [place]-3 Fatty Acids-Vitamin E (FISH OIL) 1,000 mg Cap Take 1,000 mg by mouth daily. Active MULTIVITAMIN W-MINERALS/LUTEI N (MULTI-ROWAN 50 & OVER ORAL) Take by mouth. Active Saw Providence 160 mg capsule Take 160 mg by [...] artery disease of n ative artery of [place] heart with stable angina pectoris 10/20/2024 Overview [...] AM EDT Office Visit [facility] [address] [place] [address] Ford Gaitan MD [address] [place] [address] Health Maintenance Due Date Last [...] colon Otherwise normal colonoscopy to cecum Narrative [facility] - 08/28/2012 1:32 PM EST Performing Provider: Jason Candelario M.D. Referring Provider: Mulugeta Phelps M.D. Jason Candelario MD GI PROCEDURE ORDERABLES Fin al Result [facility] [address] [facility] [address] [address] from Last 3 Months or Most Recently Relevant to Health Maintenance Insurance MEDICARE [place] PART A AND B MEDICARE [place] PART A [place] B Advance Directives For more information, please contact: [phone] * Full Code (Latest Code Status on File) Date Activated Date Inactivated Comments 12/26/2016 2:03 PM 12/26/2016 7:06 PM * Full Code Date Activated Date Inactivated Comments 12/13/2013 12:41 AM 12/17/2013 4:47 PM Care Teams Human Geography Faculty Member Relationship Specialty Start Date End Date Parker Rendon MD PCP - General Family Medicine 12/12/13
--- OUTSIDE RECORDS SUMMARY | 2025-03-15 11:03 | XMS_ITS | Data Portability ---
Author Organization [facility] Address [address] [facility] [address] [place] [address] Assessment No assessment recorded. Plan of Treatment [...] , 4 or 5 view [facility] [address] [place] [address] Patikimberly adam Name: DENNISE adam : [address] [...] Stanford MD on 018 4:33 PM [id number] [facility] [place] [address] [place], [address], 03/01/2022 03:33:20 Result Notes Documentation Provider Name and Address Organization Details Recorded Time Xr, Cervical Spine, 4 Or 5 View : [facility] [address] [place] [address] Patient Name: DENNISE CLEANING Patient : 1960 Patient Ordering Provider: JUANA [...] By: Rome Stanford MD A COTTO PA-C [address] [place], [address], [facility] 10/16/2017 08:46:06 Problems No Known Problems Procedures Surgical History Date Name Laterality Status Provider Name and Address Organization Details Recorded Time 07/29/2017 Op Note completed TOÑO TAYLOR MD [address] [place], [address], [facility] 07/29/2017 14:59:08 Imaging Results None recorded. Procedure [...] Not Available Not Available Not Avai lable Pom[place] 5 mg-325 mg tablet Take 1 tablet [...] Body mass index (BMI) Body weight Systolic And Diastolic Provider Name and Address Organization Details Last Updated DateTime 09/11/2017 172.72 cm 22.8 kg/m2 33793.86 g 146/78 mm[Hg] [facility] 09/11/2017 10:43:31 Date Recorded Body height Body mass index (BMI) Body weight Systolic And Diastolic Provider Name and Address Organization Details Last Updated DateTime 10/15/2017 172.72 cm 22.8 kg/m2 44937.86 g 138/80 mm[Hg] Elizabeth Aguirre [facility] 10/15/2017 14:12:48 Date Recorded Body height Body mass index (BMI) Body weight Systolic And Diastolic Provider Name and Address Organization Details Last Updated DateTime 11/20/2017 172.72 cm 22.8 kg/m2 08871.86 g 142/80 mm[Hg] [facility] 11/20/2017 12:06:19 Date Recorded Body height Body mass index (BMI) Body weight Systolic And Diastolic Provider Name and Address Organization Details Last Updated DateTime 12/19/2017 172.72 cm 22.8 kg/m2 16374.86 g 168/93 mm[Hg] [facility] 12/19/2017 09:56:53 Date Recorded Body height Body mass index (BMI) Body weight Systolic And Diastolic Provider Name and Address Organization Details Last Updated DateTime 2018 172.72 cm 22.8 kg/m2 78134.86 g 160/82 mm[Hg] [facility] 2018 10:27:47 Social History Question Answer Notes LastModified by Organizat ion Details LastModified Time Tobacco Smoking Status Current Every Day [facility] 07/09[facility]2017 13:24:22 What Was The Date Of Your Most Recent Tobacco Screening? 2018 Information n ot available 10/13/2019 Sex: Unknown Functional Status None recorded. Mental Status None recorded. Family History Nothing Reported. Medical History No medical history recorded. Past Encounters Encounter ID Performer Location Encounter Start Date Encounter Closed Date Diagnosis/Indication Diagnosis SNOMED-CT Code Diagnosis ICD10 Code Diagnosis Note [id number] TOÑO TAYLOR MD [facility] [address] [place] [address] 07/09/2017 13:11:23 07/09/2017 14:51:08 Full thickness rotator cuff tear 912377463 M75.121 traumatic large anterior superior rotator cuff [...] rehabilita tion were noted. Consent was confirmed. [id number] TOÑO TAYLOR MD SURGERY SCHEDULE [address] [place] [address] 07/29/2017 11:24:33 07/29/2017 11:26:21 [id number] JUANA COTTO PA-C [facility] [address] [place] [address] 08/02/2017 13:12:55 08/07/2017 16:11:54 Postoperative care [id number] Z48.89 Doing well 1 wk s/p RCRWill hold on PT at this timeRTO as scheduled or PRN [id number] TOÑO TAYLOR MD [facility] [address] [place] [address] 08/14/2017 15:42:56 08/15/2017 10:12:34 Postoperative care [id number] Z48.89 delayed rehab with massive etar [id number] TOÑO TAYLOR MD [facility] [address] [place] [address] 09/11/2017 10:23:50 09/11/2017 11:16:46 Postoperative care [id number] Z48.89 delayed rehab with massive tearwean from slingbegin PT 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 ; 80# overhead [id number] JUANA COTTO PA-C [facility] [address] [place] [address] 10/15/2017 13:38:03 10/16/2017 07:30:00 Postoperative care 893075457 Z48.89 11 wks s/p massive traumatic cuff [...] cuff repair RTO as scheduled or PRN [id number] TOÑO TAYLOR MD [facility] [address] [place] [address] 11/20/2017 11:28:20 11/20/2017 12:41:15 Postoperative care [id number] Z48.Faith Has been in delayed rehab with massive tear Unable to Work for foreseeabl e future 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 PT recommende d for function concern for alf work performanc e ; 80# overhead [id number] TOÑO TAYLOR MD [facility] [address] [place] [address] 12/19/2017 09:51:22 12/19/2017 11:06:14 Postoperative care [id number] Z48.Faith Has been in delayed rehab with massive tear Unable to Work for foreseeabl e future Rec alf disability for 12 month post op PT recommende d for function 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 ; 80# overhead [id number] TOÑO TAYLOR MD [facility] [address] [place] [address] 2018 10:18:28 2018 11:38:57 Postoperative care [id number] Z48.Faith Has been in delayed rehab with massive tear Unable to Work for foreseeabl e future Rec alf disability for 12 month post op PT recommende d for function 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 ; 80# overhead Health Concerns Section Related Observation LastModified by Organization Detai ls LastModified Time None Recorded Concern Status LastModified by Organization Details LastModified Time None Recorded Advance Directives Directive None Recorded Payers Insurance Date Sequence Insurance Name Policy Number Policy Freeman Covered Member ID Freeman Member ID Guarantor Name 07/20/2020 1 [place] [employer] [id number] Karina L Cleaning [id number] Dennise Cleaning Notes Date Note Type Note Provider Name and Address Organization Details Recorded Time 09/11/2017 text/html 6 weeks post massive RCRstruggling with cont pain- jm neck, upper trap TOÑO TAYLOR MD [address], [place], [address], [facility] 09/11/2017 11:05:42 10/15/2017 text/html 57 yo M presents today for 11 wk recheck s/p massive traumatic rotator cuff tear c/o continued pain in shoulder & new onset neck pain occasional numbness/tingling reports compliance with HEP, does have difficulty attending formal PT visits JUANA COTTO PA-C [address] [place], [address], [facility] 10/15/2017 16:43:09 11/20/2017 text/html today he reports sig pain overall trend is better than before 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 4 months out from [employer] RCRPROCEDURE: Right shoulder arthroscopic and open repair of the supraspinatus and subscapularis with biceps tenodesis and limited debridement and subacromial decompression TOÑO TAYLOR MD [address] [place], [address], [facility] 11/20/2017 12:30:22 12/19/2017 text/html he reports feeli ng OK, pain mild, 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 [employer] SURGERY DATE: July 29, 2017 PREOPERATIVE DIAGNOSIS: Right shoulder massive traumatic retracted tear of the subscapularis and supraspinatus POSTOPERATIVE DIAGNOSIS: The same with disruption of the long head biceps mirna PROCEDURE: Right shoulder arthroscopic and open repair of the supraspinatus and subscapularis with biceps tenodesis and limited debridement and subacromial decompression TOÑO TAYLOR MD [address] [place], [address], [facility] 12/19/2017 10:21:41 2018 text/html Dennise feels that [...] subacromial decompression TOÑO TAYLOR MD [address] [place], [address] 2018 10:56:54
[2025-03-15 13:04] LABS: Vitamin B12 573 pg/mL (239-931)
[2025-03-15 13:51] LABS: Ferritin 30.7 ng/ml (17.9-464)
== END 2025-03-15 23:59 | disposition home or self-care (01) ==
LOC: LAB 10:50
PROVIDERS: PCP Family Medicine; Visit Provider Specialist
DX: M79.641 Pain in right hand (principal); M79.642 Pain in left hand; M79.89 Other specified soft tissue disorders; E83.10 Disorder of iron metabolism, unspecified; R53.83 Other fatigue
CPT/HCPCS: 36415; 73120; 82607; 82728

== ENCOUNTER 2025-08-12 11:26 | Outpatient (CLI) | payer MEDICARE, BC, SELFPAY ==
--- OUTSIDE RECORDS SUMMARY | 2025-07-14 23:59 | XMS_ITS | Encounter Summary ---
Author Organization [facility] Address [address] [place] [address] Phone Care Team Providers Care Granite Polisher Name Role Phone Parker Rendon MD Primary Care Provider [phone] Encounter Details Date Type Department Care Team (Late st Contact Info) Description 07/23/2025 11:59 PM EST Anesthesia Event [facility] Center Pre/Post [address] [place] [address] Kemar Bernal, DO [address] [place] [address] Anesthesia Record Procedure Summary Procedure Name Responsible Anesthesiologist Anesthesia Start Time Anesthesia Stop Time Events No events on file. Meds * Agents No agents on file. * Blood No blood administrations on file. Lines, Drains, and Airways No LDAs on file. documented in this encounter Social History Tobacco Use Types Packs/Day Years Used Date Smoking Tobacco: Former Cigarettes 1.5 40 0 11/02/1976 - 11/02/2016 Comments:07/14/25: Pt smokin g ~ 10 cigarettes / day Alcohol Use Standard Drinks/Week Comments No 0 (1 standard drink = 0.6 oz pur e alcohol) Sexually Active Control Partners Comments Not Currently Female Sex and Gender Information Value Date Recorded Sex Assigned at Not on file Legal Sex Male 5:12 PM EDT Gender Identity Not on file Sexual Orientation Not on file documented as of this encounter OR Notes * Anesthesia Preprocedure Evaluation - Kemar Bernal DO - 07/14/2025 4:50 PM EST Pre-Anesthesia Evaluation Note Patient Name: Luis Ham Sex: male Patient : 1960 Age: 65 y.o. Patient Date: July 14, 2025 Procedure(s): LEFT REVERSE TOTAL SHOULDER ARTHROPLASTY, BICEPS TENODESIS Anesthesia Evaluation Previous anesthesia. No history of anesthetic complications: Airway Dental Pulmonary (+) Pneumonia History of tobacco use (60 pack year hx): former Cardiovascular Comments: Stress Test 04/2025 Conclusions * Fixed base to mid inferior wall defect noted with normal wall motion thus most likely secondary to diaphragmatic artifact. * No evidence of myocardial ischemia or prior myocardial infarction. * Normal left ventricular size. * Overall left ventricular systolic function was normal without regional wall motion abnormalities. (+)Hypertension: Angina: Shortness of breath: [facility] Neuro/Psych GI/Hepatic/Renal Endo/Other EEG TECHNOLOGIST Additional Pre-evaluation comments Opioids Body mass index is 25.39 kg/m??. Anesthesia Plan ASA 2 Anesthesia Plan: general and regional Induction: intravenous Monitors: STD PONV Risk Score: 2. Score of 2 is Moderate Risk for PONV, at least one antiemetic indicated for prophylaxis. Informed consent Anesthetic plan and risks discussed with: patient. Chart Reviewed documented in this encounter Plan of Treatment Upcoming Encounters Date Type Department Care Team (Late st Contact Info) Description 08/30/2025 2:05 PM EST Office Visit [facility] Ophthalmology [facility] [address] [facility] [address] [place] [address] Otf Ureña OD [address] [place] [address] 09/09/2025 8:15 AM EST Office Visit [facility] [address] [address] Claudia Salas PA-C [address] [place] [address] 11/18/2025 10:45 AM EDT Office Visit [facility] [place] [address] [place] [address] Ford Gaitan MD [address] [place] [address] documented as of this encounter Visit Diagnoses Not on filedocumented in this encounter Care Teams Granite Polisher Relationship Specialty Start Date End Date Parker Rendon MD PCP - General Family Medicine 12/12/13 documented as of this encounter
--- OUTSIDE RECORDS SUMMARY | 2025-07-21 09:00 | XMS_ITS | Encounter Summary ---
Author Organization [facility] Address [address] [place] [address] Care Team Providers Care Senior Technical Writer Name Role Phone Parker Rendon MD Primary Care Provider [phone] Encounter Details Date Type Department Care Team (Late st Contact Info) Description 07/21/2025 9:00 AM EST Clinical Support [facility] [address] [facility] [address] [place] [phone] Suzy Martinez Athletic Trainer Complete tear of [...] today. DME Summary Normal Orders This Visit MI SO ACRO/CLAV CAN WEB PRE OTS [[id number] [facility]] Order #: [id number] This patient has been prescribed an abduction [...] Please call our office with any questions: [facility] DME: [phone] Sarah DME: [phone] [facility] DME: [phone] documented in this encounter Plan of Treatment Upcoming Encounters Date Type Department Care Team (Late st Contact Info) Description 08/30/2025 2:05 PM EST Office Visit [facility] [address] Naersh Parekh [facility] [address] [place] [address] Otf Ureña OD [address] [place] [address] 09/09/2025 8:15 AM EST Office Visit [facility] [address] [facility] [address] [place] [address] Claudia Salas PA-C [address] [place] [address] 11/18/2025 10:45 AM EDT Office Visit [facility] [address] [address] Ford Gaitan MD [address] [place] [address] Scheduled Orders Name Type Priority Associated Diagnoses Orde r Schedule MI SO ACRO/CLAV CAN WEB PRE OTS MI Charge Routine Complete tear of left rotator [...] joint documented in this encounter Care Teams Senior Technical Writer Relationship Specialty Start Date End Date Parker Rendon MD PCP - General Family Medicine 12/12/13 documented as of this encounter
--- OUTSIDE RECORDS SUMMARY | 2025-07-23 08:20 | XMS_ITS | Encounter Summary ---
Author Organization [facility] Address [address] [place] [phone] Phone Care Team Providers Care Workflow Developer Name Role Phone Parker Rendon MD Primary Care Provider [phone] Reason for Visit * Auth/Cert/Inpt Specialty Diagnoses / Procedures Referred By Contvanessa t Referred To Contact Diagnoses Complete tear of left rotator cuff, unspecified whether traumatic Biceps tendon tear Glenohumeral arthritis Complete tear of left rotator cuff, unspecified whether traumatic [M75.122] Biceps tendon tear [S46.219A] Glenohumeral arthritis [M19.019] Procedures [place] ARTHROPLASTY GLENOHUMERAL JOINT TOTAL SHOULDER LEFT REVERSE TOTAL SHOULDER ARTHROPLASTY, BICEPS TENODESIS [facility] [address] [place] [phone] Phone: tel: fax: Referral ID Status Reason Start Date Expiration Date Visits Re quested Visits Authorized [id number] 1 1 Encounter Details Date Type Department Care Team (Latest Contact Info) Description 07/23/2025 8:20 AM EST - 07/23/2025 9:22 AM EST Hospital Encounter [facility] [address] [place] [address] Kayden Barcenas, DO [address] [place] [address] Discharge Disposition: Home or Self Care Social [...] and [facility] [phone] DISCHARGE INSTRUCTIONS My surgery: Procedure(s): LEFT REVERSE [...] Do not take if you are prescribed [place] (Hydrocodone/APAP). Do not exceed a maximum of 3000mg acetaminophen in 24 hours. You may increase the time between doses as pain decreases. You may discontinue these medications when pain is tolerable. Prescription Additional pain medication will be provided upon discharge unless you are taking pain medication prior to your surgery, provided by your primary care physician or auto customize painter. You have been given a prescription for [...] 50 & OVER ORAL) Take by mouth. [place]-3 Fatty Acids-Vitamin E (FISH OIL) 1,000 mg [...] No alcohol 24 hours prior to surgery. Marketing Production Coordinator It is important to have a Marketing Production Coordinator, someone who is 18 years or older, [...] please reach out to our department at [phone]. Hygiene [place] your teeth and gargle the morning of surgery. Shower the morning of surgery or the night before. Do not wear makeup (including eye makeup) lotion, powder, deodorant, perfume, or cologne. Do not shave the operative extremity or near the operative area. Remove nail tristanian prior to surgery. This includes artificial nails and gel nail tristanian. Personal Items Wear clean, simple, loose-fitting clothing [...] your Living Will and/or Durable Power of Amusement Ride Inspector for Healthcare. Bring any medical equipment that your surgeon advises you to use for postoperative care such as braces, slings, boots, crutches, walkers, etc. Notify the Surgeon Notify your surgeon if you develop any illness (fever, cold, cough, sore throat, nausea, vomiting, skin rashes etc.) between now and surgery time Notify your surgeon and Pre-admission testing ([phone]) if you have any changes in your healthconditions or if any new medications are ordered between now and surgery.. Questions or Concerns? If you have any questions or concerns, feel free to call the Pre-Admission testing department at [phone]. We want to make sure you feel safe and have an excellent experience while you are here. Our address is [address] [place] [address] Do not reply to this message through [employer] as it may not be answered promptly. documented in this encounter Plan of Treatment Upcoming Encounters Date Type Department Care Team (Late st Contact Info) Description 08/30/2025 2:05 PM EST Office Visit [facility] [address] [facility] [address] [place] [address] Otf Ureña, OD [address] [place] [address] 09/09/2025 8:15 AM EST Office Visit [facility] [address] [place] [address] Claudia Salas PA-C [address] [place] [address] 11/18/2025 10:45 AM EDT Office Visit [facility] [address] [address] Ford Gaitan MD [address] [place] [address] documented as of this encounter [...] 2024 documented in this encounter Care Teams Workflow Developer Relationship Specialty Start Date End Date Parker Rendon MD PCP - General Family Medicine 12/12/13 documented as of this encounter
--- OUTSIDE RECORDS SUMMARY | 2025-07-23 09:23 | XMS_ITS | Encounter Summary ---
Author Organization [place] [address] Care Team Providers Care Counseling Psychologist Name Role Phone Parker Rendon MD Primary Care Provider [phone] Reason for Visit * Auth/Cert/Inpt Specialty Diagnoses / Procedures Referred By Contac t Referred To Contact Diagnoses Rotator cuff tear arthropathy, left Rotator cuff tear arthropathy, left [M75.102, M12.812] Procedures NE ARTHROPLASTY GLENOHUMERAL JOINT TOTAL SHOULDER Left Shoulder Reverse Total Replacement Arthroplasty Referral ID Status Reason Start Date Expiration Date Visits Re quested Visits Authorized [id number] 1 1 Encounter Details Date Type Department Care Team (Latest Contact Info) Description 07/23/2025 9:23 AM EST - 07/23/2025 3:24 PM [facility] Hospital Encounter CRISTOBAL SAME DAY SURGERY [address] [place] [address] Kayden Barcenas DO [address] [place] [address] Discharge Disposition: Home or Self Care Social [...] from the original note were not included. [phone] Shoulder Surgery Discharge Instructions MY SURGERY: Procedure(s): [...] prescribed by your primary care physician or paint roller covermaker) You may continue/resume all other routine medications [...] to decrease the risk of infection +++++++++++++++++++++++++++++++++++++++++++++++++++++++++++++++++++ [facility] Discharge Instructions - Following Anesthesia We appreciate [...] our office at . Get Well Soon! [facility] +++++++++++++++++++++++++++++++++++++++++++++++++++++++++++++++++++ * Attachments The following attachments cannot be sent through Care Everywhere. * How to use an incentive spirometer (Iraqi) documented in this encounter Medications at Time [...] 50 & OVER ORAL) Take by mouth. [place]-3 Fatty Acids-Vitamin E (FISH OIL) 1,000 mg [...] AM EST Discharge Medication Delivery Service DMD biomedical equipment technician has delivered the following medications for Luis Ham: Rx#[id number]:OXYCODONE 5 MG TABLET-5 mg EVERY 4 HOURS PRN Rx#[id number]:CEPHALEXIN 500 MG CAPSULE-1000 mg *EVERY 8 HOURS Date/Time of Delivery: 07/23/2025 2:50 PM Delivered to: Luis Ham in SDS24. handed sealed rx bag to family in room Please contact DMD biomedical equipment technician with any questions. Thanks! Erika Avalos CPhT documented in this encounter H&P Notes * Simeon Rivera MD - 07/23/2025 10:21 AM EST [facility] History and Physical Name: Luis Ham ADDRESS: [address] [place] [address] : 1960 AGE: 65 y.o. Assessment: Rotator [...] ORAL) Take by mouth. 07/16/2025 Provider, Historical [place]-3 Fatty Acids-Vitamin E (FISH OIL) 1,000 mg [...] Name Model No. Serial No. Lot No. Machine Striper LRB No. Used Action BASEPLATE STD GLENOID 24MM LEONORA METER 0 DEGREE 10MM - [id number] SHOULDER [employer] Left 1 Implanted SCREW RSA CENTRAL COMPRESSION 6.0MM X 30MM - [id number] SHOULDER [employer] Left 1 Implanted SCREW RSA PERPENDICULAR LOCKING 4.5MM X 15 MM - [id number] SHOULDER [employer]NOVATIONS Left 1 Implanted SCREW RSA PERPENDICULAR LOCKING 4.5MM X 25 MM - [id number] SHOULDER [employer]NOVATIONS Left 1 Implanted SCREW RSA PERPENDICULAR LOCKING 4.5MM X 35 MM - [id number] SHOULDER INNOVATIONS Left 1 Implanted K-WIRE GUIDE 2.4MM - [id number] SHOULDER INNOVATIONS Left 2 Implanted and Explanted TOTAL SHOULDER RSA OFFSET GLENOSPHERE-COCR 47EEE0ISN+6MM - [id number] SHOULDER INNOVATIONS Left 1 Implanted STEM HUMERAL SHORT 32MM X 6MM STERILE - [id number] ENCORE MED:DJO SURGICAL Left 1Implanted TOTAL SHOULDER RSA NEUTRAL HUMERAL BEARING 36MM 0MM 0 DEG - [id number] SHOULDER INNOVATIONS Left 1 Implanted TOTAL SHOULDER RSA HUMERAL TRAYS 0 MM OFFSET 38 MM LEONORA - [id number] SHOULDER INNOVATIONS Left 1 Implanted ANESTHESIA: [...] 1-10, how likely are you to recommend [facility] to friends and family (10-highly recommend)? 10 [...] & OVER ORAL) Take by mouth. 07/16/2025 [place]-3 Fatty Acids-Vitamin E (FISH OIL) 1,000 mg [...] EST Office Visit [facility] Ophthalmology Cov [address] [facility] [address] [place] [address] Otf Ureña, OD [address] [place] [address] 09/09/2025 8:15 AM EST Office Visit OrthoCincy NKU [address] [facility] [address] [place] [address] Claudia Salas PA-C [address] [place], [place] [id number] 11/18/2025 10:45 AM EDT Office Visit [facility]TT H&V [address] [address] Ford Gaitan MD [address] [place] [address] Pending Results Name Type Priority Associated Diagnoses Date /Time ECG AND WAVEFORMS - TELEMETRY Point of Care Testing Routine 07/23/2025 2:00 PM EST documented as of this encounter Procedures Procedure Name Priority Date/Time Associated Diagnosis Comments XR SHOULDER LEFT 1 VW STAT 07/23/2025 2:30 PM EST ECG AND WAVEFORMS - TELEMETRY Routine 07/23/2025 2:00 PM EST NE ARTHROPLASTY GLENOHUMERAL JOINT TOTAL SHOULDER 07/23/2025 11:56 [...] office of the ordering clinician. us Kayden MAURICE DIAGNOSTIC IMAGING ORDERABL ES Final Result * US ANES GUIDANCE FOR NERVE BLOCK (07/23/2025 9:59 AM EST) Narrative Eduarda Dudley - 07/23/2025 9:59 AM EST Ultrasound guided [...] 1203 (New Bag - Prov ider: Ford Kaufman CRNA) midazolam (VERSED) injection 2 mg (COMPLETED) 2 [...] 07/23/2025 documented in this encounter Care Teams Counseling Psychologist Relationship Specialty Start Date End Date Parker Rendon MD PCP - General Family Medicine 12/12/13 documented as of this encounter
--- OUTSIDE RECORDS SUMMARY | 2025-07-23 09:59 | XMS_ITS | Encounter Summary ---
Author Organization [place] [address] Care Team Providers Care Flanging Machine Operator Name Role Phone Parker Rendon MD Primary Care Provider Reason for Visit * Auth/Cert/Inpt Specialty Diagnoses / Procedures Referred By Contac t Referred To Contact Diagnoses Rotator cuff tear arthropathy, left Rotator cuff tear arthropathy, left [M75.102, M12.812] Procedures [place] ARTHROPLASTY GLENOHUMERAL JOINT TOTAL SHOULDER Left Shoulder Reverse Total Replacement Arthroplasty Referral ID Status Reason Start Date Expiration Date Visits Re quested Visits Authorized [id number] 1 1 Encounter Details Date Type Department Care Team (Latest Contact Info) Description 07/23/2025 9:59 AM EST - 07/23/2025 11:59 PM EST Hospital Encounter CRISTOBAL SAME DAY SURGERY [address] [place] [address] Kayden Barcenas DO [address] [place] [address] Discharge Disposition: Home or Self Care Social History Tobacco Use Types Packs/Day Years Used Date Smoking Tobacco: Some Days Cigarettes 1.5 40 Started: 11/02/1976; Last attempted to quit: 11/02/2016 Comments:07/14/25: Pt smokin g ~ 10 [...] on file documented as of this encounter Medications at Time of Discharge [...] 50 & OVER ORAL) Take by mouth. [place]-3 Fatty Acids-Vitamin E (FISH OIL) 1,000 mg [...] 07/23/2025 08/02/2025 documented as of this encounter Discharge Disposition Disposition Code Departure Means Destination Home or Self Care documented in this encounter Plan of Treatment Upcoming Encounters Date Type Department Care Team (Late st Contact Info) Description 08/30/2025 2:05 PM EST Office Visit [facility]P Ophthalmology Cov [address] [facility] [address] [place] [address] Urmilaanshulpetr Otf, OD [address] [place] [address] 09/09/2025 8:15 AM EST Office Visit Orth[facility]Cincy NKU 26[address] [facility] [address] [place], [place] [id number] Claudia Salas PA-C [address] [place], [place] [id number] 11/18/2025 10:45 AM EDT Office Visit [facility]TT H&V [facility]t [address] [address] Ford Gaitan MD [address] [place] [address] documented as of this encounter Procedures Procedure Name Priority Date/Time Associated Diagnosis Comments US ANES GUIDANCE FOR NERVE BLOCK STAT 07/23/2025 9:59 AM EST documented in this encounter Results * US ANES GUIDANCE FOR NERVE BLOCK (07/23/2025 9:59 AM EST) Narrative Genericuser, Eduarda - 07/23/2025 9:59 AM EST Ultrasound guided nerve block performed by Anesthesiologist. The study image(s) are for reference only and will not be interpreted by a Radiologist. Refer to the Anesthesia procedure note for image description and procedure details. us Blair Fernández DO IMG US ORDERABLES Final Result documented in this encounter Visit Diagnoses Not on filedocumented in this encounter Care Teams Flanging Machine Operator Relationship Specialty Start Date End Date Parker Rendon MD PCP - General Family Medicine 12/12/13 documented as of this encounter
--- OUTSIDE RECORDS SUMMARY | 2025-07-23 11:42 | XMS_ITS | Encounter Summary ---
Author Organization [place] [address] Care Team Providers Care Cabinet Installer Name Role Phone Parker Rendon MD Primary Care Provider [phone] Reason for Visit * Auth/Cert/Inpt Specialty Diagnoses / Procedures Referred By Contvanessa t Referred To Contact Diagnoses Rotator cuff tear arthropathy, left Rotator cuff tear arthropathy, left [M75.102, M12.812] Procedures [place] ARTHROPLASTY GLENOHUMERAL JOINT TOTAL SHOULDER Left Shoulder Reverse Total Replacement Arthroplasty Referral ID Status Reason Start Date Expiration Date Visits Re quested Visits Authorized [id number] 1 1 Encounter Details Date Type Department Care Team (Late st Contact Info) Description 07/23/2025 11:42 AM EST - 07/23/2025 2:07 PM EST Surgery CRISTOBAL PERIOP [address] [facility] [place] [address] Kaydne Barcenas DO [address] [place] [address] SHOULDER REVERSE TOTAL REPLACEMENT ARTHROPLASTY (COVERS BICEP TENODESIS) Surgery Details Date/Time Status Location OR Service Patient Class Case Class Case Type Trauma Case? 07/23/2025 11:42 AM Posted CRISTOBAL MAIN OR CRISTOBAL OR 05 Orthopedics Same Day Surgery Semi-Urg ent - 2 Wks No Panel 1 Procedure LRB Anes Op Region Wound Class Comments SHOULDER REVERSE TOTAL REPLACEMENT ARTHROPLASTY (COVERS BICEP TENODESIS) Left General w/Block Shoulder Clean Left Shoulder [...] from the original note were not included. [phone] Shoulder Surgery Discharge Instructions MY SURGERY: Procedure(s): [...] by your primary care physician or paint brush maker) You may continue/resume all other routine medications [...] to decrease the risk of infection +++++++++++++++++++++++++++++++++++++++++++++++++++++++++++++++++++ [facility] Discharge Instructions - Following Anesthesia We [...] our office at . Get Well Soon! [place] [facility] +++++++++++++++++++++++++++++++++++++++++++++++++++++++++++++++++++ * Attachments The following attachments cannot be sent through Care Everywhere. * How to use an incentive spirometer (Somali) documented in this encounter Medications at Time [...] 50 & OVER ORAL) Take by mouth. [place]-3 Fatty Acids-Vitamin E (FISH OIL) 1,000 mg [...] AM EST Discharge Medication Delivery Service DMD instructor adjunct surgical technician has delivered the following medications for Luis Ham: Rx#[id number]:OXYCODONE 5 MG TABLET-5 mg EVERY 4 HOURS PRN Rx#[id number]:CEPHALEXIN 500 MG CAPSULE-1000 mg *EVERY 8 HOURS Date/Time of Delivery: 07/23/2025 2:50 PM Delivered to: Luis Wing Ham in SDS24. handed sealed rx bag to family in room Please contact DMD instructor adjunct surgical technician with any questions. Thanks! Erika Avalos CPhT documented in this encounter H&P Notes * Simeon Rivera MD - 07/23/2025 10:21 AM EST [facility] History and Physical Name: Luis Ham ADDRESS: [address] [place] [address] : 1960 AGE: 65 y.o. Assessment: Rotator [...] ORAL) Take by mouth. 07/16/2025 Provider, Historical Mayking-3 Fatty Acids-Vitamin E (FISH OIL) 1,000 mg [...] Name Model No. Serial No. Lot No. Fiber Optic Splicer LRB No. Used Action BASEPLATE STD GLENOID 24MM LEONORA METER 0 DEGREE 10MM - [id number] SHOULDER [employer]OVATIONS Left 1 Implanted SCREW RSA CENTRAL COMPRESSION 6.0MM X 30MM - [id number] SHOULDER INNOVATIONS Left 1 Implanted SCREW RSA PERPENDICULAR LOCKING 4.5MM X 15 MM - [id number] SHOULDER [employer]OVATIONS Left 1 Implanted SCREW RSA PERPENDICULAR LOCKING 4.5MM X 25 MM - [id number] SHOULDER [employer]NOVATIONS Left 1 Implanted SCREW RSA PERPENDICULAR LOCKING 4.5MM X 35 MM - [id number] SHOULDER INNOVATIONS Left 1 Implanted K-WIRE GUIDE 2.4MM - [id number] SHOULDER INNOVATIONS Left 2 Implanted and Explanted TOTAL SHOULDER RSA OFFSET GLENOSPHERE-COCR 54TUZ5PDV+6MM - [id number] SHOULDER INNOVATIONS Left 1 Implanted STEM HUMERAL SHORT 32MM X 6MM STERILE - [id number] ENCORE MED:DJO SURGICAL Left 1Implanted TOTAL SHOULDER RSA NEUTRAL HUMERAL BEARING 36MM 0MM 0 DEG - [id number] SHOULDER INNOVATIONS Left 1 Implanted TOTAL SHOULDER RSA HUMERAL TRAYS 0 MM OFFSET 38 MM LEONORA - [id number] SHOULDER INNOVATIONS Left 1 Implanted ANESTHESIA: [...] dissected underneath the deltopectoral interval after pectoralis and deltoid had been completely retracted. With the arm in maximal internal rotation, all excess bursawas removed. At this time, the remaining portions [...] [facility] - Postop Outreach - Siria Hampton PT - 07/23/2025 3:24 PM EST Ortho/Neuro [...] 1-10, how likely are you to recommend [facility] to friends and family (10-highly recommend)? [...] discharge. Outcome: Progressing * H&P Update - Milenanicolette Kayden, DO - 07/23/2025 10:09 AM EST Images [...] & OVER ORAL) Take by mouth. 07/16/2025 Mayking-3 Fatty Acids-Vitamin E (FISH OIL) 1,000 mg [...] EST Office Visit [facility] [address] [facility] [address] [place] [address] Otf Ureña, OD [address] [place] [address] 09/09/2025 8:15 AM EST Office Visit [facility] [address] [facility] [address] [place] [address] Claudia Salas PA-C [address] [place] [address] 11/18/2025 10:45 AM EDT Office Visit [facility] H&V [address] [address] Ford Gaitan MD [address] [place] [address] Pending Results Name Type Priority Associated Diagnoses Date /Time ECG AND WAVEFORMS - TELEMETRY Point of Care Testing Routine 07/23/2025 2:00 PM EST documented as of this encounter Procedures Procedure Name Priority Date/Time Associated Diagnosis Comments XR SHOULDER LEFT 1 VW STAT 07/23/2025 2:30 PM EST ECG AND WAVEFORMS - TELEMETRY Routine 07/23/2025 2:00 PM EST VT ARTHROPLASTY GLENOHUMERAL JOINT TOTAL SHOULDER 07/23/2025 11:56 [...] and procedure details. us Blair Fernández DO [facility] US ORDERABLES Final Result documented in this [...] 07/23/2025 documented in this encounter Care Teams Cabinet Installer Relationship Specialty Start Date End Date Parker Rendon MD PCP - General Family Medicine 12/12/13 documented as of this encounter
--- OUTSIDE RECORDS SUMMARY | 2025-07-23 11:56 | XMS_ITS | Encounter Summary ---
Author Organization [place] [address] Care Team Providers Care Byproducts Extractor Name Role Phone Parker Rendon MD Primary Care Provider [phone] Reason for Visit * Auth/Cert/Inpt Specialty Diagnoses / Procedures Referred By Contac t Referred To Contact Diagnoses Rotator cuff tear arthropathy, left Rotator cuff tear arthropathy, left [M75.102, M12.812] Procedures [place] ARTHROPLASTY GLENOHUMERAL JOINT TOTAL SHOULDER Left Shoulder Reverse Total Replacement Arthroplasty Referral ID Status Reason Start Date Expiration Date Visits Re quested Visits Authorized [id number] 1 1 Encounter Details Date Type Department Care Team (Late st Contact Info) Description 07/23/2025 11:56 AM EST Anesthesia Event CRISTOBAL PERIOP [address] [place] [address] Whitney Kwan MD [address] [place] [address] Blair Fernández, [address] [place] [address] Anesthesia Record Procedure Summary Procedure Name Responsible Anesthesiologist Anesthesia Start Time Anesthesia Stop Time SHOULDER REVERSE TOTAL REPLACEMENT ARTHROPLASTY (COVERS BICEP TENODESIS) (Left: Shoulder) Whitney Kwan MD 07/23/25 1156 07/23/25 1351 Events Date Time Event Comment 07/23/2025 1145 AN Equip Check 1154 1156 An Start 1201 An Start Data 1201 Immediate Pre Anesthetic Ass es 1204 An Induction 1204 An Intubation 1214 Anesthesia Ready 1230 Time out 1230 Incision 1338 An Emergence 1341 An Extubation 1341 an stop data 1351 An Stop 1351 Handoff I completed my SBAR handoff to the receiving nurse which has included the followin. Identification of the patient, family, or patient surrogate 2. Identification of the responsible practitioner 3. Pertinent medical history 4. Surgical procedure and reason for procedure 5. Intraoperative anesthetic management 6. All current lines, drains and respiratory support. 7. Outstanding follow up orders (X-rays, consults etc) 8. Expectations/Plans for the early post-procedure period 9. Opportunity for questions and acknowledgement of understanding from the receiving PACU/ICU field marketing team leader Meds Name Total lidocaine injection 1% 40 mg fentaNYL 50 MCG/ML INJ 100 mcg propofol (DIPRIVAN) injection 180 mg rocuronium (ZEMURON) 10 mg/mL injection 50 mg phenylephrine 100 mcg/ml 10ml (syringe) 300 mcg dexamethasone (DECADRON) injection 4 mg/ mL 4 mg ondansetron (ZOFRAN) injection 4 mg /2 m L 4 mg sugammadex (BRIDION) 100 mg/mL injection 200 mg ceFAZolin (ANCEF) 2 g in sterile water 2 0 mL IVP 2 g lidocaine 4 % (ZFOILY-I-BIR) laryngotrac heal solution 2 mL tranexamic acid 1,000 mg in sodium chlor sangita 0.9 % 50 mL ivpb 1 g lactated ringers infusion 1,500 mL * Agents Name O2 N2O Air Et Desflurane * Blood No blood administrations on file. Lines, Drains, and Airways Type Details Placement Removal Peripheral IV 07/23/25; 1025; 20; Right, Anterior; Forearm; amullins rn; 1; 07/23/25; 1523; Discharged; Catheter intact 07/23/25 1025 by Penny Post, BAY 07/23/25 1523 by Agnes Davidson, RN Airway Device: ETT- Cuffed; Size: 8 mm; Placement Date: 07/23/25; Placement Time: 1205 (created via procedure documentation); Removal Date: 07/23/25; Removal Time: 1341 07/23/25 1205 by Ford Kaufman CRNA 07/23/25 1341 by Ford Kaufman CRNA Incision/Wound 07/23/25; 1232; Clos ed Surgical; Shoulder/Scapula; Left; 07/23/25; 1925 07/23/25 1232 by Lambert Jaeger RN 07/23/25 1925 by Discharge Provider, Automatic documented in this encounter Social History Tobacco [...] on file documented as of this encounter Procedure Notes * Blair Fernández DO - 07/23/2025 6:49 PM ESTAssociated Order(s): Peripheral Block by Anesthesia Peripheral Block by Anesthesia Procedure Date/Time: 07/23/2025 11:36 AM Patient location during procedure: OR holding area Reason for block: at surgeon's request and post-op pain management Staff and Pre-procedure checks Anesthesiologist: Blair Fernández DO Performed: anesthesiologist Preanesthetic Checklist: Allergies confirmed, Block plan confirmed, Necessary block equipment present, Supplemental O2 applied, if needed, Anticoagulant confirmed, Block site marked, Patient identified- 2 criteria, Surgical procedure consent verified, Aseptic technique used, Drug/solution labeled, Resuscitaion equipment available, JOSH recommended monitors applied, IV access functioning, Sedationgiven, if needed and Resuscitation equipment available Immediate perianesthetic assessment completed: Yes Patient position: Sitting Prep: Chloraprep Monitoring: BP, EKG, O2 Sat and Mental status assessed Position: Peripheral Block Block type: Interscalene Block Laterality: Left Injection technique: single-shot Pain pump: no pain pump placed Medication(s) Administered: Bupivacaine liposome 266mg/20ml (EXPAREL), Bupivacaine (MARCAINE) 0.5% and Midazolam (VERSED) Needle Needle type: Pajunk Needle size: 22Gx2 Nerve localization: ultrasound guidance and anatomical landmarks (Interscalene block- Anterior Scalene and Middle Scalene, upper, middle and lower trunks of the brachial plexus are identified; the tip of the needle and the spread of the local anesthetic around the Brachial Plexus are visualized. Ultrasound image documentation is attached/scanned in epic chart. No anatomical pathology noted duringblock placement.) Interscalene block- Anterior Scalene and Middle Scalene, upper, middle and lower trunks of the brachial plexus are identified; the tip of the needle and the spread of the local anesthetic around the Brachial Plexus are visualized. Ultrasound image documentation is attached/scanned in epic chart. Noanatomical pathology noted during block placement. Ultrasound probe: linear Ultrasound needle approach: in-plane Test dose: negative Assessment Block success: complete Events: Uneventful Heart rate change: no Blood aspirated: no Paresthesia pain: none Resistance on injection: normal Intermittent incremental injection LA at 5ml Additional Notes Additional 10cc Bupi 0.5% for Bicep Tendonesis Repair Time out Completed prior to procedure. Patient is communicating. No pain on injection. Procedure is well tolerated. Standard ASA monitors were used. Vital Signs were stable throughout; please nursing/intraoperative record for vital signs during procedure. Sharps counted and properly disposed at end of procedure. Extended block is expected up to 72 hours post-block. Patient can be discharged to floor/home with the block intact. Ultrasound Image of the block is attached/scanned to the epic chart. * Ford Kaufman CRNA - 07/23/2025 12:16 PM ESTAssociated Order(s): Airway Intraop Airway Placement: Date/Time: 07/23/2025 12:05 PM Induction type: IV Mask size: Standard adult Pre-Oxygenation: Standard Laryngoscope blade: Fisher Blade size: 4 Airway type: ETT- cuffed Topical Anesthetic/Lubricant: Lidocaine 5% ointment Device size: 8mm Secured by: Tape Placement verified: End tidal CO2 and Auscultation Condition: Atraumatic Insertion attempts: 1 Title: CATHY lidocaine 4 % (HLFLTU-M-GYI) laryngotracheal solution - Laryngotracheal 2 mL - 07/23/2025 12:05:00 PM: documented in this encounter OR Notes * Anesthesia Postprocedure Evaluation - Whitney Kwan MD - 07/23/2025 3:26 PM EST Post-Anesthesia Evaluation Note Patient Name: Luis Ham Patient Date: July 23, 2025 Post-Anesthesia Evaluation Patient Location: PACU Post op vitals: stable Difficult airway: no Nausea controlled: yes Level of consciousness: awake Post anesthesia pain: adequate analgesia Airway patency: patent Respiratory status: room air and spontaneous ventilation Cardiovascular status: stable Hydration status: euvolemic Temperature: Normothermia Perioperative complications: NONE Vitals Value Taken Time BP 150/79 07/23/25 14:15 Resp 14 07/23/25 14:15 SpO2 95 % 07/23/25 14:15 Temp 36.7 ??C (98 ??F) 07/23/25 14:25 Pulse 74 07/23/25 14:15 * Anesthesia Preprocedure Evaluation - Blair Fernández DO - 07/23/2025 11:53 AM EST Pre-Anesthesia Evaluation Note Patient Name: Luis Ham Sex: male Patient : 1960 Age: 65 y.o. Patient Date: July 23, 2025 Procedure(s): LEFT REVERSE TOTAL SHOULDER ARTHROPLASTY, BICEPS TENODESIS Anesthesia Evaluation Previous anesthesia. No history of anesthetic complications: Airway Mallampati: II TM distance: >3 FB Neck ROM: full No increased risk of difficult airway Dental Pulmonary (+) Pneumonia History of tobacco use (60 pack year hx): former Physical exam: Comments: Clear to auscultation Cardiovascular Comments: Stress Test 04/2025 Conclusions * Fixed base to mid inferior wall defect noted with normal wall motion thus most likely secondary to diaphragmatic artifact. * No evidence of myocardial ischemia or prior myocardial infarction. * Normal left ventricular size. * Overall left ventricular systolic function was normal without regional wall motion abnormalities. (+)Hypertension: Angina: Shortness of breath: CAMPA Physical exam: Rhythm: regular Rate: normal Neuro/Psych GI/Hepatic/Renal Endo/Other AURICULAR THERAPIST Additional Pre-evaluation comments Opioids There is no height or weight on file to calculate BMI. Anesthesia Plan ASA 2 Last solid intake: The patient has not eaten within the last 8 hours. Last clear liquid intake: The patient has not had clear liquids within the last 2 hours. Last tobacco use: The patient has not used tobacco today. Anesthesia Plan: general and regional Induction: intravenous Monitors: STD PONV Risk Score: 2. Score of 2 is Moderate Risk for PONV, at least one antiemetic indicated for prophylaxis. Informed consent Anesthetic plan and risks discussed with: patient. Use of blood products discussed with patient whom consented to blood products. Chart Reviewed and patient examinedPostop ventilation support discussed?: No; documented in this encounter Miscellaneous Notes * Addendum Note - Blair Fernández DO - 07/23/2025 6:51 PM EST Addendum created 07/23/251850 by Blair Fernández DO Child order released for a procedure order, Clinical Note Signed, Intraprocedure Blocks edited, SmartForm saved documented in this encounter Plan of Treatment Upcoming Encounters Date Type Department Care Team (Late st Contact Info) Description 08/30/2025 2:05 PM EST Office Visit [facility] Ophthalmology Cov [address] [facility] [address] [place] [address] Otf Ureña OD [address] [place] [address] 09/09/2025 8:15 AM EST Office Visit [facility]ETTE [address] [facility] [address] [place] [address] Claudia Salas PA-C [address] [place] [address] 11/18/2025 10:45 AM EDT Office Visit [facility] H&[facility] [address] [address] Ford Gaitan MD [address] [place] [address] documented as of this encounter Procedures Procedure Name Priority Date/Time Associated Diagnosis Comments INTRAOP AIRWAY PLACEMENT Routine 07/23/2025 12:05 PM EST PERIPHERAL BLOCK Routine 07/23/2025 11:3 6 AM EST documented in this encounter Results * INTRAOP AIRWAY PLACEMENT (07/23/2025 12:05 PM EST) Narrative [facility] - 07/23/2025 12:05 PM EST Ford Kaufman CRNA 07/23/2025 12:16 PM Intraop Airway Placement: Date/Time: 07/23/2025 12:05 PM Induction type: IV Mask size: Standard adult Pre-Oxygenation: Standard Laryngoscope blade: Fisher Blade size: 4 Airway type: ETT- cuffed Topical Anesthetic/Lubricant: Lidocaine 5% ointment Device size: 8mm Secured by: Tape Placement verified: End tidal CO2 and Auscultation Condition: Atraumatic Insertion attempts: 1 Title: TREATING PLANT SUPERVISOR lidocaine 4 % (EDKNPL-Q-ASC) laryngotracheal solution - Laryngotracheal 2 mL - 07/23/2025 12:05:00 PM: us Whitney Kwan MD [place] ANESTHESIA Final R esult [facility] [address] [place] [address] * Peripheral Block by Anesthesia (07/23/2025 11:36 AM EST) Narrative [facility] - 07/23/2025 11:36 AM EST Blair Fernández DO 07/23/2025 6:50 PM Peripheral Block by Anesthesia Procedure Date/Time: 07/23/2025 11:36 AM Patient location during procedure: OR holding area Reason for block: at surgeon's request and post-op pain management Staff and Pre-procedure checks Anesthesiologist: Blair Fernández DO Performed: anesthesiologist Preanesthetic Checklist: Allergies confirmed, Block plan confirmed, Necessary block equipment present, Supplemental O2 applied, if needed, Anticoagulant confirmed, Block site marked, Patient identified- 2 criteria, Surgical procedure consent verified, Aseptic technique used, Drug/solution labeled, Resuscitaion equipment available, JOSH recommended monitors applied, IV access functioning, Sedation given, if needed and Resuscitation equipment available Immediate perianesthetic assessment completed: Yes Patient position: Sitting Prep: Chloraprep Monitoring: BP, EKG, O2 Sat and Mental status assessed Position: Peripheral Block Block type: Interscalene Block Laterality: Left Injection technique: single-shot Pain pump: no pain pump placed Medication(s) Administered: Bupivacaine liposome 266mg/20ml (EXPAREL), Bupivacaine (MARCAINE) 0.5% and Midazolam (VERSED) Needle Needle type: Pajunk Needle size: 22Gx2 Nerve localization: ultrasound guidance and anatomical landmarks (Interscalene block- Anterior Scalene and Middle Scalene, upper, middle and lower trunks of the brachial plexus are identified; the tip of the needle and the spread of the local anesthetic around the Brachial Plexus are visualized. Ultrasound image documentation is attached/scanned in [employer] chart. No anatomical pathology noted during block placement.) Interscalene block- Anterior Scalene and Middle Scalene, upper, middle and lower trunks of the brachial plexus are identified; the tip of the needle and the spread of the local anesthetic around the Brachial Plexus are visualized. Ultrasound image documentation is attached/scanned in [employer] chart. No anatomical pathology noted during block placement. Ultrasound probe: linear Ultrasound needle approach: in-plane Test dose: negative Assessment Block success: complete Events: Uneventful Heart rate change: no Blood aspirated: no Paresthesia pain: none Resistance on injection: normal Intermittent incremental injection LA at 5ml Additional Notes Additional 10cc Bupi 0.5% for Bicep Tendonesis Repair Time out Completed prior to procedure. Patient is communicating. No pain on injection. Procedure is well tolerated. Standard ASA monitors were used. Vital Signs were stable throughout; please nursing/intraoperative record for vital signs during procedure. Sharps counted and properly disposed at end of procedure. Extended block is expected up to 72 hours post-block. Patient can be discharged to floor/home with the block intact. Ultrasound Image of the block is attached/scanned to the [employer] chart. us Whitney Kwan MD ANESTHESIA ORDERABLES F inal Result [place] [id number] documented in this encounter Visit Diagnoses Not on filedocumented in this encounter Administered Medications Inactive Administered Medications - up to 1 most recent administrations Medication Order MAR Action Action Date Dose Rate Site ceFAZolin (ANCEF) 2 g in sterile water 20 mL IVP 2 g, Intravenous, ONCE PREPROCEDURE, 1 dose, [...] for Therapy: Surgical Prophylaxis, Pre-op (Holding/SDS Meds) New Bag 07/23/2025 12:03 PM EST 2 g dexAMETHasone (DECADRON) injection Intravenous, PRN (Anesthesia), Starting on Sat07/23/25 at 1259, Until Sat07/23/25 at 1351, Anesthesia Intra-op Given 07/23/2025 12:59 PM EST 4 mg fentaNYL (SUBLIMAZE) injection Intravenous, PRN (Anesthesia), Starting on Sat07/23/25 at 1204, Until Sat07/23/25 at 1351, Anesthesia Intra-op Given 07/23/2025 12:04 PM EST 100 mcg lactated ringers infusion Intravenous, at 50 mL/hr, PREPROCEDURE CONTINUOUS, Starting on Sat07/23/25 at 1041, Until Sat07/23/25 at 1930, To be given in SDS/Pre-op Holding Area, Pre-op (Holding/SDS Meds) New Bag 07/23/2025 12:45 PM EST lidocaine 1% 10 mg/mL (1 %) injection Intravenous, PRN (Anesthesia), Starting on Sat07/23/25 at 1204, Until Sat07/23/25 at 1351, Anesthesia Intra-op Given 07/23/2025 12:04 PM EST 40 mg lidocaine HCl (IHDAHG-P-OOF) 4 % topical solution Laryngotracheal, ONCE PRN, Starting on Sat07/23/25 at 1205, Until Sat07/23/25 at 1205, Anesthesia Intra-op Given 07/23/2025 12:05 PM EST 2 mL ondansetron (ZOFRAN) injection Intravenous, PRN (Anesthesia), Starting on Sat07/23/25 at 1259, Until Sat07/23/25 at 1351, Anesthesia Intra-op Given 07/23/2025 12:59 PM EST 4 mg phenylephrine injection Intravenous, PRN (Anesthesia), Starting on Sat07/23/25 at 1211, Until Sat07/23/25 at 1351, Anesthesia Intra-op Given 07/23/2025 1:06 PM EST 100 mcg propofoL (DIPRIVAN) injection Intravenous, PRN (Anesthesia), Starting on Sat07/23/25 at 1204, Until Sat07/23/25 at 1351, Anesthesia Intra-op Given 07/23/2025 12:04 PM EST 180 mg rocuronium injection Intravenous, PRN (Anesthesia), Starting on Sat07/23/25 at 1204, Until Sat07/23/25 at 1351, Anesthesia Intra-op Given 07/23/2025 12:04 PM EST 50 mg sugammadex (BRIDION) injection Intravenous, PRN (Anesthesia), Starting on Sat07/23/25 at 1331, Until Sat07/23/25 at 1351, Anesthesia Intra-op Given 07/23/2025 1:31 PM EST 200 mg tranexamic acid 1,000 mg in sodium chloride 0.9 % 50 mL ivpb Intravenous, CONTINUOUS PRN, Starting on Sat07/23/25 at 1224, Until Sat07/23/25 at 1351, Administer over 10 Minutes, Anesthesia Intra-op New Bag 07/23/2025 12:24 PM EST 1 g documented in this encounter Care Teams Byproducts Extractor Relationship Specialty Start Date End Date Parker Rendon MD PCP - General Family Medicine 12/12/13 documented as of this encounter
--- OUTSIDE RECORDS SUMMARY | 2025-08-02 09:15 | XMS_ITS | Encounter Summary ---
Author Organization [facility] Address [address] [place] [address] Care Team Providers Care Strap Making Machine Operator Name Role Phone Parker Rendon MD Primary Care Provider [phone] Reason for Visit * Reason Comments Post-Operative Exam Encounter Details Date Type Department Care Team (Late st Contact Info) Description 08/02/2025 9:15 AM EST [facility] [address] [facility] [address] [place] [address] Kayden Barcenas DO [address] [place] [address] Status post reverse total replacement of left [...] three views of the left shoulder from [facility] on 08/02/2025 demonstrates stable alignment and position [...] VIEWS; Future Kayden Barcenas DO Orthopedic Surgeon- [facility] Please note that this fruit receiver was created using voice recognition software. Any errors are unintentional and may be due to voice recognition fruit receiver. The provider informed the patient (or legal sales representative womens health) on the use of the ambient listening [...] of such information, the patient (or legal sales representative womens health), and each individual in attendance with the patient, consented to the use of the AI tool. documented in this encounter Plan of Treatment Upcoming Encounters Date Type Department Care Team (Late st Contact Info) Description 08/30/2025 2:05 PM EST Office Visit [facility] [address] [facility] [address] [place] [address] Otf Ureña, OD [address] [place], [place] [id number] 09/09/2025 8:15 AM EST Office Visit [facility] [address] [facility] 100 [place], [place] [id number] Claudia Salas PA-C [address] [place], [place] [id number] 11/18/2025 10:45 AM EDT Office Visit [facility] [address] [address] Ford Gaitan MD [address] [place] [address] documented as of this encounter Results [...] shoulder documented in this encounter Care Teams Strap Making Machine Operator Relationship Specialty Start Date End Date Parker Rendon MD PCP - General Family Medicine 12/12/13 documented as of this encounter
--- OUTSIDE RECORDS SUMMARY | 2025-08-02 09:30 | XMS_ITS | Encounter Summary ---
Author Organization [facility] Address [address] [place] [address] Care Team Providers Care Industrial Plant Custodian Name Role Phone Parker Rendon MD Primary Care Provider Encounter Details Date Type Department Care Team (Latest Contact Info) Description 08/02/2025 9:30 AM EST Ancillary Procedure [facility] [address] [facility] [address] [place] [address] Kayden Barcenas DO [address] [place] [address] Status post reverse total replacement of left [...] Office Visit [facility] [address] [facility] [address] [place] [address] Otf Ureña, OD [address] [place] [place], [place] [id number] 09/09/2025 8:15 AM EST Office Visit [facility] [address] [place] [address] Claudia Salas PA-C [address] [place], [place] [id number] 11/18/2025 10:45 AM EDT Office Visit [facility] [place] [address] [place] [address] Ford Gaitan MD [address] [place] [address] documented as of this encounter [...] x-ray imaging result us Kayden Barcenas DO [facility] DIAGNOSTIC IMAGING ORDERABL ES Final Result documented in this encounter Visit Diagnoses Diagnosis Status post reverse total replacement of left shoulder documented in this encounter Care Teams Industrial Plant Custodian Relationship Specialty Start Date End Date Parker Rendon MD PCP - General Family Medicine 12/12/13 documented as of this encounter
[2025-08-22 20:33] LABS: Coronavirus 19, PCR Not Detected (NotDetected); Influenza A, PCR Not Detected (NotDetected); Influenza B, PCR Not Detected (NotDetected)
--- OUTSIDE RECORDS SUMMARY | 2025-08-23 11:18 | XMS_ITS | Encounter Summary ---
Author Organization [facility] Address [address] [place] [address] Care Team Providers Care Producer Name Role Phone Parker Rendon MD Primary Care Provider [phone] Reason for Visit * Reason Onset Date Comments Other 07/14/2025 Encounter Details Date Type Department Care Team (Late st Contact Info) Description 07/14/2025 [place] [address] Milenanicolette KaydenDO [address] [place] [address] Other (/) Social History Tobacco Use Types Packs/Day Years [...] on file documented as of this encounter Miscellaneous Notes * Telephone Encounter - Micki Beltran, Clerical Staff - 07/21/2025 11:07 AM EST . documented in this encounter Plan of Treatment Upcoming Encounters Date Type Department Care Team (Late st Contact Info) Description 08/30/2025 2:05 PM EST Office Visit [facility] [address] [facility] [facility] [address] [place] [address] Otf Ureña, OD [address] [place] [address] 09/09/2025 8:15 AM EST Office Visit [facility] [address] [facility] [address] [place] [address] Claudia Salas PA-C [address] [place], [place] [id number] 11/18/2025 10:45 AM EDT Office Visit [facility] [address] [address] Ford Gaitan MD [address] [place] [phone] documented as of this encounter Visit Diagnoses Not on filedocumented in this encounter Care Teams Producer Relationship Specialty Start Date End Date Parker Rendon MD PCP - General Family Medicine 12/12/13 documented as of this encounter
--- OUTSIDE RECORDS SUMMARY | 2025-08-23 11:18 | XMS_ITS | Encounter Summary ---
Author Organization [place] [address] Care Team Providers Care Operator Helper Name Role Phone Parker Rendon MD Primary Care Provider [phone] Reason for Visit * Reason Onset Date Comments Other 08/23/2025 Encounter Details Date Type Department Care Team (Late st Contact Info) Description 08/23/2025 Telephone [facility] 1500 [facility] [address] [place] [address] Otf Ureña, [address] [place] [address] Other Social History Tobacco Use Types Packs/Day Years [...] encounter Miscellaneous Notes * Telephone Encounter - Thu Concepcion - 08/23/2025 9:37 AM EST Patient's spouse Karina called requesting to schedule plaquenil test noting pt started medication 2 mos ago.The doctor who requested this test was [facility] Arthritis Rosmery Erwin Patient denies current problems with his vision Scheduled with Dr Ureña on 08/30/25 [address] directions on contact information. Informed Karina that patient should contact insurance to verify that Dr Ureña at [facility] location is in network with his insurance Informed to call with questions concerns changes. Informed of $47 fee documented in this encounter Plan of Treatment Upcoming Encounters Date Type Department Care Team (Late st Contact Info) Description 08/30/2025 2:05 PM EST Office Visit [facility] Cov [address] [address] Otf Ureña, OD [address] [place] [address] 09/09/2025 8:15 AM EST Office Visit [facility] [address]26 [facility] 100 [place] [address] Claudia Salas PA-C [address] [place], [place] [id number] 11/18/2025 10:45 AM EDT Office Visit [facility] [address] [address] Ford Gaitan MD [address] [place] [address] documented as of this encounter Visit Diagnoses Not on filedocumented in this encounter Care Teams Operator Helper Relationship Specialty Start Date End Date Parker Rendon MD PCP - General Family Medicine 12/12/13 documented as of this encounter
--- OUTSIDE RECORDS SUMMARY | 2025-08-23 11:18 | XMS_ITS | Encounter Summary ---
Author Organization [facility] [place] [address] Care Team Providers Care Housesmith Name Role Phone Parker Rendon MD Primary Care Provider [phone] Encounter Details Date Type Department Care Team (Latest Contact Info) Description 07/14/2025 Travel Social History Tobacco Use Types Packs/Day Years [...] Visit [facility] [address] [facility] [address] [place] [address] Otf Ureña OD [address] [place] [address] 09/09/2025 8:15 AM EST Office Visit [facility] [address] [place] [address] Claudia Salas PA-C [address] [place] [address] 11/18/2025 10:45 AM EDT Office Visit [facility] [place] [address] [place] [address] Ford Gaitan MD [address] [place] [phone] documented as of this encounter Visit Diagnoses Not on filedocumented in this encounter Care Teams Housesmith Relationship Specialty Start Date End Date Parker Rendon MD PCP - General Family Medicine 12/12/13 documented as of this encounter
--- OUTSIDE RECORDS SUMMARY | 2025-08-23 11:18 | XMS_ITS | Encounter Summary ---
Author Organization [facility] Address [address] [place] [address] Care Team Providers Care Urban Design Consultant Name Role Phone Parker Rendon MD Primary Care Provider Reason for Visit * Reason Onset Date Comments Other 07/14/2025 Encounter Details Date Type Department Care Team (Late st Contact Info) Description 07/14/2025 Telephone [place] [address] Brent BarcenasonDO [address] [place] [address] Other (/) Social History Tobacco Use Types [...] encounter Miscellaneous Notes * Telephone Encounter - Suzy Martinez Truck Unloader - 07/20/2025 10:50 AM EST Spoke with patient and he still has not received his ABD sling for upcoming sx scheduled for 07/23.He would like to get this through his personal insurance instead, and is scheduled to stop by [facility] on 07/21 at 9:00 for this. * Telephone Encounter - Suzy Martinez Athletic Trainer - 07/19/2025 3:29 PM EST Fax sent to [facility] was not delivered. Attempted to call and speak with patient regarding this.LMTCB to discuss RFS form. Sx scheduled for 07/23. * Telephone Encounter - Suzy Martinez Athletic Trainer - 07/14/2025 11:24 AM EST Patient returned our call. He has still not received his sling for his upcoming sx. Informed him over the phone that [facility]. He states his community care RN provided him with a new fax number, and the RFS form and order was re-faxed today to [facility] at [phone]. Encouraged him to reach out if he has any other questions regarding this process. Sx scheduled for 07/23/2025. * Telephone Encounter - Suzy Martinez Athletic Trainer - 07/14/2025 11:18 AM EST LMTCB #1 to discuss. RFS [facility]2025 and is scanned into media tab. * Telephone Encounter - Micki Beltran, Clerical Staff - 07/14/2025 8:48 AM EST Has questions about his sling and the [facility] for [facility]. Please call him to let him know if thathas been taken care of. documented in this encounter Plan of Treatment Upcoming Encounters Date Type Department Care Team (Late st Contact Info) Description 08/30/2025 2:05 PM EST Office Visit [facility] [address] [facility] [address] [place] [address] Otf Ureña, OD [address] [place] [address] 09/09/2025 8:15 AM EST Office Visit [facility] 2626 [facility] 100 [place] [address] Claudia Salas PA-C [address] [place], [place] [id number] 11/18/2025 10:45 AM EDT Office Visit [facility] [address] [address] Ford Gaitan MD [address] [place] [phone] documented as of this encounter Visit Diagnoses Not on filedocumented in this encounter Care Teams Urban Design Consultant Relationship Specialty Start Date End Date Parker Rendon MD PCP - General Family Medicine 12/12/13 documented as of this encounter
--- OUTSIDE RECORDS SUMMARY | 2025-08-23 11:18 | XMS_ITS | Encounter Summary ---
Author Organization [facility] Address [address] [place] [address] Care Team Providers Care Agency Manager Name Role Phone Parker Rendon MD Primary Care Provider Encounter Details Date Type Department Care Team (Late st Contact Info) Description 07/21/2025 [place] [address] Kayden Barcenas DO [address] [place] [address] Social History Tobacco Use Types Packs/Day Years [...] encounter Miscellaneous Notes * Telephone Encounter - Christiano Welsh Athletic Trainer - 07/21/2025 3:58 PM EST faxed to provided fax number * Telephone Encounter - Christie Munoz, Clerical Staff - 07/21/2025 3:25 PM EST Sophia/Jesse PT [phone] called. Need order for PT: fax #[phone] documented in this encounter Plan of Treatment Upcoming Encounters Date Type Department Care Team (Late st Contact Info) Description 08/30/2025 2:05 PM EST Office Visit [facility] [address] [facility] [address] [place] [address] Otf Ureña, OD [address] [place] [address] 09/09/2025 8:15 AM EST Office Visit [facility] [address] [facility] [address] [place], [place] [id number] Claudia Salas PA-C [address] [place] [address] 11/18/2025 10:45 AM EDT Office Visit [facility] [address] [address] Ford Gaitan MD [address] [place] [phone] documented as of this encounter Visit Diagnoses Not on filedocumented in this encounter Care Teams Agency Manager Relationship Specialty Start Date End Date Parker Rendon MD PCP - General Family Medicine 12/12/13 documented as of this encounter
--- OUTSIDE RECORDS SUMMARY | 2025-08-23 11:18 | XMS_ITS | Encounter Summary ---
Author Organization [facility] Address [address] [place] [address] Care Team Providers Care Odd Piece Checker Name Role Phone Parker Rendon MD Primary Care Provider [phone] Reason for Visit * Reason Onset Date Comments Medication Refill 08/23/2025 Encounter Details Date Type Department Care Team (Late st Contact Info) Description 08/23/2025 Refill [facility] [address] [facility] [address] [place], [place] [id number] Kayden Barcenas DO [address] [place] [address] Medication Refill Social History Tobacco Use Types Packs/Day Years [...] Visit [facility] [address] [facility] [address] [place] [address] [place] [address] Otf Ureña, [place] [address] [place] [address] 09/09/2025 8:15 AM EST Office Visit [facility] [address] [id number] Claudia Salas PA-C [address] [place] [address] 11/18/2025 10:45 AM EDT Office Visit [facility] [address] [address] Ford Gaitan MD [address] [place] [phone] documented as of this encounter Visit Diagnoses Diagnosis Status post reverse total replacement of left shoulder documented in this encounter Care Teams Odd Piece Checker Relationship Specialty Start Date End Date Parker Rendon MD PCP - General Family Medicine 12/12/13 documented as of this encounter
--- OUTSIDE RECORDS SUMMARY | 2025-08-23 11:19 | XMS_ITS | Encounter Summary ---
Author Organization [facility] Address [address] [place] [address] Care Team Providers Care Histology Technologist Name Role Phone Parker Rendon MD Primary Care Provider [phone] Reason for Referral * Medication Prior Authorization - Closed Specialty Diagnoses / Procedures Referred By Дмитрий adam Referred To Contact Diagnoses Status post reverse total replacement of left shoulder Kayden Barcenas DO [address] [place] [address] Phone: tel: fax: Referral ID Status Reason Start Date Expiration Date Visits Re quested Visits Authorized [id number] Closed 1 1 Reason for Visit * Reason Onset Date Comments Medication Refill 08/02/2025 Encounter Details Date Type Department Care Team (Late st Contact Info) Description 08/02/2025 Refill [facility] [address] [place] [id number] Christiano Welsh, Down Filler Medication Refill Social History Tobacco Use Types [...] on file documented as of this encounter Ordered Prescriptions Prescription Sig Dispense Quantity Refills Last Filled Start Date End Date oxyCODONE (ROXICODONE) 5 mg Oral TabletIndications:S tatus post reverse total replacement of left shoulder Take 1 Tablet by mouth every 6 hours as needed for Major Surgery/Trau ma (G89.18). 25 Tablet 08/02/2025 documented in this encounter Plan of Treatment Upcoming Encounters Date Type Department Care Team (Late st Contact Info) Description 08/30/2025 2:05 PM EST Office Visit [facility] 1500 [facility] [address] [place] [address] Otf Ureña, OD [address] [place], [place] [id number] 09/09/2025 8:15 AM EST Office Visit [facility] [address] [facility] [address] [place] [address] Claudia Salas PA-C [address] [place], [place] [id number] 11/18/2025 10:45 AM EDT Office Visit [facility] [address] [address] Ford Gaitan MD [address] [place] [address] documented as of this encounter Visit Diagnoses Diagnosis Status post reverse total replacement of left shoulder- Primary documented in this encounter Discontinued Medications Medication Sig Discontinue Reason Start Date End Da te oxyCODONE (ROXICODONE) 5 mg Oral Tablet Take 1 Tablet by mouth every 4 hours as needed for Major Surgery/Trauma (G89.18). Reorder 07/23/2025 08/02/2025 documented as of this encounter Care Teams Histology Technologist Relationship Specialty Start Date End Date Neus, Parker, MD PCP - General Family Medicine 12/12/13 documented as of this encounter
--- OUTSIDE RECORDS SUMMARY | 2025-08-23 11:19 | XMS_ITS | Encounter Summary ---
Author Organization [facility] Address [address] [place] [address] Care Team Providers Care Sales Assistant Institutional Sales Name Role Phone Parker Rendon MD Primary Care Provider [phone] Reason for Referral * Durable Medical Equipment (Routine) - Pending Review Specialty Diagnoses / Procedures Referred By Contvanessa t Referred To Contact Diagnoses Complete tear of left rotator cuff, unspecified whether traumatic Biceps tendon tear Glenohumeral arthritis Strain of left shoulder, initial encounter Tendinitis of left rotator cuff Acute pain of left shoulder Kayden Barcenas DO [address] [place] [address] Phone: tel: fax: Referral ID Status Reason Start Date Expiration Date V isits Requested Visits Authorized [id number] Pending Review 07/05/2025 07/05/2026 1 1 Question Answer DME Product: Other (use comments) - Slingshot II - [id number] Other (use comments) - Polar Cube w/ Shoulder pad - [id number] & [id number] Laterality: Left - Shoulder Comments Surgery : 07/23/2025 Encounter Details Date Type Department Care Team (Late st Contact Info) Description 07/05/2025 Orders Only [facility] [address] [facility] [address] [place] [address] Kayden Barcenas DO [address] [place] [address] Complete tear of left rotator cuff, unspecified whether traumatic (Primary Dx); Biceps tendon tear; Glenohumeral arthritis; Strain of left shoulder, initial encounter; Tendinitis of left rotator cuff; Acute pain of left shoulder Social History Tobacco Use Types Packs/Day Years Used Date Smoking Tobacco: Former Cigarettes 1.5 40 0 11/02/1976 - 11/02/2016 Alcohol Use Standard Drinks/Week Comments No 0 [...] Visit [facility] [address] [facility] [address] [place] [address] Otf Ureña, OD [address] [place] [address] 09/09/2025 8:15 AM EST Office Visit [facility] [address] [facility] 100 [place] [address] Claudia Salas PA-C [address] [place] [address] 11/18/2025 10:45 AM EDT Office Visit [facility] [address] [address] Ford Gaitan MD [address] [place] [address] Scheduled Referrals Name Type Priority Associated Diagnoses Orde r Schedule AMB REFERRAL TO EXTERNAL DME PROVIDER Outpatient Referral Routine Complete tear of left rotator cuff, unspecified whether traumatic Biceps tendon tear Glenohumeral arthritis Strain of left shoulder, initial encounter Tendinitis of left rotator cuff Acute pain of left shoulder Ordered: 07/05/2025 documented as of this encounter Visit Diagnoses Diagnosis Complete tear of left rotator cuff, unspecified whether traumatic- Primary Biceps tendon tear Sprain and strain of other specified sites of shoulder and upper arm Glenohumeral arthritis Other specified disorders of shoulder joint Strain of left shoulder, initial encounter Tendinitis of left rotator cuff Disorders of bursae and tendons in shoulder region, unspecified Acute pain of left shoulder documented in this encounter Care Teams Sales Assistant Institutional Sales Relationship Specialty Start Date End Date Parker Rendon MD PCP - General Family Medicine 12/12/13 documented as of this encounter
--- OUTSIDE RECORDS SUMMARY | 2025-08-23 11:19 | XMS_ITS | Encounter Summary ---
Author Organization [facility] Address [address] [place] [address] Care Team Providers Care Court Crier Name Role Phone Parker Rendon MD Primary Care Provider [phone] Reason for Visit * Reason Onset Date Comments Medication Refill 08/02/2025 Encounter Details Date Type Department Care Team (Late st Contact Info) Description 08/02/[address] [address] Christiano Welsh, Autocad Technician Medication Refill Social History Tobacco Use Types [...] Office Visit [facility] [address] [place] [address] Otf Ureña OD [address] [place], [place] [id number] 09/09/2025 8:15 AM EST Office Visit [facility] [address] [place] [address] Claudia Salas PA-C [address] [place] [address] 11/18/2025 10:45 AM EDT Office Visit [facility] [place] [address] [place] [address] Ford Gaitan MD [address] [place] [phone] documented as of this encounter Visit Diagnoses Diagnosis Status post reverse total replacement of left shoulder documented in this encounter Care Teams Court Crier Relationship Specialty Start Date End Date Parker Rendon MD PCP - General Family Medicine 12/12/13 documented as of this encounter
--- OUTSIDE RECORDS SUMMARY | 2025-08-23 11:19 | XMS_ITS | Clinical Summary ---
Author Organization [facility] Address [address] 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 Active MULTIVITAMIN W-MINERALS/LUTE IN (MULTI-ROWAN 50 & OVER ORAL) Take by mouth. Active aspirin (ASPIRIN) 81 mg Oral Tablet, Chewable Take 1 Tab by mouth daily. 7 Active gabapentin (NEURONTIN) 600 mg Oral Tablet Take 600 mg by mouth as needed. Active predniSONE (DELTASONE) 20 mg Oral Tablet Take by mouth 2 times daily. Active tamsulosin (FLOMAX) 0.4 mg Oral Capsule Take by mouth daily. Active rOPINIRole (REQUIP) 3 mg Oral Tablet Take 6 mg by mouth nightly. Active atorvastatin (LIPITOR) 40 mg Oral Tablet Take 40 mg by mouth daily. Active losartan (COZAAR) 100 mg Oral Tablet Take 100 mg by mouth daily. Active levocetirizine (XYZAL) 5 mg Oral Tablet Take 5 mg by mouth daily. 5 Active methotrexate 2.5 mg Oral Tablet Take 2.5 mg by mouth once a week. Pt takes on Saturday - will take 8 tablets on 07/18/25 Active folic acid (FOLVITE) 1 mg Oral Tablet Take 1 mg by mouth daily. Active hydroxychloroqu ine (PLAQUENIL) 100 mg Oral Tablet Take 200 mg by mouth daily. Active ascorbic acid (VITAMIN C ORAL) Take by mouth daily. Active oxyCODONE (ROXICODONE) 5 mg Oral TabletIndicatio ns:Status post reverse total replacement of left shoulder Take 1 Tablet by mouth every 6 hours as needed for Major Surgery/Trau ma (G89.18). 25 Tablet 5 Active oxyCODONE (ROXICODONE) 5 mg Oral Tablet Take 1 Tablet by mouth every 4 hours as needed for Major Surgery/Trau ma (G89.18). 30 Tablet 07/23/2025 2:40 PM EST 5 08/02/20 Discontinue d(Reorder) cephALEXin (KEFLEX) 500 mg Oral Capsule Take 2 Capsules by mouth every 8 hours for 1 day. 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 10/20/2024 Overview (10/20/2024): 50% LAD on cath in 2017 Former smoker 10/20/2024 Tachycardia 12/14/2013 Pneumonia 12/14/2013 Leukocytosis 12/14/2013 Hematuria 12/14/2013 CAMPA (dyspnea on exertion) 12/14/2013 Dehydration 12/14/2013 Acute renal failure 12/14/2013 Precordial pain FH: CAD (coronary artery disease) Abnormal stress test Encounters Date Type Department Care Team Description 08/23/2025 Refill [facility] [address] [employer] [address] [place] [address] Christiano Welsh, Bread Slicer Machine Medication Refill 08/23/2025 Refill [facility] [address] [employer] [address] [place] [address] Kayden Barcenas DO Medication Refill 08/23/2025 Telephone [facility] Cov [address] [facility] [address] [place] [id number] Otf Ureña, CLAYTON Other 08/02/2025 9:30 AM EST Ancillary Procedure [facility] [address] [employer] [address] [place] [address] Kayden Barcenas DO Status post reverse total replacement of left shoulder 08/02/2025 9:15 AM EST Office Visit [facility] [address] [place] [id number] Kayden Barcenas DO Status post reverse total replacement of left shoulder (Primary Dx) 08/02/2025 Refill [facility] [address] [address] Christiano Welsh, Bread Slicer Machine Medication Refill 08/02/2025 Refill [facility] [address] [address] Christiano Welsh Bread Slicer Machine Medication Refill 07/29/2025 Refill [facility] [address] [address] Kayden Barcenas DO Medication Refill 07/23/2025 11:56 AM EST Anesthesia Event [facility] [address] [place] [address] Whitney Kwan MD Mohan, Vijay R, DO 07/23/2025 11:42 AM EST - 07/23/2025 2:07 PM EST Surgery [facility] [address] [place] [address] Kayden Barcenas DO SHOULDER REVERSE TOTAL REPLACEMENT ARTHROPLASTY (COVERS BICEP TENODESIS) 07/23/2025 9:59 AM EST - 07/23/2025 11:59 PM EST Hospital Encounter [facility] SAME DAY [facility] [address] [place] [address] Kayden Barcenas DO Discharge Disposition: Home or Self Care 07/23/2025 9:23 AM EST - 07/23/2025 3:24 PM EST Hospital Encounter [facility] [address] [place] [address] Kayden Barcenas DO Discharge Disposition: Home or Self Care 07/23/2025 8:20 AM EST - 07/23/2025 9:22 AM EST Hospital [facility] [address] [place] [address] Kayden Barcenas DO Discharge Disposition: Home or Self Care 07/23/2025 Travel 07/21/2025 9:00 AM EST Clinical Support [facility] [address] [employer] [address] [place] [address] Suzy Martinez Bread Slicer Machine Complete tear of left rotator cuff, unspecified whether traumatic (Primary Dx); Biceps tendon tear; Glenohumeral arthritis 07/21/20[place] [address] Kayden Barcenas DO 07/21/2025 Telephone [facility] [id number] [place] [address] Kayden Barcenas DO Other (/) 07/14/2025 11:59 PM EST Anesthesia Event [facility]Post [address] [place] [address] Kemar Bernal DO 07/14/2025 Travel 07/14/2025 [facility] [address] [place] [address] Kayden Barcenas DO Other (/) 07/14/2025 Telephone [facility] [id number] [place] [address] Kayden Barcenas DO Other (/) 07/08/2025 [facility]phone [facility] [address] [place] [address] Kayden Barcenas DO Other (/) 07/05/2025 [facility] [address] [place] [address] Kayden Barcenas DO Complete tear of left rotator cuff, unspecified whether traumatic (Primary Dx); Biceps tendon tear; Glenohumeral arthritis; Strain of left shoulder, initial encounter; Tendinitis of left rotator cuff; Acute pain of left shoulder 06/22/2025 Orders Only [address] [address] Kayden Barcenas DO Complete tear of left rotator cuff, unspecified whether traumatic (Primary Dx); Biceps tendon tear; Glenohumeral arthritis 06/21/2025 2:30 PM EDT Office Visit [facility] [address] [address] Kayden Barcenas DO Complete tear of left rotator cuff, unspecified whether traumatic (Primary Dx); Biceps tendon tear; Glenohumeral arthritis 06/11/2025 9:14 AM EDT - 06/11/2025 11:59 PM EDT Hospital Encounter [facility] [address] [place] [address] COPD, mild (HCC); Family history of rheumatoid arthritis Discharge Disposition: Home or Self Care 06/11/2025 8:30 AM EDT Ancillary Procedure [facility] [address] [address] Kayden Barcenas DO Strain of left shoulder, initial encounter; Tendinitis of left rotator cuff 05/24/2025 8:30 AM EDT Office Visit [facility] [address] [address] Kayden Barcenas DO Strain of left shoulder, initial encounter (Primary Dx); Tendinitis of left rotator cuff from Last 3 Months Immunizations Immunization Administration Dates Next Due Pneumococcal Polysaccharide 23 Valent 12/14/2013 Surgical History Surgery Date Site/Laterality Comments HERNIA REPAIR SHOULDER SURGERY Right SHOULDER ARTHROPLASTY 07/23/2025 Shoulder/Left Left Shoulder Reverse Total Replacement Arthroplasty; Surgeon: Kayden Barcenas DO; Location: [facility]; Service: Orthopedics Medical devices from this surgery are in the Medical Devices section. Medical History Medical History Date Comments Hypertension Acute renal failure 12/14/2013 Rheumatoid arthritis (HCC) Osteoporosis Social History Tobacco Use Types Packs/Day Years [...] on file Sexual Orientation Not on file Last Filed Vital Signs Vital Sign Reading [...] Mass Index 25.7 07/23/2025 7:34 AM EST Plan of Treatment Upcoming Encounters Date Type Department Care Team (Late st Contact Info) Description 08/30/2025 2:05 PM EST Office Visit [facility] [address] [facility] [address] [place] [address] Otf Ureña, OD [address] [place] [address] 09/09/2025 8:15 AM EST Office Visit [facility] [address] [place] [address] Claudia Salas PA-C [address] [place] [address] 11/18/2025 10:45 AM EDT Office Visit [facility] [address] [address] Ford Gaitan MD [address] [place] [address] Health Maintenance Due Date Last Done Comments Wellness Exam Medicare 02/18/1963 Hepatitis C Screening 02/18/1978 DTaP/TDaP/Td (1 - Tdap) 02/18/1979 Zoster (1 of 2) 02/18/1979 Cologuard 02/18/2005 FIT 02/18/2005 Sigmoidoscopy 02/18/2005 Virtual Colonography 02/18/2005 RSV or 60+ (1 - Risk 50-74 years 1-dose series) 02/18/2010 Low Dose Lung Cancer Screening 12/12/2014 12/12/2013 Pneumococcal Vaccine 50+ (2 of 2 - PCV) 12/14/2014 12/14/2013 Colon Cancer Screening 04/10/2020 Colonoscopy 04/10/2020 04/10/2010 AAA Screening 02/18/2025 COVID-19 Vaccine ( season) 2025 07/05/2021, 10/03/2020, 09/12/2020 Influenza Vaccine (#1) 2025 , 07/24/2023, 08/11/2021, Additional history exists Hepatitis B Vaccine Aged Out No longe r eligible based on patient's age to complete this topic Meningococcal B Vaccine Aged Out No l onger eligible based on patient's age to complete this topic Medical Devices Implanted Type Area Upholsterer Assembly Line Device Identifier Shelf Expiration Date Model / Serial / Lot Baseplate Std Glenoid 24mm Sharon Meter 0 Degree 10mm - [id number] Implanted:Qty: 1 on 07/23/2025 by Kayden Barcenas DO at [facility] Left: Shoulder [employer] [id number] 02/06/2029 [id number] / / [id number] Screw Rsa Perpendicular Locking 4.5mm X 35 Mm - [id number] Implanted:Qty: 1 on 07/23/2025 by Kayden Barcenas DO at [facility] Left: Shoulder [employer] [id number] / / Screw Rsa Perpendicular Locking 4.5mm X 25 Mm - [id number] Implanted:Qty: 1 on 07/23/2025 by Kayden Barcenas DO at [facility] Left: Shoulder [employer] [id number] / / Screw Rsa Perpendicular Locking 4.5mm X 15 Mm - [id number] Implanted:Qty: 1 on 07/23/2025 by Kayden Barcenas DO at [facility] Left: Shoulder [employer] [id number] / / Screw Rsa Central Compression 6.0mm X 30mm - [id number] Implanted:Qty: 1 on 07/23/2025 by Kayden Barcenas DO at [facility] Left: Shoulder [employer] [id number] / / Total Shoulder Rsa Offset Glenosphere-Cocr 63rji2tyg+6mm - [id number] Implanted:Qty: 1 on 07/23/2025 by Kayden Barcenas DO at [facility] Left: Shoulder [employer] [id number] 07/21/2029 [id number] / / [id number] Stem Humeral Short 32mm X 6mm Sterile - [id number] Implanted:Qty: 1 on 07/23/2025 by Kayden Barcenas DO at [facility] Left: Shoulder ENCORE MED:DJO SURGICAL [id number] 09/14/2029 [id number] / / [id number] Total Shoulder Rsa Neutral Humeral Bearing 36mm 0mm 0 Deg - [id number] Implanted:Qty: 1 on 07/23/2025 by Kayden Barcenas DO at [facility] Left: Shoulder [employer] [id number] 02/16/2030 [id number] / / [id number] Total Shoulder Rsa Humeral Trays 0 Mm Offset 38 Mm Sharon - [id number] Implanted:Qty: 1 on 07/23/2025 by Kayden Barcenas DO at [facility] Left: Shoulder [employer] [id number] 07/01/2029 [id number] / / [id number] Procedures Procedure Name Priority Date/Time Associated Diagnosis Comments XR SHOULDER LEFT 3 VIEWS Routine 08/02/2025 9:28 AM EST Status post reverse total replacement of left shoulder XR SHOULDER LEFT 1 VW STAT 07/23/2025 2:30 PM EST ECG AND WAVEFORMS - TELEMETRY Routine 07/23/2025 2:00 PM EST INTRAOP AIRWAY PLACEMENT Routine 07/23/2025 12:05 PM EST RI ARTHROPLASTY GLENOHUMERAL JOINT TOTAL SHOULDER 07/23/2025 11:56 AM EST Rotator cuff tear arthropathy, left PERIPHERAL BLOCK Routine 07/23/2025 11:3 6 AM EST US ANES GUIDANCE FOR NERVE BLOCK STAT 07/23/2025 9:59 AM EST XR CERVICAL SPINE AP LATERAL FLEXION EXTENSION Routine 06/11/2025 9:46 AM EDT COPD, mild (HCC) Family history of rheumatoid arthritis XR HAND LEFT PA LATERAL AND OBLIQUE Routine 06/11/2025 9:46 AM EDT COPD, mild (HCC) Family history of rheumatoid arthritis XR FOOT RIGHT AP LATERAL AND OBLIQUE Routine 06/11/2025 9:46 AM EDT COPD, mild (HCC) Family history of rheumatoid arthritis XR FOOT LEFT AP LATERAL AND OBLIQUE Routine 06/11/2025 9:46 AM EDT COPD, mild (HCC) Family history of rheumatoid arthritis XR CHEST PA AND LATERAL Routine 06/11/2025 9:46 AM EDT COPD, mild (HCC) Family history of rheumatoid arthritis MRI SHOULDER LEFT WO CONTRAST Routine 06/11/2025 8:43 AM EDT Strain of left shoulder, initial encounter Tendinitis of left rotator cuff CT ANGIOGRAM CHEST W CONTRAST STAT 12/12/2013 5:43 AM EDT [facility] COLONOSCOPY Routine 04/10/2010 12:0 0 AM EDT from Last 3 Months or Most Recently Relevant to Health Maintenance Results * XR SHOULDER LEFT 3 VIEWS (08/02/2025 9:28 AM EST) Narrative [facility] Eduarda - 08/02/2025 9:28 AM EST Please see physician's note from office encounter for x-ray imaging result us Kayden Narinder DO IMG DIAGNOSTIC IMAGING ORDERABL ES Final Result * XR SHOULDER LEFT 1 VW (07/23/2025 [...] office of the ordering clinician. us Kayden Kohnicolette DO IMG DIAGNOSTIC IMAGING ORDERABL ES Final Result * INTRAOP AIRWAY PLACEMENT (07/23/2025 12:05 PM EST) Narrative [facility] - 07/23/2025 12:05 PM EST Ford Kaufman CRNA 07/23/2025 12:16 PM Intraop Airway Placement: Date/Time: 07/23/2025 12:05 PM Induction type: IV Mask size: Standard adult Pre-Oxygenation: Standard Laryngoscope blade: Fisher Blade size: 4 Airway type: ETT- cuffed Topical Anesthetic/Lubricant: Lidocaine 5% ointment Device size: 8mm Secured by: Tape Placement verified: End tidal CO2 and Auscultation Condition: Atraumatic Insertion attempts: 1 Title: ASPHALT TAMPING MACHINE OPERATOR lidocaine 4 % ([id number]) laryngotracheal solution - Laryngotracheal 2 mL - 07/23/2025 12:05:00 PM: us Whitney Kwan MD RI ANESTHESIA Final R esult [facility] [address] [id number] * Peripheral Block by Anesthesia (07/23/2025 11:36 AM EST) Narrative [facility] - 07/23/2025 11:36 AM EST Blair [...] in epic chart. No anatomical pathology noted during block placement.) Interscalene block- Anterior Scalene and Middle Scalene, upper, middle and lower trunks of the brachial plexus are identified; the tip of the needle and the spread of the local anesthetic around the Brachial Plexus are visualized. Ultrasound image documentation is attached/scanned in epic chart. No anatomical pathology noted during block [...] of the block is attached/scanned to the MECLUB chart. us Whitney Kwan MD ANESTHESIA [place] [address] * US ANES GUIDANCE FOR NERVE BLOCK (07/23/2025 9:59 AM EST) Narrative Genericuser, Audit - 07/23/2025 9:59 AM EST Ultrasound guided nerve block performed by Anesthesiologist. The study image(s) are for reference only and will not be interpreted by a Radiologist. Refer to the Anesthesia procedure note for image description and procedure details. us Blair Fernández DO IMG US ORDERABLES Final Result * XR CERVICAL SPINE AP LATERAL FLEXION EXTENSION (06/11/2025 9:46 AM EDT) Anatomical Region Laterality Modality C-spine Radiographic Shelby ging 06/11/2025 9:46 AM EDT Impressions 06/11/2025 1:32 PM EDT Moderate multilevel degenerative changes with grade 1 spondylolisthesis at C4-C5. No evidence of instability or other acute bony abnormality. - Note: Radiology results need to be interpreted within a comprehensive clinical context. If you have questions about the radiology report, please contact the office of the ordering clinician. Narrative 06/11/2025 1:32 PM EDT AP, LATERAL C-SPINE WITH FLEX/EXT VIEWS, 06/11/2025 9:46 AM CLINICAL HISTORY: J44.9-Chronic obstructive pulmonary disease, unspecified (HCC)-ICD-10-CM Z82.61-Family history of osuyitinz-DNG-60-CM COMPARISON: None. PROCEDURE COMMENTS: AP and lateral views of the cervical spine with lateral flexion and extension views. FINDINGS: Degenerative anterolisthesis of C4 on C5 measuring 1 mm. Remaining alignment is anatomic. No evidence of instability on flexion or extension views. Moderate disc space narrowing at C5-C6 and mild at the adjacent levels. Mild to moderate multilevel facet arthropathy. Procedure Note Felipe Tate MD - 06/11/2025 AP, LATERAL C-SPINE WITH FLEX/EXT VIEWS, 06/11/2025 9:46 AM CLINICAL HISTORY: J44.9-Chronic obstructive pulmonary disease,unspecified (HCC)-ICD-10-CM Z82.61-Family history of [id number]-MBS-50-CM COMPARISON: None. PROCEDURE COMMENTS: AP and lateral views of the cervical spine withlateral flexion and extension views. FINDINGS: Degenerative anterolisthesis of C4 on C5 measuring 1 mm.Remaining alignment is anatomic. No evidence of instability on flexion or extensionviews. Moderate disc space narrowing at C5-C6 and mild at the adjacent levels.Mild to moderate multilevel facet arthropathy. IMPRESSION: Moderate multilevel degenerative changes with grade 1 spondylolisthesisat C4-C5. No evidence of instability or other acute bony abnormality. - Note: Radiology results need to be interpreted within a comprehensiveclinical context. If you have questions about the radiology report, please contactthe office of the ordering clinician. us Nahomy Bobby NP IMG DIAGNOSTIC IMAGING ORDERABL ES Final Result * XR FOOT RIGHT AP LATERAL AND OBLIQUE (06/11/2025 9:46 AM EDT) Anatomical Region Laterality Modality Foot Radiographic Shelby ging 06/11/2025 9:46 AM EDT Impressions 06/11/2025 12:42 PM EDT No acute findings. No visualized erosive changes or bony destructive process. - Note: Radiology results need to be interpreted within a comprehensive clinical context. If you have questions about the radiology report, please contact the office of the ordering clinician. Narrative 06/11/2025 12:42 PM EDT XR FOOT RIGHT AP LATERAL AND OBLIQUE, 06/11/2025 9:46 AM CLINICAL HISTORY: J44.9-Chronic obstructive pulmonary disease, unspecified (HCC)-ICD-10-CM Z82.61-Family history of bsiwafgkq-WME-45-CM COMPARISON: No comparison studies. PROCEDURE COMMENTS: XR FOOT RIGHT AP LATERAL AND OBLIQUE FINDINGS: Normal alignment of the mid/hindfoot structures. Small hypertrophic plantar calcaneal bone spur. No acute displaced/healing fracture deformity. Minimal degenerative changes of the first MTP joint. No visualized erosive changes or bony destructive process. Procedure Note Martin Collazo, - 06/11/2025 XR FOOT RIGHT AP LATERAL AND OBLIQUE, 06/11/2025 9:46 AM CLINICAL HISTORY: J44.9-Chronic obstructive pulmonary disease,unspecified (HCC)-ICD-10-CM Z82.61-Family history of fpurxidrh-VUH-88-CM COMPARISON: No comparison studies. PROCEDURE COMMENTS: XR FOOT RIGHT AP LATERAL AND OBLIQUE FINDINGS: Normal alignment of the mid/hindfoot structures. Smallhypertrophic plantar calcaneal bone spur. No acute displaced/healing fracturedeformity. Minimal degenerative changes of the first MTP joint. No visualizederosive changes or bony destructive process. IMPRESSION: No acute findings. No visualized erosive changes or bony destructive process. - Note: Radiology results need to be interpreted within a comprehensiveclinical context. If you have questions about the radiology report, please contactthe office of the ordering clinician. Nahomy Bobby NP IMG DIAGNOSTIC IMAGING ORDERABL ES Final Result * XR FOOT LEFT AP LATERAL AND OBLIQUE (06/11/2025 9:46 AM EDT) Anatomical Region Laterality Modality Foot Radiographic Shelby ging 06/11/2025 9:46 AM EDT Impressions 06/11/2025 10:55 AM EDT No acute bony abnormality of the foot. - Note: Radiology results need to be interpreted within a comprehensive clinical context. If you have questions about the radiology report, please contact the office of the ordering clinician. Narrative 06/11/2025 10:55 AM EDT XR FOOT LEFT AP LATERAL AND OBLIQUE, 06/11/2025 9:46 AM CLINICAL HISTORY: J44.9-Chronic obstructive pulmonary disease, unspecified (HCC)-ICD-10-CM Z82.61-Family history of wfrquzsio-HGD-15-CM COMPARISON: None. PROCEDURE COMMENTS: XR FOOT LEFT AP LATERAL AND OBLIQUE FINDINGS: No acute fracture or traumatic malalignment.Subchondral cysts fifth metatarsal head. Joint spaces overall well-maintained for age. No periostitis. Procedure Note Veda Fernandes MD - 06/11/2025 XR FOOT LEFT AP LATERAL AND OBLIQUE, 06/11/2025 9:46 AM CLINICAL HISTORY: J44.9-Chronic obstructive pulmonary disease,unspecified (HCC)-ICD-10-CM Z82.61-Family history of efqlizevm-SWJ-74-CM COMPARISON: None. PROCEDURE COMMENTS: XR FOOT LEFT AP LATERAL AND OBLIQUE FINDINGS: No acute fracture or traumatic malalignment.Subchondral cystsfifth metatarsal head. Joint spaces overall well-maintained for age. No periostitis. IMPRESSION: No acute bony abnormality of the foot. - Note: Radiology results need to be interpreted within a comprehensiveclinical context. If you have questions about the radiology report, please contactthe office of the ordering clinician. Nahomy Bobby NP IMG DIAGNOSTIC IMAGING ORDERABL ES Final Result * XR HAND LEFT PA LATERAL AND OBLIQUE (06/11/2025 9:46 AM EDT) Anatomical Region Laterality Modality Hand Radiographic Shelby ging 06/11/2025 9:46 AM EDT Impressions 06/11/2025 1:31 PM EDT No acute bony abnormality of the hand. - Note: Radiology results need to be interpreted within a comprehensive clinical context. If you have questions about the radiology report, please contact the office of the ordering clinician. Narrative 06/11/2025 1:31 PM EDT XR HAND LEFT PA LATERAL AND OBLIQUE, 06/11/2025 9:46 AM CLINICAL HISTORY: J44.9-Chronic obstructive pulmonary disease, unspecified (HCC)-ICD-10-CM Z82.61-Family history of diawilcty-XCP-86-CM COMPARISON: None. PROCEDURE COMMENTS: XR HAND LEFT PA LATERAL AND OBLIQUE FINDINGS: No acute fracture or traumatic malalignment. Joint spaces overall well-maintained for age. No periostitis. Procedure Note Veda Fernandes MD - 06/11/2025 XR HAND LEFT PA LATERAL AND OBLIQUE, 06/11/2025 9:46 AM CLINICAL HISTORY: J44.9-Chronic obstructive pulmonary disease,unspecified (HCC)-ICD-10-CM Z82.61-Family history of utjbqsqym-NCO-72-CM COMPARISON: None. PROCEDURE COMMENTS: XR HAND LEFT PA LATERAL AND OBLIQUE FINDINGS: No acute fracture or traumatic malalignment. Joint spaces overall well-maintained for age. No periostitis. IMPRESSION: No acute bony abnormality of the hand. - Note: Radiology results need to be interpreted within a comprehensiveclinical context. If you have questions about the radiology report, please contactthe office of the ordering clinician. Nahomy Bobby NP IMG DIAGNOSTIC IMAGING ORDERABL ES Final Result * XR CHEST PA AND LATERAL (06/11/2025 9:46 AM EDT) Anatomical Region Laterality Modality Chest Radiographic Shelby ging 06/11/2025 9:46 AM EDT Impressions 06/11/2025 10:26 AM EDT No acute finding. - Note: Radiology results need to be interpreted within a comprehensive clinical context. If you have questions about the radiology report, please contact the office of the ordering clinician. Narrative 06/11/2025 10:26 AM EDT PA AND LATERAL CHEST X-RAY, 06/11/2025 9:46 AM CLINICAL HISTORY: J44.9-Chronic obstructive pulmonary disease, unspecified (HCC)-ICD-10-CM Z82.61-Family history of velkhtyzi-KWZ-73-CM COMPARISON: None. PROCEDURE COMMENTS: Frontal and lateral views of the chest. FINDINGS: Heart and mediastinal contours within normal limits for technique. No effusion. No visible pneumothorax. Mild left basilar atelectasis. Procedure Note Veda Fernandes MD - 06/11/2025 PA AND LATERAL CHEST X-RAY, 06/11/2025 9:46 AM CLINICAL HISTORY: J44.9-Chronic obstructive pulmonary disease,unspecified (HCC)-ICD-10-CM Z82.61-Family history of pjhzxblzg-SJI-29-CM COMPARISON: None. PROCEDURE COMMENTS: Frontal and lateral views of the chest. FINDINGS: Heart and mediastinal contours within normal limits for technique. Noeffusion. No visible pneumothorax. Mild left basilar atelectasis. IMPRESSION: No acute finding. - Note: Radiology results need to be interpreted within a comprehensiveclinical context. If you have questions about the radiology report, please contactthe office of the ordering clinician. Nahomy Bobby NP IMG DIAGNOSTIC IMAGING ORDERABL ES Final Result * MRI SHOULDER LEFT WO CONTRAST (06/11/2025 8:43 AM EDT) Narrative [facility] - 06/11/2025 8:43 AM EDT Please see the scanned MRI report associated with this order on the Imaging tab of the patient's chart. Kayden Barcenas DO IMG MRI ORDERABLES Final Result [facility] * CT ANGIOGRAM CHEST W CONTRAST (12/12/2013 [...] colon Otherwise normal colonoscopy to cecum Narrative [facility] - 08/28/2012 1:32 PM EST Performing Provider: Jason Candelario M.D. Referring Provider: Mulugeta Phelps M.D. Jason Candelario MD GI PROCEDURE ORDERABLES Fin al Result [facility] [address] [address] from Last 3 Months or Most Recently Relevant to Health Maintenance Insurance [place] [address] [place] Advance Directives For more information, please contact: [phone] * Full Code (Latest Code Status on File) Date Activated Date Inactivated Comments 12/26/2016 2:03 PM 12/26/2016 7:06 PM * Full Code Date Activated Date Inactivated Comments 12/13/2013 12:41 AM 12/17/2013 4:47 PM Care Teams Steel Unloader Relationship Specialty Start Date End Date Parker Rendon MD PCP - General Family Medicine 12/12/13
--- OUTSIDE RECORDS SUMMARY | 2025-08-23 11:19 | XMS_ITS | Encounter Summary ---
Author Organization [facility] [place] [address] Care Team Providers Care Vice President Payer Name Role Phone Parker Rendon MD Primary Care Provider Encounter Details Date Type Department Care Team (Latest Contact Info) Description 07/23/2025 Travel Social History Tobacco Use Types Packs/Day [...] Visit [facility] [address] [facility] [address] [place] [address] Otf Ureña, [place] [address] [place] [address] 09/09/2025 8:15 AM EST Office Visit [facility] [address] [place] [address] Claudia Salas PA-C [address] [place], [place] [id number] 11/18/2025 10:45 AM EDT Office Visit [facility] [address] [address] Ford Gaitan MD [address] [place] [phone] documented as of this encounter Visit Diagnoses Not on filedocumented in this encounter Care Teams Vice President Payer Relationship Specialty Start Date End Date Parker Rendon MD PCP - General Family Medicine 12/12/13 documented as of this encounter
--- OUTSIDE RECORDS SUMMARY | 2025-08-23 11:19 | XMS_ITS | Encounter Summary ---
Author Organization [facility] Address [address] [place] [address] Care Team Providers Care Chemical Plant Manager Name Role Phone Parker Rendon MD Primary Care Provider [phone] Reason for Visit * Reason Onset Date Comments Other 07/08/2025 Encounter Details Date Type Department Care Team (Late st Contact Info) Description 07/08/2025 [place] [address] Brent BarcenasonDO [address] [place] [address] Other (/) Social History Tobacco Use Types [...] Encounter - Micki Beltran, Clerical Staff - 07/08/2025 3:20 PM EST [facility] did let him know that [facility] and advised him to call them regarding the sling. documented in this encounter Plan of Treatment Upcoming Encounters Date Type Department Care Team (Late st Contact Info) Description 08/30/2025 2:05 PM EST Office Visit [facility] [address] [facility] [address] [place] [address] Otf Ureña, OD [address] [place] [address] 09/09/2025 8:15 AM EST Office Visit [facility] [address] [facility] [address] [place] [address] Claudia Salas PA-C [address] [place] [address] 11/18/2025 10:45 AM EDT Office Visit [facility] [address] [address] Ford Gaitan MD [address] [place] [phone] documented as of this encounter Visit Diagnoses Not on filedocumented in this encounter Care Teams Chemical Plant Manager Relationship Specialty Start Date End Date Parker Rendon MD PCP - General Family Medicine 12/12/13 documented as of this encounter
--- OUTSIDE RECORDS SUMMARY | 2025-08-23 11:19 | XMS_ITS | Encounter Summary ---
Author Organization [facility] Address [address] [place] [address] Care Team Providers Care Outside Installer Apprentice Name Role Phone Parker Rendon MD Primary Care Provider [phone] Reason for Visit * Reason Onset Date Comments Medication Refill 08/23/2025 Encounter Details Date Type Department Care Team (Late st Contact Info) Description 08/23/2025 Refill [facility] [address] [facility] [address] [place], [place] [id number] Christiano Welsh, Design Release Engineer Medication Refill Social History Tobacco Use Types [...] Ophthalmology Cov [address] [place] [address] Otf Ureña, OD [address] [place], [place] [id number] 09/09/2025 8:15 AM EST Office Visit [facility] [address] [place] [address] Claudia Salas PA-C [address] [place] [address] 11/18/2025 10:45 AM EDT Office Visit [facility] [place] [address] [place] [address] Ford Gaitan MD [address] [place] [phone] documented as of this encounter Visit Diagnoses Diagnosis Status post reverse total replacement of left shoulder documented in this encounter Care Teams Outside Installer Apprentice Relationship Specialty Start Date End Date Parker Rendon MD PCP - General Family Medicine 12/12/13 documented as of this encounter
--- OUTSIDE RECORDS SUMMARY | 2025-08-23 11:19 | XMS_ITS | Encounter Summary ---
Author Organization [facility] Address [address] [place] [address] Care Team Providers Care Hose Maker Name Role Phone Parker Rendon MD Primary Care Provider [phone] Reason for Visit * Reason Onset Date Comments Other 07/21/2025 Encounter Details Date Type Department Care Team (Late st Contact Info) Description 07/21/2025 [place] [address] Milenanicolette KaydenDO [address] [place] [address] Other (/) Social History Tobacco Use Types [...] - Micki Beltran, Clerical Staff - 07/21/2025 1:55 PM EST LMM with surgery arrival time of 645am @ [facility] documented in this encounter Plan of Treatment Upcoming Encounters Date Type Department Care Team (Late st Contact Info) Description 08/30/2025 2:05 PM EST Office Visit [facility] [address] [facility] [address] [place] [address] Otf Ureña, OD [address] [place] [address] 09/09/2025 8:15 AM EST Office Visit [facility] [address] [facility] 100 [place] [address] Claudia Salas PA-C [address] [employer], [place] [id number] 11/18/2025 10:45 AM EDT Office Visit [facility] [address] [address] Ford Gaitan MD [address] [place] [phone] documented as of this encounter Visit Diagnoses Not on filedocumented in this encounter Care Teams Hose Maker Relationship Specialty Start Date End Date Parker Rendon MD PCP - General Family Medicine 12/12/13 documented as of this encounter
--- OUTSIDE RECORDS SUMMARY | 2025-08-23 11:19 | XMS_ITS | Encounter Summary ---
Author Organization [facility] Address [address] [place] [address] Care Team Providers Care Sales Floor Manager Name Role Phone Parker Rendon MD Primary Care Provider [phone] Reason for Visit * Reason Onset Date Comments Medication Refill 07/29/2025 Encounter Details Date Type Department Care Team (Late st Contact Info) Description 07/29/2025 Refill [facility] [address] [facility] [address] [place], [place] [id number] Kayden Barcenas DO [address] [place] [address] Medication Refill Social History Tobacco Use Types [...] Visit [facility] [address] [facility] [address] [place] [address] [place] [address] Otf Ureña, [place] [address] [place] [address] 09/09/2025 8:15 AM EST Office Visit [facility] [address] [id number] Claudia Salas PA-C [address] [place] [address] 11/18/2025 10:45 AM EDT Office Visit [facility] [address] [address] Ford Gaitan MD [address] [place] [phone] documented as of this encounter Visit Diagnoses Not on filedocumented in this encounter Care Teams Sales Floor Manager Relationship Specialty Start Date End Date Parker Rendon MD PCP - General Family Medicine 12/12/13 documented as of this encounter
== END 2025-08-12 23:59 | disposition home or self-care (01) ==
LOC: LAB.DROPOF 08-23 11:14
PROVIDERS: PCP Family Medicine; Visit Provider Nurse Practitioner
DX: J06.9 Acute upper respiratory infection, unspecified (principal)
CPT/HCPCS: 87636

== ENCOUNTER 2025-08-22 13:00 | Outpatient (CLI) | payer MEDICARE, BC, SELFPAY ==
--- OUTSIDE RECORDS SUMMARY | 2025-07-14 23:59 | XMS_ITS | Encounter Summary ---
Author Organization [facility] Address [address] [place] [address] Phone Care Team Providers Care Commercial Real Estate Manager Name Role Phone Parker Rendon MD Primary Care Provider Encounter Details Date Type Department Care Team (Late st Contact Info) Description 07/23/2025 11:59 PM EST Anesthesia Event [facility] Center Pre/Post [address] [place] [address] Kemar Bernal, DO 1 [place] [address] Anesthesia Record Procedure Summary Procedure Name Responsible [...] Shortness of breath: [facility] Neuro/Psych GI/Hepatic/Renal Endo/Other RN TRAVEL Additional Pre-evaluation comments Opioids Body mass index [...] Care Team (Late st Contact Info) Description 11/08/2025 9:30 AM EDT Office Visit [facility] [address] [place] [address] Kayden Barcenas DO [address] [place] [address] 11/18/2025 10:45 AM EDT Office Visit [facility] H[facility] [address] [address] Ford Gaitan MD [address] [place] [address] documented as of this encounter Visit Diagnoses Not on filedocumented in this encounter Care Teams Commercial Real Estate Manager Relationship Specialty Start Date End Date Parker Rendon MD PCP - General Family Medicine 12/12/13 documented as of this encounter
--- OUTSIDE RECORDS SUMMARY | 2025-07-21 09:00 | XMS_ITS | Encounter Summary ---
Author Organization [facility] Address [address] [place] [address] Care Team Providers Care Folder Seamer Name Role Phone Parker Rendon MD Primary Care Provider [phone] Encounter Details Date Type Department Care Team (Late st Contact Info) Description 07/21/2025 9:00 AM EST Clinical Support [facility] [address] [facility] [address] [place] [id number] Suzy Martinez Athletic Trainer Complete tear of left rotator cuff, unspecified whether traumatic (Primary Dx); Biceps tendon tear; Glenohumeral arthritis Social History Tobacco Use Types Packs/Day Years [...] on file documented as of this encounter Progress Notes * Suzy Martinez Athletic Trainer - 07/21/2025 9:00 AM EST Images from the original note were not included. Name: Luis Ham : 1960 Luis Ham was fit with a/an ABD sling on 07/21/2025. He was instructed on the do's and don'ts of the sling. This item will be used to protect the the injury and allow stabilization. All other questions were answered today. DME Summary Normal Orders This Visit [place] SO ACRO/CLAV CAN WEB PRE OTS [[id number] [facility]] Order #: [id number] This patient has been prescribed an abduction sling which is designed to provide immobilization of the left. Patient has been prescribed to wear this following injury or following surgery to prevent further damage to the injury or surgically repaired site. Patient is to wear the brace as prescribeduntil next patient visit. Verbal and written instructions for the use and application of this item were given. Patient was instructed that should the brace result in increased pain, decreased sensation, increased swelling or an overall worsening of their medical condition, to please contact our office immediately. Please call our office with any questions: [facility]: [phone] [facility]: [phone] [facility] DME: [phone] documented in this encounter Plan of Treatment Upcoming Encounters Date Type Department Care Team (Late st Contact Info) Description 11/08/2025 9:30 AM EDT Office Visit Rigoberto CHEEMA [address] [facility] [address] [place] [address] Kayden Barcenas DO [address] [place], [place] [id number] 11/18/2025 10:45 AM EDT Office Visit [facility] H&V [address] [address] Ford Gaitan MD [address] [place] [address] Scheduled Orders Name Type Priority Associated Diagnoses Orde r Schedule [place] SO ACRO/CLAV CAN WEB PRE OTS [place] Charge Routine Complete tear of left rotator cuff, unspecified whether traumatic Biceps tendon tear Glenohumeral arthritis Ordered: 07/21/2025 documented as of this encounter Visit Diagnoses Diagnosis Complete tear of left rotator cuff, unspecified whether traumatic- Primary Biceps tendon tear Sprain and strain of other specified sites of shoulder and upper arm Glenohumeral arthritis Other specified disorders of shoulder joint documented in this encounter Care Teams Folder Seamer Relationship Specialty Start Date End Date Parker Rendon MD PCP - General Family Medicine 12/12/13 documented as of this encounter
--- OUTSIDE RECORDS SUMMARY | 2025-07-23 08:20 | XMS_ITS | Encounter Summary ---
Author Organization [facility] Address [address] [place] [phone] Phone Care Team Providers Care Manager Cardiac Name Role Phone Parker Rendon MD Primary Care Provider [phone] Reason for Visit * Auth/Cert/Inpt Specialty Diagnoses / Procedures Referred By Contvanessa t Referred To Contact Diagnoses Complete tear of left rotator cuff, unspecified whether traumatic Biceps tendon tear Glenohumeral arthritis Complete tear of left rotator cuff, unspecified whether traumatic [M75.122] Biceps tendon tear [S46.219A] Glenohumeral arthritis [M19.019] Procedures [place] ARTHROPLASTY GLENOHUMERAL JOINT TOTAL SHOULDER LEFT REVERSE TOTAL SHOULDER ARTHROPLASTY, BICEPS TENODESIS [facility] [address] [place] [phone] Phone: tel: fax: Referral ID Status Reason Start Date Expiration Date Visits Re quested Visits Authorized [id number] 1 1 Encounter Details Date Type Department Care Team (Latest Contact Info) Description 07/23/2025 8:20 AM EST - 07/23/2025 9:22 AM EST Hospital Encounter [facility] [address] [place] [address] Kayden Barcenas, DO [address] [place] [address] Discharge Disposition: Home or Self Care Social History Tobacco Use Types Packs/Day Years Used Date Smoking Tobacco: Some Days Cigarettes 1.5 40 Started: 11/02/1976; Last attempted to quit: 11/02/2016 Tobacco Cessation:Counseling Given: Not Answered Comments:07/14/25: Pt smoking ~ 10 cigarettes / day Alcohol Use Standard Drinks/Week Comments No 0 (1 standard drink = 0.6 oz pur e alcohol) Sexually Active Control Partners Comments Not Currently Female Sex and Gender Information Value Date Recorded Sex Assigned at Not on file Legal Sex Male 5:12 PM EDT Gender Identity Not on file Sexual Orientation Not on file documented as of this encounter Last Filed Vital Signs Vital Sign Reading Time Taken Comments Blood Pressure 140/69 07/23/2025 7:34 AM EST Pulse 57 07/23/2025 7:34 AM EST Temperature 36.7 C (98 F) 07/23/2025 7:34 AM EST Respiratory Rate 29 07/23/2025 7:34 AM EST Oxygen Saturation 95% 07/23/2025 7:34 AM EST Inhaled Oxygen Concentration - - Weight 76.7 kg (169 lb) 07/23/2025 7:34 AM EST Height 172.7 cm (5' 8 ) 07/23/2025 7:34 AM EST Body Mass Index 25.7 07/23/2025 7:34 AM EST documented in this encounter Discharge Instructions * Discharge Instructions* Claudia Salas PA-C - 07/21/2025 7:24 AM EST Images from the original note were not included. Kayden Barcenas, [facility] [phone] DISCHARGE INSTRUCTIONS My surgery: Procedure(s): LEFT REVERSE TOTAL SHOULDER ARTHROPLASTY, BICEPS TENODESIS Dressing: Remove dressing in 2 days. After dressing is removed: You may shower; lightly wash incision and pat dry. Keep mesh dressing in place. Cover site with dry dressing or band-aid if needed. DO NOT soak or submerge surgical site in a bathtub, pool, hot tub, etc until follow up visit. DO NOT apply any ointments, creams, lotions to the surgical site. Follow Up Visit: Follow up in 10-[address] Barcenas Your incision will be checked at that time. If you have external sutures, they will be removed at that time. Medications: Over the Counter Take 400mg Ibuprofen/Advil 6 times a day, every 4 hours. Take 2 over the counter 200mg tablets. Do not take if you are taking blood thinners other than aspirin Avoid if you have an allergy to Ibuprofen. Do not take if you have a history of bleeding disorders, ulcers, kidney disease. Take 500mg Acetaminophen (Tylenol) 6 times a day, every 4 hours. Do not take if you have a history of liver disease or hepatitis. Do not take if you are prescribed [place] (Hydrocodone/APAP). Do not exceed a maximum of 3000mg acetaminophen in 24 hours. You may increase the time between doses as pain decreases. You may discontinue these medications when pain is tolerable. Prescription Additional pain medication will be provided upon discharge unless you are taking pain medication prior to your surgery, provided by your primary care physician or body technician/painter. You have been given a prescription for Oxycodone (use this medication only as needed for pain uncontrolled by Ibuprofen and/or Tylenol; no more than 1 tablet every 4 hours). Common side effects include: nausea, vomiting, constipation, and itching. Drink plenty of water to minimize the chance of side effects. Discontinue your Oxycodone once pain is tolerable. Occasionally post op antibiotics are given to help decrease the risk of infection. You have been given a prescription for Keflex. Take 1000 mg every 8 hours for the next 24 hours, starting when you get home. You may continue/resume all other routine medications as directed by your primary care physician Physical Therapy You should be scheduled to start physical therapy in 3-5 days. Activity Instructions Do not use your surgical arm Apply ice to your shoulder multiple times throughout the day. Leave ice on for 20-30 minutes. Use atowel as a barrier to prevent injury to the skin. Sling Wear your sling at all times except for showering, physical therapy, and/or home exercise program. Your pillow/bump should remain on the sling until your post-op visit. Further instruction regardingthe pillow/bump will be provided at that time. What to expect following surgery You received a nerve block before surgery. It is normal to have numbness or tingling ranging from 5-24 hours. Bruising or discoloration of the upper arm and/or forearm. It is normal to get some swelling in your hand and fingers Refills for pain medication are only available Saturday thru Saturday from 9am-4pm. Refills may take 48hours to process. Patients are requested to contact the office directly rather than requesting painmedication refills thru the pharmacy. documented in this encounter Medications at Time of Discharge ascorbic acid (VITAMIN C ORAL) Take by mouth daily. aspirin (ASPIRIN) 81 mg Oral Tablet, Chewable Take 1 Tab by mouth daily. 12/26/2016 atorvastatin (LIPITOR) 40 mg Oral Tablet Take 40 mg by mouth daily. folic acid (FOLVITE) 1 mg Oral Tablet Take 1 mg by mouth daily. gabapentin (NEURONTIN) 600 mg Oral Tablet Take 600 mg by mouth as needed. hydroxychloroquin e (PLAQUENIL) 100 mg Oral Tablet Take 200 mg by mouth daily. levocetirizine (XYZAL) 5 mg Oral Tablet Take 5 mg by mouth daily. 05/12/2025 losartan (COZAAR) 100 mg Oral Tablet Take 100 mg by mouth daily. methotrexate 2.5 mg Oral Tablet Take 2.5 mg by mouth once a week. Pt takes on Saturday - will take 8 tablets on 07/18/25 MULTIVITAMIN W-MINERALS/LUTEIN (MULTI-ROWAN 50 & OVER ORAL) Take by mouth. [place]-3 Fatty Acids-Vitamin E (FISH OIL) 1,000 mg Cap Take 1,000 mg by mouth daily. predniSONE (DELTASONE) 20 mg Oral Tablet Take by mouth 2 times daily. rOPINIRole (REQUIP) 3 mg Oral Tablet Take 6 mg by mouth nightly. tamsulosin (FLOMAX) 0.4 mg Oral Capsule Take by mouth daily. documented as of this encounter Discharge Disposition Disposition Code Departure Means Destination Home or Self Care documented in this encounter Nursing Notes * Aby Pollard RN - 07/14/2025 12:32 PM EST Images from the original note were not included. 07/14/25 PREPARING FOR YOUR SURGERY Date of Surgery: 07/23/25 Time of Surgery: Your surgeon's office will notify you of your scheduled arrival time on 07/21/25. Medications on the Day of Surgery Take the following medications on the morning of surgery: Gabapentin, Prednisone, Tamsulosin. Medications to hold prior to Surgery Hold any anti-inflammatory, aspirin, or supplements / vitamins for 7 days prior to the procedure, unless otherwise informed by your physician. You can take Tylenol If you are taking blood-thinners, reach out to the prescribing physician for instructions on when to stop this medication prior to your procedure. Do not take any SOL inhibitors (ends in PRIL ) or angiotensin receptor blockers (ends in SARTAN )on the day of surgery - DO NOT take Losartan on the morning of surgery. Food, Drinks, Tobacco Do not eat or drink anything after midnight. This includes gum, mints, candy, chewing tobacco, and dip. No exceptions or substitutions to these restrictions. Do not smoke, vape, or use any type of tobacco or marijuana products within 24 hours prior to surgery. Smoking will also slow your rate of healing. It is advised that you do not smoke during the healing process. No alcohol 24 hours prior to surgery. Tomato Pulper Operator It is important to have a Tomato Pulper Operator, someone who is 18 years or older, to accompany you and remain in the facility for the duration of your surgery. This person should be available for the Perioperative Team, which includes your surgeon, to communicate with before, during and after your surgery. Because you are receiving anesthesia, someone is needed to drive you home and remain with you for at least 24 hours after surgery to make sure you are safe during that time We also recommend that no children be present on the day of surgery. If you have a concern, please reach out to our department at [phone]. Hygiene [place] your teeth and gargle the morning of surgery. Shower the morning of surgery or the night before. Do not wear makeup (including eye makeup) lotion, powder, deodorant, perfume, or cologne. Do not shave the operative extremity or near the operative area. Remove nail kinyarwanda prior to surgery. This includes artificial nails and gel nail kinyarwanda. Personal Items Wear clean, simple, loose-fitting clothing (no jeans) and sturdy shoes (no flip flops, slides or crocs) to the surgery center. Do not bring unnecessary valuables with you. It is policy that [facility] does not assume responsibility for lost, stolen or broken personal items that are brought in. Exceptions may be considered for items which are considered necessary for your healthcare. These items will be formally documented. Remove all jewelry prior to surgery to prevent injury. We will not tape wedding rings/bands Remove all body piercings prior to arrival. Plastic inserts are acceptable. If you have dentures, they may need to be removed before going into the operating room. We will have a case for them. Glasses and contacts will need to be removed prior to surgery. Please bring a case for them. If you have hearing aids, please wear them to the hospital and bring a case. Bring with You Bring a copy of your Living Will and/or Durable Power of Air Traffic Coordinator for Healthcare. Bring any medical equipment that your surgeon advises you to use for postoperative care such as braces, slings, boots, crutches, walkers, etc. Notify the Surgeon Notify your surgeon if you develop any illness (fever, cold, cough, sore throat, nausea, vomiting, skin rashes etc.) between now and surgery time Notify your surgeon and Pre-admission testing ([phone]) if you have any changes in your healthconditions or if any new medications are ordered between now and surgery.. Questions or Concerns? If you have any questions or concerns, feel free to call the Pre-Admission testing department at [phone]. We want to make sure you feel safe and have an excellent experience while you are here. Our address is [address] [place] [address] Do not reply to this message through [employer] as it may not be answered promptly. documented in this encounter Plan of Treatment Upcoming Encounters Date Type Department Care Team (Late st Contact Info) Description 11/08/2025 9:30 AM EDT Office Visit [facility] [address] [place] [address] Kayden Barcenas DO [address] [place] [address] 11/18/2025 10:45 AM EDT Office Visit [facility] [address] [address] Ford Gaitan MD [address] [place] [address] documented as of this encounter Visit Diagnoses Diagnosis Complete tear of left rotator cuff Biceps tendon tear Sprain and strain of other specified sites of shoulder and upper arm Glenohumeral arthritis Other specified disorders of shoulder joint documented in this encounter Admitting Diagnoses Diagnosis Complete tear of left rotator cuff Biceps tendon tear Sprain and strain of other specified sites of shoulder and upper arm Glenohumeral arthritis Other specified disorders of shoulder joint documented in this encounter Historical Medications * This list may reflect changes made after this encounter. ascorbic acid (VITAMIN C ORAL) Take by mouth daily. hydroxychloroquin e (PLAQUENIL) 100 mg Oral Tablet Take 200 mg by mouth daily. folic acid (FOLVITE) 1 mg Oral Tablet Take 1 mg by mouth daily. methotrexate 2.5 mg Oral Tablet Take 2.5 mg by mouth once a week. Pt takes on Saturday - will take 8 tablets on 07/18/25 added in this encounter Orders Medications Ordered That Walter ht Not Have Been Administered Count Last Ordered Date First Ordered Date acetaminophen (TYLENOL) tablet 1,000 mg 1 1 09/22/2024 ceFAZolin (ANCEF) 2 g in sod ium chloride IVPB 1 07/23/2025 lactated ringers infusion 1 07/23/2025 mupirocin (BACTROBAN) 2 % ointment 1 2024 documented in this encounter Care Teams Manager Cardiac Relationship Specialty Start Date End Date Parker Rendon MD PCP - General Family Medicine 12/12/13 documented as of this encounter
--- OUTSIDE RECORDS SUMMARY | 2025-07-23 09:23 | XMS_ITS | Encounter Summary ---
Author Organization [place] [address] Care Team Providers Care Lobby Concierge Name Role Phone Parker Rendon MD Primary Care Provider [phone] Reason for Visit * Auth/Cert/Inpt Specialty Diagnoses / Procedures Referred By Contac t Referred To Contact Diagnoses Rotator cuff tear arthropathy, left Rotator cuff tear arthropathy, left [M75.102, M12.812] Procedures SC ARTHROPLASTY GLENOHUMERAL JOINT TOTAL SHOULDER Left Shoulder Reverse Total Replacement Arthroplasty Referral ID Status Reason Start Date Expiration Date Visits Re quested Visits Authorized [id number] 1 1 Encounter Details Date Type Department Care Team (Latest Contact Info) Description 07/23/2025 9:23 AM EST - 07/23/2025 3:24 PM [facility] Encounter [facility] SAME DAY SURGERY [address] [place] [address] Kayden Barcenas DO [address] [place] [address] Discharge Disposition: Home or Self Care Social History Tobacco Use Types Packs/Day Years Used Date Smoking Tobacco: Some Days Cigarettes 1.5 40 Started: 11/02/1976; Last attempted to quit: 11/02/2016 Tobacco Cessation:Ready to Q uit: Not Asked; Counseling Given: Not Answered Comments:07/14/25: Pt smoking ~ [...] Sign Reading Time Taken Comments Blood Pressure 144/86 07/23/2025 3:00 PM EST Pulse 88 07/23/2025 3:00 PM EST Temperature 36.8 C (98.2 F) 07/23/2025 3:00 PM EST Respiratory Rate 18 07/23/2025 3:00 PM EST Oxygen Saturation 98% 07/23/2025 3:00 PM EST Inhaled Oxygen Concentration - - Weight - - Height - - Body Mass Index - - documented in this encounter Discharge Instructions * Discharge Instructions* Agnes Davidson RN - 07/23/2025 11:52 AM EST Images from the original note were not included. [phone] Shoulder Surgery Discharge Instructions MY SURGERY: Procedure(s): Left Shoulder Reverse Total Replacement Arthroplasty DRESSING: May remove dressing in 2 days. After dressing is removed: OK to shower, lightly wash incision, and pat dry. Keep mesh dressing in place Cover site with dry dressing or band-aid as needed. Do Not soak surgical sight in a bathtub, pool, hot tub, etc. until follow up visit. Do Not apply any ointments, creams, or lotions to surgical site. FOLLOW UP VISIT: You will follow up with provider in 14 days. Will recheck incision at that time. MEDICATIONS: Over the counter medication: You may find simple over the counter medications will offer enough pain relief without the side effects of prescription medications. You may take both in addition to the Rx pain medication. Tylenol (acetaminophen) 500mg every 4 hours Do Not take if you have hepatitis (liver disease). Maximum of 3500mg acetaminophen in 24 hours. Ibuprophen 800mg every 8 hours (4 over the counter 200mg tablets) Do Not take if you are currently taking blood thinners. Do Not take if you have a history of bleeding disorders, ulcers, kidney disease. Prescription Additional pain medication will be provided upon discharge unless you are taking pain medication prior to your surgery. (Such as prescribed by your primary care physician or face painter) You may continue/resume all other routine medications as directed by your primary care physician. PHYSICAL THERAPY: Begin therapy as directed by your physician. You should be scheduled for therapy within the next 3-5 days. ACTIVITY INSTRUCTIONS: Apply ICE shoulder as often as possible. Do Not apply ice directly to the skin. Use a towel as a barrier to prevent injury to skin. SLING: Wear at all times except to shower and during physical therapy. Take Keflex antibiotics 1000 mg every 8 hours for the next 24 hours starting when you get home to decrease the risk of infection +++++++++++++++++++++++++++++++++++++++++++++++++++++++++++++++++++ [facility] Discharge Instructions - Following Anesthesia We appreciate the opportunity to care for you today! Here are a few reminders as you head home: A responsible adult, 18 years or older must be in attendance until tomorrow morning. Rest quietly today. May resume usual diet as tolerated or as directed by your surgeon. Do not drive or operate any machinery until tomorrow morning or as instructed. Do not make any legal or important decisions for the next 24 hours. Do not drink alcoholic beverages or take sleeping pills for 24 hours unless otherwise directed. If you have questions or concerns regarding your anesthesia experience, please call our office at . Get Well Soon! [facility] +++++++++++++++++++++++++++++++++++++++++++++++++++++++++++++++++++ * Attachments The following attachments cannot be sent through Care Everywhere. * How to use an incentive spirometer (Slovenian) documented in this encounter Medications at Time [...] Take 600 mg by mouth as needed. hydroxychloroqui ne (PLAQUENIL) 100 mg Oral Tablet Take 200 mg by mouth daily. levocetirizine (XYZAL) 5 mg Oral Tablet Take 5 mg by mouth daily. 05/12/2025 losartan (COZAAR) 100 mg Oral Tablet Take 100 mg by mouth daily. methotrexate 2.5 mg Oral Tablet Take 2.5 mg by mouth once a week. Pt takes on Saturday - will take 8 tablets on 07/18/25 MULTIVITAMIN W-MINERALS/LUTEI N (MULTI-ROWAN 50 & OVER ORAL) Take by mouth. [place]-3 Fatty Acids-Vitamin E (FISH OIL) 1,000 mg Cap Take 1,000 mg by mouth daily. predniSONE (DELTASONE) 20 mg Oral Tablet Take by mouth 2 times daily. rOPINIRole (REQUIP) 3 mg Oral Tablet Take 6 mg by mouth nightly. tamsulosin (FLOMAX) 0.4 mg Oral Capsule Take by mouth daily. cephALEXin (KEFLEX) 500 mg Oral Capsule Take 2 Capsules by mouth every 8 hours for 1 day. 6 Capsule 07/23/2025 2:40 PM EST 07/23/2025 07/24/2025 oxyCODONE (ROXICODONE) 5 mg Oral Tablet Take 1 Tablet by mouth every 4 hours as needed for Major Surgery/Trauma (G89.18). 30 Tablet 07/23/2025 2:40 PM EST 07/23/2025 08/02/2025 documented as of this encounter Ordered Prescriptions Prescription Sig Dispense Quantity Refills Last Filled Start Date End Date cephALEXin (KEFLEX) 500 mg Oral Capsule Take 2 Capsules by mouth every 8 hours for 1 day. 6 Capsule 07/23/2025 2:40 PM EST 07/23/2025 oxyCODONE (ROXICODONE) 5 mg Oral Tablet Take 1 Tablet by mouth every 4 hours as needed for Major Surgery/Trauma (G89.18). 30 Tablet 07/23/2025 2:40 PM EST 07/23/2025 documented in this encounter Discharge Disposition Disposition Code Departure Means Destination Comment s Home or Self Care Car Home documented in this encounter Progress Notes * Erika Avalos CPhT - 07/23/2025 11:56 AM EST Discharge Medication Delivery Service [employer] tax examining technician has delivered the following medications for Luis Ham: Rx#[id number]:OXYCODONE 5 MG TABLET-5 mg EVERY 4 HOURS PRN Rx#[id number]:CEPHALEXIN 500 MG CAPSULE-1000 mg *EVERY 8 HOURS Date/Time of Delivery: 07/23/2025 2:50 PM Delivered to: Luis Ham in SDS24. handed sealed rx bag to family in room Please contact [employer] tax examining technician with any questions. Thanks! Erika Avalos CPhT documented in this encounter H&P Notes * Simeon Rivera MD - 07/23/2025 10:21 AM EST [facility] History and Physical Name: Luis Ham ADDRESS: [address] [place] [address] : 1960 AGE: 65 y.o. Assessment: Rotator cuff tear arthropathy, left [M75.102, M12.812] Plan: Procedure(s): Left Shoulder Reverse Total Replacement Arthroplasty per Kayden Barcenas DO Admitting Physician: Kayden Barcenas DO Date of Admit: 07/23/2025 Subjective SUBJECTIVE Chief Complaint: Rotator cuff tear arthropathy, left [M75.102, M12.812] History of Present Illness: Patient is a 65 y.o. male with Rotator cuff tear arthropathy, left [M75.102, M12.812] who presents for surgical intervention. Past Medical History[1] Surgical History[2] Prior to Admission medications Medication Sig Start Date End Date Last Dose Authorizing Provider ascorbic acid (VITAMIN C ORAL) Take by mouth daily. 07/22/2025 Morning Provider, Historical folic acid (FOLVITE) 1 mg Oral Tablet Take 1 mg by mouth daily. 07/22/2025 Morning Provider, Historical gabapentin (NEURONTIN) 600 mg Oral Tablet Take 600 mg by mouth as needed. 07/22/2025 Morning Provider, Historical hydroxychloroquine (PLAQUENIL) 100 mg Oral Tablet Take 200 mg by mouth daily. 07/22/2025 Morning Provider, Historical levocetirizine (XYZAL) 5 mg Oral Tablet Take 5 mg by mouth daily. 05/12/25 07/22/2025 Morning Provider, Historical losartan (COZAAR) 100 mg Oral Tablet Take 100 mg by mouth daily. 07/22/2025 Morning Provider, Historical methylPREDNISolone (MEDROL DOSPACK) 4 mg Oral Tablets, Dose Pack Follow package directions 05/19/25 07/22/2025 Morning Vivian Rodriguez PA-C predniSONE (DELTASONE) 20 mg Oral Tablet Take by mouth 2 times daily. 07/22/2025 Morning Provider, Historical rOPINIRole (REQUIP) 3 mg Oral Tablet Take 6 mg by mouth nightly. 07/22/2025 Bedtime Provider, Historical tamsulosin (FLOMAX) 0.4 mg Oral Capsule Take by mouth daily. 07/22/2025 Morning Provider, Historical aspirin (ASPIRIN) 81 mg Oral Tablet, Chewable Take 1 Tab by mouth daily. 12/26/16 07/16/2025 Ford Ledesma MD atorvastatin (LIPITOR) 40 mg Oral Tablet Take 40 mg by mouth daily. Patient not taking: Reported on 07/14/2025 Not Taking Provider, Historical cephALEXin (KEFLEX) 500 mg Oral Capsule Take 2 Capsules by mouth every 8 hours for 1 day. 07/23/25 07/24/25 Kayden Barcenas DO diclofenac (VOLTAREN) 75 mg Oral Tablet, Delayed Release (E.C.) Take by mouth 2 times daily. Patient not taking: Reported on 07/14/2025 Not Taking Provider, Historical ibuprofen (ADVIL;MOTRIN) 200 mg tablet Take by mouth every 8 hours as needed for Pain. 07/09/2025 Provider, Historical meloxicam (MOBIC) 15 mg Oral Tablet Take 1 tablet by mouth once a day with meal. Patient not taking: Reported on 07/14/2025 05/24/25 Not Taking Kayden Barcenas DO methotrexate 2.5 mg Oral Tablet Take 2.5 mg by mouth once a week. Pt takes on Saturday - will take 8 tablets on 07/18/25 07/18/2025 Provider, Historical MULTIVITAMIN W-MINERALS/LUTEIN (MULTI-ROWAN 50 & OVER ORAL) Take by mouth. 07/16/2025 Provider, Historical [place]-3 Fatty Acids-Vitamin E (FISH OIL) 1,000 mg Cap Take 1,000 mg by mouth daily. 07/16/2025 Provider, Historical oxyCODONE (ROXICODONE) 5 mg Oral Tablet Take 1 Tablet by mouth every 4 hours as needed for Major Surgery/Trauma (G89.18). 07/23/25 Kayden Barcenas, DO Allergies[3] Social History[4] Family History[5] There are no active hospital problems to display for this patient. Blood pressure 156/68, pulse 67, temperature 96.6 ??F (35.9 ??C), temperature source Forehead, resp. rate 16. Review of Systems: The listed systems were reviewed and reveal the following in addition to any already discussed in the HPI: Review of Systems Constitutional: Negative for fever. HENT: Negative. Respiratory: Negative. Negative for shortness of breath. Cardiovascular: Negative. Negative for chest pain. Gastrointestinal: Negative. Genitourinary: Negative. Musculoskeletal: Positive for joint pain. Left shoulder Skin: Negative for rash. Neurological: Negative. Endo/Heme/Allergies: Negative. Psychiatric/Behavioral: Negative. Objective OBJECTIVE Physical Exam: There is no height or weight on file to calculate BMI. There is no height or weight on file to calculate BSA. Physical Exam Vitals reviewed. Constitutional: Appearance: He is normal weight. He is not ill-appearing. HENT: Head: Normocephalic. Nose: No congestion. Eyes: Pupils: Pupils are equal, round, and reactive to light. Neck: Vascular: No carotid bruit. Cardiovascular: Rate and Rhythm: Normal rate and regular rhythm. Pulses: Normal pulses. Heart sounds: Normal heart sounds. No murmur heard. No friction rub. No gallop. Pulmonary: Breath sounds: Normal breath sounds. No wheezing or rales. Abdominal: General: Abdomen is flat. There is no distension. Palpations: Abdomen is soft. Musculoskeletal: General: No swelling. Cervical back: Neck supple. Skin: General: Skin is warm and dry. Neurological: General: No focal deficit present. Mental Status: He is alert and oriented to person, place, and time. Psychiatric: Mood and Affect: Mood normal. Labs:from 05/17/25 reviewed Radiology: EKG: from 10/20/24 reviewed & Stress test reviewed Simeon Rivera MD 07/23/2025 [1] Past Medical History: Diagnosis Date Acute renal failure 12/14/2013 Hypertension Osteoporosis Rheumatoid arthritis (HCC) [2] Past Surgical History: Procedure Laterality Date HERNIA REPAIR SHOULDER SURGERY Right [3] No Known Allergies [4] Social History Socioeconomic History Marital status: Spouse name: None Number of children: None Years of education: None Highest education level: None Tobacco Use Smoking status: Some Days Current packs/day: 0.00 Average packs/day: 1.5 packs/day for 40.0 years (60.0 ttl pk-yrs) Types: Cigarettes Start date: 11/02/1976 Last attempt to quit: 11/02/2016 Years since quittin.7 Tobacco comments: 07/14/25: Pt smoking ~ 10 cigarettes / day Vaping Use Vaping status: Never Used Substance and Sexual Activity Alcohol use: No Drug use: No Sexual activity: Not Currently Partners: Female [5] History reviewed. No pertinent family history. documented in this encounter Procedure Notes * Kayden Barcenas DO - 07/23/2025 1:19 PM EST Reverse total shoulder arthroplasty for rotator cuff tear/arthropathy DATE OF OPERATION: 07/23/2025 PATIENT NAME: Luis Ham DATE OF : 1960 PREOPERATIVE DIAGNOSIS: left shoulder rotator cuff arthropathy. POSTOPERATIVE DIAGNOSIS: left shoulder rotator cuff arthropathy. PROCEDURE PERFORMED: left reverse total shoulder arthroplasty. SURGEON: Kayden Barcenas DO IMPLANTS: Implant Name Model No. Serial No. Lot No. Seconds Grader LRB No. Used Action BASEPLATE STD GLENOID 24MM LEONORA METER 0 DEGREE 10MM - [id number] SHOULDER Fanzila Left 1 Implanted SCREW RSA CENTRAL COMPRESSION 6.0MM X 30MM - [id number] SHOULDER Fanzila Left 1 Implanted SCREW RSA PERPENDICULAR LOCKING 4.5MM X 15 MM - [id number] SHOULDER INNOVATIONS Left 1 Implanted SCREW RSA PERPENDICULAR LOCKING 4.5MM X 25 MM - [id number] SHOULDER INNOVATIONS Left 1 Implanted SCREW RSA PERPENDICULAR LOCKING 4.5MM X 35 MM - [id number] SHOULDER INNOVATIONS Left 1 Implanted K-WIRE GUIDE 2.4MM - [id number] SHOULDER INNOVATIONS Left 2 Implanted and Explanted TOTAL SHOULDER RSA OFFSET GLENOSPHERE-COCR 04NIN7GHG+6MM - [id number] SHOULDER INNOVATIONS Left 1 Implanted STEM HUMERAL SHORT 32MM X 6MM STERILE - [id number] ENCORE MED:DJO SURGICAL Left 1Implanted TOTAL SHOULDER RSA NEUTRAL HUMERAL BEARING 36MM 0MM 0 DEG - [id number] SHOULDER INNOVATIONS Left 1 Implanted TOTAL SHOULDER RSA HUMERAL TRAYS 0 MM OFFSET 38 MM LEONORA - [id number] SHOULDER INNOVATIONS Left 1 Implanted ANESTHESIA: General endotracheal anesthesia with preoperative interscalene block. POSITIONING: Beachchair. BLOOD LOSS: 100cc POSTOPERATIVE CONDITION: Stable to PACU. HISTORY OF PRESENT ILLNESS: The patient Luis Ham is a 65 y.o. year-old with a history of shoulder pain for multiple years. The patient was seen and evaluated in my office, determined to have rotator cuff arthropathy and a massive rotator cuff tear as demonstrated on physical examination, preoperative radiographs and/or MRI. CT scan was obtained as necessary for evaluation of the glenoid vault. The patient was seen after attempts at nonoperativetreatment that included anti-inflammatories, activity modification, and cortisone injections. The patient consented for the above named procedure after it was realized that the patient was not able to proceed with activities of daily living without significant limitations. All risks, benefits, and alternatives of the procedure were discussed in detail with the patient, specifically the risk of stiffness, dislocation, instability, persistent pain and infection were discussed with the patient. DETAILS OF PROCEDURE: The patient was taken back and placed supine on the operating room table. Thepatient was given adequate preoperative medications including antibiotics and was intubated. The patient was then placed in the beach-chair position and all bony prominences were padded. A pillow was placed underneath the legs. Head was positioned in a head rest which the neck was supple andin good position. Next, the patient was prepped and draped in sterile fashion after the bed was rotated 45??. The coracoid was marked using a marking pen. An Ioban was then used to drape out the entire shoulder including the axilla. Incision was made along the deltopectoral interval and a 7 centimeter incision was made. Dissection was carried down to the deltopectoral interval and all bleeders were coagulated. Proximal dissection was taken to the level of the clavicle. The cephalic vein was mobilized laterally and the clavipectoral fascia was dissected underneath the deltopectoral interval after pectoralis anddeltoid had been completely retracted. With the arm in maximal internal rotation, all excess bursa was removed. At this time, the remaining portions of the subscapularis were taken down with a tenotomy and the axillary nerve was identified using a finger sweep. A massive rotator cuff tear was identified proximally. There were significant changes to the articular surface of the humerus. A stitch was placed into the subscapularis and the shoulder was externally rotated and dislocated. All remaining humeral head osteophytes were removed with a rongeur. The humeral head cutting guide was placed and aligned such that, there was a match of anatomic retroversion. Next, a humeral head osteotomy was performed. We then placed our central pin followed by opening reamer and broach. Next, a humeral head cap was used. Fukuda retractor was inserted along the posterior glenoid rim and a capsulectomy was performed anteriorly and inferiorly, especially inferiorly to create appropriate overhang on the prosthesis inferiorly, as well as tilt. We did palpate the axillary nerve during this part of the procedure and it was protected throughout the capsular release. We then drilled centrally. It was centered appropriately to bisect the glenoid such that there would be an excellent fit. We then utilized reamers to ream the glenoid. We next impacted the baseplate. We then drilled for and measured for our central screw. We then placed our central screw in place. After this, 3 peripheral screws were placed, one inferiorly, superiorly, anteriorly. We then placed our glenosphere. Next, we went back to the humerus, dislocated the humerus again and placed retractors. We then reamed for the humeral cup. We then placed our trial and we were happy with the stability and range of motion. Next, the final implants were assembled on the back table. They were impacted in place. We were happy with the stability and range of motion of the real implant. We then repaired our subscap to decrease the risk of future dislocation. At this point in time, we irrigated the wound with a diluted H2O2 solution followed by copious amounts of normal saline. We then added vanc powder. Next, the deltopectoral interval was closed. The skin was then closed with layered absorbable sutures with a prineo dressing. We then placed a sterile dressing. The patient was then awakened from anesthesia and returned to the PACU in stable condition. Kayden Barcenas DO 07/23/2025 documented in this encounter Miscellaneous Notes * [facility] - Postop Outreach - Siria Hampton, PT - 07/23/2025 3:24 PM EST Ortho/Neuro - Postop Outreach Discharge Date: 07/23/25 Procedure Date: 07/23/25 Spoke With: Patient Do you have any questions about your discharge instructions? No Do you have any questions about your medications (or side effects)? No Are you taking your prescribed pain medication at regular intervals? Yes Are you taking your pain medication prior to physical therapy or exercise? No Do you feel it is helping? Yes What would you rate your pain on a scale of 1-10? 8 After surgery, was your pain better or worse than you expected? Better Are you taking your blood thinner as ordered? Yes Do you have assistance at home? Yes Are you having any difficulty with any of the following: Eating/drinking: No Constipation/urinating: Yes A little. Pt is taking stool softener Fever: No Excessive wound drainage: No Have you begun therapy/home exercises? Yes On a scale of 1-10, have the results of the surgery met your expectations (10- all expectations havebeen met)? 10 (strongly agree) On a scale of 1-10, how likely are you to recommend your surgeon to friends and family (10-highly recommend)? 10 (highly likely) On a scale of 1-10, how likely are you to recommend [facility] to friends and family (10-highly recommend)? 10 (highly likely) Do you have any suggestions for us to improve your experience? * Plan of Care - Agnes Davidson RN - 07/23/2025 2:46 PM EST Problem: Pain Management Description: Related to: Procedure Goal: The patient's stated pain goal will be reached and maintained. Outcome: Adequate for Discharge Problem: Potential for altered respiratory status. Description: Related to: Sedation/Anesthesia Goal: Patient will remain free of respiratory complications. Outcome: Adequate for Discharge Problem: Bleeding Description: Related to: Procedure Goal: Post-op dressing will remain clean and dry. Outcome: Adequate for Discharge Goal: Patient will have no signs/symptoms of post-procedure bleeding. Outcome: Adequate for Discharge Goal: Access site will be free of hematoma/bleeding. Outcome: Adequate for Discharge Problem: Potential for post-op nausea/vomiting Description: Related to procedure Goal: Patient will be free of post-op nausea/vomiting or nausea/vomiting will be controlled. Outcome: Adequate for Discharge Problem: Potential for altered tissue perfusion-contrast reaction/renal impairment Description: Related to: Contrast administration Goal: Patient will be free of contrast reaction and GFR will remain baseline. Outcome: Adequate for Discharge Problem: Potential for alteration in skin integrity Goal: Skin integrity is maintained or improved Outcome: Adequate for Discharge Problem: Alteration in circulation/neurovascular status Goal: Circulation/neurovascular status will be maintained. Outcome: Adequate for Discharge Problem: Safety: Fall Risk Goal: Patient will be free from falls. Outcome: Adequate for Discharge Problem: Thermoregulation Goal: Patient's temperature will be greater than 96.8F at discharge. Outcome: Adequate for Discharge Problem: Pain Management Description: Related to: Procedure Goal: The patient's stated pain goal will be reached and maintained. Outcome: Adequate for Discharge Problem: Potential for altered respiratory status. Description: Related to: Sedation/Anesthesia Goal: Patient will remain free of respiratory complications. Outcome: Adequate for Discharge Problem: Bleeding Description: Related to: Procedure Goal: Post-op dressing will remain clean and dry. Outcome: Adequate for Discharge Goal: Patient will have no signs/symptoms of post-procedure bleeding. Outcome: Adequate for Discharge Goal: Access site will be free of hematoma/bleeding. Outcome: Adequate for Discharge Problem: Potential for post-op nausea/vomiting Description: Related to procedure Goal: Patient will be free of post-op nausea/vomiting or nausea/vomiting will be controlled. Outcome: Adequate for Discharge Problem: Potential for altered tissue perfusion-contrast reaction/renal impairment Description: Related to: Contrast administration Goal: Patient will be free of contrast reaction and GFR will remain baseline. Outcome: Adequate for Discharge Problem: Potential for alteration in skin integrity Goal: Skin integrity is maintained or improved Outcome: Adequate for Discharge Problem: Alteration in circulation/neurovascular status Goal: Circulation/neurovascular status will be maintained. Outcome: Adequate for Discharge Problem: Safety: Fall Risk Goal: Patient will be free from falls. Outcome: Adequate for Discharge Problem: Thermoregulation Goal: Patient's temperature will be greater than 96.8F at discharge. Outcome: Adequate for Discharge * Plan of Care - Leslie Acosta RN - 07/23/2025 1:17 PM EST Problem: Pain Management Description: Related to: Procedure Goal: The patient's stated pain goal will be reached and maintained. Outcome: Progressing Problem: Potential for altered respiratory status. Description: Related to: Sedation/Anesthesia Goal: Patient will remain free of respiratory complications. Outcome: Progressing Problem: Bleeding Description: Related to: Procedure Goal: Post-op dressing will remain clean and dry. Outcome: Progressing Goal: Patient will have no signs/symptoms of post-procedure bleeding. Outcome: Progressing Goal: Access site will be free of hematoma/bleeding. Outcome: Progressing Problem: Potential for post-op nausea/vomiting Description: Related to procedure Goal: Patient will be free of post-op nausea/vomiting or nausea/vomiting will be controlled. Outcome: Progressing Problem: Potential for altered tissue perfusion-contrast reaction/renal impairment Description: Related to: Contrast administration Goal: Patient will be free of contrast reaction and GFR will remain baseline. Outcome: Progressing Problem: Potential for alteration in skin integrity Goal: Skin integrity is maintained or improved Outcome: Progressing Problem: Alteration in circulation/neurovascular status Goal: Circulation/neurovascular status will be maintained. Outcome: Progressing Problem: Safety: Fall Risk Goal: Patient will be free from falls. Outcome: Progressing Problem: Thermoregulation Goal: Patient's temperature will be greater than 96.8F at discharge. Outcome: Progressing * H&P Update - Kayden Barcenas, DO - 07/23/2025 10:09 AM EST Images from the original note were not included. Assessment: Rotator cuff tear arthropathy, left [M75.102, M12.812] Plan: Procedure(s): Left Shoulder Reverse Total Replacement Arthroplasty. Review of Sytstems: Negative and noncontributory to current condition. HPI: Patient is a 65 y.o. male presents with chief complaint left shoulder pain. NPO. Here for surgery. Past Medical History[1] Surgical History[2] Prescriptions Prior to Admission[3] Allergies[4] Social History Tobacco Use Smoking status: Some Days Current packs/day: 0.00 Average packs/day: 1.5 packs/day for 40.0 years (60.0 ttl pk-yrs) Types: Cigarettes Start date: 11/02/1976 Last attempt to quit: 11/02/2016 Years since quittin.7 Smokeless tobacco: Not on file Tobacco comments: 07/14/25: Pt smoking ~ 10 cigarettes / day Substance Use Topics Alcohol use: No Family History[5] Physical Exam: Vital Signs - see preoperative vitals. General - smiling in no apparent distress, color normal. Abdomen - soft, non-tender. Musculoskeletal - Operative Extremity Motion noted along ain, pin, radial, medial, ulnar nerves. Sensation over C5-T1 dermatomes. Radial pulses noted. Compartments soft. Pain and weakness with Range of motion of the operative extremity. [1] Past Medical History: Diagnosis Date Acute renal failure 12/14/2013 Hypertension Osteoporosis Rheumatoid arthritis (HCC) [2] Past Surgical History: Procedure Laterality Date HERNIA REPAIR SHOULDER SURGERY Right [3] Medications Prior to Admission Medication Sig Dispense Refill Last Dose/Taking ascorbic acid (VITAMIN C ORAL) Take by mouth daily. 07/22/2025 Morning folic acid (FOLVITE) 1 mg Oral Tablet Take 1 mg by mouth daily. 07/22/2025 Morning gabapentin (NEURONTIN) 600 mg Oral Tablet Take 600 mg by mouth as needed. 07/22/2025 Morning hydroxychloroquine (PLAQUENIL) 100 mg Oral Tablet Take 200 mg by mouth daily. 07/22/2025 Morning levocetirizine (XYZAL) 5 mg Oral Tablet Take 5 mg by mouth daily. 07/22/2025 Morning losartan (COZAAR) 100 mg Oral Tablet Take 100 mg by mouth daily. 07/22/2025 Morning methylPREDNISolone (MEDROL DOSPACK) 4 mg Oral Tablets, Dose Pack Follow package directions 21 Tablet 0 07/22/2025 Morning predniSONE (DELTASONE) 20 mg Oral Tablet Take by mouth 2 times daily. 07/22/2025 Morning rOPINIRole (REQUIP) 3 mg Oral Tablet Take 6 mg by mouth nightly. 07/22/2025 Bedtime tamsulosin (FLOMAX) 0.4 mg Oral Capsule Take by mouth daily. 07/22/2025 Morning aspirin (ASPIRIN) 81 mg Oral Tablet, Chewable Take 1 Tab by mouth daily. 07/16/2025 atorvastatin (LIPITOR) 40 mg Oral Tablet Take 40 mg by mouth daily. (Patient not taking: Reported on 07/14/2025) Not Taking diclofenac (VOLTAREN) 75 mg Oral Tablet, Delayed Release (E.C.) Take by mouth 2 times daily. (Patient not taking: Reported on 07/14/2025) Not Taking ibuprofen (ADVIL;MOTRIN) 200 mg tablet Take by mouth every 8 hours as needed for Pain. 07/09/2025 meloxicam (MOBIC) 15 mg Oral Tablet Take 1 tablet by mouth once a day with meal. (Patient not taking: Reported on 07/14/2025) 14 Tablet 0 Not Taking methotrexate 2.5 mg Oral Tablet Take 2.5 mg by mouth once a week. Pt takes on Saturday - will take 8 tablets on 07/18/25 07/18/2025 MULTIVITAMIN W-MINERALS/LUTEIN (MULTI-ROWAN 50 & OVER ORAL) Take by mouth. 07/16/2025 [place]-3 Fatty Acids-Vitamin E (FISH OIL) 1,000 mg Cap Take 1,000 mg by mouth daily. 07/16/2025 [4] No Known Allergies [5] History reviewed. No pertinent family history. * Plan of Care - Penny Post RN - 07/23/2025 10:07 AM EST Problem: Potential for anxiety Description: Related to: Procedure Goal: Patient verbalizes an understanding of planned interventions and/or demonstrates signs of decreased anxiety. Outcome: Progressing Problem: Potential for alteration in skin integrity Description: Related to: Procedure Goal: Pre-op skin integrity will be maintained. Outcome: Progressing Problem: Pain Management Goal: The patient's stated pain goal will be reached and maintained. Outcome: Progressing Problem: Safety: Fall Risk Description: Related to: Procedure Goal: Patient will be free from falls. Outcome: Progressing documented in this encounter Plan of Treatment Upcoming Encounters Date Type Department Care Team (Late st Contact Info) Description 11/08/2025 9:30 AM EDT Office Visit [facility] [address] [place] [address] Kayden Barcenas DO [address] [place] [id number] 11/18/2025 10:45 AM EDT Office Visit [facility] [address] [id number] Ford Gaitan MD [address] [place] [address] Pending Results Name Type Priority Associated Diagnoses Date /Time ECG AND WAVEFORMS - TELEMETRY Point of Care Testing Routine 07/23/2025 2:00 PM EST documented as of this encounter Procedures Procedure Name Priority Date/Time Associated Diagnosis Comments XR SHOULDER LEFT 1 VW STAT 07/23/2025 2:30 PM EST ECG AND WAVEFORMS - TELEMETRY Routine 07/23/2025 2:00 PM EST SC ARTHROPLASTY GLENOHUMERAL JOINT TOTAL SHOULDER 07/23/2025 11:56 AM EST Rotator cuff tear arthropathy, left US ANES GUIDANCE FOR NERVE BLOCK STAT 07/23/2025 9:59 AM EST documented in this encounter Results * XR SHOULDER LEFT 1 VW (07/23/2025 2:30 PM EST) Anatomical Region Laterality Modality Shoulder Radiographic Shelby ging 07/23/2025 2:30 PM EST Impressions 07/23/2025 2:32 PM EST No acute bony abnormality. - Note: Radiology results need to be interpreted within a comprehensive clinical context. If you have questions about the radiology report, please contact the office of the ordering clinician. Narrative 07/23/2025 2:32 PM EST XR SHOULDER LEFT 1 VW, 07/23/2025 2:30 PM CLINICAL HISTORY: -Posy op COMPARISON: None. PROCEDURE COMMENTS: XR SHOULDER LEFT 1 VW FINDINGS: Uncomplicated appearing reversed left shoulder arthroplasty is noted. Procedure Note Maxwell Daniel MD - 07/23/2025 XR SHOULDER LEFT 1 VW, 07/23/2025 2:30 PM CLINICAL HISTORY: -Posy op COMPARISON: None. PROCEDURE COMMENTS: XR SHOULDER LEFT 1 VW FINDINGS: Uncomplicated appearing reversed left shoulder arthroplasty is noted. IMPRESSION: No acute bony abnormality. - Note: Radiology results need to be interpreted within a comprehensiveclinical context. If you have questions about the radiology report, please contactthe office of the ordering clinician. us Kayden Barcenas DO IMG DIAGNOSTIC IMAGING ORDERABL ES Final Result * US ANES GUIDANCE FOR NERVE BLOCK (07/23/2025 9:59 AM EST) Kortney Dudley Eduarda - 07/23/2025 9:59 AM EST Ultrasound guided nerve block performed by Anesthesiologist. The study image(s) are for reference only and will not be interpreted by a Radiologist. Refer to the Anesthesia procedure note for image description and procedure details. us Blair Fernández DO IMG US ORDERABLES Final Result documented in this encounter Visit Diagnoses Not on filedocumented in this encounter Administered Medications Inactive Administered Medications - up to 1 most recent administrations Medication Order MAR Action Action Date Dose Rate Site acetaminophen (TYLENOL) tablet 1,000 mg 1,000 mg, Oral, PREPROCEDURE, 1 dose, Starting on Sat07/23/25 at 1041, Until Sat07/23/25 at 1047, Coanalgesic, Do not give if patient received acetaminophen within the last 6 hours Maximum adult dose of acetaminophen is 4000 mg from all sources in 24 hours., Pre-op (Holding/SDS Meds) Given 07/23/2025 10:47 AM EST 1,000 mg bupivacaine (MARCAINE/SENSORCAINE) 0.5 % (5 mg/mL) injection 20 mL 20 mL, Perineural, ONCE PREPROCEDURE, 1 dose, On Sat07/23/25 at 1000, For administration during pre-op peripheral block Extra 10cc of Bupi 0.5% in separate syringe for Bicep Tenodesis Portion , Pre-op (Holding/SDS Meds) Given 07/23/2025 11:44 AM EST 20 mL BUPivacaine liposome (PF) (EXPAREL) 1.3 % (13.3 mg/mL) liposomal suspension Susp 133 mg 133 mg (10 mL), Perineural, ONCE PREPROCEDURE, 1 dose, On Sat07/23/25 at 1000, Invert vial to resuspend suspension prior to withdrawal for administration, Pre-op (Holding/SDS Meds) Given 07/23/2025 11:44 AM EST 133 mg diphenhydrAMINE (BENADRYL) injection 25 mg 25 mg, Intravenous, PRN, Starting on Sat07/23/25 at 0958, Until Sat07/23/25 at 1757, Itching, Allergies, Nausea, For persistent nausea unrelieved by other antiemetics. Give second dose if nausea unrelieved in 20 minutes. May give total of two doses if needed., PACU droPERidol (INAPSINE) injection 0.625 mg 0.625 mg, Intravenous, PRN, Starting on Sat07/23/25 at 0958, Until Sat07/23/25 at 1757, Nausea, If unable to give zofran. Give second dose if nausea unrelieved in 10 minutes. May give total of two doses if needed., PACU fentaNYL (SUBLIMAZE) injection 25 mcg 25 mcg, Intravenous, EVERY 5 MIN PRN, Starting on Sat07/23/25 at 0958, Until Sat07/23/25 at 1757, Pain, For initial pain. Maximum dose not to exceed 100 mcg., PACU HYDROmorphone (DILAUDID) injection 0.5 mg 0.5 mg, Intravenous, EVERY 10 MIN PRN, Starting on Sat07/23/25 at 0958, Until Sat07/23/25 at 1757, Breakthrough Pain, Do not exceed 2 mg in one hour unless otherwise ordered by the Anesthesia Coordinator For pain unrelieved by fentanyl or oral opioid, PACU ketorolac (TORADOL) injection 15 mg 15 mg, Intravenous, PRN, 2 doses, Starting on Sat07/23/25 at 0958, Until Sat07/23/25 at 1930, Pain, Kindey function and Creatinine Level prior to administration. Do Not Give If patient has CKD or elevated Cr level Give slow IV push if patient did not receive NSAID pre-op or in OR For IV Administration: Give undiluted over at least 15 seconds. Maximum IV dose is 30mg. For IM Administration: Give undiluted, slowly and deeply into the muscle., PACU lactated ringers infusion Intravenous, at 50 mL/hr, PREPROCEDURE CONTINUOUS, Starting on Sat07/23/25 at 1041, Until Sat07/23/25 at 1930, To be given in SDS/Pre-op Holding Area, Pre-op (Holding/SDS Meds) New Bag 07/23/2025 12:45 PM EST midazolam (VERSED) injection 2 mg 2 mg, Intravenous, ONCE, 1 dose, On Sat07/23/25 at 1000, VESICANT , Pre-op (Holding/SDS Meds) Given 07/23/2025 11:44 AM EST 2 mg ondansetron (ZOFRAN) injection 4 mg 4 mg, Intravenous, ONCE PRN, 1 dose, Starting on Sat07/23/25 at 0958, Until Sat07/23/25 at 1930, Nausea, Do not give if patient received granisetron (Kytril) or ondansetron (Zofran) within 4 hours., PACU ondansetron (ZOFRAN-ODT) disintegrating tablet 8 mg 8 mg, Oral, ONCE PRN, 1 dose, Starting on Sat07/23/25 at 0958, Until Sat07/23/25 at 1930, Nausea, Do not give if patient received granisetron (Kytril) or ondansetron (Zofran) within 4 hours., PACU oxyCODONE (ROXICODONE) immediate release tablet 5 mg 5 mg, Oral, EVERY 30 MIN PRN, 2 doses, Starting on Sat07/23/25 at 0958, Until Sat07/23/25 at 1930, Pain, When tolerating oral intake. Maximum dose not to exceed 10 mg unless otherwise directed by the Anesthesia Coordinator., PACU promethazine (PHENERGAN) 12.5 mg in sodium chloride 0.9% 10 mL injection 12.5 mg, Intravenous, PRN, Starting on Sat07/23/25 at 0958, Until Sat07/23/25 at 1757, Nausea, Second Line Antiemetic, For nausea unrelieved by droperidol or pre-op antiemetic. Begin with lowest dose unless otherwise directed. Give remainder of dose if nausea unrelieved in 20 minutes. Not to exceed 25 mg in one hour unless otherwise ordered by Anesthesia Coordinator. VESICANT , PACU promethazine (PHENERGAN) 6.25 mg in sodium chloride 0.9% 10 mL injection 6.25 mg, Intravenous, PRN, Starting on Sat07/23/25 at 0958, Until Sat07/23/25 at 1757, Nausea, Second Line Antiemetic, For nausea unrelieved by droperidol or pre-op antiemetic. Begin with lowest dose unless otherwise directed. Give remainder of dose if nausea unrelieved in 20 minutes. Not to exceed 25 mg in one hour unless otherwise ordered by Anesthesia Coordinator. VESICANT , PACU documented in this encounter Discontinued Medications Medication Sig Discontinue Reason Start Date End Da te ibuprofen (ADVIL;MOTRIN) 200 mg tablet Take by mouth every 8 hours as needed for Pain. Stop Taking at Discharge 07/23/2025 diclofenac (VOLTAREN) 75 mg Oral Tablet, Delayed Release (E.C.) Take by mouth 2 times daily. Stop Taking at Discharge 07/23/2025 methylPREDNISolone (MEDROL DOSPACK) 4 mg Oral Tablets, Dose PackIndications:Strai n of left shoulder, initial encounter Follow package directions Stop Taking at Discharge 05/19/2025 07/23/2025 meloxicam (MOBIC) 15 mg Oral TabletIndications:Str ain of left shoulder, initial encounter,Tendinitis of left rotator cuff Take 1 tablet by mouth once a day with meal. Stop Taking at Discharge 05/24/2025 07/23/2025 documented as of this encounter Active and Recently Administered Medications Times are shown in EST. Scheduled Medication Order 07/21/2025 07/22/2025 07/23/2025 bupivacaine (MARCAINE/SENSORCAINE) 0.5 % (5 mg/mL) injection 20 mL (COMPLETED) 20 mL, Perineural, ONCE PREPROCEDURE, 1 dose, On Sat07/23/25 at 1000, For administration during pre-op peripheral block Extra 10cc of Bupi 0.5% in separate syringe for Bicep Tenodesis Portion , Pre-op (Holding/SDS Meds) 1144 (Given - Provid er: Kate Avila RN) BUPivacaine liposome (PF) (EXPAREL) 1.3 % (13.3 mg/mL) liposomal suspension Susp 133 mg (COMPLETED) 133 mg (10 mL), Perineural, ONCE PREPROCEDURE, 1 dose, On Sat07/23/25 at 1000, Invert vial to resuspend suspension prior to withdrawal for administration, Pre-op (Holding/SDS Meds) 1144 (Given - Provid er: Kate Avila RN) ceFAZolin (ANCEF) 2 g in sterile water 20 mL IVP (COMPLETED) 2 g, Intravenous, ONCE PREPROCEDURE, 1 dose, On Sat07/23/25 at 1100, Draw up 5.5 mL of Sterile Water for Injection and inject into one ceFAZolin 2 g vial. Shake vials until powder is completely dissolved. Then further dilute to a total volume of 20 mL for IV push administration. Administer intravenous push (IVP) over a period of 3 to 5 minutes., Reason for Therapy: Surgical Prophylaxis, Pre-op (Holding/SDS Meds) 1203 (New Bag - Prov ider: Ford Kaufman, CATHY) midazolam (VERSED) injection 2 mg (COMPLETED) 2 mg, Intravenous, ONCE, 1 dose, On Sat07/23/25 at 1000, VESICANT , Pre-op (Holding/SDS Meds) 1144 (Given - Provid er: Kate Avila RN) PRN Medication Order 07/21/2025 07/22/2025 07/23/2025 acetaminophen (TYLENOL) tablet 1,000 mg (COMPLETED) 1,000 mg, Oral, PREPROCEDURE, 1 dose, Starting on Sat07/23/25 at 1041, Until Sat07/23/25 at 1047, Coanalgesic, Do not give if patient received acetaminophen within the last 6 hours Maximum adult dose of acetaminophen is 4000 mg from all sources in 24 hours., Pre-op (Holding/SDS Meds) 1047 (Given - Provid er: Penny Post RN) diphenhydrAMINE (BENADRYL) injection 25 mg 25 mg, Intravenous, PRN, Starting on Sat07/23/25 at 0958, Until Sat07/23/25 at 1757, Itching, Allergies, Nausea, For persistent nausea unrelieved by other antiemetics. Give second dose if nausea unrelieved in 20 minutes. May give total of two doses if needed., PACU droPERidol (INAPSINE) injection 0.625 mg 0.625 mg, Intravenous, PRN, Starting on Sat07/23/25 at 0958, Until Sat07/23/25 at 1757, Nausea, If unable to give zofran. Give second dose if nausea unrelieved in 10 minutes. May give total of two doses if needed., PACU fentaNYL (SUBLIMAZE) injection 25 mcg 25 mcg, Intravenous, EVERY 5 MIN PRN, Starting on Sat07/23/25 at 0958, Until Sat07/23/25 at 1757, Pain, For initial pain. Maximum dose not to exceed 100 mcg., PACU HYDROmorphone (DILAUDID) injection 0.5 mg 0.5 mg, Intravenous, EVERY 10 MIN PRN, Starting on Sat07/23/25 at 0958, Until Sat07/23/25 at 1757, Breakthrough Pain, Do not exceed 2 mg in one hour unless otherwise ordered by the Anesthesia Coordinator For pain unrelieved by fentanyl or oral opioid, PACU ketorolac (TORADOL) injection 15 mg 15 mg, Intravenous, PRN, 2 doses, Starting on Sat07/23/25 at 0958, Until Sat07/23/25 at 1930, Pain, Kindey function and Creatinine Level prior to administration. Do Not Give If patient has CKD or elevated Cr level Give slow IV push if patient did not receive NSAID pre-op or in OR For IV Administration: Give undiluted over at least 15 seconds. Maximum IV dose is 30mg. For IM Administration: Give undiluted, slowly and deeply into the muscle., PACU lactated ringers infusion Intravenous, at 50 mL/hr, PREPROCEDURE CONTINUOUS, Starting on Sat07/23/25 at 1041, Until Sat07/23/25 at 1930, To be given in SDS/Pre-op Holding Area, Pre-op (Holding/SDS Meds) 1046 (New Bag - Prov ider: Penny Post RN)1144 (IV Paused - Provider: Ford Kaufman CRNA - Comment: Switch to gravity)1145 (IV Restarted - Provider: Ford Kaufman CRNA)1245 (New Bag - Provider: Ford Kaufman CRNA)1320 (Anesthesia Volume Adjustment - Provider: Ford Kaufman CRNA)1331 (Anesthesia Volume Adjustment - Provider: Ford Kaufman CRNA)1930 (Due: Order Ending - Provider: Automatic Discharge Provider - Comment: [Order ends at this time. Document the following action when infusion is complete: Stopped]) ondansetron (ZOFRAN) injection 4 mg(Linked Group 1) 4 mg, Intravenous, ONCE PRN, 1 dose, Starting on Sat07/23/25 at 0958, Until Sat07/23/25 at 1930, Nausea, Do not give if patient received granisetron (Kytril) or ondansetron (Zofran) within 4 hours., PACU ondansetron (ZOFRAN-ODT) disintegrating tablet 8 mg(Linked Group 1) 8 mg, Oral, ONCE PRN, 1 dose, Starting on Sat07/23/25 at 0958, Until Sat07/23/25 at 1930, Nausea, Do not give if patient received granisetron (Kytril) or ondansetron (Zofran) within 4 hours., PACU oxyCODONE (ROXICODONE) immediate release tablet 5 mg 5 mg, Oral, EVERY 30 MIN PRN, 2 doses, Starting on Sat07/23/25 at 0958, Until Sat07/23/25 at 1930, Pain, When tolerating oral intake. Maximum dose not to exceed 10 mg unless otherwise directed by the Anesthesia Coordinator., PACU promethazine (PHENERGAN) 12.5 mg in sodium chloride 0.9% 10 mL injection(Linked Group 2) 12.5 mg, Intravenous, PRN, Starting on Sat07/23/25 at 0958, Until Sat07/23/25 at 1757, Nausea, Second Line Antiemetic, For nausea unrelieved by droperidol or pre-op antiemetic. Begin with lowest dose unless otherwise directed. Give remainder of dose if nausea unrelieved in 20 minutes. Not to exceed 25 mg in one hour unless otherwise ordered by Anesthesia Coordinator. VESICANT , PACU promethazine (PHENERGAN) 6.25 mg in sodium chloride 0.9% 10 mL injection(Linked Group 2) 6.25 mg, Intravenous, PRN, Starting on Sat07/23/25 at 0958, Until Sat07/23/25 at 1757, Nausea, Second Line Antiemetic, For nausea unrelieved by droperidol or pre-op antiemetic. Begin with lowest dose unless otherwise directed. Give remainder of dose if nausea unrelieved in 20 minutes. Not to exceed 25 mg in one hour unless otherwise ordered by Anesthesia Coordinator. VESICANT , PACU vancomycin (VANCOCIN) reconstituted injection (CANCELED) INTRAPROCEDURE, Starting on Sat07/23/25 at 1305, Until Sat07/23/25 at 1524, Intra-op 1305 (Given - Provid er: Kayden Barcenas DO) Linked Groups Order Group 1: ondansetron (ZOFRAN) injection 4 mgJump to med 4 mg, Intravenous, ONCE PRN, 1 dose, Starting on Sat07/23/25 at 0958, Until Sat07/23/25 at 1930, Nausea, Do not give if patient received granisetron (Kytril) or ondansetron (Zofran) within 4 hours., PACU Or ondansetron (ZOFRAN-ODT) disintegrating tablet 8 mgJump to med 8 mg, Oral, ONCE PRN, 1 dose, Starting on Sat07/23/25 at 0958, Until Sat07/23/25 at 1930, Nausea, Do not give if patient received granisetron (Kytril) or ondansetron (Zofran) within 4 hours., PACU Group 2: promethazine (PHENERGAN) 6.25 mg in sodium chloride 0.9% 10 mL injectionJump to med 6.25 mg, Intravenous, PRN, Starting on Sat07/23/25 at 0958, Until Sat07/23/25 at 1757, Nausea, Second Line Antiemetic, For nausea unrelieved by droperidol or pre-op antiemetic. Begin with lowest dose unless otherwise directed. Give remainder of dose if nausea unrelieved in 20 minutes. Not to exceed 25 mg in one hour unless otherwise ordered by Anesthesia Coordinator. VESICANT , PACU Or promethazine (PHENERGAN) 12.5 mg in sodium chloride 0.9% 10 mL injectionJump to med 12.5 mg, Intravenous, PRN, Starting on Sat07/23/25 at 0958, Until Sat07/23/25 at 1757, Nausea, Second Line Antiemetic, For nausea unrelieved by droperidol or pre-op antiemetic. Begin with lowest dose unless otherwise directed. Give remainder of dose if nausea unrelieved in 20 minutes. Not to exceed 25 mg in one hour unless otherwise ordered by Anesthesia Coordinator. VESICANT , PACU documented in this encounter Orders Medications Ordered That Walter ht Not Have Been Administered Count Last Ordered Date First Ordered Date ceFAZolin (ANCEF) 2 g in dick rile water 20 mL IVP 2 07/23/2025 diphenhydrAMINE (BENADRYL) injection 25 mg 1 07/23/2025 droPERidol (INAPSINE) injection 0.625 mg 1 07/23/2025 fentaNYL (SUBLIMAZE) injection 25 mcg 1 HYDROmorphone (DILAUDID) injection 0.5 mg 1 07/23/2025 ketorolac (TORADOL) injection 15 mg 1 07/23 ondansetron (ZOFRAN) injection 4 mg 1 07/23 ondansetron (ZOFRAN-ODT) dis integrating tablet 8 mg 1 07/23/2025 oxyCODONE (ROXICODONE) immed iate release tablet 5 mg 1 07/23/2025 promethazine (PHENERGAN) 12. 5 mg in sodium chloride 0.9% 10 mL injection 1 07/23/2025 promethazine (PHENERGAN) 6.2 5 mg in sodium chloride 0.9% 10 mL injection 1 07/23/2025 vancomycin (VANCOCIN) recons tituted injection 1 07/23/2025 Discharge Count Last Ordered Date First Orde red Date DISCHARGE PATIENT 1 07/23/2025 documented in this encounter Care Teams Lobby Concierge Relationship Specialty Start Date End Date Parker Rendon MD PCP - General Family Medicine 12/12/13 documented as of this encounter
--- OUTSIDE RECORDS SUMMARY | 2025-07-23 09:59 | XMS_ITS | Encounter Summary ---
Author Organization [place] [address] Care Team Providers Care Director Of Field Sales Name Role Phone Parker Rendon MD Primary Care Provider [phone] Reason for Visit * Auth/Cert/Inpt Specialty Diagnoses / Procedures Referred By Contac t Referred To Contact Diagnoses Rotator cuff tear arthropathy, left Rotator cuff tear arthropathy, left [M75.102, M12.812] Procedures [place] ARTHROPLASTY GLENOHUMERAL JOINT TOTAL SHOULDER Left Shoulder Reverse Total Replacement Arthroplasty Referral ID Status Reason Start Date Expiration Date Visits Re quested Visits Authorized [id number] 1 1 Encounter Details Date Type Department Care Team (Latest Contact Info) Description 07/23/2025 9:59 AM EST - 07/23/2025 11:59 PM EST Hospital Encounter CRISTOBAL SAME DAY SURGERY [address] [place] [address] Kayden Barcenas DO [address] [place] [address] Discharge Disposition: Home or Self Care Social [...] 50 & OVER ORAL) Take by mouth. [place]-3 Fatty Acids-Vitamin E (FISH OIL) 1,000 mg [...] Rigoberto CHEEMA [address] [place] [address] Brent BarcenasonDO [address] [place], [place] [id number] 11/18/2025 10:45 AM EDT Office Visit [facility] H[facility] [place] [address] [place] [address] Ford Gaitan MD [address] [place] [address] documented as of this encounter Procedures Procedure Name Priority Date/Time Associated Diagnosis Comments US ANES GUIDANCE FOR NERVE BLOCK STAT 07/23/2025 9:59 AM EST documented in this encounter Results * US ANES GUIDANCE FOR NERVE BLOCK (07/23/2025 9:59 AM EST) Narrative Genericuser, Audit - 07/23/2025 9:59 AM EST Ultrasound guided nerve block performed by Anesthesiologist. The study image(s) are for reference only and will not be interpreted by a Radiologist. Refer to the Anesthesia procedure note for image description and procedure details. us Blair Fernández DO IMG US ORDERABLES Final Result documented in this encounter Visit Diagnoses Not on filedocumented in this encounter Care Teams Director Of Field Sales Relationship Specialty Start Date End Date Parker Rendon MD PCP - General Family Medicine 12/12/13 documented as of this encounter
--- OUTSIDE RECORDS SUMMARY | 2025-07-23 11:42 | XMS_ITS | Encounter Summary ---
Author Organization [place] [address] Care Team Providers Care Flight Technician Name Role Phone Parker Rendon MD Primary Care Provider [phone] Reason for Visit * Auth/Cert/Inpt Specialty Diagnoses / Procedures Referred By Contvanessa t Referred To Contact Diagnoses Rotator cuff tear arthropathy, left Rotator cuff tear arthropathy, left [M75.102, M12.812] Procedures RI ARTHROPLASTY GLENOHUMERAL JOINT TOTAL SHOULDER Left Shoulder Reverse Total Replacement Arthroplasty Referral ID Status Reason Start Date Expiration Date Visits Re quested Visits Authorized [id number] 1 1 Encounter Details Date Type Department Care Team (Late st Contact Info) Description 07/23/2025 11:42 AM EST - 07/23/2025 2:07 PM EST Surgery CRISTOBAL PERIOP [address] [place] [address] Kayden Barcenas DO [address] [place] [address] ARTHROPLASTY, SHOULDER, TOTAL, REVERSE Surgery Details Date/Time Status Location OR Service Patient Class Case Class Case Type Trauma Case? 07/23/2025 11:42 AM Posted [facility]ST[facility]AL MAIN OR CRISTOBAL OR 05 Orthopedics Same Day Surgery Semi-Urg ent - 2 Wks No Panel 1 Procedure LRB Anes Op Region Wound Class Comments ARTHROPLASTY, SHOULDER, TOTAL, REVERSE Left General w/Block Shoulder Clean Left Shoulder Reverse Total Replacement Arthroplasty Surgeon Surgeon Role Service Panel Kayden Barcenas DO Primary Orthopedics 1 documented in this encounter Social History Tobacco [...] Sign Reading Time Taken Comments Blood Pressure 133/71 07/23/2025 2:00 PM EST Pulse 84 07/23/2025 2:00 PM EST Temperature 36.3 C (97.4 F) 07/23/2025 1:52 PM EST Respiratory Rate 21 07/23/2025 2:00 PM EST Oxygen Saturation 95% 07/23/2025 2:00 PM EST Inhaled Oxygen Concentration - - Weight - - Height - - Body Mass Index - - documented in this encounter Discharge Instructions * Discharge Instructions* Agnes Davidson RN - 07/23/2025 11:52 AM EST Images from the original note were not included. [phone] Shoulder Surgery Discharge Instructions MY SURGERY: Procedure(s): [...] by your primary care physician or paint trimmer pipe bowls) You may continue/resume all other routine medications [...] to decrease the risk of infection +++++++++++++++++++++++++++++++++++++++++++++++++++++++++++++++++++ [facility] Discharge Instructions - Following Anesthesia We [...] our office at . Get Well Soon! [place] [facility] +++++++++++++++++++++++++++++++++++++++++++++++++++++++++++++++++++ * Attachments The following attachments cannot be sent through Care Everywhere. * How to use an incentive spirometer (New Zealander) documented in this encounter Medications at Time [...] 50 & OVER ORAL) Take by mouth. [place]-3 Fatty Acids-Vitamin E (FISH OIL) 1,000 mg [...] 6 Capsule 07/23/2025 2:40 PM EST 07/23/2025 5 oxyCODONE (ROXICODONE) 5 mg Oral Tablet Take 1 Tablet by mouth every 4 hours as needed for Major Surgery/Trauma (G89.18). 30 Tablet 07/23/2025 2:40 PM EST 07/23/2025 5 documented in this encounter Discharge Disposition Disposition Code Departure Means Destination Comment s Home or Self Care Car Home documented in this encounter Progress Notes * Erika Avalos CPhT - 07/23/2025 11:56 AM EST Discharge Medication Delivery Service DMD heavy equipment service technician has delivered the following medications for Luis Ham: Rx#[id number]:OXYCODONE 5 MG TABLET-5 mg EVERY 4 HOURS PRN Rx#[id number]:CEPHALEXIN 500 MG CAPSULE-1000 mg *EVERY 8 HOURS Date/Time of Delivery: 07/23/2025 2:50 PM Delivered to: Luis Ham in SDS24. handed sealed rx bag to family in room Please contact DMD heavy equipment service technician with any questions. Thanks! Erika Avalos CPhT documented in this encounter H&P Notes * Simeon Rivera MD - 07/23/2025 10:21 AM EST [facility] History and Physical Name: Luis Ham ADDRESS: [address] [place] [address] : 1960 AGE: 65 y.o. Assessment: Rotator [...] ORAL) Take by mouth. 07/16/2025 Provider, Historical [place]-3 Fatty Acids-Vitamin E (FISH OIL) 1,000 mg Cap Take 1,000 mg by mouth daily. 07/16/2025 Provider, Historical oxyCODONE (ROXICODONE) 5 mg Oral Tablet Take 1 Tablet by mouth every 4 hours as needed for Major Surgery/Trauma (G89.18). 07/23/25 Kayden Barcenas DO Allergies[3] Social History[4] Family History[5] There [...] left reverse total shoulder arthroplasty. SURGEON: Kayden Kohrs, DO IMPLANTS: Implant Name Model No. Serial No. Lot No. Core Shaper LRB No. Used Action BASEPLATE STD GLENOID 24MM LEONORA METER 0 DEGREE 10MM - [id number] SHOULDER [employer] Left 1 Implanted SCREW RSA CENTRAL COMPRESSION 6.0MM X 30MM - [id number] SHOULDER [employer] Left 1 Implanted SCREW RSA PERPENDICULAR LOCKING 4.5MM X 15 MM - [id number] SHOULDER [employer] Left 1 Implanted SCREW RSA PERPENDICULAR LOCKING 4.5MM X 25 MM - [id number] SHOULDER [employer] Left 1 Implanted SCREW RSA PERPENDICULAR LOCKING 4.5MM X 35 MM - [id number] SHOULDER [employer]NOV[employer] Left 1 Implanted K-WIRE GUIDE 2.4MM - [id number] SHOULDER [employer]OV[employer] Left 2 Implanted and Explanted TOTAL SHOULDER RSA OFFSET GLENOSPHERE-COCR 80HRN4HWI+6MM - [id number] SHOULDER [employer] Left 1 Implanted STEM HUMERAL SHORT 32MM X 6MM STERILE - [id number] [employer]:DJO SURGICAL Left 1Implanted TOTAL SHOULDER RSA NEUTRAL HUMERAL BEARING 36MM 0MM 0 DEG - [id number] SHOULDER [employer] Left 1 Implanted TOTAL SHOULDER RSA HUMERAL TRAYS 0 MM OFFSET 38 MM LEONORA - [id number] SHOULDER [employer] Left 1 Implanted ANESTHESIA: [...] on the back table. They were impacted inplace. We were happy with the stability and [...] 1-10, how likely are you to recommend [facility] to friends and family (10-highly recommend)? [...] Progressing * H&P Update - Kayden Barcenas, - 07/23/2025 10:09 AM EST Images from [...] & OVER ORAL) Take by mouth. 07/16/2025 [place]-3 Fatty Acids-Vitamin E (FISH OIL) 1,000 mg [...] Description 11/08/2025 9:30 AM EDT Office Visit [facility] [address] [facility] [address] [place] [address] Kayden Barcenas DO [address] [place], [place] [address] 11/18/2025 10:45 AM EDT Office Visit [facility] H&V [address] [address] Ford Gaitan MD [address] [place] [address] Pending Results Name Type Priority Associated Diagnoses Date /Time ECG AND WAVEFORMS - TELEMETRY Point of Care Testing Routine 07/23/2025 2:00 PM EST documented as of this encounter Procedures Procedure Name Priority Date/Time Associated Diagnosis Comments XR SHOULDER LEFT 1 VW STAT 07/23/2025 2:30 PM EST ECG AND WAVEFORMS - TELEMETRY Routine 07/23/2025 2:00 PM EST RI ARTHROPLASTY GLENOHUMERAL JOINT TOTAL SHOULDER 07/23/2025 11:56 [...] the ordering clinician. us Kayden Barcenas DO [facility] ORDERABL ES Final Result * [...] Result documented in this encounter Visit Diagnoses Diagnosis Rotator cuff tear arthropathy, left documented in this encounter Administered Medications Inactive Administered [...] VESICANT , PACU vancomycin (VANCOCIN) reconstituted injection INTRAPROCEDURE, Starting on Sat07/23/25 at 1305, Until Sat07/23/25 at 1524, Intra-op Given 07/23/2025 1:05 PM EST 1,000 mg Left Shoulder documented in this encounter Discontinued Medications Medication [...] chloride 0.9% 10 mL injection 1 07/23/2025 Discharge Count Last Ordered Date First Orde red Date DISCHARGE PATIENT 1 07/23/2025 documented in this encounter Care Teams Flight Technician Relationship Specialty Start Date End Date Parker Rendon MD PCP - General Family Medicine 12/12/13 documented as of this encounter
--- OUTSIDE RECORDS SUMMARY | 2025-07-23 11:56 | XMS_ITS | Encounter Summary ---
Author Organization [place] [address] Care Team Providers Care Rag Room Supervisor Name Role Phone Parker Rendon MD Primary Care Provider [phone] Reason for Visit * Auth/Cert/Inpt Specialty Diagnoses / Procedures Referred By Contac t Referred To Contact Diagnoses Rotator cuff tear arthropathy, left Rotator cuff tear arthropathy, left [M75.102, M12.812] Procedures DC ARTHROPLASTY GLENOHUMERAL JOINT TOTAL SHOULDER Left Shoulder Reverse Total Replacement Arthroplasty Referral ID Status Reason Start Date Expiration Date Visits Re quested Visits Authorized [id number] 1 1 Encounter Details Date Type Department Care Team (Late st Contact Info) Description 07/23/2025 11:56 AM EST Anesthesia Event CRISTOBAL PERIOP [address] [facility] [place] [address] Whitney Kwan MD [address] [place] [address] Blair Fernández DO [address] [place] [address] Anesthesia Record Procedure Summary Procedure Name Responsible Anesthesiologist Anesthesia Start Time Anesthesia Stop Time ARTHROPLASTY, SHOULDER, TOTAL, REVERSE (Left: Shoulder) Whitney Kwan MD 07/23/25 1156 [...] acknowledgement of understanding from the receiving PACU/ICU swat team member Meds Name Total lidocaine injection 1% 40 [...] mL IVP 2 g lidocaine 4 % ([id number]) laryngotrac heal solution 2 mL tranexamic acid 1,000 mg in sodium chlor sangita 0.9 % 50 mL ivpb 1 g lactated ringers infusion 1,500 mL * Agents Name O2 N2O Air Et Desflurane * Blood No blood administrations on file. Lines, Drains, and Airways Type Details Placement Removal Peripheral IV 07/23/25; 1025; 20; Right, Anterior; Forearm; aimee rn; 1; 07/23/25; 1523; Discharged; Catheter intact [...] attempts: 1 Title: CATHY lidocaine 4 % (OKRUQB-R-QZL) laryngotracheal solution - Laryngotracheal 2 mL - [...] Rhythm: regular Rate: normal Neuro/Psych GI/Hepatic/Renal Endo/Other ORTHOTIST OR PROSTHETIST Additional Pre-evaluation comments Opioids There is no [...] Rigoberto CHEEMA [address] [place] [address] Kayden Barcenas DO [address] [place] [address] 11/18/2025 10:45 AM EDT Office Visit [facility] [address] [address] Ford Gaitan MD [address] [place] [address] documented as of this encounter Procedures Procedure Name Priority Date/Time Associated Diagnosis Comments INTRAOP AIRWAY PLACEMENT Routine 07/23/2025 12:05 PM EST PERIPHERAL BLOCK Routine 07/23/2025 11:3 6 AM EST documented in this encounter Results * INTRAOP AIRWAY PLACEMENT (07/23/2025 12:05 PM EST) Narrative [facility] - 07/23/2025 12:05 PM EST Ford KaufmanCATHY 07/23/2025 12:16 PM Intraop Airway Placement: Date/Time: 07/23/2025 12:05 PM Induction type: IV Mask size: Standard adult Pre-Oxygenation: Standard Laryngoscope blade: Fisher Blade size: 4 Airway type: ETT- cuffed Topical Anesthetic/Lubricant: Lidocaine 5% ointment Device size: 8mm Secured by: Tape Placement verified: End tidal CO2 and Auscultation Condition: Atraumatic Insertion attempts: 1 Title: EDITORIAL CLERK lidocaine 4 % (RZZXTU-[id number]) laryngotracheal solution - Laryngotracheal 2 mL - 07/23/2025 12:05:00 PM: us Whitney Kwan MD DC ANESTHESIA Final R esult [facility] [address] [place] [id number] * Peripheral Block by Anesthesia (07/23/2025 11:36 AM EST) Narrative [facility] - 07/23/2025 11:36 AM EST Blair [...] visualized. Ultrasound image documentation is attached/scanned in [facility] chart. No anatomical pathology noted during block placement.) Interscalene block- Anterior Scalene and Middle Scalene, upper, middle and lower trunks of the brachial plexus are identified; the tip of the needle and the spread of the local anesthetic around the Brachial Plexus are visualized. Ultrasound image documentation is attached/scanned in [facility] chart. No anatomical pathology noted during block [...] of the block is attached/scanned to the [facility] chart. us Whitney Kwan MD ANESTHESIA ORDERABLES F inal Result [address] [address] documented in this encounter Visit Diagnoses Not [...] be given in SDS/Pre-op Holding Area, Pre-op (Holding/[facility] Meds) New Bag 07/23/2025 12:45 PM EST lidocaine 1% 10 mg/mL (1 %) injection Intravenous, PRN (Anesthesia), Starting on Sat07/23/25 at 1204, Until Sat07/23/25 at 1351, Anesthesia Intra-op Given 07/23/2025 12:04 PM EST 40 mg lidocaine HCl ([id number]) 4 % topical solution Laryngotracheal, ONCE PRN, [...] g documented in this encounter Care Teams Rag Room Supervisor Relationship Specialty Start Date End Date Parker Rendon MD PCP - General Family Medicine 12/12/13 documented as of this encounter
--- OUTSIDE RECORDS SUMMARY | 2025-08-02 09:15 | XMS_ITS | Encounter Summary ---
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 Subjective: Patient ID: Luis Ham comes in today complaining of Chief Complaint Patient presents with Left Shoulder - Post-Operative Exam This is a 65 y.o. male. Luis Ham is a right-handed male who presents for postoperative evaluation following a left reverse total shoulder arthroplasty performed on 2024. He reports significant improvement in symptoms compared to preoperative status, noting that his shoulder feels much better two weeks post-surgery. He mentions experiencing pain with certain motions, which he cannot recall specifically, and requests additional pain medication. REVIEW OF SYSTEMS: - Musculoskeletal: Pain with certain motions post-surgery. PHYSICAL EXAM: - Incision: Well approximated. - Dressing: Cranial dressing in place. - Neurovascular: Intact distally to operative extremity. - Range of Motion: Not assessed secondary to recent surgery. - Strength: Not assessed secondary to recent surgery. IMAGING: X-ray, three views of the left shoulder from [facility] on 08/02/2025 demonstrates stable alignment and position of the reverse total shoulder arthroplasty. Good implant positioning is noted, with no periprosthetic fractures or dislocations. 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 PLAN: The sling can be discontinued. The patient is advised to avoid weight-bearing activities, lifting, carrying, pushing, and pulling. He is specifically cautioned against pushing off with the operative extremity, as this is a common mechanism for dislocation. The patient is instructed to continue physical therapy and stretching, emphasizing the importance of the first couple of months for regaining motion. He is advised to peel off the mesh dressing in approximately one week and is permitted to let water run over the incision during showers. Pain medication will be provided as needed. The patient is encouraged to use ice frequently to helpreduce inflammation and discomfort. Follow-up is scheduled in six to seven weeks, at which time new X-rays will be taken to assess progress. Diagnoses and all orders for this visit: Status post reverse total replacement of left shoulder - XR SHOULDER LEFT 3 VIEWS; Future Kayden Barcenas DO Orthopedic Surgeon- [facility] Please note that this panelbeater was created using voice recognition software. Any errors are unintentional and may be due to voice recognition panelbeater. The provider informed the patient (or legal financial representative) on the use of the ambient listening artificial intelligence tool, IScribe to obtain consent to its use. It was explained that this AI tool processes the conversation to generate a clinical note with the expected benefit of improved accuracy with a goal of improving the encounter experience for the patient and provider.?The provider explained that the medical information captured by the AI tool would be protected by applicable privacy laws. The patient was given an opportunity to ask questions and opt out of proceeding with the use ofthe AI tool. After being informed of such information, the patient (or legal financial representative), and each individual in attendance with the patient, consented to the use of the AI tool. documented in this encounter Plan of Treatment Upcoming Encounters Date Type Department Care Team (Late st Contact Info) Description 11/08/2025 9:30 AM EDT [facility] [address] [facility] [address] [place] [address] Kayden Barcenas DO [address] [place], [place] [id number] 11/18/2025 10:45 AM EDT Office Visit [facility] [address] [address] Ford Gaitan MD [address] [place] [phone] documented as of this encounter Results * XR SHOULDER LEFT 3 VIEWS (08/02/2025 9:28 AM EST) Narrative Eduarda Dudley - 08/02/2025 9:28 AM EST Please see physician's note from office encounter for x-ray imaging result us Kayden Barcenas DO IMG DIAGNOSTIC IMAGING ORDERABL ES Final Result documented in this encounter Visit Diagnoses Diagnosis Status post reverse total replacement of left shoulder- Primary Status post reverse total replacement of left shoulder documented in this encounter Care Teams Dip Tube Assembler Machine Relationship Specialty Start Date End Date Parker Rendon MD PCP - General Family Medicine 4/19/14 documented as of this encounter
--- OUTSIDE RECORDS SUMMARY | 2025-08-02 09:30 | XMS_ITS | Encounter Summary ---
Author Organization [facility] Address [address] [place] [address] Care Team Providers Care Consumer Marketing Specialist Name Role Phone Parker Rendon MD Primary Care Provider [phone] Encounter Details Date Type Department Care Team (Latest Contact Info) Description 08/02/2025 9:30 AM EST Ancillary Procedure [facility] [address] [place] [address] Kayden Barcenas DO [address] [place] [address] Status post reverse total replacement of left shoulder Social History Tobacco Use Types Packs/Day Years [...] on file documented as of this encounter Plan of Treatment Upcoming Encounters Date Type Department Care Team (Late st Contact Info) Description 11/08/2025 9:30 AM EDT Office Visit [facility] [address] [place] [address] Kayden Barcenas DO [address] [place] [address] 11/18/2025 10:45 AM EDT Office Visit [facility] [place] [address] [place] [address] Ford Gaitan MD [address] [place] [address] documented as of this encounter Procedures Procedure Name Priority Date/Time Associated Diagnosis Comments XR SHOULDER LEFT 3 VIEWS Routine 08/02/2025 9:28 AM EST Status post reverse total replacement of left shoulder documented in this encounter Results * XR [...] shoulder documented in this encounter Care Teams Consumer Marketing Specialist Relationship Specialty Start Date End Date Parker Rendon MD PCP - General Family Medicine 12/12/13 documented as of this encounter
[2025-08-22 20:33] LABS: Coronavirus 19, PCR Not Detected (NotDetected); Influenza A, PCR Not Detected (NotDetected); Influenza B, PCR Not Detected (NotDetected)
--- OUTSIDE RECORDS SUMMARY | 2025-08-30 14:05 | XMS_ITS | Encounter Summary ---
Author Organization [place] [address] Care Team Providers Care Capacitor Assembler Name Role Phone Parker Rendon MD Primary Care Provider [phone] Reason for Visit * Reason Comments Long-Term Medication Use Encounter Details Date Type Department Care Team (Latest Contact Info) Description 08/30/2025 2:05 PM EST Office Visit [facility] [address] [facility] [address] [place] [address] Otf Ureña, OD [address] [place] [address] History of long-term treatment with high-risk medication (Primary Dx); Left eye injury, sequela; Posterior vitreous detachment of both eyes; Allergic conjunctivitis of both eyes; Pseudophakia; Refractive error Social History Tobacco Use Types Packs/Day Years [...] as of this encounter Progress Notes * Otf Ureña, OD - 08/30/2025 4:22 PM ESTAssociated Problem(s): History of long-term treatment with high-risk medication Plaquenil exam testing today. Patient educated about the high risk medication they are taking and the potential ocular problems that can occur. -Reason for taking medication: RA -Med start date: 06/2025 -Dose:200mg BID -Dilated exam: 08/2025 -Macular OCT: 08/2025 -10-2 VF: 08/2025 Okay to continue taking plaquenil by my examination and testing. Recent ocular event likely not related to recent medications he started. RTC for yearly plaquenil exams. * Otf Ureña, OD - 08/30/2025 4:21 PM ESTAssociated Problem(s): Refractive error Pt noticed mild improvement with updated spectacle Rx. Copy of Rx released * Otf Ureña, OD - 08/30/2025 4:20 PM ESTAssociated Problem(s): Pseudophakia PCIOL OU 2020 * Otf Ureña, OD - 08/30/2025 4:20 PM ESTAssociated Problem(s): Allergic conjunctivitis of both eyes Pt is a avalos. He reports chronic ocular itch that is [facility] Continue with allergy drops. * Otf Ureña, OD - 08/30/2025 4:20 PM ESTAssociated Problem(s): Posterior vitreous detachment of both eyes Patient educated about flashes of light and new onset of floaters. Flashing of light has resolved. Pt educated about PVD. On examination today there were no signs of vitreous hemorrhage, retinal tears, or retinal detachment seen. The signs and symptoms of retinal detachment were discussed and the patient is to call immediately for a repeat examination with any new photopsias, floaters, loss in peripheral vision, loss of vision, or concerning changes. * Otf Ureña, OD - 08/30/2025 4:19 PM ESTAssociated Problem(s): Left eye injury OS injury 1981 while in the Ocular health is doing well but pupil is chronically dilated. This contributes to some blur and light sensitivity. * Otf Ureña, OD - 08/30/2025 2:05 PM EST Optometry Assessment and Plan: Problem List History of long-term treatment with high-risk medication - Primary Current Assessment & Plan Plaquenil exam testing today. Patient educated about the high risk medication they are taking and the potential ocular problems that can occur. -Reason for taking medication: RA -Med start date: 06/2025 -Dose:200mg BID -Dilated exam: 08/2025 -Macular OCT: 08/2025 -10-2 VF: 08/2025 Okay to continue taking plaquenil by my examination and testing. Recent ocular event likely not related to recent medications he started. RTC for yearly plaquenil exams. Relevant Orders OCT, RETINA - OU - BOTH EYES (Completed) CAMPOS VISUAL FIELD - OU - BOTH EYES (Completed) Left eye injury Current Assessment & Plan OS injury 1981 while in the Ocular health is doing well but pupil is chronically dilated. This contributes to some blur and light sensitivity. Posterior vitreous detachment of both eyes Current Assessment & Plan Patient educated about flashes of light and new onset of floaters. Flashing of light has resolved. Pt educated about PVD. On examination today there were no signs of vitreous hemorrhage, retinal tears, or retinal detachment seen. The signs and symptoms of retinal detachment were discussed and the patient is to call immediately for a repeat examination with any new photopsias, floaters, loss in peripheral vision, loss of vision, or concerning changes. Allergic conjunctivitis of both eyes Current Assessment & Plan Pt is a avalos. He reports chronic ocular itch that is improved [facility] Continue with allergy drops. Pseudophakia Current Assessment & Plan PCIOL OU 2020 Refractive error Current Assessment & Plan Pt noticed mild improvement with updated spectacle Rx. Copy of Rx released Relevant Orders [place] DETERMINATION REFRACTIVE STATE Patient instructed to return or call immediately with any change in vision or symptoms. Return in about 1 year (around 08/30/2026) for Plaquenil exam. Subjective: Patient ID: Luis Ham is a 65 y.o. male. Chief Complaint Patient presents with Long-Term Medication Use Lab Results Component Value Date HGBA1C 5.5 05/17/2025 HPI Patient presents today for a comprehensive exam. He has a history of OU CEIOL in 2020. He began taking Methotrexate 2 months ago. He had an episode of blurred and double vision last week. He saw a flash of light OD. The following day he experienceda flash of light OS. He began to notice cobweb like floaters. Once he experienced this disturbance,he stopped taking Methotrexate. He denies eye vila and irritation. He had an OS injury in 1981. He is unaware of a family history of eye disease. Past Medical History[1] Surgical History[2] Family History[3] Social History Socioeconomic History Marital status: Spouse name: Not on file Number of children: Not on file Years of education: Not on file Highest education level: Not on file Occupational History Not on file Tobacco Use Smoking status: Some Days Current packs/day: 0.00 Average packs/day: 1.5 packs/day for 40.0 years (60.0 ttl pk-yrs) Types: Cigarettes Start date: 11/02/1976 Last attempt to quit: 11/02/2016 Years since quittin.8 Smokeless tobacco: Not on file Tobacco comments: 07/14/25: Pt smoking ~ 10 cigarettes / day Vaping Use Vaping status: Never Used Substance and Sexual Activity Alcohol use: No Drug use: No Sexual activity: Not Currently Partners: Female Other Topics Concern Not on file Social History Narrative Not on file Social Drivers of Health Financial Resource Strain: Not on file Food Insecurity: Not on file Transportation Needs: Not on file Physical Activity: Not on file Stress: Not on file Social Connections: Not on file Intimate Partner Violence: Not on file Housing Stability: Not on file ROS Positive for: Eyes Negative for: Constitutional, Gastrointestinal, Neurological, Skin, Genitourinary, Musculoskeletal,HENT, Endocrine, Cardiovascular, Respiratory, Psychiatric, Allergic/Imm, Heme/Lymph Current Medications[4] Objective: Eye Exam: Base Eye Exam Visual Acuity (Snellen - Linear) Right Left Dist sc 20/30 20/40 -1 Dist ph sc 20/20 -2 20/25 Tonometry (I-care, 2:32 PM) Right Left Pressure 15 13 Pupils Dark Light Shape React APD Right 3.5 2 Round Brisk None Left 6.5 6.5 Irregular None Visual Ham Right Left Full Full Extraocular Movement Right Left Full, Ortho Full, Ortho Neuro/Psych Oriented x3: Yes Mood/Affect: Normal Dilation Both eyes: 1%/0.25% Paremyd @ 2:33 PM Edited by: Kenneth Begum COA Additional Tests Color Right Left Ishihara 07/06 07/06 Edited by: Kenneth Begum COA Slit Lamp and Fundus Exam External Exam Right Left External Normal Normal Slit Lamp Exam Right Left Lids/Lashes Normal Normal Conjunctiva/Sclera White and quiet White and quiet Cornea Clear Clear Anterior Chamber Deep and quiet Deep and quiet Iris Normal Normal Lens PCIOL PCIOL Vitreous PVD PVD Fundus Exam Right Left Disc Normal Normal C/D Ratio 0.30 0.30 Macula flat flat Vessels Normal Normal Periphery no HTD no HTD Edited by: Otf Ureña, CLAYTON Refraction Cycloplegic Refraction Sphere Cylinder Sherrill Dist [place] Add Right -1.00 Sphere 20/20 +2.50 Left [place] -0.25 002 20/30+ +2.50 Final Rx Sphere Cylinder Sherrill Add Right -1.00 Sphere +2.50 Left [place] -0.25 002 +2.50 Expiration Date: 08/30/2027 Edited by: Otf Ureña, CLAYTON Procedure: OCT, Retina - OU - Both Eyes Patient is here for baseline imaging. Right Eye Quality was good. Scan locations included subfoveal, juxtafoveal, extrafoveal. Progression has no prior data. Findings include normal foveal contour. Left Eye Quality was good. Scan locations included subfoveal, juxtafoveal, extrafoveal. Progression has no prior data. Findings include normal foveal contour. Notes baseline testing for plaquenil medication Normal IS/OS OU Campos Visual Field - OU - Both Eyes Patient is here for baseline imaging. Right Eye Reliability was good. Progression has no prior data. Foveal threshold was normal. Findings include normal observations, non-specific defects. Left Eye Reliability was good. Progression has no prior data. Foveal threshold was normal. Findings include normal observations, non-specific defects. Notes baseline testing for plaquenil medication, unremarkable OU Assessment and Plan: (see top of note for details) [1] Past Medical History: Diagnosis Date Acute renal failure 12/14/2013 Hypertension Osteoporosis Rheumatoid arthritis (HCC) [2] Past Surgical History: Procedure Laterality Date HERNIA REPAIR SHOULDER ARTHROPLASTY Left 07/23/2025 Left Shoulder Reverse Total Replacement Arthroplasty; Surgeon: Kayden Barcenas DO; Location: [facility] MAIN OR; Service: Orthopedics SHOULDER SURGERY Right [3] Family History Problem Relation Age of Onset Blindness Neg Hx Glaucoma Neg Hx Macular Degen Neg Hx [4] Current Outpatient Medications: ascorbic acid (VITAMIN C ORAL), Take by mouth daily., Disp: , Rfl: aspirin (ASPIRIN) 81 mg Oral Tablet, Chewable, Take 1 Tab by mouth daily., Disp: , Rfl: gabapentin (NEURONTIN) 600 mg Oral Tablet, Take 600 mg by mouth as needed., Disp: , Rfl: levocetirizine (XYZAL) 5 mg Oral Tablet, Take 5 mg by mouth daily., Disp: , Rfl: losartan (COZAAR) 100 mg Oral Tablet, Take 100 mg by mouth daily., Disp: , Rfl: MULTIVITAMIN W-MINERALS/LUTEIN (MULTI-ROWAN 50 & OVER ORAL), Take by mouth., Disp: , Rfl: [place]-3 Fatty Acids-Vitamin E (FISH OIL) 1,000 mg Cap, Take 1,000 mg by mouth daily., Disp: , Rfl: oxyCODONE (ROXICODONE) 5 mg Oral Tablet, Take 1 Tablet by mouth every 6 hours as needed for Major Surgery/Trauma (G89.18)., Disp: 20 Tablet, Rfl: 0 predniSONE (DELTASONE) 20 mg Oral Tablet, Take by mouth 2 times daily., Disp: , Rfl: rOPINIRole (REQUIP) 3 mg Oral Tablet, Take 6 mg by mouth nightly., Disp: , Rfl: tamsulosin (FLOMAX) 0.4 mg Oral Capsule, Take by mouth daily., Disp: , Rfl: atorvastatin (LIPITOR) 40 mg Oral Tablet, Take 40 mg by mouth daily. (Patient not taking: Reported on 08/30/2025), Disp: , Rfl: folic acid (FOLVITE) 1 mg Oral Tablet, Take 1 mg by mouth daily. (Patient not taking: Reported on 08/30/2025), Disp: , Rfl: hydroxychloroquine (PLAQUENIL) 100 mg Oral Tablet, Take 200 mg by mouth daily. (Patient not taking:Reported on 08/30/2025), Disp: , Rfl: methotrexate 2.5 mg Oral Tablet, Take 2.5 mg by mouth once a week. Pt takes on Saturday - will take 8tablets on 07/18/25 (Patient not taking: Reported on 08/30/2025), Disp: , Rfl: documented in this encounter Miscellaneous Notes * Patient Instructions - Kenneth Begum COA - 08/30/2025 2:05 PM EST Follow up as directed. documented in this encounter Plan of Treatment Upcoming Encounters Date Type Department Care Team (Late st Contact Info) Description 11/08/2025 9:30 AM EDT Office Visit [facility] [address] [place] [address] Kayden Barcenas DO [address] [place] [address] 11/18/2025 10:45 AM EDT Office Visit [facility] [address] [address] Ford Gaiatn MD [address] [place] [address] Scheduled Orders Name Type Priority Associated Diagnoses Orde r Schedule [place] DETERMINATION REFRACTIVE STATE [place] Charge Routine Refractive error Ordered: 08/30/2025 documented as of this encounter Procedures Procedure Name Priority Date/Time Associated Diagnosis Comments CAMPOS VISUAL FIELD - OU - BOTH EYES Routine 08/30/2025 4:18 PM EST History of long-term treatment with high-risk medication OCT, RETINA - OU - BOTH EYES Routine 08/30/2025 4:18 PM EST History of long-term treatment with high-risk medication documented in this encounter Results * CAMPOS VISUAL FIELD - OU - BOTH EYES (08/30/2025 4:18 PM EST) Narrative [facility]P OFFICE - 08/30/2025 4:18 PM EST Patient is here for baseline imaging. Right Eye Reliability was good. Progression has no prior data. Foveal threshold was normal. Findings include normal observations, non-specific defects. Left Eye Reliability was good. Progression has no prior data. Foveal threshold was normal. Findings include normal observations, non-specific defects. Notes baseline testing for plaquenil medication, unremarkable [facility] HANSEL Final Result Performing Organization Address [facility] de Phone Number SEP OFFICE * OCT, RETINA - OU - BOTH EYES (08/30/2025 4:18 PM EST) Narrative SEP OFFICE - 08/30/2025 4:18 PM EST Patient is here for baseline imaging. Right Eye Quality was good. Scan locations included subfoveal, juxtafoveal, extrafoveal. Progression has no prior data. Findings include normal foveal contour. Left Eye Quality was good. Scan locations included subfoveal, juxtafoveal, extrafoveal. Progression has no prior data. Findings include normal foveal contour. Notes baseline testing for plaquenil medication Normal IS/OS [facility] HANSEL Final Result Performing Organization Address [facility] de Phone Number SEP OFFICE documented in this encounter Visit Diagnoses Diagnosis History of long-term treatment with high-risk medication- Primary Encounter for long-term (current) use of other medications Left eye injury, sequela Posterior vitreous detachment of both eyes Vitreous degeneration Allergic conjunctivitis of both eyes Other chronic allergic conjunctivitis Pseudophakia Lens replaced by other means Refractive error Unspecified disorder of refraction and accommodation documented in this encounter Eye Exam Visual Acuity (Snellen - Linear) Right eye Left eye Dist sc 20/30 20/40 -1 Dist ph sc 20/20 -2 20/25 Tonometry (I-care, 2:32 PM) Right eye Left eye Pressure 15 13 Pupils Dark Light Shape React APD Right eye 3.5 2 Round Brisk None Left eye 6.5 6.5 Irregular None Visual Ham Right eye Left eye Full Full Extraocular Movement Right eye Left eye Full, Ortho Full, Ortho Neuro/Psych Oriented x3: Yes Mood/Affect: Normal Dilation Both eyes: 1%/0.25% Paremyd @ 2:33 PM Color Right eye Left eye Ishihara 07/06 07/06 External Exam Right eye Left eye External Normal Normal Slit Lamp Exam Right eye Left eye Lids/Lashes Normal Normal Conjunctiva/Sclera White and quiet White and christiano et Cornea Clear Clear Anterior Chamber Deep and quiet Deep and quiet Iris Normal Normal Lens PCIOL PCIOL Anterior Vitreous PVD PVD Fundus Exam Right eye Left eye Disc Normal Normal C/D Ratio 0.30 0.30 Macula flat flat Vessels Normal Normal Periphery no HTD no HTD Cycloplegic Refraction Sphere Cylinder Sherrill Dist [place] Add Right eye -1.00 Sphere 20/20 +2.50 Left eye [place] -0.25 002 20/30+ +2.50 Final Rx Sphere Cylinder Sherrill Add Right eye -1.00 Sphere +2.50 Left eye [place] -0.25 002 +2.50 Expiration Date: 08/30/2027 Care Teams Capacitor Assembler Relationship Specialty Start Date End Date Parker Rendon MD PCP - General Family Medicine 12/12/13 documented as of this encounter
--- OUTSIDE RECORDS SUMMARY | 2025-09-09 08:15 | XMS_ITS | Encounter Summary ---
Author Organization [facility] Address [address] [place] [address] Care Team Providers Care Dumpling Machine Operator Name Role Phone Parker Rendon MD Primary Care Provider [phone] Reason for Visit * Reason Comments Follow-up Encounter Details Date Type Department Care Team (Late st Contact Info) Description 09/09/2025 8:15 AM EST [facility] [address] [facility] [address] [place] [address] Claudia Salas PA-C [address] [place] [address] Status post reverse total replacement of left [...] Sign Reading Time Taken Comments Blood Pressure - - Pulse - - Temperature - - Respiratory Rate - - Oxygen Saturation - - Inhaled Oxygen Concentration - - Weight 77.7 kg (171 lb 3.2 oz) 09/09/2025 8:17 A M EST Height 172.7 cm (5' 8 ) 09/09/2025 8:17 AM EST Body Mass Index 26.03 09/09/2025 8:17 AM EST documented in this encounter Progress Notes * Claudia Salas PA-C - 09/09/2025 8:15 AM EST Images from the original note were not included. Chief Complaint: Follow up left shoulder surgery 07/23/25 History: Luis Ham is here today for repeat evaluation. he is right hand dominant who is retired. Physical therapy 2x a week. Home exercise program 1x a day. Patient reports pain has not changed/stayed the same. Concerns: right shoulder pain; would like a small refill of oxy; unable to use OTC medication due to contraindications with methotrexate Physical Exam: No swelling. No ecchymosis. Well healed incision site. Positive tenderness to palpation: anterior shoulder/incision Non tender to palpation: AC joint and Spine of the Scapula AROM: Forward Flexion 70, ER 20, IR hip pocket Strength: Forward Flexion 2/5 Imagin views of the left shoulder were taken in the office today and reviewed, AP Grashey , scapular Y, and axillary. Images reveal post surgical hardware placement. Images were compared to those taken previously with no significant changes noted. Assessment: Status post left RSA 07/23/25 Encounter Diagnosis Name Primary? Status post reverse total replacement of left shoulder Yes Plan: Highly encouraged the patient to continue with formal physical therapy and home exercise program. No lifting/nonweightbearing over shoulder height, such as top shelf of refrigerator, cabinet, or closet. Recommend not lifting, pushing, pulling, carrying anything greater than 2-5lbs. Will give him a small prescription for oxycodone to use in conjunction with PT. Reviewed with patient no contraindications for tylenol and use of methotrexate and he can use this medication as needed. No ibuprofen, aleve with methotrexate. Plan for follow up visit with Dr. Barcenas in 6-8 weeks for repeat x-rays with evaluation to follow. Patient was well educated and all questions were answered. DME: DME Summary No orders found for display Claudia Salas PA-C This chart was completed using voice recognition technology and may contain unintended errors. documented in this encounter Plan of Treatment Upcoming Encounters Date Type Department Care Team (Late st Contact Info) Description 11/08/2025 9:30 AM EDT Office Visit [facility] [address] [place] [address] Kayden Barcenas DO [address] [place] [address] 11/18/2025 10:45 AM EDT Office Visit [facility] [address] [address] Ford Gaitan MD [address] [place] [address] documented as of this encounter Results * XR SHOULDER LEFT 3 VIEWS (09/09/2025 8:21 AM EST) Narrative MarlenerEduarda - 09/09/2025 8:21 AM EST Please see physician's note from office encounter for x-ray imaging result Claudia Salas PA-C [facility] DI[facility]NOSTIC [facility] [place] [place] Final Result documented in this encounter Visit Diagnoses Diagnosis Status post reverse total replacement of left shoulder- Primary Status post reverse total replacement of left shoulder documented in this encounter Historical Medications * This list may reflect changes made after this encounter. hydroxychloroquine (PLAQUENIL) 200 mg Oral Tablet Take 200 mg by mouth 2 times daily. 08/31/2025 added in this encounter Care Teams Dumpling Machine Operator Relationship Specialty Start Date End Date Parker Rendon MD PCP - General Family Medicine 12/12/13 documented as of this encounter
--- OUTSIDE RECORDS SUMMARY | 2025-09-09 08:30 | XMS_ITS | Encounter Summary ---
Author Organization [facility] Address [address] [place] [address] Care Team Providers Care Contracts Advisor Name Role Phone Parker Rendon MD Primary Care Provider [phone] Encounter Details Date Type Department Care Team (Late st Contact Info) Description 09/09/2025 8:30 AM EST Ancillary Procedure [facility] [address] [place] [address] Claudia Salas PA-C [address] [place] [address] Status post reverse total replacement of left [...] EDT Office Visit [facility] [address] [place] [address] Narinder DO Kayden [address] [place], [place] [id number] 11/18/2025 10:45 AM EDT Office Visit [facility] [place] [address] [place] [address] Ford Gaitan MD [address] [place] [address] documented as of this encounter Procedures Procedure Name Priority Date/Time Associated Diagnosis Comments XR SHOULDER LEFT 3 VIEWS Routine 09/09/2025 8:21 AM EST Status post reverse total replacement of left shoulder documented in this encounter Results * XR SHOULDER LEFT 3 VIEWS (09/09/2025 8:21 AM EST) Narrative GenericuserEduarda - 09/09/2025 8:21 AM EST Please see physician's note from office encounter for x-ray imaging result us Claudia Salas PA-C IMG DIAGNOSTIC IMAGING ORDClarence KNOX Final Result documented in this encounter Visit Diagnoses Diagnosis Status post reverse total replacement of left shoulder documented in this encounter Care Teams Contracts Advisor Relationship Specialty Start Date End Date Parker Rendon MD PCP - General Family Medicine 12/12/13 documented as of this encounter
--- OUTSIDE RECORDS SUMMARY | 2025-09-09 13:12 | XMS_ITS | Encounter Summary ---
Author Organization [facility] Address [address] [place] [address] Care Team Providers Care Multineedle Shirrer Name Role Phone Parker Rendon MD Primary Care Provider [phone] Reason for Visit * Reason Onset Date Comments Medication Refill 08/23/2025 Encounter Details Date Type Department Care Team (Late st Contact Info) Description 08/23/2025 Refill [facility] [address] [place], [place] [id number] Kayden Barcenas DO [address] [place] [address] Medication Refill Social History Tobacco Use Types [...] [facility] [address] [place] [address] Milenanicolette KaydenDO [address] [place], [place] [id number] 11/18/2025 10:45 AM EDT Office Visit [facility] [place] [address] [place] [address] Ford Gaitan MD [address] [place] [address] documented as of this encounter Visit Diagnoses Diagnosis Status post reverse total replacement of left shoulder documented in this encounter Care Teams Multineedle Shirrer Relationship Specialty Start Date End Date Parker Rendon MD PCP - General Family Medicine 12/12/13 documented as of this encounter
--- OUTSIDE RECORDS SUMMARY | 2025-09-09 13:12 | XMS_ITS | Encounter Summary ---
Author Organization [place] [address] Care Team Providers Care Firer Boiler Name Role Phone Parker Rendon MD Primary Care Provider [phone] Reason for Visit * Reason Onset Date Comments Other 08/23/2025 Encounter Details Date Type Department Care Team (Late st Contact Info) Description 08/23/2025 Telephone [facility] Ophthalmology Cov [address] [facility] [address] [place] [id number] Otf Ureña, [address] [place] [address] Other Social History Tobacco Use Types Packs/Day [...] ago.The doctor who requested this test was [facility] Rosmery Erwin Patient denies current problems with his vision Scheduled with Dr Ureña on 08/30/25 [address]ided [address] directions on contact information. Informed Karina that patient should contact insurance to verify that Dr Ure[facility] location is in network with his insurance Informed to call with questions concerns changes. Informed of $47 fee documented in this encounter Plan of Treatment Upcoming Encounters Date Type Department Care Team (Late st Contact Info) Description 11/08/2025 9:30 AM EDT [facility] [address] [place] [address] Kayden Barcenas DO [address] [place], [place] [id number] 11/18/2025 10:45 AM EDT Office Visit [facility] [address] [address] Ford Gaitan MD [address] [place] [address] documented as of this encounter Visit Diagnoses Not on filedocumented in this encounter Care Teams Firer Boiler Relationship Specialty Start Date End Date Parker Rendon MD PCP - General Family Medicine 12/12/13 documented as of this encounter
--- OUTSIDE RECORDS SUMMARY | 2025-09-09 13:12 | XMS_ITS | Encounter Summary ---
Author Organization [facility] Address [address] [place] [address] Care Team Providers Care Fishing Manager Name Role Phone Parker Rendon MD Primary Care Provider Reason for Visit * Reason Onset Date Comments Other 07/14/2025 Encounter Details Date Type Department Care Team (Late st Contact Info) Description 07/14/2025 Telephone [place] [address] Milenanicolette KaydenDO [address] [place] [address] Other (/) Social History Tobacco Use Types [...] Description 11/08/2025 9:30 AM EDT Office Visit [facility] [address] [place] [address] Kayden Barcenas DO [address] [place], [place] [id number] 11/18/2025 10:45 AM EDT Office Visit [facility] [place] [address] [place] [address] Ford Gaitan MD [address] [place] [phone] documented as of this encounter Visit Diagnoses Not on filedocumented in this encounter Care Teams Fishing Manager Relationship Specialty Start Date End Date Parker Rendon MD PCP - General Family Medicine 12/12/13 documented as of this encounter
--- OUTSIDE RECORDS SUMMARY | 2025-09-09 13:12 | XMS_ITS | Encounter Summary ---
Author Organization [facility] Address [address] [place] [address] Care Team Providers Care Mill And Coal Transport Operator Name Role Phone Parker Rendon MD Primary Care Provider [phone] Reason for Visit * Reason Onset Date Comments Medication Refill 08/02/2025 Encounter Details Date Type Department Care Team (Late st Contact Info) Description 08/02/2025 Refill [facility] [address] [id number] Christiano Welsh, Employee Relations Administrator Medication Refill Social History Tobacco Use Types [...] End Date oxyCODONE (ROXICODONE) 5 mg Oral TabletIndications: Status post reverse total replacement of left shoulder Take 1 Tablet by mouth every 6 hours as needed for Major Surgery/Trau ma (G89.18). 25 Tablet 08/02/2025 08/23/2025 documented in this encounter Plan of Treatment Upcoming Encounters Date Type Department Care Team (Late st Contact Info) Description 11/08/2025 9:30 AM EDT Office Visit [facility] [address] [place] [address] Kayden Barcenas DO [address] [place] [address] 11/18/2025 10:45 AM EDT Office Visit [facility] [place] [address] [place] [address] Ford Gaitan MD [address] [place] [phone] documented as of this encounter Visit Diagnoses Diagnosis Status post reverse total replacement of left shoulder- Primary documented in this encounter Discontinued Medications Medication Sig Discontinue Reason Start Date End Da te oxyCODONE (ROXICODONE) 5 mg Oral Tablet Take 1 Tablet by mouth every 4 hours as needed for Major Surgery/Trauma (G89.18). Reorder 07/23/2025 08/02/2025 documented as of this encounter Care Teams Mill And Coal Transport Operator Relationship Specialty Start Date End Date Parker Rendon MD PCP - General Family Medicine 12/12/13 documented as of this encounter
--- OUTSIDE RECORDS SUMMARY | 2025-09-09 13:12 | XMS_ITS | Encounter Summary ---
Author Organization [facility] Address [address] [place] [address] Care Team Providers Care Oiler And Greaser Name Role Phone Parker Rendon MD Primary Care Provider [phone] Reason for Visit * Reason Onset Date Comments Medication Refill 07/29/2025 Encounter Details Date Type Department Care Team (Late st Contact Info) Description 07/29/2025 Refill [facility] [address] [place], [place] [phone] Kayden Barcenas DO [address] [place] [address] Medication Refill Social History Tobacco Use Types [...] [facility] [address] [place] [address] Narinder KaydenDO [address] [place], [place] [phone] 11/18/2025 10:45 AM EDT Office Visit [facility] [place] [address] [place] [address] Ford Gaitan MD [address] [place] [address] documented as of this encounter Visit Diagnoses Not on filedocumented in this encounter Care Teams Oiler And Greaser Relationship Specialty Start Date End Date Parker Rendon MD PCP - General Family Medicine 12/12/13 documented as of this encounter
--- OUTSIDE RECORDS SUMMARY | 2025-09-09 13:12 | XMS_ITS | Encounter Summary ---
Author Organization [facility] Address [address] [place] [address] Care Team Providers Care Wharfinger Chief Name Role Phone Parker Rendon MD Primary Care Provider [phone] Reason for Visit * Reason Onset Date Comments Other 07/14/2025 Encounter Details Date Type Department Care Team (Late st Contact Info) Description 07/14/2025 Telephone [place] [address] Brent BarcenasonDO [address] [place] [address] Other (/) Social History Tobacco Use Types [...] Notes * Telephone Encounter - Suzy Martinez Day Porter - 07/20/2025 10:50 AM EST Spoke with patient and he still has not received his ABD sling for upcoming sx scheduled for 07/23.He would like to get this through his personal insurance instead, and is scheduled to stop by [facility] on 07/21 at 9:00 for this. * Telephone Encounter - Suzy Martinez Athletic Trainer - 07/19/2025 3:29 PM EST Fax sent to [facility] was not delivered. Attempted to call [...] form and order was re-faxed today to [facility] at [phone]. Encouraged him to reach out if he [...] Description 11/08/2025 9:30 AM EDT Office Visit [facility] [address] [place], [place] [id number] Kayden Barcenas DO [address] [place], [place] [phone] 11/18/2025 10:45 AM EDT Office Visit [facility] [address] [address] Ford Gaitan MD [address] [place] [address] documented as of this encounter Visit Diagnoses Not on filedocumented in this encounter Care Teams Wharfinger Chief Relationship Specialty Start Date End Date Parker Rendon MD PCP - General Family Medicine 12/12/13 documented as of this encounter
--- OUTSIDE RECORDS SUMMARY | 2025-09-09 13:12 | XMS_ITS | Encounter Summary ---
Author Organization [facility] [place] [address] Care Team Providers Care Medical Lab Scientist Name Role Phone Parker Rendon MD Primary Care Provider [phone] Encounter Details Date Type Department Care Team [...] Rigoberto [facility]EMA [address] [place] [address] Kayden Barcenas DO [address] [place] [address] 11/18/2025 10:45 AM EDT Office Visit [facility] [address] [address] Ford Gaitan MD [address] [place] [address] documented as of this encounter Visit Diagnoses Not on filedocumented in this encounter Care Teams Medical Lab Scientist Relationship Specialty Start Date End Date Parker Rendon MD PCP - General Family Medicine 12/12/13 documented as of this encounter
--- OUTSIDE RECORDS SUMMARY | 2025-09-09 13:12 | XMS_ITS | Encounter Summary ---
Author Organization [facility] Address [address] [place] [address] Care Team Providers Care Ship Design Teacher Name Role Phone Parker Rendon MD Primary Care Provider [phone] Reason for Visit * Reason Onset Date Comments Medication Refill 08/02/2025 Encounter Details Date Type Department Care Team (Late st Contact Info) Description 08/02/2025 [place] [address] Christiano Welsh Solar Panel Installer Medication Refill Social History Tobacco Use Types [...] Description 11/08/2025 9:30 AM EDT Office Visit [facility] [address] [place] [address] Kayden Barcenas DO [address] [place] [address] 11/18/2025 10:45 AM EDT Office Visit [facility] [place] [address] [place] [address] Ford Gaitan MD [address] [place] [address] documented as of this encounter Visit Diagnoses Diagnosis Status post reverse total replacement of left shoulder documented in this encounter Care Teams Ship Design Teacher Relationship Specialty Start Date End Date Parker Rendon MD PCP - General Family Medicine 12/12/13 documented as of this encounter
--- OUTSIDE RECORDS SUMMARY | 2025-09-09 13:12 | XMS_ITS | Encounter Summary ---
Author Organization [facility] [place] [place] [address] Care Team Providers Care Poultry Hanger Name Role Phone Parker Rendon MD Primary Care Provider [phone] Encounter Details Date Type Department Care Team [...] Description 11/08/2025 9:30 AM EDT Office Visit [facility] [address] [place] [address] Kayden Barcenas DO [address] [place] [address] 11/18/2025 10:45 AM EDT Office Visit [facility] [address] [address] Ford Gaitan MD [address] [place] [address] documented as of this encounter Visit Diagnoses Not on filedocumented in this encounter Care Teams Poultry Hanger Relationship Specialty Start Date End Date Parker Rendon MD PCP - General Family Medicine 12/12/13 documented as of this encounter
--- OUTSIDE RECORDS SUMMARY | 2025-09-09 13:13 | XMS_ITS | Encounter Summary ---
Author Organization [facility] Address [address] [place] [address] Care Team Providers Care Sock Liner Name Role Phone Parker Rendon MD Primary Care Provider [phone] Reason for Visit * Reason Onset Date Comments Medication Refill 08/23/2025 Encounter Details Date Type Department Care Team (Late st Contact Info) Description 08/23/2025 Refill [facility] [address] [phone] Christiano Welsh, Supervisor Silvering Department Medication Refill Social History Tobacco Use Types [...] as needed for Major Surgery/Trau ma (G89.18). 20 Tablet 08/23/2025 09/09/2025 documented in this encounter Plan of Treatment Upcoming Encounters Date Type Department Care Team (Late st Contact Info) Description 11/08/2025 9:30 AM EDT Office Visit [facility]ober[facility]AL[facility] [address] [place] [address] Kayden Barcenas DO [address] [place] [address] 11/18/2025 10:45 AM EDT Office Visit [facility] [address] [address] Ford Gaitan MD [address] [place] [address] documented as of this encounter Visit Diagnoses Diagnosis Status post reverse total replacement of left shoulder documented in this encounter Discontinued Medications Medication Sig Discontinue Reason Start Date End Da te oxyCODONE (ROXICODONE) 5 mg Oral TabletIndications:Status post reverse total replacement of left shoulder Take 1 Tablet by mouth every 6 hours as needed for Major Surgery/Trauma (G89.18). Reorder 08/02/2025 08/23/2025 documented as of this encounter Care Teams Sock Liner Relationship Specialty Start Date End Date Parker Rendon MD PCP - General Family Medicine 12/12/13 documented as of this encounter
--- OUTSIDE RECORDS SUMMARY | 2025-09-09 13:13 | XMS_ITS | Encounter Summary ---
Author Organization [facility] Address [address] [place] [address] Care Team Providers Care Commercial Insurance Underwriter Name Role Phone Parker Rendon MD Primary Care Provider [phone] Encounter Details Date Type Department Care Team (Late st Contact Info) Description 07/21/2025 [place] [address] Kayden Barcenas DO [address] [place] [address] Social History Tobacco Use Types Packs/Day Years [...] - 07/21/2025 3:25 PM EST Sophia/Jesse PT [phone] called. Need order for PT: fax #[phone] documented in this encounter Plan of Treatment Upcoming Encounters Date Type Department Care Team (Late st Contact Info) Description 11/08/2025 9:30 AM EDT Office Visit [facility] [address] [place], [place] [phone] Kayden Barcenas DO [address] [place] [phone] 11/18/2025 10:45 AM EDT Office Visit [facility] [place] [address] [place] [address] Ford Gaitan MD [address] [place] [address] documented as of this encounter Visit Diagnoses Not on filedocumented in this encounter Care Teams Commercial Insurance Underwriter Relationship Specialty Start Date End Date Parker Rendon MD PCP - General Family Medicine 12/12/13 documented as of this encounter
--- OUTSIDE RECORDS SUMMARY | 2025-09-09 13:13 | XMS_ITS | Encounter Summary ---
Author Organization [facility] Address [address] [place] [address] Care Team Providers Care Printed Circuit Board Layout Designer Name Role Phone Parker Rendon MD Primary Care Provider Reason for Visit * Reason Onset Date Comments Other 07/08/2025 Encounter Details Date Type Department Care Team (Late st Contact Info) Description 07/08/2025 [place] [address] Brent BarcenasonDO [address] [place] [address] Other (/) Social History Tobacco Use Types [...] [facility] [address] [place] [address] Kayden Barcenas DO [address] [place], [place] [phone] 11/18/2025 10:45 AM EDT Office Visit [facility] [address] [address] Ford Gaitan MD [address] [place] [address] documented as of this encounter Visit Diagnoses Not on filedocumented in this encounter Care Teams Printed Circuit Board Layout Designer Relationship Specialty Start Date End Date Parker Rendon MD PCP - General Family Medicine 12/12/13 documented as of this encounter
--- OUTSIDE RECORDS SUMMARY | 2025-09-09 13:13 | XMS_ITS | Encounter Summary ---
Author Organization [facility] [place] [address] Care Team Providers Care Reshipping Clerk Name Role Phone Parker Rendon MD Primary Care Provider [phone] Encounter Details Date Type Department Care Team (Latest Contact Info) Description 08/24/2025 Travel Social History Tobacco Use Types Packs/Day [...] Rigoberto CHEEMA [address] [place] [address] Kayden Barcenas DO [address] [place] [address] 11/18/2025 10:45 AM EDT Office Visit [facility] [address] [address] Ford Gaitan MD [address] [place] [address] documented as of this encounter Visit Diagnoses Not on filedocumented in this encounter Care Teams Reshipping Clerk Relationship Specialty Start Date End Date Parker Rendon MD PCP - General Family Medicine 12/12/13 documented as of this encounter
--- OUTSIDE RECORDS SUMMARY | 2025-09-09 13:13 | XMS_ITS | Encounter Summary ---
Author Organization [facility] Address [address] [place] [address] Care Team Providers Care Grievance Coordinator Name Role Phone Parker Rendon MD Primary Care Provider [phone] Reason for Visit * Reason Onset Date Comments Medication Refill 09/09/2025 Encounter Details Date Type Department Care Team (Late st Contact Info) Description 09/09/2025 Refill [facility] [address] [facility] [address] [place], [place] [phone] Kayden Barcenas DO [address] [place] [address] Medication Refill Social History Tobacco Use Types [...] shoulder Take 1 Tablet by mouth every 12 hours as needed for Major Surgery/Trau ma (G89.18). 10 Tablet 09/09/2025 documented in this encounter Plan of Treatment Upcoming Encounters Date Type Department Care Team (Late st Contact Info) Description 11/08/2025 9:30 AM EDT Office Visit [facility] [address] [place] [address] Kayden Barcenas DO [address] [place] [address] 11/18/2025 10:45 AM EDT Office Visit [facility] [address] [address] Ford Gaitan MD [address] [place] [address] documented as of this encounter Visit Diagnoses Diagnosis Status post reverse total replacement of left shoulder- Primary documented in this encounter Discontinued Medications Medication Sig Discontinue Reason Start Date End Da te oxyCODONE (ROXICODONE) 5 mg Oral TabletIndications:Status post reverse total replacement of left shoulder Take 1 Tablet by mouth every 6 hours as needed for Major Surgery/Trauma (G89.18). Cancelled by 08/23/2025 09/09/2025 documented as of this encounter Care Teams Grievance Coordinator Relationship Specialty Start Date End Date Parker Rendon MD PCP - General Family Medicine 12/12/13 documented as of this encounter
--- OUTSIDE RECORDS SUMMARY | 2025-09-09 13:13 | XMS_ITS | Clinical Summary ---
Author Organization [facility] Address [address] [place] [address] Phone Care Team Providers Care Process Camera Operator Name Role Phone Parker Rendon MD Primary Care Provider Allergies No known active allergies Medications Hecker-3 Fatty Acids-Vitamin E (FISH OIL) 1,000 mg [...] Take 1 mg by mouth daily. Active hydroxychloroqui ne (PLAQUENIL) 100 mg Oral Tablet Take 200 mg by mouth daily. Active ascorbic acid (VITAMIN C ORAL) Take by mouth daily. Active hydroxychloroqui ne (PLAQUENIL) 200 mg Oral Tablet Take 200 mg by mouth 2 times daily. 6 Active oxyCODONE (ROXICODONE) 5 mg Oral TabletIndication s:Status post reverse total replacement of left shoulder Take 1 Tablet by mouth every 12 hours as needed for Major Surgery/Trau ma (G89.18). 10 Tablet 6 Active oxyCODONE (ROXICODONE) 5 mg Oral TabletIndication s:Status post reverse total replacement of left shoulder Take 1 Tablet by mouth every 6 hours as needed for Major Surgery/Trau ma (G89.18). 25 Tablet 5 08/23/20 25 Discontinu ed(Reorder ) oxyCODONE (ROXICODONE) 5 mg Oral TabletIndication s:Status post reverse total replacement of left shoulder Take 1 Tablet by mouth every 6 hours as needed for Major Surgery/Trau ma (G89.18). 20 Tablet 5 09/09/19 26 Discontinu ed(Cancell ed by MD) Active Problems Problem Noted Date Diagnosed Date History of long-term treatment with high-risk me dication 08/30/2025 Assessment & Plan (08/30/2025 4:22 PM EST): Plaquenil exam testing today. Patient educated about [...] he started. RTC for yearly plaquenil exams. Left eye injury 08/30/2025 Assessment & Plan (08/30/2025 4:19 PM EST): OS injury 1981 while in the Ocular health is doing well but pupil is chronically dilated. This contributes to some blur and light sensitivity. Posterior vitreous detachment of both eyes 08/30 Assessment & Plan (08/30/2025 4:20 PM EST): Patient educated about flashes of light and [...] concerning changes. 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 He reports chronic ocular itch that is improved [facility] Continue with allergy drops. Pseudophakia 08/30/2025 Assessment & Plan (08/30/2025 4:20 PM EST): PCIOL OU 2020 Refractive error 08/30/2025 Assessment & Plan (08/30/2025 4:21 PM EST): Pt noticed mild improvement with updated spectacle Rx. Copy of Rx released Complete tear of left rotator cuff 06/22/2025 Biceps tendon tear 06/22/2025 Glenohumeral arthritis 06/22/2025 Coronary artery disease of n ative artery of [place] heart with stable angina pectoris 10/20/2024 Overview (10/20/2024): 50% LAD on cath in 2017 Former smoker 10/20/2024 Tachycardia 12/14/2013 Pneumonia 12/14/2013 Leukocytosis 12/14/2013 Hematuria 12/14/2013 CAMPA (dyspnea on exertion) 12/14/2013 Dehydration 12/14/2013 Acute renal failure 12/14/2013 Precordial pain FH: CAD (coronary artery disease) Abnormal stress test Encounters Date Type Department Care Team Description 09/09/2025 8:30 AM EST Ancillary Procedure [facility] [address] [place] [phone] Claudia Salas PA-C Status post reverse total replacement of left shoulder 09/09/2025 8:15 AM EST Office Visit [facility] [address] [place] [address] Claudia Salas PA-C Status post reverse total replacement of left shoulder (Primary Dx) 09/09/2025 Refill [facility] [address] [place] [address] Kayden Barcenas DO Medication Refill 08/30/2025 2:05 PM EST Office Visit [facility] [address] [place] [phone] Otf Ureña, [place] History of long-term treatment with high-risk medication (Primary Dx); Left eye injury, sequela; Posterior vitreous detachment of both eyes; Allergic conjunctivitis of both eyes; Pseudophakia; Refractive error 08/24/2025 Travel 08/23/2025 Refill [facility] [address] [address] Christiano Welsh, Business Representative Medication Refill 08/23/2025 Refill [facility] [address] [address] Kayden Barcenas DO Medication Refill 08/23/2025 Telephone [facility] [address] [facility] [address] [place] [phone] Otf Ureña, [place] Other 08/02/2025 9:30 AM EST Ancillary Procedure [facility] [address] [place] [address] Kayden Barcenas DO Status post reverse total replacement of left shoulder 08/02/2025 9:15 AM EST Office Visit [facility] [address] [place] [address] Kayden Barcenas DO Status post reverse total replacement of left shoulder (Primary Dx) 08/02/2025 Refill [facility] [address] [place] [address] Christiano Welsh Athletic Trainer Medication Refill 08/02/2025 Refill [facility] [address] [place] [address] Christiano Welsh Athletic Trainer Medication Refill 07/29/2025 Refill [facility] [address] [place] [address] Kayden Barcenas DO Medication Refill 07/23/2025 11:56 AM EST Anesthesia Event [facility] [address] [place] [address] Whitney Kwan MD Mohan, Blair R, DO 07/23/2025 11:42 AM EST - 07/23/2025 2:07 PM EST Surgery [facility] [address] [place] [phone] Kayden Barcenas DO ARTHROPLASTY, SHOULDER, TOTAL, REVERSE 07/23/2025 9:59 AM EST - 07/23/2025 11:59 PM EST Hospital Encounter [facility] SAME DAY [facility] [address] [place] [address] Kayden Barcenas DO Discharge Disposition: Home or Self Care 07/23/2025 9:23 AM EST - 07/23/2025 3:24 PM EST Hospital Encounter [facility] [address] [place] [phone] Kayden Barcenas DO Discharge Disposition: Home or Self Care 07/23/2025 8:20 AM EST - 07/23/2025 9:22 AM EST Hospital [facility] [address] [place], [place] [phone] Kayden Barcenas DO Discharge Disposition: Home or Self Care 07/23/2025 Travel 07/21/2025 9:00 AM EST Clinical Support [facility] [address] [place] [address] Valencia, Suzy, Business Representative Complete tear of left rotator cuff, unspecified whether traumatic (Primary Dx); Biceps tendon tear; Glenohumeral arthritis 07/21/2025 Telephone [facility] [phone] Kayden Barcenas, 07/21/2025 [facility] [address] [place] [phone] Kayden Barcenas, Other (/) 07/14/2025 11:59 PM EST Anesthesia [facility] Pre[facility]Post [address] [place] [address] Kemar Bernal, DO 07/14/2025 Travel 07/14/2025 [facility]phone [facility] [address] [address] Kayden Barcenas, Other (/) 07/14/2025 Telephone [facility] [address] [place] [address] Kayden Barcenas, Other (/) 07/08/2025 Telephone [facility] [address] [place] [address] Kayden Barcenas, Other (/) 07/05/2025 [facility] [address] [address] Kayden Barcenas DO Complete tear of left rotator cuff, unspecified whether traumatic (Primary Dx); Biceps tendon tear; Glenohumeral arthritis; Strain of left shoulder, initial encounter; Tendinitis of left rotator cuff; Acute pain of left shoulder 06/22/2025 Orders Only [address] [address] Kayden Barcenas DO Complete tear of left rotator cuff, unspecified whether traumatic (Primary Dx); Biceps tendon tear; Glenohumeral arthritis 06/21/2025 2:30 PM EDT [facility] [address] [place] [address] Kayden Barcenas DO Complete tear of left rotator cuff, unspecified whether traumatic (Primary Dx); Biceps tendon tear; Glenohumeral arthritis 06/11/2025 9:14 AM EDT - 06/11/2025 11:59 PM EDT Hospital Encounter [facility] [address] [place] [address] COPD, mild (HCC); Family history of rheumatoid arthritis Discharge Disposition: Home or Self Care 06/11/2025 8:30 AM EDT Ancillary Procedure [facility] [address] [place] [address] Kayden Barcenas DO Strain of left shoulder, initial encounter; Tendinitis of left rotator cuff from Last 3 Months Immunizations Immunization Administration Dates Next Due Pneumococcal Polysaccharide 23 Valent 12/14/2013 Surgical History Surgery Date Site/Laterality Comments HERNIA REPAIR SHOULDER SURGERY Right SHOULDER ARTHROPLASTY 07/23/2025 Shoulder/Left Left Shoulder Reverse Total Replacement Arthroplasty; Surgeon: Kayden Barcenas DO; Location: [facility] OR; Service: Orthopedics Medical devices from this surgery are in the Medical Devices section. Medical History Medical History Date Comments Hypertension Acute renal failure 12/14/2013 Rheumatoid arthritis (HCC) Osteoporosis Family History Medical History Relation Name Comments Blindness Neg Hx Glaucoma Neg Hx Macular Degen Neg Hx Social History Tobacco Use Types Packs/Day Years [...] EST Inhaled Oxygen Concentration - - Weight 77.7 kg (171 lb 3.2 oz) 09/09/2025 8:17 A M EST Height 172.7 cm (5' 8 ) 09/09/2025 8:17 AM EST Body Mass Index 26.03 09/09/2025 8:17 AM EST Plan of Treatment Upcoming Encounters Date Type Department Care Team (Late st Contact Info) Description 11/08/2025 9:30 AM EDT Office Visit [facility] [address] [place] [address] Kayden Barcenas DO [address] [place] [address] 11/18/2025 10:45 AM EDT Office Visit [facility] [address] [phone] Ford Gaitan MD [address] [place] [address] Health Maintenance Due Date Last [...] 04/10/2010 AAA Screening 02/18/2025 COVID-19 Vaccine ( - season) 2025 07/05/2021, 10/03/2020, 09/12/2020 Influenza Vaccine (#1) 2025 , 07/24/2023, 08/11/2021, Additional history exists Hepatitis B Vaccine Aged Out No longe r eligible based on patient's age to complete this topic Meningococcal B Vaccine Aged Out No l onger eligible based on patient's age to complete this topic Medical Devices Implanted Type Area Sales Administration Manager Device Identifier Shelf Expiration Date Model / Serial / Lot Baseplate Std Glenoid 24mm Sharon Meter 0 Degree 10mm - [id number] Implanted:Qty: 1 on 07/23/2025 by Kayden Barcenas DO at [facility] Left: Shoulder [employer] [id number] 02/06/2029 [id number] / / [id number] Screw Rsa Perpendicular Locking 4.5mm X 35 Mm - [id number] Implanted:Qty: 1 on 07/23/2025 by Kayden Bacrenas DO at [facility] Left: Shoulder [employer] [id number] / / Screw Rsa Perpendicular Locking 4.5mm X 25 Mm - [id number] Implanted:Qty: 1 on 07/23/2025 by Kayden Barcenas DO at [facility] Left: Shoulder [employer] [id number] / / Screw Rsa Perpendicular Locking 4.5mm X 15 Mm - [id number] Implanted:Qty: 1 on 07/23/2025 by Kayden Barcenas DO at [facility] Left: Shoulder [employer] [id number] / / Screw Rsa Central Compression 6.0mm X 30mm - [id number] Implanted:Qty: 1 on 07/23/2025 by Kayden Barcenas DO at [facility] Left: Shoulder [employer] [id number] / / Total Shoulder Rsa Offset Glenosphere-Cocr 65rnc9utg+6mm - [id number] Implanted:Qty: 1 on 07/23/2025 by Kayden Barcenas DO at [facility] Left: Shoulder [employer] [id number] 07/21/2029 [id number] / / [id number] Stem Humeral Short 32mm X 6mm Sterile - [id number] Implanted:Qty: 1 on 07/23/2025 by Kayden Barcenas DO at [facility] Left: Shoulder ENCORE MED:DJO SURGICAL [id number] 09/14/2029 [id number] / / [id number] Total Shoulder Rsa Neutral Humeral Bearing 36mm 0mm 0 Deg - [id number] Implanted:Qty: 1 on 07/23/2025 by Kayden Barcenas DO at [facility] Left: Shoulder [employer] [id number] 02/16/2030 [id number] / / [id number] Total Shoulder Rsa Humeral Trays 0 Mm Offset 38 Mm Sharon - [id number] Implanted:Qty: 1 on 07/23/2025 by Kayden Barcenas DO at [facility] Left: Shoulder [employer] [id number] 07/01/2029 [id number] / / [id number] Procedures Procedure Name Priority Date/Time Associated Diagnosis Comments XR SHOULDER LEFT 3 VIEWS Routine 09/09/2025 8:21 AM EST Status post reverse total replacement of left shoulder KEYES VISUAL FIELD - OU - BOTH EYES Routine 08/30/2025 4:18 PM EST History of long-term treatment with high-risk medication OCT, RETINA - OU - BOTH EYES Routine 08/30/2025 4:18 PM EST History of long-term treatment with high-risk medication XR SHOULDER LEFT 3 VIEWS Routine 08/02/2025 9:28 AM EST Status post reverse total replacement of left shoulder XR SHOULDER LEFT 1 VW STAT 07/23/2025 2:30 PM EST ECG AND WAVEFORMS - TELEMETRY Routine 07/23/2025 2:00 PM EST INTRAOP AIRWAY PLACEMENT Routine 07/23/2025 12:05 PM EST CO ARTHROPLASTY GLENOHUMERAL JOINT TOTAL SHOULDER 07/23/2025 11:56 [...] LEFT 3 VIEWS (09/09/2025 8:21 AM EST) Only the most recent of2 resultswithin the time period is included. Narrative Genericuser, Audit - 09/09/2025 8:21 AM EST Please see physician's note from office encounter for x-ray imaging result us Claudia Salas PA-C IMG DIAGNOSTIC IMAGING ORDClarence KNOX Final Result * KEYES VISUAL FIELD - OU - BOTH EYES [...] baseline testing for plaquenil medication, unremarkable [facility] OPHTHALMOLOGY SERVICES ORDER HANSEL Final Result Performing Organization Address [facility] de Phone Number SEP OFFICE * OCT, [...] testing for plaquenil medication Normal IS/OS OU [facility] OPHTHALMOLOGY SERVICES ORDER HANSEL Final Result Performing Organization Address [facility] Phone Number SEP OFFICE * XR SHOULDER LEFT 1 VW (07/23/2025 [...] please contactthe office of the ordering clinician. Kayden Barcenas DO IMG DIAGNOSTIC IMAGING ORDERABL ES Final Result * INTRAOP AIRWAY PLACEMENT (07/23/2025 12:05 PM EST) Narrative [facility] - 07/23/2025 12:05 PM EST Ford Kaufman CRNA 07/23/2025 12:16 PM Intraop Airway Placement: Date/Time: 07/23/2025 12:05 PM Induction type: IV Mask size: Standard adult Pre-Oxygenation: Standard Laryngoscope blade: Fisher Blade size: 4 Airway type: ETT- cuffed Topical Anesthetic/Lubricant: Lidocaine 5% ointment Device size: 8mm Secured by: Tape Placement verified: End tidal CO2 and Auscultation Condition: Atraumatic Insertion attempts: 1 Title: DENTAL SURGERY DOCTOR lidocaine 4 % ([id number]) laryngotracheal solution - Laryngotracheal 2 mL - 07/23/2025 12:05:00 PM: Whitney Kwan MD CO ANESTHESIA Final R esult Performing Organization Address City/State/[facility] Co de Phone Number [facility] [address] [place] [address] * Peripheral Block by Anesthesia (07/23/2025 11:36 AM EST) Narrative [facility] - 07/23/2025 11:36 AM EST Blair [...] block is attached/scanned to the epic chart. us Whitney Kwan MD ANESTHESIA ORDERABLES F inal Result [facility] [address] [place] [address] * US ANES GUIDANCE FOR NERVE BLOCK (07/23/2025 9:59 AM EST) Narrative [facility] - 07/23/2025 9:59 AM EST Ultrasound guided [...] pulmonary disease, unspecified (HCC)-ICD-10-CM Z82.61-Family history of vdfuebtcj-YHH-39-CM COMPARISON: None. PROCEDURE COMMENTS: AP and lateral [...] obstructive pulmonary disease,unspecified (HCC)-ICD-10-CM Z82.61-Family history of ejzdtddku-KUL-38-CM COMPARISON: None. PROCEDURE COMMENTS: AP and lateral [...] pulmonary disease, unspecified (HCC)-ICD-10-CM Z82.61-Family history of hohrduidv-WJX-33-CM COMPARISON: No comparison studies. PROCEDURE COMMENTS: XR FOOT RIGHT AP LATERAL AND OBLIQUE FINDINGS: Normal alignment of the mid/hindfoot structures. Small hypertrophic plantar calcaneal bone spur. No acute displaced/healing fracture deformity. Minimal degenerative changes of the first MTP joint. No visualized erosive changes or bony destructive process. Procedure Note Martin Collazo DO - 06/11/2025 XR FOOT RIGHT AP LATERAL AND OBLIQUE, 06/11/2025 9:46 AM CLINICAL HISTORY: J44.9-Chronic obstructive pulmonary disease,unspecified (HCC)-ICD-10-CM Z82.61-Family history of aaxgojrgh-UOP-23-CM COMPARISON: No comparison studies. PROCEDURE COMMENTS: XR [...] pulmonary disease, unspecified (HCC)-ICD-10-CM Z82.61-Family history of dapzimqhn-VOB-50-CM COMPARISON: None. PROCEDURE COMMENTS: XR FOOT LEFT AP LATERAL AND OBLIQUE FINDINGS: No acute fracture or traumatic malalignment.Subchondral cysts fifth metatarsal head. Joint spaces overall well-maintained for age. No periostitis. Procedure Note Veda Fernandes MD - 06/11/2025 XR FOOT LEFT AP LATERAL AND OBLIQUE, 06/11/2025 9:46 AM CLINICAL HISTORY: J44.9-Chronic obstructive pulmonary disease,unspecified (HCC)-ICD-10-CM Z82.61-Family history of bptgfwdyz-YNZ-21-CM COMPARISON: None. PROCEDURE COMMENTS: XR FOOT LEFT [...] of the ordering clinician. Nahomy Bobby NP [facility] ORDERABL ES Final Result * [...] pulmonary disease, unspecified (HCC)-ICD-10-CM Z82.61-Family history of jngpoheyo-WSG-35-CM COMPARISON: None. PROCEDURE COMMENTS: XR HAND LEFT PA LATERAL AND OBLIQUE FINDINGS: No acute fracture or traumatic malalignment. Joint spaces overall well-maintained for age. No periostitis. Procedure Note Veda Fernandes MD - 06/11/2025 XR HAND LEFT PA LATERAL AND OBLIQUE, 06/11/2025 9:46 AM CLINICAL HISTORY: J44.9-Chronic obstructive pulmonary disease,unspecified (HCC)-ICD-10-CM Z82.61-Family history of yenyrbddr-FWU-95-CM COMPARISON: None. PROCEDURE COMMENTS: XR HAND LEFT [...] of the ordering clinician. Nahomy Bobby NP [facility] ORDERABL ES Final Result * [...] pulmonary disease, unspecified (HCC)-ICD-10-CM Z82.61-Family history of nrpzablpa-UDF-55-CM COMPARISON: None. PROCEDURE COMMENTS: Frontal and lateral views of the chest. FINDINGS: Heart and mediastinal contours within normal limits for technique. No effusion. No visible pneumothorax. Mild left basilar atelectasis. Procedure Note Veda Fernandes MD - 06/11/2025 PA AND LATERAL CHEST X-RAY, 06/11/2025 9:46 AM CLINICAL HISTORY: J44.9-Chronic obstructive pulmonary disease,unspecified (HCC)-ICD-10-CM Z82.61-Family history of jeqbljimw-DLL-84-CM COMPARISON: None. PROCEDURE COMMENTS: Frontal and lateral [...] WO CONTRAST (06/11/2025 8:43 AM EDT) Narrative [facility] - 06/11/2025 8:43 AM EDT Please see the scanned MRI report associated with this order on the Imaging tab of the patient's chart. Kayden Barcenas DO IMG MRI ORDERABLES Final Result [facility] * CT ANGIOGRAM CHEST W CONTRAST [...] COLONOSCOPY (04/10/2010 12:00 AM EDT) 04/10/2010 Impressions [facility] - 08/28/2012 1:32 PM EST Diverticulosis of the whole colon Otherwise normal colonoscopy to cecum Narrative [facility] - 08/28/2012 1:32 PM EST Performing Provider: Jason Candelario M.D. Referring Provider: Mulugeta Phelps M.D. Jason Candelario MD GI PROCEDURE ORDERABLES Fin al Result Performing Organization Address [facility]/State/[facility] Co de Phone Number [facility] [address] [address] from Last 3 Months or Most Recently Relevant to Health Maintenance Insurance PPO Member Subscriber Plan / Payer (Ef fective 2002-Present) Name:Luis Ham Relation to Subscriber:Spouse Name:Karina Ham Date of :1962 (Home) (Work) Address: [address] [place] [address] Payer ID:[id number] (NAIC) Group ID:[id number] Type:Not on file Address: [address] [place] [id number] [place] Member Subscriber Plan / Payer (Ef fective 2019-Present) Name:Luis Ham Member ID:[id number] Relation to Subscriber:Self Name:Luis Ham Subscriber ID:[id number] Payer ID:Not on file Group ID:Not on file Type:Not on file Address: [address] [place] P[place] Advance Directives For more information, please contact: [phone] * Full Code (Latest Code Status on File) Date Activated Date Inactivated Comments 12/26/2016 2:03 PM 12/26/2016 7:06 PM * Full Code Date Activated Date Inactivated Comments 12/13/2013 12:41 AM 12/17/2013 4:47 PM Care Teams Process Camera Operator Relationship Specialty Start Date End Date Parker Rendon MD PCP - General Family Medicine 12/12/13
--- OUTSIDE RECORDS SUMMARY | 2025-09-09 13:13 | XMS_ITS | Encounter Summary ---
Author Organization [facility] Address [address] [place] [address] Care Team Providers Care Financial Specialist Name Role Phone Parker Rendon MD Primary Care Provider Reason for Visit * Reason Onset Date Comments Other 07/21/2025 Encounter Details Date Type Department Care Team (Late st Contact Info) Description 07/21/2025 Telephone [place] [address] MilenanicoletteBrentonDO [address] [place] [address] Other (/) Social History Tobacco Use Types [...] 11/08/2025 9:30 AM EDT Office Visit [facility] [address] [facility] [address] [place] [address] Kayden Barcenas DO [address] [place] [phone] 11/18/2025 10:45 AM EDT Office Visit [facility] [address] [address] Ford Gaitan MD [address] [place] [address] documented as of this encounter Visit Diagnoses Not on filedocumented in this encounter Care Teams Financial Specialist Relationship Specialty Start Date End Date Parker Rendon MD PCP - General Family Medicine 12/12/13 documented as of this encounter
== END 2025-08-22 23:59 | disposition home or self-care (01) ==
LOC: LAB.DROPOF 09-09 13:02
PROVIDERS: PCP Family Medicine; Visit Provider Nurse Practitioner
DX: J06.9 Acute upper respiratory infection, unspecified (principal)
CPT/HCPCS: 87636